=== PATIENT | male | born 1960 | race Caucasian/White ===

== ENCOUNTER 2018-04-22 07:00 | Emergency (ER) | payer OTHER, SELFPAY ==
[2018-04-22 07:01] VITALS: BP 136/68; PULSE 89; RESP 16; TEMP 36.9; O2SAT 98; BMI 42.0
--- NOTE | 2018-04-22 07:09 | CT_ITS ---
STUDY: CT ABDOMEN AND PELVIS WITHOUT CONTRAST REASON FOR EXAM: Male, 57 years old. Lower abdominal pain. History of kidney stones. RADIATION DOSAGE (If Supplied By Facility): CTDIvol = ( 24.18 ) mGy, DLP = ( 2641.30 ) mGycm TECHNIQUE: Transaxial images were obtained from the dome of the diaphragm to the symphysis pubis without oral contrast, and without intravenous contrast. Sagittal and coronal images were reconstructed. Individualized dose optimization techniques were used for this CT. COMPARISON: None. FINDINGS: The visualized lung bases are unremarkable. Coronary artery calcification. Normal liver. There are multiple gallstones. Normal spleen. Normal pancreas. There is a 3.3 cm x 2.8 cm inhomogeneous nodular density containing soft tissue density and fat density. This may represent a hemartoma or myelo lipoma of the left adrenal gland. Normal right kidney. Normal left kidney. Normal visualized stomach. Normal small intestine. There are multiple colonic diverticula consistent with diverticulosis. The appendix is visualized and appears normal. There is scattered atherosclerotic calcification of the abdominal aorta, without a demonstrated aneurysm. Normal inferior vena cava. There is borderline retroperitoneal lymphadenopathy with enlarged nodes no greater than 10mm in the short axis diameter. Normal urinary bladder. There is a small umbilical hernia containing fat. Small right inguinal hernia containing fat. There are mild degenerative changes of the visualized lumbar spine. CT/Abdomen/Pelvis without Cont IMPRESSION: There is a contracted stone filled gallbladder. 3.3 cm x 2.8 cm inhomogeneous nodular density in the left adrenal gland containing soft tissue density and fat density. This may represent either a hemartoma or myolipoma of the adrenal gland. Electronically Signed: Dario Farris MD at 8:24 EST Tel [phone], Service support ,
[2018-04-22] MEDS: 0.9% Normal Saline 1,000 ML 125 ML IV (07:38)
[2018-04-22 07:45] LABS: Bacteria 0 SEEN /hpf (None Seen); Mucous, Urine 0 SEEN /hpf (<or=2+); Red Blood Cells-Urine 0 SEEN /hpf (0-5); White Blood Cells 0 SEEN /hpf (0-5)
[2018-04-22 07:54] LABS: Basophil# 0.04 X10^3/uL; Basophil% 0.3 % (0-1); Eosinophil# 0.35 X10^3/uL; Eosinophils% 2.9 % (0-5); Hematocrit 47.8 % (40-54); Lymphocyte % 16.4 % (19-41); Mean Corp Hgb Conc 33.5 g/gl (32-36); Mean Corpuscular Hgb 30.5 pg (27.0-32.0); Mean Corpuscular Volume 91.2 fL (80-94); Mean Platelet Vol. 10.2 fl (6.2-12.0); Monocyte# 0.79 X10^3/uL; Monocyte% 6.5 % (0-10); Neutrophil # 8.99 X10^3/uL (2.7-7.7); Neutrophil % 73.7 % (47-70); Platelet Count 242 K/mm3 (150-450); RBC Distribution Width CV 13.4 % (11.6-14.6); RBC Distribution Width SD 44.2 fl (35.1-43.9); Red Blood Count 5.24 M/mm3 (4.6-6.2); White Blood Count 12.2 K/mm3 (4.4-11.0)
[2018-04-22 07:56] LABS: POSITIVE COUNT NO; POSITIVE DIFFERENTIAL NO; POSITIVE MORPHOLOGY NO
[2018-04-22 08:02] LABS: Color, Urine Yellow (Yellow); Glucose, Dipstick 1000 mg/dl (Normal); Ketone-Dipstick 5 mg/dl (Negative); Leukocyte Esterase-Dipstick Negative /ul (Negative); Nitrite-Dipstick Negative (Negative); Occult Blood-Urine Negative /ul (Negative); Protein-Dipstick 15 mg/dl (Negative); Specific Gravity, Urine 1.025 (1.002-1.030); Urine Bilirubin Dipstick Negative (Negative); Urine Clarity Clear (Clear); Urine Urobilinogen Normal (Normal)
[2018-04-22 08:04] LABS: ALB/GLOB Ratio 0.9 RATIO (0.9-2.4); AST(SGOT) 14 U/L (15-37); Alanine Aminotransfer ALT/SGPT 35 U/L (16-61); Albumin, Serum 3.6 g/dL (3.2-5.0); Alkaline Phosphatase 119 U/L (45-117); Anion Gap 7 (5-15); BUN 11 mg/dL (7-18); BUN/Creat Ratio 11.9 RATIO (10-20); Calcium,Total 9.3 mg/dL (8.5-10.1); Chloride 102 mmol/L (98-107); Creatinine, Serum 0.92 mg/dL (0.70-1.30); EST Glomerular Filtration Rate 89 mL/min (>60); Est Glom Filt Rate - Afr Amer 108 mL/min (>60); Estimated Creatinine Clearance 96.06 ml/min; Globulin 4.1 g/dL (2.2-4.2); Glucose 232 mg/dL (74-106); Lipase 131 U/L (73-393); Protein, Total 7.7 g/dL (6.4-8.2); Sodium Level 138 mmol/L (136-145)
[2018-04-22 08:08] LABS: Squamous Epithelial Cells - UA 0-5 SEEN /hpf (0-5)
[2018-04-22 08:18] LABS: Lactic Acid 2.3 mmol/L (0.4-2.0)
--- NOTE | 2018-04-22 08:39 | ED.VISSUMM ---
- ER Visit Summary Date of Service: 04/22/18 Chief Complaint: [Abdominal pain] History of Present Illness: The patient is a 57 M [presents the emergency department complaint of abdominal pain that started 2 PM yesterday. Patient states pain came on rather suddenly but it would resolve at times. Patient states that last night patient had a hard time sleeping secondary to pain and had a hard time laying on either side. Patient states the pain would relieve somewhat by laying flat on his back. Patient is never had pain like this before. He denies any injury to his abdomen. Patient denies any fever. He denies vomiting or diarrhea. Patient denies blood in his stool or black tarry stool. At rest he rates his pain a 2 out of 10 and with movement at times can go up to a 7 out of 10. Patient is never had pain like this before. He denies any pain into his testicles or groin. Patient denies urinary symptoms.] Physical Examination: [HEENT-PERRLA, EOMI. Cranial nerves II through XII grossly intact. TMs clear. Mucous membranes moist. No adenopathy. Cardiovascular-regular rate and rhythm without murmur or ectopy Lungs-clear to auscultation, chest wall stable without crepitus or subcu emphysema Abdomen-normoactive bowel sounds, soft. Patient has diffuse tenderness to palpation over the right lower quadrant, suprapubic region, and left lower quadrant. There is no rebound, rigidity, or perineal signs. Patient has a large protuberant abdomen. No hernias palpated. Extremities-intact ?4, normal range of motion, normal pulses, atraumatic] Test Results: [CBC with differential obtained showed a slightly elevated white blood cell count of 12.2. Hemoglobin 16, hematocrit 48, platelets 242. Chemistries unremarkable. LFTs were normal. Urinalysis was normal. Lactate was slightly elevated 2.3. CT scan of the abdomen and pelvis without contrast ordered showed a normal appendix. Patient did have a 3.3 x 2.8 cm inhomogenous nodular density in the left adrenal gland containing soft tissue density and fat density may represent either hemeartoma or myolipoma of the adrenal gland. Patient was noted to have some diverticuli but no evidence of diverticulitis. Patient had small umbilical hernia containing fat as well as a small right inguinal hernia contained fat.] Emergency Department Course and Treatment: [Patient did not want anything for pain. Patient was medicated with Cipro and Flagyl. Patient does have a slightly elevated lactate however my suspicion for ischemic colitis is extremely low. I discussed with patient obtaining a CT scan with IV contrast to evaluate further however patient states that his pain is intermittent and at times completely resolved which would be atypical for ischemic colitis and he would like to hold off on further imaging and IV contrast given his history of diabetes. I feel clinically his exam is not consistent with ischemic colitis. Patient states that he did not drink much fluid yesterday.] Treatment Plan: [At this point etiology of patient's abdominal pain is unclear although I suspect possibility remains for early diverticulitis and will cover with Cipro and Flagyl. Patient is now anything for pain. Patient advised to follow-up with his primary care physician within next 3-5 days. Patient advised to return if worsening pain, fever, vomiting, bloody stools, or condition should worsen anyway.] Disposition: [Discharged home in stable condition] Impression: [Abdominal pain-etiology uncertain] This note was generated with [employer] dictation software. It may contain incorrect words, spelling, and punctuation that were not noted in review of the chart prior to signing ED Disposition - Plan for ED Patient: Chief Complaint: Abd Pain Referrals: Eze Rick DO [Primary Care Provider] -
--- NOTE | 2018-04-22 08:44 | ED.DEP ---
ED Disposition - Plan for ED Patient: Chief Complaint: Abd Pain Instructions: ED Abdominal Pain Unkn Cause Prescriptions: Metronidazole [Flagyl] 500 mg PO Q8H #30 tab Ciprofloxacin [Cipro] 500 mg PO BID #20 tab Referrals: Eze Rick DO [Primary Care Provider] - 3-5 Days
[2018-04-22] MEDS: metroNIDAZOLE 500 MG Tablet PO (08:55)
[2018-04-22 08:58] VITALS: BP 136/65; PULSE 99; RESP 16; O2SAT 99
[2018-04-22] MEDS: Ciprofloxacin 250 MG Tablet 500 MG PO (09:22)
[2018-04-22 11:43] LABS: Reflex Lactate? Y
== END 2018-04-22 09:26 | disposition home or self-care (01) ==
LOC: ED 07:13
PROVIDERS: Emergency Provider Emergency Medicine; Family Provider Student in an Organized Health Care Education/Training Program; PCP Student in an Organized Health Care Education/Training Program
DX: R10.30 Lower abdominal pain, unspecified (principal); K42.9 Umbilical hernia without obstruction or gangrene; K40.90 Unilateral inguinal hernia, without obstruction or gangrene, not specified as recurrent; E11.9 Type 2 diabetes mellitus without complications; R51 Headache; Z79.899 Other long term (current) drug therapy; Z79.84 Long term (current) use of oral hypoglycemic drugs
CPT/HCPCS: 74176; 80053; 81001; 83605; 83690; 85025; 96360; 99284; A4216

== ENCOUNTER 2020-01-18 13:18 | Emergency (ER) | payer OTHER, SELFPAY ==
[2020-01-18 13:20] VITALS: BP 145/74; PULSE 107; RESP 16; TEMP 36.3; O2SAT 97; BMI 41.8
[2020-01-18 14:09] LABS: Absolute Lymphocyte Count 2.16 X10^3/uL (0.83-4.51); Absolute Neutrophil Count 5.9 X10^3/uL (2.0-7.7); Basophil# 0.05 X10^3/uL; Basophil% 0.6 % (0-1); Eosinophil# 0.14 X10^3/uL; Eosinophils% 1.6 % (0-5); Hemoglobin 15.8 g/dL (13.0-16.5); Lymphocyte # 2.16 X10^3/ul (4.0); Lymphocyte % 24.2 % (19-41); Mean Corp Hgb Conc 33.6 g/dL (32-36); Mean Corpuscular Volume 92.3 fL (80-94); Mean Platelet Vol. 9.9 fl (6.2-12.0); Monocyte# 0.62 X10^3/uL; Monocyte% 6.9 % (0-10); NRBC Flagged by Analyzer 0 % (0-5); Neutrophil # 5.88 X10^3/uL (2.7-7.7); Neutrophil % 65.7 % (47-70); Platelet Count 225 K/mm3 (150-450); RBC Distribution Width CV 13.3 % (11.6-14.6); RBC Distribution Width SD 45.1 fl (35.1-43.9); Red Blood Count 5.09 M/mm3 (4.6-6.2); White Blood Count 8.9 K/mm3 (4.4-11.0)
[2020-01-18 14:20] LABS: Anion Gap 4 (5-15); BUN 13 mg/dL (7-18); BUN/Creat Ratio 16.6 RATIO (10-20); Calcium,Total 9.5 mg/dL (8.5-10.1); Chloride 108 mmol/L (98-107); Creatinine, Serum 0.78 mg/dL (0.70-1.30); EST Glomerular Filtration Rate 107 mL/min (>60); Est Glom Filt Rate - Afr Amer 129 mL/min (>60); Estimated Creatinine Clearance 113.82 ml/min; Glucose 144 mg/dL (74-106); Potassium 4.1 mmol/L (3.5-5.1); Sodium Level 137 mmol/L (136-145)
[2020-01-18 14:26] VITALS: RESP 18
--- NOTE | 2020-01-18 14:34 | ED.DCSUM_ITS ---
History of Present Illness Chief Complaint: Lower Extremity Injury Detail of Chief Complaint: Drainage right leg and pain medial mid right foot Informant: Patient, Family Onset: Today - Foot pain started abruptly with no history of trauma. Patient denies history of diabetic neuropathy, Days Context: Gradual Onset - Weeping wound, Sudden Onset - Foot pain Timing: Continuous Quality: Serous drainage right leg and pain right foot Location: Right lower extremity Current Severity: Mild Maximum Severity: Moderate Worsened by: Pain is worse with touch Relieved by: Nothing Associated Symptoms: No constitutional symptoms Narrative: Patient is a 59-year-old male who presents because of drainage from his right leg and atraumatic pain right foot. The drainage has been present for several days. He is on antibiotics to prevent infection. He denies fever, chills night sweats. He denies numbness, tingling or loss of sensation. He denies history of diabetic neuropathy. He states his last A1c was the best it ever was at 7.8. There is no history of DVT or PE. He does have discoloration of the leg secondary to venous stasis dermatitis. Prior similar symptoms: Yes Recent Illness/Hospitalization: Yes - Past Medical History (1) History of diabetes mellitus, type I Status: Acute (2) History of hypertension Status: Acute Past Medical History - Allergies and Home Meds Allergies/Adverse Reactions: Allergies No Known Allergies Allergy (Verified 01/18/20 13:22) Primary Care Physician: Eze Rick DO [Primary Care Provider] - Prior records reviewed: Yes Lives: Alone Smoking Status: Former smoker Alcohol: None Drugs: None Review of Systems General: Denies: Chills, Fever, Malaise Eyes: Denies: Visual changes - bilaterally, Blurred Vision - bilaterally ENT: Denies: Rhinorrhea, Sore throat Cardiovascular: Denies: Chest pain, Palpitations Respiratory: Denies: Dyspnea, Cough, Dyspnea on exertion, Orthopnea, Paroxysmal nocturnal dyspnea Gastrointestinal: Denies: Abdominal pain, Nausea, Vomiting Genitourinary: Denies: Dysuria, Frequency Musculoskeletal: Reports: Swelling, Extremity Pain. Denies: Myalgias, Arthralgias, Neck pain, Back pain, -, - Skin: Reports: Rash, Wounds Neurological: Denies: Headache, Weakness, Parasthesia, Numbness Endocrine: Denies: Polyuria, Polydipsia Hematologic: Denies: Easy bruising, Easy bleeding Physical Exam Vital Signs/Narrative: Vital Signs Temp Pulse Resp BP Pulse Ox 01/18/20 14:26 18 01/18/20 13:20 97.4 F L 107 H 16 145/74 H 97 Inital Vital Signs reviewed: Yes General: Well nourished, Well developed, Obese, - - Patient does not appear well. Eyes: Perrl, EOMI. Negative for: Pale conjunctiva, Scleral icterus ENT: Moist mucous membranes, No rhinorrhea Neck: Supple, Nontender, No lymphadenopathy Cardiovascular: Regular rhythm, No murmurs, Normal S1, Normal S2, Tachycardia Respiratory: No distress, CTA bilaterally, Chest nontender Abdomen: Soft, Nontender, Nondistended, Normal bowel sounds Back: Nontender, Normal Inspection Extremities: Tenderness - Lonnie right medial foot. There is slight discoloration compared to the other side. There is no warmth, induration, fluctuance or lymphangitis. There is no popliteal angle lymphadenopathy. Rudy trivedi does have evidence of venous stasis dermatitis with serous drainage from his right leg.. Negative for: Nontender, No edema Diagnostic/Tx/Re-eval 01/18/20 13:40 Xray Foot [Foot min 3 Views] [RAD] Stat Laboratory Results 01/18/20 01/18/20 14:00 14:00 WBC 8.9 RBC 5.09 Hgb 15.8 Hct 47.0 MCV 92.3 MCH 31.0 MCHC 33.6 RDW Std Deviation 45.1 H RDW Coeff of Richard 13.3 Plt Count 225 MPV 9.9 Immature Gran % (Auto) 1.000 H Neut % (Auto) 65.7 Lymph % (Auto) 24.2 [place] % (Auto) 6.9 Eos % (Auto) 1.6 Baso % (Auto) 0.6 Absolute Neuts (auto) 5.9 Absolute Lymphs (auto) 2.16 Nucleated RBC % 0 Sodium 137 Potassium 4.1 Chloride 108 H Carbon Dioxide 25.0 Anion Gap 4 L BUN 13 Creatinine 0.78 Estim Creat Clear Calc 113.82 Est GFR (MDRD) Af Amer 129 Est GFR (MDRD) Non-Af 107 BUN/Creatinine Ratio 16.6 Glucose 144 H Calcium 9.5 X-ray was read by radiologist prior to my review. Agree there is no acute abnormality. Suspect patient's pain is due to diabetic neuropathy. Will place on gabapentin for neuropathic pain. - Medical Decision Making Patient has pain out of proportion to light tactile stimulus which would suggest this may represent diabetic neuropathy. There is no evidence of acute neurovascular compromise. There is no evidence of infection. Baseline blood work was obtained as well as x-ray. ED Disposition - Plan for ED Patient: Disposition: Home or Assisted Living Diagnosis: Diabetic neuropathy, painful, Venous stasis dermatitis of both lower extremities Instructions: ED Foot Care Diabetic, ED Ulcer Venous Leg Prescriptions: Gabapentin 300 mg PO BID 30 Days #60 cap Prescription Printed Lidocaine [Lidocaine 5%] 35 gm TOPICAL DAILY #14 tube Prescription Printed Referrals: Eze Rick DO [Primary Care Provider] - 1 Week if not improving
[2020-01-18 14:39] VITALS: BP 145/74; PULSE 107; RESP 18; TEMP 36.3; O2SAT 97
--- NOTE | 2020-01-18 14:40 | RAD_ITS ---
STUDY: X-RAY - RIGHT FOOT CLINICAL: Male, 59 years old. WOUND WITH REDNESS AND SWELLING TO FOOT, PUNCTURE WOUNDS TO LOWER LEG TECHNIQUE: 3 view(s) of the foot. COMPARISON: None. FINDINGS: There is an enthesophyte involving the posterior superior calcaneus at the site of insertion of the Achilles tendon. Small plantar spur. Normal visualized subtalar, talonavicular, calcaneocuboid, tarsal and tarsometatarsal articulations. Normal metatarsi. Normal metatarsophalangeal joint of the great toe. Normal tibial and fibular sesamoid bones. Normal interphalangeal joint of the great toe. Normal phalanges of the great toe. Normal second through fifth metatarsophalangeal joints. Normal interphalangeal joints and phalanges of the lesser toes. Soft tissue swelling. RAD/Foot min 3 Views IMPRESSION: Soft tissue swelling. Electronically Signed: Dario Farris, at 15:02 EDT , Service support ,
[2020-01-18 16:21] VITALS: BP 131/58; PULSE 62; RESP 15; O2SAT 98
== END 2020-01-18 16:29 | disposition home or self-care (01) ==
PROVIDERS: Emergency Provider Emergency Medicine; PCP Student in an Organized Health Care Education/Training Program
DX: M79.671 Pain in right foot (principal); E10.40 Type 1 diabetes mellitus with diabetic neuropathy, unspecified; L30.8 Other specified dermatitis; I87.8 Other specified disorders of veins; E66.9 Obesity, unspecified; Z79.4 Long term (current) use of insulin; Z87.891 Personal history of nicotine dependence
CPT/HCPCS: 73630; 80048; 85025; 99283

== ENCOUNTER 2020-05-27 12:38 | Emergency (ER) | payer OTHER, SELFPAY ==
[2020-05-27 12:39] VITALS: BP 166/93; PULSE 103; RESP 19; TEMP 36.4; O2SAT 96; BMI 42.4
--- NOTE | 2020-05-27 12:53 | RAD_ITS ---
STUDY: X-RAY - UNILATERAL RIBS ( RIGHT ) WITH CHEST REASON FOR EXAM: Male, 59 years old. Fell backwards, posterior rib pain TECHNIQUE - RIBS: 4 view(s) of the ribs. TECHNIQUE - CHEST: Single PA view of the chest. COMPARISON: None. FINDINGS - RIBS: Normal visualized ribs without a demonstrated fracture. FINDINGS - CHEST: The lungs are clear and expanded. There is no demonstrated pleural abnormality. Normal size heart. Normal mediastinum and karmen. Normal visualized pulmonary arteries. Normal visualized aortic arch and descending thoracic aorta. There are diffuse degenerative changes of the visualized thoracic spine. Normal visualized ribs, clavicles, and shoulders. 2.6 cm x 2.7 cm rounded calcification in the right upper quadrant most likely representing a gallstone. RAD/Ribs Uni Min 3V w/PA Chest IMPRESSION: RIBS: Normal x-ray examination of the ribs. CHEST: Normal x-ray examination of the chest. Electronically Signed: Dario Farris, at 13:49 EST , Service support ,
--- NOTE | 2020-05-27 12:53 | RAD_ITS ---
STUDY: X-RAY - CERVICAL SPINE REASON FOR EXAM: Male, 59 years old. Fell backwards, neck pain -- unable to raise left or right arm for swimmers view TECHNIQUE: 3 view(s) of the cervical spine were obtained. COMPARISON: None FINDINGS: Normal anterior atlantoaxial articulation. Normal odontoid process. There is straightening of the normal cervical lordosis. Disc space narrowing and spondylosis at the C5-C6 and C6-C7 levels. Normal disc space heights. Normal visualized intervertebral neuroforamina. The soft tissue structures are unremarkable. RAD/Cerv Spine 2 or 3 Views IMPRESSION: Straightening of the normal cervical lordosis. Disc space narrowing and spondylosis at the C5-C6 and C6-C7 levels. Electronically Signed: Dario Farris, at 13:46 EST , Service support ,
--- NOTE | 2020-05-27 12:54 | ED.DCSUM_ITS ---
History of Present Illness Chief Complaint: Fall Informant: Patient Onset: Today Current Severity: Moderate Maximum Severity: Moderate Narrative: Patient presents secondary to pain after a fall. Patient states he leaned down to tie his shoe when he lost his balance and fell backwards down 4 steps. He is complaining of pain to his right lower ribs posteriorly as well as an abrasion on his right forearm. Patient states he is started to get some tightness in his neck. He did not lose consciousness. He is not on anticoagulants. - Past Medical History (1) History of diabetes mellitus, type I Status: Chronic (2) History of hypertension Status: Chronic Past Medical History - Allergies and Home Meds Allergies/Adverse Reactions: Allergies No Known Allergies Allergy (Verified 05/27/20 12:38) Primary Care Physician: Eze Rick DO [Primary Care Provider] - Prior records reviewed: Yes Smoking Status: Former smoker Review of Systems General: Denies: Chills, Fever Eyes: Denies: Visual changes - bilaterally ENT: Denies: Bilateral ear pain Cardiovascular: Denies: Chest pain Respiratory: Reports: Dyspnea Gastrointestinal: Denies: Abdominal pain, Vomiting, Diarrhea Musculoskeletal: Reports: Back pain - Right posterior ribs, Extremity Pain Skin: Reports: Wounds Neurological: Denies: Headache Hematologic: Denies: Easy bruising, Easy bleeding Allergy: Denies: Uticaria Physical Exam Vital Signs/Narrative: Vital Signs Temp Pulse Resp BP Pulse Ox 05/27/20 12:39 97.6 F L 103 H 19 H 166/93 H 96 Inital Vital Signs reviewed: Yes General: Well nourished, Well developed Head: Normocephalic ENT: Moist mucous membranes Neck: Supple, - - No C-spine tenderness. Cardiovascular: Regular rate, Regular rhythm Respiratory: No distress, CTA bilaterally - Bilateral breath sounds are noted. Abdomen: Soft, Nontender Back: - - Tenderness palpation of the right lower posterior ribs. No overlying skin change. Extremities: - - Deep abrasion with small laceration noted to the right forearm. No bony tenderness with full range of motion. Neurological: Alert, Oriented x3, - - No focal neurologic deficits. Psychological: Normal affect Diagnostic/Tx/Re-eval Impressions Cervical Spine X-Ray 05/27/20 12:53 IMPRESSION: Straightening of the normal cervical lordosis. Disc space narrowing and spondylosis at the C5-C6 and C6-C7 levels. Electronically Signed: Dario Farris, at 13:46 EST , Service support , Ribs w/Chest X-Ray 05/27/20 12:53 IMPRESSION: RIBS: Normal x-ray examination of the ribs. CHEST: Normal x-ray examination of the chest. Electronically Signed: Dario Farris, at 13:49 EST , Service support , 05/27/20 12:53 Cerv Spine 2 or 3 Views [RAD] Stat Ribs Uni Min 3V w/PA Chest [RAD] Stat - Medical Decision Making Patient only requested ibuprofen for pain stating that stronger pain medication made him vomit. He was given a had a milligrams of ibuprofen. C-spine x-rays reveal straightening of the normal cervical lordosis. Rib series with chest x- ray reveals no obvious fractures. No pneumothorax. I did explain to the patient that he likely does have nondisplaced rib fractures given his exam and mechanism. Patient does not wish for anything stronger for home and will continue ibuprofen. Right forearm wound was cleansed by nursing staff. Dressing will be applied. Tetanus update was given. ED Disposition - Plan for ED Patient: Disposition: Home or Assisted Living Diagnosis: Fall, Rib contusion, Cervical strain, Forearm laceration Instructions: ED Laceration Small or ..., ED Rib Contusion or Minor Fracture Referrals: Eze Rick DO [Primary Care Provider] - 1-2 Weeks
[2020-05-27] MEDS: Diphth,Pertuss(Acell),Tet Vac 0.5 ML Vial IM (13:29)
[2020-05-27] MEDS: Ibuprofen 400 MG Tablet 800 MG PO (13:30)
== END 2020-05-27 14:05 | disposition home or self-care (01) ==
PROVIDERS: Emergency Provider Emergency Medicine; PCP Student in an Organized Health Care Education/Training Program
DX: S20.219A Contusion of unspecified front wall of thorax, initial encounter (principal); S16.1XXA Strain of muscle, fascia and tendon at neck level, initial encounter; S51.811A Laceration without foreign body of right forearm, initial encounter; I10 Essential (primary) hypertension; W10.9XXA Fall (on) (from) unspecified stairs and steps, initial encounter; Z87.891 Personal history of nicotine dependence
CPT/HCPCS: 90471; 71101; 72040; 90715; 99283; A4216

== ENCOUNTER 2020-08-24 06:14 | Observation (INO) | payer OTHER, SELFPAY ==
[2020-08-24] VITALS (10 sets, daily range): BP systolic 101–148; BP diastolic 41–74; PULSE 76–113; RESP 16–22; TEMP 35.9–36.9; O2SAT 93–99; BMI 39.5; BMI 41.7
--- NOTE | 2020-08-24 | APP_PTH ---
PATIENT: ROBERTO BOATENG LOC: MS3 U#:[id number] AGE/SX: 60/M [place] [facility] [place]: Dr. Delia Dewitt MD : 1960 BED: 1 DIS: 08/24/2020 SPEC #: [id number] RECD: 08/25/20 06:28 STATUS: SUSAN REHeri #: [id number] IVONNE: 08/24/20 00:[address]: Delia Dewitt DEPT: SURGICAL PATHOLOGY RECD BY: Arley Madera ENTERED: 08/25/20 07:40 SP TYPE: APPENDIX OTHR DR: Dr. Eze Rick, DO Tissues: Appendix, NOS Procedures: Surgery Specimen Level III HEADER OPERATION: Laparoscopic appendectomy PRE-OP DIAGNOSIS: Right lower quadrant pain consistent with acute appendicitis TISSUE SUBMITTED: Appendix MICROSCOPIC DIAGNOSIS Appendix, appendectomy: Acute appendicitis and periappendicitis. DORY:amalia 08/26/2020 MICROSCOPIC DESCRIPTION Slides are reviewed. GROSS DESCRIPTION Received in fixative is one container labeled with the patient's name and designated appendix. The specimen consists of an appendix measuring 8 cm in length and up to 1.2 cm in diameter. The attached periappendiceal adipose tissue measures up to 2 cm in width. The serosal surface is covered with griffith, purulent exudate. No obvious perforation is identified. The distal two portion of the appendix is markedly narrow and shows an obliterated lumen. The lumen contains fecal material. No fecalith is identified. Pediatric Rn sections are submitted in one cassette. / SJ:rg 08/25/20 TC:2 CPT: 69142
--- NOTE | 2020-08-24 06:17 | ED.DCSUM_ITS ---
History of Present Illness Chief Complaint: Abd Pain Narrative: This patient is a 60-year-old male who presents with right lower quadrant abdominal pain. He woke up with it roughly at 1 AM, about 5 and half hours ago. This was of sudden onset. It is constant and steady. He describes it as excruciating but is unable to further characterize the pain. It does not radiate to the testicle or back. He reports mild nausea without vomiting. He did have some mild diarrhea last night but attributes this to medications as it is chronic recurrent issue and not unusual for him. He denies dysuria frequency or urgency. No fevers. He denies any abdominal surgeries. He does have a history of prior ureterolithiasis but states this does not feel similar. Past Medical History - Allergies and Home Meds Allergies/Adverse Reactions: Allergies No Known Allergies Allergy (Verified 08/24/20 06:14) Primary Care Physician: Eze Rick DO [Primary Care Provider] - Past Medical History: - - Diabetes, hypertension, hyperlipidemia Smoking Status: Never smoker Review of Systems All systems negative except as indicated General: Denies: Fever Eyes: Denies: Visual changes - bilaterally ENT: Denies: Bilateral ear pain Cardiovascular: Denies: Chest pain Respiratory: Denies: Dyspnea Gastrointestinal: Reports: Abdominal pain, Nausea, Diarrhea. Denies: Vomiting Musculoskeletal: Denies: Myalgias, Arthralgias Skin: Denies: Rash Neurological: Denies: Headache Hematologic: Denies: Easy bruising Allergy: Denies: Uticaria Physical Exam Vital Signs/Narrative: Vital Signs Temp Pulse Resp BP Pulse Ox 08/24/20 06:15 97.8 F 99 22 H 127/68 H 95 Inital Vital Signs reviewed: Yes General: Well nourished, Obese Head: Normocephalic Eyes: EOMI ENT: Moist mucous membranes Neck: Supple Cardiovascular: Regular rate, Regular rhythm Respiratory: No distress, CTA bilaterally Abdomen: Soft, Tender - Right lower quadrant abdominal tenderness without guarding without rebound Skin: Normal color Neurological: Alert Psychological: Normal affect Diagnostic/Tx/Re-eval 08/24/20 06:27 Abdomen/Pelvis W IV Cont ONLY [CT] Stat Laboratory Results 08/24/20 08/24/20 06:30 06:30 WBC 15.8 H RBC 5.37 Hgb 16.0 Hct 49.5 MCV 92.2 MCH 29.8 MCHC 32.3 RDW Std Deviation 47.0 H RDW Coeff of Richard 14.0 Plt Count 231 MPV 10.1 Immature Gran % (Auto) 0.400 Neut % (Auto) 81.4 H Lymph % (Auto) 11.8 L [place] % (Auto) 5.5 Eos % (Auto) 0.5 Baso % (Auto) 0.4 Absolute Neuts (auto) 12.9 H Absolute Lymphs (auto) 1.87 Nucleated RBC % 0 Sodium 136 Potassium 3.9 Chloride 102 Carbon Dioxide 28.0 Anion Gap 6 BUN 16 Creatinine 0.88 Estim Creat Clear Calc 99.62 Est GFR (MDRD) Af Amer 113 Est GFR (MDRD) Non-Af 93 BUN/Creatinine Ratio 18.1 Glucose 195 H Calcium 9.2 Total Bilirubin 0.60 AST 23 ALT 34 Alkaline Phosphatase 118 H Total Protein 8.0 Albumin 3.6 Globulin 4.4 H Albumin/Globulin Ratio 0.8 L - Medical Decision Making Patient was given IV fluids, morphine, Zofran. He has had some relief of symptoms although not resolution. His labs are notable for leukocytosis with a white blood cell count of 15.8. At the time of this dictation a CT of the abdomen pelvis is pending. Patient will be signed out to the oncoming emergency physician to follow-up on this imaging reevaluate make final disposition. ED Disposition - Plan for ED Patient: Diagnosis: Abdominal pain Referrals: Eze Rick DO [Primary Care Provider] -
--- NOTE | 2020-08-24 06:27 | CT_ITS ---
STUDY: CT ABDOMEN AND PELVIS WITH CONTRAST REASON FOR EXAM: Male, 60 years old. Right-sided pain RADIATION DOSAGE (If Supplied By Facility): CTDIvol = ( 15.41 ) mGy, DLP = ( 1395.76 ) mGycm TECHNIQUE: Transaxial images were obtained from the dome of the diaphragm to the symphysis pubis without oral contrast. 100 ml of ISOVUE-300 contrast was administered. Sagittal and coronal images were reconstructed. Individualized dose optimization techniques were used for this CT. COMPARISON: 04/22/18 FINDINGS: There is a moderate right pleural effusion with overlying atelectasis. The visualized portions of the heart and pericardium are within normal limits. There are atherosclerotic calcifications noted in the coronary arteries. Again noted are multiple calcified gallstones present. There is a 2.7 x 2.0 cm hypodensity in the right lobe of the liver. This appears to have a focus of peripheral enhancement (image 32 series 2) and likely represents a hemangioma. However, in the setting of trauma a hepatic laceration cannot be excluded. If indicated, further evaluation with ultrasound or MRI can be performed to confirm a hemangioma. The liver is otherwise unremarkable. The spleen is normal in size. The pancreas is within normal limits. The right adrenal gland is within normal limits. There is a stable left adrenal nodule which contains fat and soft tissue density. This is consistent with a myelolipoma. There are no renal or ureteral stones. There is no hydronephrosis. There are no focal renal lesions. Normal visualized stomach. There is no bowel obstruction or inflammation. The appendix measures 6 mm with mild adjacent stranding. The aorta is normal in caliber. There are atherosclerotic calcifications in the aorta and its branches. There is no abdominal or pelvic free air, free fluid, fluid collection or lymphadenopathy. There are fractures of the right eighth and ninth ribs. The remainder of the visualized abdominal and pelvic osseous structures are intact. CT/Abdomen/Pelvis W IV Cont ONLY IMPRESSION: Fractures of the right eighth and ninth ribs. The remainder of the visualized abdominal and pelvic osseous structures are intact. Moderate right pleural effusion. If indicated, a dedicated chest CT can be performed. 2.7 x 2.0 cm hypodensity in the right lobe of the liver. This appears to have a focus of peripheral enhancement and likely represents a hemangioma. However, in the setting of trauma a hepatic laceration cannot be excluded. If indicated, further evaluation with ultrasound or MRI can be performed to confirm a hemangioma. Appendix at the upper limits of normal in size (6 mm) with mild adjacent stranding. If there is concern for acute appendicitis, a repeat examination with oral contrast can be performed. Additional stable nonacute findings, as above. Electronically Signed: Emmanuel Gusman MD at 7:33 EDT Tel , Service support ,
[2020-08-24 06:35] LABS: Absolute Lymphocyte Count 1.87 X10^3/uL (0.83-4.51); Absolute Neutrophil Count 12.9 X10^3/uL (2.0-7.7); Basophil# 0.07 X10^3/uL; Basophil% 0.4 % (0-1); Eosinophil# 0.08 X10^3/uL; Eosinophils% 0.5 % (0-5); Hematocrit 49.5 % (40-54); Lymphocyte # 1.87 X10^3/ul (4.0); Lymphocyte % 11.8 % (19-41); Mean Corp Hgb Conc 32.3 g/dL (32-36); Mean Corpuscular Hgb 29.8 pg (27.0-32.0); Mean Corpuscular Volume 92.2 fL (80-94); Mean Platelet Vol. 10.1 fl (6.2-12.0); Monocyte# 0.87 X10^3/uL; Monocyte% 5.5 % (0-10); NRBC Flagged by Analyzer 0 % (0-5); Neutrophil # 12.88 X10^3/uL (2.7-7.7); Neutrophil % 81.4 % (47-70); Platelet Count 231 K/mm3 (150-450); Red Blood Count 5.37 M/mm3 (4.6-6.2); White Blood Count 15.8 K/mm3 (4.4-11.0)
[2020-08-24] MEDS: 0.9% Normal Saline 1,000 ML 1000 ML IV (06:36)
[2020-08-24] MEDS: Morphine 4 MG/ML Syringe IV (06:36)
[2020-08-24] MEDS: Ondansetron 4 MG/2 ML Vial IV (06:37)
[2020-08-24 06:51] LABS: ALB/GLOB Ratio 0.8 RATIO (0.9-2.4); AST(SGOT) 23 U/L (15-37); Alanine Aminotransfer ALT/SGPT 34 U/L (16-61); Albumin, Serum 3.6 g/dL (3.2-5.0); Alkaline Phosphatase 118 U/L (45-117); Anion Gap 6 (5-15); BUN 16 mg/dL (7-18); BUN/Creat Ratio 18.1 RATIO (10-20); Calcium,Total 9.2 mg/dL (8.5-10.1); Chloride 102 mmol/L (98-107); Creatinine, Serum 0.88 mg/dL (0.70-1.30); EST Glomerular Filtration Rate 93 mL/min (>60); Est Glom Filt Rate - Afr Amer 113 mL/min (>60); Estimated Creatinine Clearance 99.62 ml/min; Globulin 4.4 g/dL (2.2-4.2); Glucose 195 mg/dL (74-106); Potassium 3.9 mmol/L (3.5-5.1); Sodium Level 136 mmol/L (136-145)
[2020-08-24 07:08] LABS: Bacteria 0 SEEN /hpf (None Seen); Mucous, Urine 0 SEEN /hpf (<or=2+); Red Blood Cells-Urine 0 SEEN /hpf (0-5); White Blood Cells 0 SEEN /hpf (0-5)
[2020-08-24 07:19] LABS: Color, Urine Yellow (Yellow); Glucose, Dipstick 1000 mg/dl (Normal); Ketone-Dipstick 5 mg/dl (Negative); Leukocyte Esterase-Dipstick Negative /ul (Negative); Nitrite-Dipstick Negative (Negative); Occult Blood-Urine Negative /ul (Negative); Protein-Dipstick Negative (Negative); Urine Bilirubin Dipstick Negative (Negative); Urine Clarity Sl. Cloudy (Clear); Urine Urobilinogen Normal (Normal)
[2020-08-24 07:31] LABS: Squamous Epithelial Cells - UA 5-10 SEEN /hpf (0-5)
--- NOTE | 2020-08-24 08:11 | EKG12_ITS ---
Test Reason : PRE-OP Blood Pressure : / mmHG Vent. Rate : 098 BPM Atrial Rate : 098 BPM P-R Int : 182 ms QRS Dur : 102 ms QT Int : 366 ms P-R-T Axes : 036 037 014 degrees QTc Int : 467 ms Normal sinus rhythm Normal ECG Confirmed by SUNIL LAWRENCE, JENN ([id number]), editor & co founder KARLO ZELAYA ([id number]) on 08/26/2020 2:34:23 PM Referred By: VICKI Confirmed By:CHINA BARBER MD
--- NOTE | 2020-08-24 08:17 | NURSING ---
NO OLD EKGS
--- NOTE | 2020-08-24 08:24 | NURSING ---
MED SURG AFTER SURGERY APPENDICITIS ROBOTHAM
--- NOTE | 2020-08-24 08:40 | NURSING ---
ROOM THEN SURGERY
--- NOTE | 2020-08-24 09:02 | PCM.HP.STD ---
Problem List (1) Abdominal pain Status: Acute History of Present Illness Date of Admission: 08/24/20 Chief Complaint: Right lower quadrant pain The patient is a 60 year old M I am seeing for right lower quadrant pain. Patient states he woke at 01:00 AM with right lower quadrant abdominal pain. He denies feeling ill yesterday. He denies nausea, vomiting. He noted the car ride into the ED was miserable especially the bumps. He notes history of constipation which is nothing new for him. He denies cardiac history including previous myocardial infarction, stroke or blood clots. He notes neuropathy bilateral lower extremities and feet. He notes skin discoloration from diabetes. CT scan of the abdomen/pelvis demonstrated the following: FINDINGS: There is a moderate right pleural effusion with overlying atelectasis. The visualized portions of the heart and pericardium are within normal limits. There are atherosclerotic calcifications noted in the coronary arteries. Again noted are multiple calcified gallstones present. There is a 2.7 x 2.0 cm hypodensity in the right lobe of the liver. This appears to have a focus of peripheral enhancement (image 32 series 2) and likely represents a hemangioma. However, in the setting of trauma a hepatic laceration cannot be excluded. If indicated, further evaluation with ultrasound or MRI can be performed to confirm a hemangioma. The liver is otherwise unremarkable. The spleen is normal in size. The pancreas is within normal limits. The right adrenal gland is within normal limits. There is a stable left adrenal nodule which contains fat and soft tissue density. This is consistent with a myelolipoma. There are no renal or ureteral stones. There is no hydronephrosis. There are no focal renal lesions. Normal visualized stomach. There is no bowel obstruction or inflammation. The appendix measures 6 mm with mild adjacent stranding. The aorta is normal in caliber. There are atherosclerotic calcifications in the aorta and its branches. There is no abdominal or pelvic free air, free fluid, fluid collection or lymphadenopathy. There are fractures of the right eighth and ninth ribs. The remainder of the visualized abdominal and pelvic osseous structures are intact. WBC is 15.8. Past Medical History Past Medical History (Chronic Problems): Chronic Problems History of diabetes mellitus, type I (Chronic) History of hypertension (Chronic) Allergies No Known Allergies Allergy (Verified 08/24/20 06:14) Home Medications: Ambulatory Orders Medication Instructions Recorded Atorvastatin Calcium 40 mg PO DAILY 04/22/18 Furosemide [Lasix] 20 mg PO DAILY 04/22/18 Glipizide [Glucotrol Xl] 10 mg PO DAILY 04/22/18 Lisinopril [Zestril] 40 mg PO DAILY 04/22/18 Empagliflozin [Jardiance] 10 mg PO DAILY 01/18/20 Glipizide [Glucotrol Xl] 20 mg PO QHS 01/18/20 Dulaglutide [Trulicity] 1.5 mg SQ QWEEK 08/24/20 Gabapentin [Neurontin] 100 mg PO BID 08/24/20 Multivitamin 1 each PO DAILY 08/24/20 Surgical History: - - teeth extraction otherwise no previous surgeries. Psychiatric History: No pertinent psych hx Lives: Spouse/ Significant Other Smoking Status: Never smoker - *Family History Maternal History Items: No pertinent history Paternal History Items: No pertinent history Review of Systems Constitutional: Denies: Chills, Fever, Weight Change HEENT: Denies: Head Aches, Sinus Congestion, Sinus Drainage Cardiovascular: Denies: Chest Pain, Palpitations Respiratory: Reports: Shortness of Breath Gastrointestinal: Reports: Abdominal Pain, Constipation. Denies: Nausea Genitourinary: Denies: Dysuria Musculoskeletal: Denies: Joint Pain, Joint Tenderness Skin: Reports: Skin Changes - bilateral lower extremities Neurological: Denies: Numbness, Tingling, Focal weakness Psychiatric: Denies: Anxiety, Depression, Homicidal Ideations, Suicidal Ideations Hematologic/ Lymphatic: Denies: Easy Bruising, Easy Bleeding VTE Information - Inpt Only VTE Present on Admission: Yes VTE Mechan Device Prophylaxis: SCD's Patient Problems: Active and Suspected Problems Abdominal pain (Acute) - Physical Exam Vitals/I&O's: Vital Signs Temp Pulse Resp BP Pulse Ox 98.3 F 101 H 16 148/73 H 98 08/24/20 08:44 08/24/20 08:44 08/24/20 08:44 08/24/20 08:44 08/24/20 08:44 Oxygen Delivery Method Room Air Weight: 300 lb Body Mass Index (BMI) 39.5 Intake and Output for Last 24 Hours 08/22/20 08/23/20 08/24/20 23:59 23:59 23:59 Intake Total 1000 / 1000 Balance 1000 / 1000 General: Alert, Oriented x3, Cooperative HEENT: Atraumatic, PERRLA, EOMI, Normocephalic Neck: Supple, No JVD, Negative Carotid Bruits Lungs: Clear to auscultation, Normal air movement Cardiovascular: Regular rate, No murmurs Abdomen: Soft, Obese, Guarding - RLQ, Tender - RLQ Extremities: Edema - bilateral lower extremities, 1+ Skin: - - Skin changes bilateral lower extremities Musculoskeletal: No Tenderness to Palpation of Joints or Extremities Neurological: Neuro grossly intact Psych/Mental Status: Normal Affect, Appropriate Microbiology Past 72 Hours 08/24/20 08:15 Mucosa - Nose SARS-CoV-2 Antigen (Rapid) - Final Laboratory Results 08/24/20 06:30: WBC 15.8 H, RBC 5.37, Hgb 16.0, Hct 49.5, MCV 92.2, MCH 29.8, MCHC 32.3, RDW Std Deviation 47.0 H, RDW Coeff of Richard 14.0, Plt Count 231, MPV 10.1, Immature Gran % (Auto) 0.400, Neut % (Auto) 81.4 H, Lymph % (Auto) 11.8 L, [place] % (Auto) 5.5, Eos % (Auto) 0.5, Baso % (Auto) 0.4, Absolute Neuts (auto) 12.9 H, Absolute Lymphs (auto) 1.87, Nucleated RBC % 0 08/24/20 06:30: Sodium 136, Potassium 3.9, Chloride 102, Carbon Dioxide 28.0, Anion Gap 6, BUN 16, Creatinine 0.88, Estim Creat Clear Calc 99.62, Est GFR (MDRD) Af Amer 113, Est GFR (MDRD) Non-Af 93, BUN/Creatinine Ratio 18.1, Glucose 195 H, Calcium 9.2, Total Bilirubin 0.60, AST 23, ALT 34, Alkaline Phosphatase 118 H, Total Protein 8.0, Albumin 3.6, Globulin 4.4 H, Albumin/Globulin Ratio 0.8 L 08/24/20 06:45: Urine Color Yellow, Urine Clarity Sl. Cloudy, Urine pH 5.0, Ur Specific [place] 1.020, Urine Protein Negative, Urine Glucose (UA) 1000 H, Urine Ketones 5 H, Urine Occult Blood Negative, Urine Nitrite Negative, Urine Bilirubin Negative, Urine Urobilinogen Normal, Ur Leukocyte Esterase Negative, Urine RBC 0 SEEN, Urine WBC 0 SEEN, Ur Squamous Epith Cells 5-10 SEEN, Urine Bacteria 0 SEEN, Urine Mucus 0 SEEN Assessment/Plan All Active Problems Abdominal pain (Acute) I am seeing this patient in conjunction with Dr. Dewitt. She will independently evaluate this patient. Impression: Right lower quadrant pain consistent with acute appendicitis. Plan: Discussed patient with Dr. Dewitt. Dr. Dewitt will plan to perform a laparoscopic appendectomy possible conversion to open, possible bowel resection. Procedure details, risks and benefits have been explained to the patient. Patient and his have had the opportunity to ask and have questions answered. Patient verbally understands and agrees with the plan. Will admit patient to med/surg floor prior to surgery. Surgery tentatively scheduled at 1400. Thank you for allowing us to participate in this patient's care. Office Visits / Consults: [id number] IP Consult L3
[2020-08-24] MEDS: 0.9% Normal Saline 1,000 ML 100 ML IV (09:55)
[2020-08-24] MEDS: Bupiv/Epi 0.25% 30 ML Vial (11:36)
--- NOTE | 2020-08-24 11:42 | PCM.OPRPT ---
Report of Operation Date of Procedure: 08/24/20 Pre-Operative Diagnosis: acute appendicitis Post-Operative Diagnosis: Same Surgery/Procedure Performed:: Laparoscopic appendectomy Type of Anesthesia:: Local MAC Anesthesiologist: Chris Schaffer Special Medications: Zosyn IV in the ER for acute appendicitis Specimen's removed: Appendix Estimated Blood Loss (mL): 10 cc Fluids Replaced: 700 cc Description of Procedure: Indications: 60-year-old male presented to the ER with new right lower quadrant pain this morning. On workup he was found to have acute appendicitis on CT and a leukocytosis of 13. Patient was started on antibiotics in the ER for acute appendicitis-Zosyn IV x1 Description of the procedure: The patient was placed on operating table in supine position. General anesthesia was induced. A timeout was completed verifying correct patient, procedure, position and special equipment prior to beginning procedure. Abdomen was prepped and draped in usual sterile fashion. Incision was made in the natural skin line above the umbilicus with a 15 blade scalpel. The fascia was elevated and incised. Entry into the peritoneum was confirmed visually and no bowel was noted in the vicinity of the incision. The Robles trocar was placed under direct vision. Abdomen insufflated with a pressure of 12-15 mmHg. Patient tolerated insertion well. The scope was inserted and the abdomen inspected. No injuries from initial trocar placement were noted. Minimal amount of fluid was seen in the right lower quadrant. An direct visualization 2 -5 mm trocars were placed one above the symphysis pubis and below the hairline and one in the left lower quadrant. Care is taken to avoid injury to the bladder and inferior epigastric vessels. The table was placed in Trendelenburg position with the right side elevated. The appendix was grasped with atraumatic grasper and elevated. It was noted to be inflamed. A window was developed in the mesoappendix at the point between the base of the appendix and the cecum. An endoscopic 45 mm linear cutting stapler blue load was then used to divide and staple the base of the appendix. Enseal was used to divide the mesoappendix The appendix was withdrawn into the Robles trocar after being placed endoscopically retrieval bag. Appendix was sent to pathology. The appendiceal stump was then irrigated and hemostasis was assured. Fluid was suctioned no other pathology was identified. Secondary trochars were removed under direct visualization. No bleeding was noted trocar sites. The laparoscope withdrawn and the umbilical trocar removed. The abdomen was allowed to collapse. Local anesthesia of 30 mL of 0.25% Marcaine with epi was used at the incision sites. The umbilical trocar site was closed with the [id number] 0 Vicryl suture. The skin was closed up to clear sutures of 4-0 Monocryl and Steri-Strips. The patient was extubated. The patient tolerated the procedure well and was taken to the postanesthesia care unit in satisfactory condition. - Complications none
--- NOTE | 2020-08-24 12:11 | DCINST_ITS ---
Discharge Diet: - - diabetic diet Discharge Activity: May not drive while taking narcotic pain medications. May shower in (days): 1 Lifting Restrictions: no lifting >20lbs x 2 wks, no strenuous exercise for 4 wks Call your doctor if your incision/area has: Continuous Slow Oozing, Sudden Increased Bleeding, Increased Pain/ Swelling, Increased Redness, Foul Smelling Discharge, Swelling at the incision site Call your doctor if you observe: Fever of 101 or Higher Remove Dressing in (days):: 1 - Steri-Strips will stay on if they do not fall off in 10 days okay to remove Additional Instructions: Okay to take ibuprofen 400-600 mg PO q6hr PRN along with the Percocet. Avoid Tylenol since there is already Tylenol in the Percocet. Take all pain meds with food. Percocet can cause constipation recommend taking daily stool softener (i.e. Colace/docusate) while taking the pain meds. Recommend starting some MiraLAX in 1-2 days if no bowel movement. If still no bowel movement following day recommend taking magnesium citrate half the bottle and waiting 4-6 hours if still no results take the other half the bottle. Medications to take at Discharge Atorvastatin Calcium 40 mg PO DAILY 04/22/18 Furosemide [Lasix] 20 mg PO DAILY 04/22/18 Glipizide [Glucotrol Xl] 10 mg PO DAILY 04/22/18 Lisinopril [Zestril] 40 mg PO DAILY 04/22/18 Empagliflozin [Jardiance] 10 mg PO DAILY 01/18/20 Glipizide [Glucotrol Xl] 20 mg PO DINNER 01/18/20 Dulaglutide [Trulicity] 1.5 mg SQ .Saturday08/24/20 Gabapentin [Neurontin] 100 mg PO BID 08/24/20 Multivitamin 1 each PO DAILY 08/24/20 Oxycodone HCl/Acetaminophen [Percocet 5/325] 1 - 2 tablet PO Q6H PRN PRN 3 Days #10 tablet 08/24/20 Allergies/Adverse Reactions: Allergies No Known Allergies Allergy (Verified 08/24/20 06:14) Primary Care Physician: Eze Rick DO [Primary Care Provider] - Test Results: Test results from this visit will be discussed in further detail at your follow- up appointment, if applicable. Please Follow Up With: Delia Dewitt MD - After 5 PM and on the weekends call [phone] with any concerns When: Call the office for follow-up appointment in 2 weeks. Proposed Discharge Date: 08/24/20
[2020-08-24 12:26] LABS: Bedside Glucose 174 mg/dL (70-110)
== END 2020-08-24 18:20 | disposition home or self-care (01) ==
LOC: ED 08:18 → MS3 08:39
PROVIDERS: Admitting Provider Surgery; Emergency Provider Emergency Medicine; PCP Student in an Organized Health Care Education/Training Program; Visit Provider Surgery
PROC: 0DTJ4ZZ Resection of Appendix, Percutaneous Endoscopic Approach (ICD-10-PCS; CPT 44970; principal; 2020-08-24 10:40)
DX: K35.80 Unspecified acute appendicitis (principal); E78.5 Hyperlipidemia, unspecified; I10 Essential (primary) hypertension; E10.9 Type 1 diabetes mellitus without complications; Z79.4 Long term (current) use of insulin; Z79.899 Other long term (current) drug therapy
CPT/HCPCS: 00840; 44970; 74177; 80053; 81001; 82962; 85025; 87426; 88304; 93005; 96365; 96366; 96375; 99251; 99284; J7030; Q9967; A4216; C1760; G0463; J2405

== ENCOUNTER 2023-05-19 20:24 | Emergency (ER) | payer OTHER, SELFPAY ==
[2023-05-19 20:24] VITALS: BP 152/79; PULSE 98; RESP 15; TEMP 36.2; O2SAT 97; BMI 41.9
[2023-05-19 21:08] LABS: Absolute Lymphocyte Count 1.77 X10^3/uL (0.83-4.51); Absolute Neutrophil Count 9.9 X10^3/uL (2.0-7.7); Basophil# 0.07 X10^3/uL; Basophil% 0.5 % (0-1); Eosinophil# 0.03 X10^3/uL; Eosinophils% 0.2 % (0-5); Hematocrit 47.9 % (40-54); Hemoglobin 15.9 g/dL (13.0-16.5); Lymphocyte # 1.77 X10^3/ul (0.83-4.51); Lymphocyte % 13.8 % (19-41); Mean Corp Hgb Conc 33.2 g/dL (32-36); Mean Corpuscular Hgb 31.1 pg (27.0-32.0); Mean Corpuscular Volume 93.7 fL (80-94); Mean Platelet Vol. 9.8 fl (6.2-12.0); Monocyte# 0.92 X10^3/uL; Monocyte% 7.2 % (0-10); NRBC Flagged by Analyzer 0 % (0-5); Neutrophil # 9.89 X10^3/uL (2.7-7.7); Neutrophil % 77.4 % (47-70); Platelet Count 259 K/mm3 (150-450); RBC Distribution Width CV 13.2 % (11.6-14.6); RBC Distribution Width SD 45.1 fl (35.1-43.9); Red Blood Count 5.11 M/mm3 (4.6-6.2); White Blood Count 12.8 K/mm3 (4.4-11.0)
--- OUTSIDE RECORDS SUMMARY | 2023-05-19 21:13 | XMS RPT_ITS | CCD ---
Author Name Unknown Address [address] [facility] [address] [place] [id number] Organization [facility] Care Team Providers Care Transcription Typist Name Role Phone Eze Kuhn DO Primary Care Provider EZE KUHN Attending Unavailable EZE KUHN Primary Care Unavailable KEO CHONG Attending Unavailable EZE KUHN Primary Care Unavailable EZE KUHN Attending Unavailable EZE KUHN Primary Care Unavailable EZE KUHN Attending Unavailable EZE KUHN Primary Care Unavailable EZE KUHN Referring Unavailable EZE KUHN Primary Care Unavailable KEO CHONG Attending Unavailable EZE KUHN Primary Care Unavailable Eze Kuhn DO Primary Care Provider Allergies Allergy Classification Reported Allergen(s) Allergy Type Date of Onset Reaction(s) Facility (20 sources) Sulfamethoxazole / Trimethoprim; Translations: [SULFAMETHOXAZOLE-TRI METHOPRIM] Drug Allergy 2 [facility] Medications Current Medications Medication Drug Class(es) Dates Sig (Normalized) Sig (Original) amoxicillin 875 mg / clavulanate 125 mg oral tablet (1 source) Penicillin-class Antibacterial Start: 03-27-2023 End: 04-06-2023 take 1 tablet by mouth twice daily amoxicillin-clav ulanate potassium (AUGMENTIN) 875-125 mg per tablet Indications: Acute otitis media, left Take 1 tablet by mouth two times a day for 10 days. Left otitis media 20 tablet 1 03/27/2023 04/06/2023 Active Completed/Discontinued Medications Medication Drug Class(es) Dates Sig (Normalized) Sig (Original) atorvastatin 40 mg oral tablet (20 sources) HMG-CoA Reductase Inhibitor Start: 11-02-2022 End: 04-24-2023 take 1 tablet by mouth once daily atorvastatin (LIPITOR) 40 mg tablet take 1 tablet by mouth every day 150 tablet 0 04/24/2023 Active Problems Active Problems Problem Classification Problem Date Documented Da te Episodic/Chronic Diabetes mellitus with complications (20 sources) Type II diabetes mellitus uncontrolled; Translations: [Type 2 diabetes mellitus with hyperglycemia] Onset: 12-22-2014 Chronic Disorders of lipid metabolism (20 sources) Hyperlipidemia; Translations: [Other hyperlipidemia] Onset: 08-10-2014 Chronic Essential hypertension (20 sources) Essential hypertension; Translations: [Essential (primary) hypertension] Onset: 12-22-2014 Chronic Neoplasms of unspecified nature or uncertain behavior (2 sources) Skin lesion; Translations: [Neoplasm of unspecified behavior of bone, soft tissue, and skin] Episodic Other injuries and conditions due to external causes (1 source) Injury of ribs; Translations: [Unspecified injury of thorax, initial encounter] Episodic Other lower respiratory disease (1 source) Rib pain; Translations: [Pleurodynia] Episodic Other nervous system disorders (2 sources) Other chronic pain; Translations: [Neck pain, chronic] Onset: 03-31-2021 Chronic Other nutritional; endocrine; and metabolic disorders (20 sources) Body mass index 40+ - severely obese; Translations: [Morbid (severe) obesity due to excess calories] Onset: 02-13-2017 02-13-2017 Chronic Other nutritional; endocrine; and metabolic disorders (1 source) Morbid (severe) obesity due to excess calories; Translations: [Obesity, Class III, BMI 40-49.9 (morbid obesity) ([facility])] Onset: 02-13-2017 Chronic Other screening for suspected conditions (not mental disorders or infectious disease) (4 sources) Patient encounter status; Translations: [Encounter for screening for malignant neoplasm of prostate] Onset: 03-27-2023 Episodic Other skin disorders (1 source) Epidermoid cyst; Translations: [Epidermal cyst] Episodic Other skin disorders (1 source) Lesion of skin of face; Translations: [Disorder of the skin and subcutaneous tissue, unspecified] Episodic Otitis media and related conditions (2 sources) Acute left otitis media; Translations: [Otitis media, unspecified, left ear] Onset: 03-27-2023 03-27-2023 Episodic Residual codes; unclassified (20 sources) Obstructive sleep apnea syndrome; Translations: [Obstructive sleep apnea (adult) (pediatric)] Onset: 11-07-2014 11-07-2014 Chronic Unclassified (20 sources) Type 2 diabetes mellitus without complication; Translations: [Diabetes mellitus type 2, uncontrolled, without complications] Onset: 08-10-2014 08-10-2014 Past or Other Problems Problem Classification Problem Date Documented Da te Episodic/Chronic Mycoses (20 sources) Onychomycosis; Translations: [Tinea unguium] Onset: 11-01-2017 11-01-2017 Episodic Other connective tissue disease (20 sources) Pain in both feet; Translations: [Pain in right foot] Onset: 09-27-2021 Episodic Other injuries and conditions due to external causes (1 source) Unspecified injury of thorax, initial encounter; Translations: [Rib injury] Onset: 08-22-2022 Episodic Other lower respiratory disease (1 source) Pleurodynia; Translations: [Rib pain on right side] Onset: 08-22-2022 Episodic Other non-traumatic joint disorders (4 sources) Shoulder pain; Translations: [Pain in right shoulder] Onset: 12-02-2019 12-02-2019 Episodic Other non-traumatic joint disorders (20 sources) Chronic pain of left upper limb; Translations: [Pain in left shoulder] Onset: 03-31-2021 03-31-2021 Episodic Other non-traumatic joint disorders (20 sources) Bilateral chronic pain of upper limbs; Translations: [Pain in right shoulder] Onset: 12-02-2019 12-02-2019 Episodic Other non-traumatic joint disorders (1 source) Pain in left shoulder; Translations: [Chronic left shoulder pain] Onset: 03-31-2021 Episodic Other skin disorders (1 source) Disorder of the skin and subcutaneous tissue, unspecified; Translations: [Skin lesion] Onset: 01-04-2023 Episodic Residual codes; unclassified (20 sources) Bilateral lower limb edema; Translations: [Localized edema] Onset: 12-22-2014 12-22-2014 Episodic Residual codes; unclassified (20 sources) Edema of lower extremity; Translations: [Localized edema] Onset: 07-23-2018 07-23-2018 Episodic Residual codes; unclassified (1 source) Localized edema; Translations: [Edema of lower extremity] Onset: 07-23-2018 Episodic Skin and subcutaneous tissue infections (20 sources) Cellulitis of right lower limb; Translations: [Cellulitis of right lower limb] Onset: 03-31-2021 03-31-2021 Episodic Spondylosis; intervertebral disc disorders; other back problems (20 sources) Sciatica; Translations: [Sciatica, right side] Onset: 02-04-2019 02-04-2019 Episodic Results Test Name Value Interpretation Reference Range Facil ity Vital Signs Date Time Vital Sign Value Performing Clinician Faci lity 03-27-2023 18:07-0500 Body temperature 97 [degF] Eze Kuhn DO Work Phone: [facility] 03-27-2023 18:07-0500 Body weight 143.79 kg Eze Kuhn DO Work Phone: [facility] 03-27-2023 18:07-0500 Diastolic blood pressure 60 mm[Hg] Eze Kuhn DO Work Phone: [facility] 03-27-2023 18:07-0500 Heart rate 80 /min Eze Kuhn DO Work Phone: [facility] 03-27-2023 18:07-0500 Respiratory rate 16 /min Eze Kuhn DO Work Phone: [facility] 03-27-2023 18:07-0500 Systolic blood pressure 110 mm[Hg] Eze Kuhn DO Work Phone: [facility] 01-04-2023 10:57-0400 Body weight 146.78 kg Keo Chong CLINICAL SERVICES SPECIALIST.[employer] CONSULTANT Work Phone: [facility] 01-04-2023 10:57-0400 Diastolic blood pressure 62 mm[Hg] Keo Chong CLINICAL SERVICES SPECIALIST.[employer] CONSULTANT Work Phone: [facility] 01-04-2023 10:57-0400 Heart rate 72 /min Keo Chong CLINICAL SERVICES SPECIALIST.[employer] CONSULTANT Work Phone: [facility] 01-04-2023 10:57-0400 Respiratory rate 18 /min Keo Chong CLINICAL SERVICES SPECIALIST.[employer] CONSULTANT Work Phone: [facility] 01-04-2023 10:57-0400 Systolic blood pressure 118 mm[Hg] Keo Chong CLINICAL SERVICES SPECIALIST.[employer] CONSULTANT Work Phone: [facility] 08-22-2022 17:48-0400 Body weight 149.23 kg Keo Chong CLINICAL SERVICES SPECIALIST.[employer] CONSULTANT Work Phone: [facility] 08-22-2022 17:48-0400 Diastolic blood pressure 70 mm[Hg] Keo Chong CLINICAL SERVICES SPECIALIST.[employer] CONSULTANT Work Phone: [facility] 08-22-2022 17:48-0400 Heart rate 60 /min Keo Chong CLINICAL SERVICES SPECIALIST.[employer] CONSULTANT Work Phone: [facility] 08-22-2022 17:48-0400 Respiratory rate 14 /min Keo Chong CLINICAL SERVICES SPECIALIST.[employer] CONSULTANT Work Phone: [facility] 08-22-2022 17:48-0400 Systolic blood pressure 120 mm[Hg] Keo Chong CLINICAL SERVICES SPECIALIST.APP[employer] CONSULTANT Work Phone: [facility] 07-04-2022 15:28-0500 Body temperature 97 [degF] Eze Kuhn DO Work Phone: [facility] 07-04-2022 15:28-0500 Body weight 149.23 kg Eze Kuhn DO Work Phone: [facility] 07-04-2022 15:28-0500 Diastolic blood pressure 76 mm[Hg] Eze Kuhn DO Work Phone: [facility] 07-04-2022 15:28-0500 Heart rate 80 /min Eze Kuhn DO Work Phone: [facility] 07-04-2022 15:28-0500 Respiratory rate 20 /min Eze Kuhn DO Work Phone: [facility] 07-04-2022 15:28-0500 Systolic blood pressure 146 mm[Hg] Eze Kuhn DO Work Phone: [facility] 03-28-2022 18:14-0500 Body temperature 97.11 [degF] Eze Kuhn DO Work Phone: [facility] 03-28-2022 18:14-0500 Body weight 149.23 kg Eze Kuhn DO Work Phone: [facility] 03-28-2022 18:14-0500 Diastolic blood pressure 70 mm[Hg] Eze Kuhn DO Work Phone: [facility] 03-28-2022 18:14-0500 Heart rate 80 /min Eze Kuhn DO Work Phone: [facility] 03-28-2022 18:14-0500 Respiratory rate 20 /min Eze Kuhn DO Work Phone: [facility] 03-28-2022 18:14-0500 Systolic blood pressure 130 mm[Hg] Eze Kuhn DO Work Phone: [facility] 01-31-2022 17:42-0400 Body weight 147.87 kg Keo Zurawick CLINICAL SERVICES SPECIALIST.[employer] CONSULTANT Work Phone: [facility] 01-31-2022 17:42-0400 Diastolic blood pressure 64 mm[Hg] Keo Zurawick CLINICAL SERVICES SPECIALIST.[employer] CONSULTANT Work Phone: [facility] 01-31-2022 17:42-0400 Heart rate 64 /min Keo Zurawick CLINICAL SERVICES SPECIALIST.APP[employer] CONSULTANT Work Phone: [facility] 01-31-2022 17:42-0400 Respiratory rate 16 /min Keo Zurawick CLINICAL SERVICES SPECIALIST.APP[employer] CONSULTANT Work Phone: [facility] 01-31-2022 17:42-0400 Systolic blood pressure 120 mm[Hg] Keo Zurawick CLINICAL SERVICES SPECIALIST.[employer] CONSULTANT Work Phone: [facility] 11-15-2021 15:59-0400 Body temperature 97.81 [degF] Keo Zurawick CLINICAL SERVICES SPECIALIST.APP[employer] CONSULTANT Work Phone: [facility] 11-15-2021 15:59-0400 Body weight 148.96 kg Keo Zurawick CLINICAL SERVICES SPECIALIST.APP[employer] CONSULTANT Work Phone: [facility] 11-15-2021 15:59-0400 Diastolic blood pressure 62 mm[Hg] Keo Zurawick CLINICAL SERVICES SPECIALIST.APP[employer] CONSULTANT Work Phone: [facility] 11-15-2021 15:59-0400 Heart rate 68 /min Keo Zurawick CLINICAL SERVICES SPECIALIST.APP[employer] CONSULTANT Work Phone: [facility] 11-15-2021 15:59-0400 Respiratory rate 16 /min Keo Zurawick CLINICAL SERVICES SPECIALIST.APP[employer] SOLUTIONS CONSULTANT Work Phone: [facility] 11-15-2021 15:59-0400 Systolic blood pressure 124 mm[Hg] Keo Zurawick CLINICAL SERVICES SPECIALIST.APP[employer] CONSULTANT Work Phone: [facility] 09-27-2021 18:03-0400 Body temperature 98.01 [degF] Eze Kuhn DO Work Phone: [facility] 09-27-2021 18:03-0400 Body weight 150.14 kg Eze Kuhn DO Work Phone: [facility] 09-27-2021 18:03-0400 Diastolic blood pressure 60 mm[Hg] Eze Kuhn DO Work Phone: [facility] 09-27-2021 18:03-0400 Heart rate 80 /min Eze Kuhn DO Work Phone: [facility] 09-27-2021 18:03-0400 Respiratory rate 16 /min Eze Kuhn DO Work Phone: [facility] 09-27-2021 18:03-0400 Systolic blood pressure 136 mm[Hg] Eze Kuhn DO Work Phone: [facility] Encounters Encounter Date Encounter Type Care Provider Facility Start: 04-24-2023 Ana giron PA-C Work Phone: [facility] Procedures Date Procedure Procedure Detail Performing Clinician Start: 09-25-2021 Adult depression scr eening assessment Eze Kuhn DO Work Phone: Start: 08-29-2018 Colonoscopy Eze Gar rison DO Work Phone: Plan of Treatment Date Care Activity Detail Author Start: 01-08-2031 Urine microalbumin profile DTa P,Tdap,Td Vaccine (2 - Td or Tdap) [facility] Start: 10-07-2026 PROSTATE CANCER SCRE ENING DISCUSSION PROSTATE CANCER SCREENING DISCUSSION [facility] Start: 09-21-2025 PROSTATE CANCER SCRE ENING DISCUSSION PROSTATE CANCER SCREENING DISCUSSION [facility] Start: 03-27-2024 Annual PCP Team Manager Client Service kaushal Disease Visit Annual PCP Team Chronic Disease Visit [facility] Start: 03-27-2024 BP Controlled (<130/80) BP Controlle d (<130/80) [facility] Start: 03-27-2024 Covid-19 Vaccine () Covid-19 Vaccine () [facility] Immunizations Immunization Date Immunization Notes Care Provider Emerald macario 09-14-2020 COVID-19 vaccine, fu ll dose (MODERNA) Eze Kuhn DO Work Phone: [facility] Work Phone: 08-17-2020 COVID-19 vaccine, fu ll dose (MODERNA) Eze Kuhn DO Work Phone: [facility] Work Phone: 08-08-2016 influenza virus vaccine, unspecified formulation Keo Chong APRN.[employer] CONSULTANT Work Phone: [facility] Payers Date Payer Category Payer Private Health Insurance [employer] A ETNA CHOICE POS II [id number] 2019-Present [phone] [address] [place] [address] POS [id number] 2019 Private Health Insurance [id number] 2019 Private Health Insurance [id number] Social History Date Type Detail Facility Start: 01-26-2014 Tobacco smoking stat us MSIS Never smoked tobacco [facility] Start: 01-26-2014 Tobacco use and exposure Smokeless tobacco non-user [facility] Start: 03-29-2021 End: 03-27-2023 Alcohol intake Not Asked [facility] Start: 09-27-2021 End: 03-25-2022 History SDOH Housing Unable to Pay 2 [facility] Start: 09-27-2021 End: 03-25-2022 History SDOH Housing Places Lived 1 [facility] Start: 1960 Sex Assigned At Not on file C [facility] Start: 09-17-2021 End: 03-28-2022 Exposure to SARS-CoV-2 (event) Not sure [facility] Work Phone: Start: 09-23-2022 End: 01-03-2023 History of Social function [facility] Start: 09-23-2022 End: 01-03-2023 Social connection and isolation panel [facility] In a typical week, h ow many times do you talk on the telephone with family, friends, or neighbors? Patient refused [facility] Are you now , , , , never or living with a partner? [facility] How often to you hav e a drink containing alcohol? Never [facility] (I/We) worried katrina er (my/our) food would run out before (I/we) got money to buy more. Never true [facility] Medical Equipment Procedure Code Equipment Code Equipment Origin al Text Equipment Identifier Dates Start: 11-22-2017 End: 03-12-2023 Clinical Notes 08-10-2014 to 04-24-2023 Telephone Encounter - Miguelito Treviño LPN - 04/24/2023 11:30 AM Eze Cade DO - 03/27/2023 9:50 PM ESTTelephone Encounter - Karie Ladd LPN - 02/14/2023 1:15 PM EDT Note Date & Type Note Facility 04-24-2023 Miscellaneous Notes Last refill 01/22/23 Qty: 150 with 0 refills [facility] 03/27/23 NOV 09/18/23 Miguelito Treviño LPN documented in this encounter [facility] 03-27-2023 Note HNO ID: [id number] Author: Eze Kuhn, DO Service: ? Author Type: Physician Type: Progress Notes Filed: 03/27/2023 10:01 PM Note Text: Patient presents with: 6 Month Exam HPI: Jay Rodriguez is a 62 year old male who presents to the office today for review of health conditions. Concerns today: Overall feels he is concerned about a sinus or ear infection on left side. Just recently got back from flight to [place] and back to [place] 3-4 days ago. Has had severe left ear pain and pressure since getting home. Is working on weight loss. Cutting back on sugars and starches in his diet. Trying to stay physically active B/l leg recurrent statis dermatitis and sores. Overall stable. Needing rx refilled for travel for doxycycline Arthritis, severe cervical and lumbar djd and ddd as well as chronic shoulder pain. He is still using prednisone as needed for severe pain flare up as well as flexeril and meloxicam and gabapentin. No recent falls or injuries. Mr. Rodriguez has past history of diabetes. Since our last visit he denies excessive thirst or increased frequency of urination, chest pain or dyspnea , new or unusual visual symptoms, and low sugar/hypoglycemic reactions. Depression- no. Follows a diabetic diet some of the time. He is compliant with medication(s) and is tolerating med(s) without any side effects. He reports checking his glucose on a once a day schedule with sugars in the <200 range. Patient's last HgA1C was Hemoglobin A1C (%) Date Value 03/02/2023 7.8 03/10/2022 7.4 12/24/2020 7.5 11/28/2019 8.1 ) Last Ophthalmology exam was within the past 12 months Mr. Rodriguez reports history of hyperlipidemia. Current therapy includes atorvastatin (Lipitor) 40 mg. Denies side effects of muscle weakness or achiness. His most recent lipid panels are reviewed. Cholesterol, Total (mg/dL) Date Value 03/02/2023 169 12/24/2020 159 HDL Cholesterol (mg/dL) Date Value 03/02/2023 32 12/24/2020 33 LDL Cholesterol (mg/dL) Date Value 03/02/2023 88 12/24/2020 86 Triglyceride (mg/dL) Date Value 03/02/2023 243 12/24/2020 201 Mr. Rodriguez indicates a history of hypertension and states that he is feeling well and denies any symptoms referable to elevated blood pressure. Specifically denies headache, chest pain, palpitations, and dyspnea. Patient denies any side effects of his medication(s) and is compliant with their regimen. Last 3 Encounter BP Readings: Date: BP: 03/27/2023 110/60 01/04/2023 118/62 09/26/2022 120/60 He watches his diet for sodium, low fat and low cholesterol some of the time. He does not check BP's generally. Jay gets minimal exercise. PAST MEDICAL HISTORY Diagnosis Date Bilateral leg edema Diabetes type 2, controlled (HCC) Hyperlipidemia Hypertension Kidney stones 6-7 different episodes Obstructive sleep apnea Renal cyst benign, no change in size, unsure side PAST SURGICAL HISTORY Procedure Laterality Date APPENDECTOMY 08/24/2020 Laparoscopic-[facility] NONE Social History Tobacco Use Smoking status: Never Smokeless tobacco: Never FAMILY HISTORY Problem Relation Age of Onset Heart Father at 55 Hypertension Mother Lipids Mother Kidney Disease Maternal Grandfather Allergies: ALLERGIES Allergen Reactions Bactrim [Sulfametho* Hives Current Meds: blood sugar diagnostic (ACCU-CHEK UVALDO PLUS TEST STRP) test strip Test blood sugar(s) 2 times daily. Dx: Type 2 DM - Uncontrolled E11.65 Insulin: No glipiZIDE (GLUCOTROL) 10 mg tablet 1 tablet PO in the morning with breakfast, 2 tablet PO in the evening with supper atorvastatin (LIPITOR) 40 mg tablet Take 1 tablet by mouth once daily. meloxicam (MOBIC) 15 mg tablet Take 1 tablet by mouth once daily. As needed for arthritis, With food. empagliflozin (JARDIANCE) 25 mg tablet Take 1 tablet by mouth daily with breakfast. dulaglutide (TRULICITY) 4.5 mg/0.5 mL pen injector Inject 4.5 mg subcutaneously one time a week. cyclobenzaprine (FLEXERIL) 10 mg tablet Take 1 tablet by mouth twice daily as needed for muscle spasm. furosemide (LASIX) 20 mg tablet Take 1-2 tablets by mouth once daily. mupirocin (BACTROBAN) 2 % ointment Apply 1 application to affected area three times daily. Location: leg CPAP Mask (per patient preference) optional chin strap (if indicated) , filters, tubing, humidifier and lifetime supplies. Lancets (ACCU-CHEK MULTICLIX LANCET) lancets Test blood sugar(s) 2 times daily. Dx: Type 2 DM - Uncontrolled E11.65 Insulin: No lancets (ONE TOUCH DELICA) 33 gauge misc Test blood sugar(s) 2 daily. Dx: Type 2 DM - Uncontrolled E11.65 Insulin: No Blood-Glucose Meter monitoring kit 1 Each as needed. Diagnoses: type 2 diabetes, not insulin dependent CPAP Initiate AutoPAP @ 9/20 cm of water with humidification. Mask (per patient preference) optional chin strap (if indicated) , filters, tubing, humidi (more content not included)... [facility] 03-27-2023 History of Present illness Narrative Patient presents with: 6 Month Exam HPI: Jay Rodriguez is a 62 year old male who presents to the office today for review of health conditions. Concerns today: Overall feels he is concerned about a sinus or ear infection on left side. Just recently got back from flight to [place] and back to [place] 3-4 days ago. Has had severe left ear pain and pressure since getting home. Is working on weight loss. Cutting back on sugars and starches in his diet. Trying to stay physically active B/l leg recurrent statis dermatitis and sores. Overall stable. Needing rx refilled for travel for doxycycline Arthritis, severe cervical and lumbar djd and ddd as well as chronic shoulder pain. He is still using prednisone as needed for severe pain flare up as well as flexeril and meloxicam and gabapentin. No recent falls or injuries. Mr. Rodriguez has past history of diabetes. Since our last visit he denies excessive thirst or increased frequency of urination, chest pain or dyspnea , new or unusual visual symptoms, and low sugar/hypoglycemic reactions. Depression- no. Follows a diabetic diet some of the time. He is compliant with medication(s) and is tolerating med(s) without any side effects. He reports checking his glucose on a once a day schedule with sugars in the <200 range. Patient's last HgA1C was Hemoglobin A1C (%) Date Value 03/02/2023 7.8 03/10/2022 7.4 12/24/2020 7.5 11/28/2019 8.1 ) Last Ophthalmology exam was within the past 12 months Mr. Rodriguez reports history of hyperlipidemia. Current therapy includes atorvastatin (Lipitor) 40 mg. Denies side effects of muscle weakness or achiness. His most recent lipid panels are reviewed. Cholesterol, Total (mg/dL) Date Value 03/02/2023 169 12/24/2020 159 HDL Cholesterol (mg/dL) Date Value 03/02/2023 32 12/24/2020 33 LDL Cholesterol (mg/dL) Date Value 03/02/2023 88 12/24/2020 86 Triglyceride (mg/dL) Date Value 03/02/2023 243 12/24/2020 201 Mr. Rodriguez indicates a history of hypertension and states that he is feeling well and denies any symptoms referable to elevated blood pressure. Specifically denies headache, chest pain, palpitations, and dyspnea. Patient denies any side effects of his medication(s) and is compliant with their regimen. Last 3 Encounter BP Readings: Date: BP: 03/27/2023 110/60 01/04/2023 118/62 09/26/2022 120/60 He watches his diet for sodium, low fat and low cholesterol some of the time. He does not check BP's generally. Jay gets minimal exercise. PAST MEDICAL HISTORY Diagnosis Date Bilateral leg edema Diabetes type 2, controlled (HCC) Hyperlipidemia Hypertension Kidney stones 6-7 different episodes Obstructive sleep apnea Renal cyst benign, no change in size, unsure side PAST SURGICAL HISTORY Procedure Laterality Date APPENDECTOMY 08/24/2020 [facility]oscopic[facility] NONE Social History Tobacco Use Smoking status: Never Smokeless tobacco: Never FAMILY HISTORY Problem Relation Age of Onset Heart Father at 55 Hypertension Mother Lipids Mother Kidney Disease Maternal Grandfather Allergies: ALLERGIES Allergen Reactions Bactrim [Sulfametho* Hives Current Meds: blood sugar diagnostic (ACCU-CHEK UVALDO PLUS TEST STRP) test strip Test blood sugar(s) 2 times daily. Dx: Type 2 DM - Uncontrolled E11.65 Insulin: No glipiZIDE (GLUCOTROL) 10 mg tablet 1 tablet PO in the morning with breakfast, 2 tablet PO in the evening with supper atorvastatin (LIPITOR) 40 mg tablet Take 1 tablet by mouth once daily. meloxicam (MOBIC) 15 mg tablet Take 1 tablet by mouth once daily. As needed for arthritis, With food. empagliflozin (JARDIANCE) 25 mg tablet Take 1 tablet by mouth daily with breakfast. dulaglutide (TRULICITY) 4.5 mg/0.5 mL pen injector Inject 4.5 mg subcutaneously one time a week. cyclobenzaprine (FLEXERIL) 10 mg tablet Take 1 tablet by mouth twice daily as needed for muscle spasm. furosemide (LASIX) 20 mg tablet Take 1-2 tablets by mouth once daily. mupirocin (BACTROBAN) 2 % ointment Apply 1 application to affected area three times daily. Location: leg CPAP Mask (per patient preference) optional chin strap (if indicated) , filters, tubing, humidifier and lifetime supplies. Lancets (ACCU-CHEK MULTICLIX LANCET) lancets Test blood sugar(s) 2 times daily. Dx: Type 2 DM - Uncontrolled E11.65 Insulin: No lancets (ONE TOUCH DELICA) 33 gauge misc Test blood sugar(s) 2 daily. Dx: Type 2 DM - Uncontrolled E11.65 Insulin: No Blood-Glucose Meter monitoring kit 1 Each as needed. Diagnoses: type 2 diabetes, not insulin dependent CPAP Initiate AutoPAP @ 9/20 cm of water with humidification. Mask (per patient preference) optional chin strap (if indicated) , filters, tubing, humidifier and lifetime supplies. Dx. GRICEL therapeutic multivitamin (THERA VITAMIN) tablet Take 1 tablet by mouth once daily. lisinopril (ZESTRIL) 40 mg tablet Take 1 tablet by mouth once daily. gabapentin (NEURONTIN) 100 mg capsule Take 4 capsules in AM and 5 capsules in PM at bedtime doxycycline (VIBRA-TABS) 100 mg tablet Take 1 tablet by mouth two times a day for 10 days. predniSONE (DELTASONE) 10 mg tablet Take 4 tabs daily x 3 days, then 3 tabs x 3 days, 2 tabs x 3 days, then 1 tab x3 days with food. amoxicillin-clavulanate potassium (AUGMENTIN) 875-125 mg per tablet Take 1 tablet by mouth two times a day for 10 days. Left otitis media Review of Systems: The remainder of the review of systems is negative. PE: 03/27/23 1807 BP: 110/60 Pulse: 80 Resp: 16 Temp: 36.1 C (97 F) TempSrc: Right Tympanic Weight: (!) 143.8 kg (317 lb) Gen: A&O, NAD, non-toxic appearing, Pleasant, cooperative HEENT: NT/AC, PERRLA, EOMs intact b/l, nares clear and patent b/l, pharynx without erythema, exudate or lesions. Uvula midline. EACs without erythema or debris. TMs pearly gilmore on right, left TM with erythema and bulging Neck: supple, + left anterior and lateral cervical LAD, no thyromegaly, no carotid bruits CV: RRR, normal S1 and S2, no murmurs, no gallops, no rubs, Pulses 2+ and symmetric in UE and LE b/l Lungs: normal respiratory effort, CTA b/l, no wheezing or rhonchi or rales Abd: soft, obese, NT, ND, +BS, no hepatosplenomegaly MS: reduced abduction and extension and flexion ROM b/l shoulders due to pain Neuro: CN II-XII intact b/l, sensation intact. Skin: warm, dry, intact, scattered seborrheic keratoses and angiomas and macules Foot exam: Monofilament wnl on right and left feet. Hemosiderin staining b/l lower legs healing blisters b/l medial foot without signs of infection ASSESSMENT/PLAN: 1. Uncontrolled type 2 diabetes mellitus with hyperglycemia (HCC) - ICD9: 250.02, ICD10: E11.65 (primary diagnosis) - Uncontrolled - Continue current medications - Blood glucose monitoring on a twice daily schedule - Counseled on healthy diet and regular exercise - Discussed need for and benefit of weight loss. BMI 42.99 kg/(m^2) - LISINOPRIL 40 MG TABLET 2. Essential hypertension - ICD9: 401.9, ICD10: I10 - Controlled - Continue current medications - Recommend home blood pressure monitoring, to bring results to next visit - Encouraged sodium restriction, DASH or Mediterranean diet - Recommend regular aerobic exercise - Discussed need for and benefit of weight loss. BMI 42.99 kg/(m^2) - LISINOPRIL 40 MG TABLET 3. Neck pain, chronic - ICD9: 723.1, 338.29, ICD10: M54.2, G89.29 Stable, chronic, has DJD and DDD, he is not interested in procedure/intervention - GABAPENTIN 100 MG CAPSULE 4. Chronic left shoulder pain - ICD9: 719.41, 338.29, ICD10: M25.512, G89.29 rx refilled, chronic, he is not interested in orthopedic intervention at this time. - GABAPENTIN 100 MG CAPSULE 5. Infection of skin - ICD9: 686.9, ICD10: L08.9 - for prn use for hx of recurrent cellulitis with travel. No current symptoms. - DOXYCYCLINE HYCLATE 100 MG TABLET 6. Necrobiosis lipoidica diabeticorum (HCC) - ICD9: 250.80, 709.3, ICD10: E11.620 - Controlled - Continue current medications - Blood glucose monitoring on a once daily schedule - Counseled on healthy diet and regular exercise - discussed skin care of rash - follow up if symptoms persist or worsen. - DOXYCYCLINE HYCLATE 100 MG TABLET 7. Acute otitis media, left - ICD9: 382.9, ICD10: H66.92 - Will begin treatment with as per antibiotic as written, see orders - AMOXICILLIN 875 MG-POTASSIUM CLAVULANATE 125 MG TABLET 8. Other hyperlipidemia - ICD9: 272.4, ICD10: E78.49 Stable, chronic, continue lipitor 9. Edema of lower extremity - ICD9: 782.3, ICD10: R60.0 Stable, continue use of compression socks and rest and elevation as able 10. Obesity, Class III, BMI 40-49.9 (morbid obesity) ([facility]) - ICD9: 278.01, ICD10: E66.01 - Lengthy discussion in office today regarding diet and exercise. Discussed use of small plate to eat meals from, drink 1 glass of water 10-15 minutes prior to eating meal, drink 8 glasses of water daily, eat fresh fruit and vegetable during meal first then lean protein such as grilled/baked chicken breast or fish, limit carbohydrate intake (less pasta, breads, rice and snack foods) as well as limiting sugars (desserts etc). Important to count / track your calories and exercise as well. Eze Kuhn DO To ER if develops chest pain, shortness of breath, or severe worsening of symptoms. Discussed risks, benefits, alternatives, and potential side effects of medications. Patient expressed understanding and agreed with the plan. Eze Kuhn DO [address] [place] [address] documented in this encounter [facility] 02-14-2023 Miscellaneous Notes Patient phones requesting refills as follows: Requested Prescriptions Pending Prescriptions Disp Refills glipiZIDE (GLUCOTROL) 10 mg tablet 270 tablet 3 Si tablet PO in the morning with breakfast, 2 tablet PO in the evening with supper MARIA R-01/04/23 Labs-10/07/21 NOV-03/27/23 Please review and advise. Karie Ladd LPN documented in this encounter [facility] 01-22-2023 Miscellaneous Notes Pt notified of results via [employer]. Maryam Nava Ma Please remind patient that he has fasting labs order to be completed prior to his office visit with Dr. Kuhn in March. The following approved medication requests have been transmitted electronically. Requested Prescriptions Signed Prescriptions Disp Refills atorvastatin (LIPITOR) 40 mg tablet 150 tablet 0 Sig: Take 1 tablet by mouth once daily. Authorizing Provider: RACHELL KIDD PA-C Patient has been identified by name and date of : Yes Requested Prescriptions Pending Prescriptions Disp Refills atorvastatin (LIPITOR) 40 mg tablet 150 tablet 0 Sig: Take 1 tablet by mouth once daily. RX INSTRUCTIONS: Patient aware RX will be sent to pharmacy. No need to notify patient. Patient last office visit: 01/04/23 Patient next office visit: 03/27/23 Essence Holland MA documented in this encounter [facility] 01-19-2023 Miscellaneous Notes Requested Prescriptions Pending Prescriptions Disp Refills meloxicam (MOBIC) 15 mg tablet 90 tablet 2 Sig: Take 1 tablet by mouth once daily. As needed for arthritis, With food. [facility] 01/04/2023 03/27/2023 Nannette Salazar documented in this encounter [facility] 01-07-2023 Miscellaneous Notes Patient has been identified by name and date of : Yes Patient phones for refill(s): Requested Prescriptions Pending Prescriptions Disp Refills empagliflozin (JARDIANCE) 25 mg tablet 90 tablet 1 Sig: Take 1 tablet by mouth daily with breakfast. Date of last office visit in primary care: [facility] 01/04/23 03/27/23 Last 2 Encounter Wt Readings: Date: Wt: 01/04/2023 146.8 kg (323 lb 9.6 oz) 09/26/2022 147.4 kg (325 lb) Please advise. Thank you. LEORA Rodriguez documented in this encounter [facility] 01-04-2023 Note HNO ID: [id number] Author: Donna Beltran APRN.[employer] Service: ? Author Type: Nurse Practitioner Type: Progress Notes Filed: 01/07/2023 1:45 PM Note Text: Chief Complaint Patient presents with: growth on head HPI Jay Rodriguez is a 62 year old male who presents here today for Above Complaints. Jay is an established patient of Dr. Kuhn, and myself. Concerns today... Skin lesion on head --- Hx of numerous lesions previously on head that are easily resolved with cryotherapy. Pt unable to see this area but reports discomfort and raised feeling when he touches it. Feels similar to his priors. Asking if this can be frozen off. Weight management -- Started new diet this week. Decreasing carbs, no more bread, and much smaller portion sizes. Down 2-3 lbs from last visit. Past medical history, appointments, medications, allergies reviewed. Previous Medical History PAST MEDICAL HISTORY Diagnosis Date Bilateral leg edema Diabetes type 2, controlled (HCC) Hyperlipidemia Hypertension Kidney stones 6-7 different episodes Obstructive sleep apnea Renal cyst benign, no change in size, unsure side Previous Surgical History PAST SURGICAL HISTORY Procedure Laterality Date APPENDECTOMY 08/24/2020 [facility]oscopic[facility] NONE Family History FAMILY HISTORY Problem Relation Age of Onset Heart Father at 55 Hypertension Mother Lipids Mother Kidney Disease Maternal Grandfather Patient Allergies ALLERGIES Allergen Reactions Bactrim [Sulfametho* Hives Current Medications Current Outpatient Medications on File Prior to Visit Medication Sig atorvastatin (LIPITOR) 40 mg tablet Take 1 tablet by mouth once daily. lisinopril (ZESTRIL) 40 mg tablet Take 1 tablet by mouth once daily. gabapentin (NEURONTIN) 100 mg capsule Take 4 capsules in AM and 5 capsules in PM at bedtime dulaglutide (TRULICITY) 4.5 mg/0.5 mL pen injector Inject 4.5 mg subcutaneously one time a week. cyclobenzaprine (FLEXERIL) 10 mg tablet Take 1 tablet by mouth twice daily as needed for muscle spasm. meloxicam (MOBIC) 15 mg tablet Take 1 tablet by mouth once daily. As needed for arthritis, With food. empagliflozin (JARDIANCE) 25 mg tablet Take 1 tablet by mouth daily with breakfast. glipiZIDE (GLUCOTROL) 10 mg tablet 1 tablet PO in the morning with breakfast, 2 tablet PO in the evening with supper blood sugar diagnostic (ACCU-CHEK UVALDO PLUS TEST STRP) test strip Test blood sugar(s) 2 times daily. Dx: Type 2 DM - Uncontrolled E11.65 Insulin: No furosemide (LASIX) 20 mg tablet Take 1-2 tablets by mouth once daily. mupirocin (BACTROBAN) 2 % ointment Apply 1 application to affected area three times daily. Location: leg CPAP Mask (per patient preference) optional chin strap (if indicated) , filters, tubing, humidifier and lifetime supplies. Lancets (ACCU-CHEK MULTICLIX LANCET) lancets Test blood sugar(s) 2 times daily. Dx: Type 2 DM - Uncontrolled E11.65 Insulin: No lancets (ONE TOUCH DELICA) 33 gauge misc Test blood sugar(s) 2 daily. Dx: Type 2 DM - Uncontrolled E11.65 Insulin: No Blood-Glucose Meter monitoring kit 1 Each as needed. Diagnoses: type 2 diabetes, not insulin dependent CPAP Initiate AutoPAP @ 9/20 cm of water with humidification. Mask (per patient preference) optional chin strap (if indicated) , filters, tubing, humidifier and lifetime supplies. Dx. GRICEL therapeutic multivitamin (THERA VITAMIN) tablet Take 1 tablet by mouth once daily. No current facility-administered medications on file prior to visit. Social History Social History Tobacco Use Smoking status: Never Smokeless tobacco: Never REVIEW OF SYSTEMS: as above Reviewed relevant PMHx, PSHx, Social Hx, current medications and allergies. Review of Symptoms REVIEW OF SYSTEMS See HPI. EXAM: BP 118/62 (BP Site: Left Arm, BP Position: Sitting, BP Cuff Size: Large Adult) Pulse 72 Resp 18 Wt (!) 146.8 kg (323 lb 9.6 oz) BMI 43.89 kg/m? General Appearance: Well appearing, alert, in no acute distress, well-hydrated, well nourished.. Skin: Skin color, texture, turgor normal, no suspicious rashes or lesions, Positives: skin lesion to top of scalp, irregular shape, white in color, and very raised. Head: Normocephalic, no masses, lesions, tenderness or abnormalities, Positive findings: Male pattern baldness, Erythema and scaling of scalp. Lungs: Lungs clear to auscultation. No wheezing, rhonchi, rales.. Heart: RRR without murmur, gallop, or rubs. No ectopy. Health Maintenance List PNEUMOCOCCAL(1 - PCV) Never done HIV SCREENING Never done SHINGRIX VACCINE(1 of 2) Never done HBA1C due on 09/08/2022 LDL CHOLESTEROL due on 10/07/2022 DTAP,TDAP,TD(1 - Tdap) due on 01/31/2023 COLORECTAL CANCER SCREENING due on 01/31/2023 COVID-19 VACCINE(3 - Moderna series) due on 08/23/2023 INFLUENZA(1) due on 01/18/2023 URINE ALBUMIN:CREATININE RATIO due on (more content not included)... [facility] 01-04-2023 History of Present illness Narrative Chief Complaint Patient presents with: growth on head HPI Jay Rodriguez is a 62 year old male who presents here today for Above Complaints. Jay is an established patient of Dr. Kuhn, and myself. Concerns today... Skin lesion on head --- Hx of numerous lesions previously on head that are easily resolved with cryotherapy. Pt unable to see this area but reports discomfort and raised feeling when he touches it. Feels similar to his priors. Asking if this can be frozen off. Weight management -- Started new diet this week. Decreasing carbs, no more bread, and much smaller portion sizes. Down 2-3 lbs from last visit. Past medical history, appointments, medications, allergies reviewed. Previous Medical History PAST MEDICAL HISTORY Diagnosis Date Bilateral leg edema Diabetes type 2, controlled (HCC) Hyperlipidemia Hypertension Kidney stones 6-7 different episodes Obstructive sleep apnea Renal cyst benign, no change in size, unsure side Previous Surgical History PAST SURGICAL HISTORY Procedure Laterality Date APPENDECTOMY 08/24/2020 [facility]oscopic[facility] NONE Family History FAMILY HISTORY Problem Relation Age of Onset Heart Father at 55 Hypertension Mother Lipids Mother Kidney Disease Maternal Grandfather Patient Allergies ALLERGIES Allergen Reactions Bactrim [Sulfametho* Hives Current Medications Current Outpatient Medications on File Prior to Visit Medication Sig atorvastatin (LIPITOR) 40 mg tablet Take 1 tablet by mouth once daily. lisinopril (ZESTRIL) 40 mg tablet Take 1 tablet by mouth once daily. gabapentin (NEURONTIN) 100 mg capsule Take 4 capsules in AM and 5 capsules in PM at bedtime dulaglutide (TRULICITY) 4.5 mg/0.5 mL pen injector Inject 4.5 mg subcutaneously one time a week. cyclobenzaprine (FLEXERIL) 10 mg tablet Take 1 tablet by mouth twice daily as needed for muscle spasm. meloxicam (MOBIC) 15 mg tablet Take 1 tablet by mouth once daily. As needed for arthritis, With food. empagliflozin (JARDIANCE) 25 mg tablet Take 1 tablet by mouth daily with breakfast. glipiZIDE (GLUCOTROL) 10 mg tablet 1 tablet PO in the morning with breakfast, 2 tablet PO in the evening with supper blood sugar diagnostic (ACCU-CHEK UVALDO PLUS TEST STRP) test strip Test blood sugar(s) 2 times daily. Dx: Type 2 DM - Uncontrolled E11.65 Insulin: No furosemide (LASIX) 20 mg tablet Take 1-2 tablets by mouth once daily. mupirocin (BACTROBAN) 2 % ointment Apply 1 application to affected area three times daily. Location: leg CPAP Mask (per patient preference) optional chin strap (if indicated) , filters, tubing, humidifier and lifetime supplies. Lancets (ACCU-CHEK MULTICLIX LANCET) lancets Test blood sugar(s) 2 times daily. Dx: Type 2 DM - Uncontrolled E11.65 Insulin: No lancets (ONE TOUCH DELICA) 33 gauge misc Test blood sugar(s) 2 daily. Dx: Type 2 DM - Uncontrolled E11.65 Insulin: No Blood-Glucose Meter monitoring kit 1 Each as needed. Diagnoses: type 2 diabetes, not insulin dependent CPAP Initiate AutoPAP @ 9/20 cm of water with humidification. Mask (per patient preference) optional chin strap (if indicated) , filters, tubing, humidifier and lifetime supplies. Dx. GRICEL therapeutic multivitamin (THERA VITAMIN) tablet Take 1 tablet by mouth once daily. No current facility-administered medications on file prior to visit. Social History Social History Tobacco Use Smoking status: Never Smokeless tobacco: Never REVIEW OF SYSTEMS: as above Reviewed relevant PMHx, PSHx, Social Hx, current medications and allergies. Review of Symptoms REVIEW OF SYSTEMS See HPI. EXAM: BP 118/62 (BP Site: Left Arm, BP Position: Sitting, BP Cuff Size: Large Adult) Pulse 72 Resp 18 Wt (!) 146.8 kg (323 lb 9.6 oz) BMI 43.89 kg/m General Appearance: Well appearing, alert, in no acute distress, well-hydrated, well nourished.. Skin: Skin color, texture, turgor normal, no suspicious rashes or lesions, Positives: skin lesion to top of scalp, irregular shape, white in color, and very raised. Head: Normocephalic, no masses, lesions, tenderness or abnormalities, Positive findings: Male pattern baldness, Erythema and scaling of scalp. Lungs: Lungs clear to auscultation. No wheezing, rhonchi, rales.. Heart: RRR without murmur, gallop, or rubs. No ectopy. Health Maintenance List PNEUMOCOCCAL(1 - PCV) Never done HIV SCREENING Never done SHINGRIX VACCINE(1 of 2) Never done HBA1C due on 09/08/2022 LDL CHOLESTEROL due on 10/07/2022 DTAP,TDAP,TD(1 - Tdap) due on 01/31/2023 COLORECTAL CANCER SCREENING due on 01/31/2023 COVID-19 VACCINE(3 - Moderna series) due on 08/23/2023 INFLUENZA(1) due on 01/18/2023 URINE ALBUMIN:CREATININE RATIO due on 03/10/2023 ANNUAL PCP TEAM CHRONIC DISEASE VISIT due on 09/27/2023 BP CONTROLLED (<130/80) due on 09/27/2023 DIABETIC FOOT EXAM due on 09/28/2023 DILATED RETINAL EXAM due on 12/21/2023 PROSTATE CANCER SCREENING DISCUSSION due on 10/07/2026 DEPRESSION ASSESSMENT Completed HEPATITIS C SCREENING Completed ASSESSMENT/PLAN: 1. Skin lesion - ICD9: 709.9, ICD10: L98.9 (primary diagnosis) To top of scalp x3. Cryotherapy perform by Marion Beltran CNP in office. Informed consent: Discussed the risks (permanent scarring, light or dark discoloration, infection, pain, bleeding, bruising, redness, blister formation, and recurrence of the lesion) and the benefits of the procedure, as well as the alternatives. Informed consent was obtained. The lesions x3 wrtr destroyed with liquid nitrogen. It was frozen until the ice ball extended beyond the lesion. 3 freeze/thaw cycles were done. 2. Infection of skin - ICD9: 686.9, ICD10: L08.9 Refilled medication. Stable at this time, rx for prn - DOXYCYCLINE HYCLATE 100 MG TABLET 3. Necrobiosis lipoidica diabeticorum (HCC) - ICD9: 250.80, 709.3, ICD10: E11.620 Refilled. Stable at this time, rx for prn - DOXYCYCLINE HYCLATE 100 MG TABLET RTO as scheduled, sooner if needed if no improvement of lesion. Prescription instructions reviewed with patient as applicable. Potential red flag symptoms discussed with the patient. Reviewed appropriate action plan to take if red flag symptoms occur. Patient agreeable to treatment plan. Keo Newton APRN.[employer] [address] [place] [address] documented in this encounter [facility] 01-01-2023 Miscellaneous Notes Spoke to patient who aware pcp soonest was 6 weeks away. Patient is scheduled with DIRECTOR BUSINESS INTELLIGENCE to see if needing referred to derm/surgery Ester Ventura Ma documented in this encounter [facility] 12-04-2022 Miscellaneous Notes See Telephone note. documented in this encounter [facility] 12-04-2022 Miscellaneous Notes Images from the original note were not included. Jay Rodriguez Wstr [facility]amp My Chart Rx Pool I m using a bottle now, the cat scratched my leg jumping onto the bed. Is it possible to get a replacement bottle to keep on hand please. Thanks documented in this encounter [facility] 09-27-2022 Note HNO ID: [id number] Author: Eze Kuhn, DO Service: ? Author Type: Physician Type: Progress Notes Filed: 09/27/2022 10:34 AM Note Text: Patient presents with: 6 Month Exam HPI: Jay Rodriguez is a 62 year old male who presents to the office today for review of health conditions. Concerns today: Leg edema, increased 3 months ago due to had been sitting a lot with local travel back and forth to work in [place], no leg pain or increased redness. Has been using diuretic as needed and compression socks Skin lesion right side of face. Resolved with 2 treatments of cryotherapy Recurrent erythema and cellulitis of right >left lower leg. Hasn't had recent episode, was treated with doxycycline in the past, did improve with antibiotic bactrim as well in the past as prescribed. 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 Chronic low back pain, chronic neck pain, chronic left>right shoulder pain, taking medications as prescribed, tolerating well. Still struggling with daily and other activities of living due to these symptoms. Taking his diabetes medication as prescribed. Blood glucose readings much better improved in the last 1 year since being on Jardiance medication. Mr. Rodriguez has past history of diabetes. Since our last visit he denies excessive thirst or increased frequency of urination, chest pain or dyspnea , new or unusual visual symptoms, and low sugar/hypoglycemic reactions. Depression- no. Follows a diabetic diet some of the time. He is compliant with medication(s) and is tolerating med(s) without any side effects. He reports checking his glucose on a twice a day schedule with sugars in the <200 range. Patient's last HgA1C was Hemoglobin A1C (%) Date Value 03/10/2022 7.4 10/07/2021 7.6 12/24/2020 7.5 11/28/2019 8.1 ) Last Ophthalmology exam was within the past 12 months Mr. Rodriguez reports history of hyperlipidemia. Current therapy includes atorvastatin (Lipitor) 40 mg. Denies side effects of muscle weakness or achiness. His most recent lipid panels are reviewed. Cholesterol, Total (mg/dL) Date Value 10/07/2021 183 12/24/2020 159 HDL Cholesterol (mg/dL) Date Value 10/07/2021 35 12/24/2020 33 LDL Cholesterol (mg/dL) Date Value 10/07/2021 85 12/24/2020 86 Triglyceride (mg/dL) Date Value 10/07/2021 314 12/24/2020 201 Mr. Rodriguez indicates a history of hypertension and states that he is feeling well and denies any symptoms referable to elevated blood pressure. Specifically denies headache, chest pain, palpitations, dyspnea. Patient denies any side effects of his medication(s) and is compliant with their regimen. Last 3 Encounter BP Readings: Date: BP: 09/26/2022 120/60 08/22/2022 120/70 07/04/2022 146/76 He watches his diet for sodium, low fat and low cholesterol some of the time. He does not check BP's generally. Jay gets minimal exercise. PAST MEDICAL HISTORY Diagnosis Date Bilateral leg edema Diabetes type 2, controlled (HCC) Hyperlipidemia Hypertension Kidney stones 6-7 different episodes Obstructive sleep apnea Renal cyst benign, no change in size, unsure side PAST SURGICAL HISTORY Procedure Laterality Date APPENDECTOMY 08/24/2020 [facility]oscopic[facility] NONE Social History Tobacco Use Smoking status: Never Smokeless tobacco: Never FAMILY HISTORY Problem Relation Age of Onset Heart Father at 55 Hypertension Mother Lipids Mother Kidney Disease Maternal Grandfather Allergies: ALLERGIES Allergen Reactions Bactrim [Sulfametho* Hives Current Meds: cyclobenzaprine (FLEXERIL) 10 mg tablet Take 1 tablet by mouth twice daily as needed for muscle spasm. atorvastatin (LIPITOR) 40 mg tablet Take 1 tablet by mouth once daily. meloxicam (MOBIC) 15 mg tablet Take 1 tablet by mouth once daily. As needed for arthritis, With food. empagliflozin (JARDIANCE) 25 mg tablet Take 1 tablet by mouth daily with breakfast. glipiZIDE (GLUCOTROL) 10 mg tablet 1 tablet PO in the morning with breakfast, 2 tablet PO in the evening with supper blood sugar diagnostic (ACCU-CHEK UVALDO PLUS TEST STRP) test strip Test blood sugar(s) 2 times daily. Dx: Type 2 DM - Uncontrolled E11.65 Insulin: No furosemide (LASIX) 20 mg tablet Take 1-2 tablets by mouth once daily. mupirocin (BACTROBAN) 2 % ointment Apply 1 application to affected area three times daily. Location: leg CPAP Mask (per patient preference) optional chin strap (if indicated) , filters, tubing, humidifier and lifetime supplies. Lancets (ACCU-CHEK MULTICLIX LANCET) lancets Test blood sugar(s) 2 times daily. Dx: Type 2 DM - Uncontrolled E11.65 Insulin: No lancets (ONE TOUCH DELICA) 33 gauge misc Test blood sugar(s) 2 daily. Dx: Type 2 DM - Uncontrolled E11.65 Insulin: No Blood-Glucose Meter monitoring kit 1 Each (more content not included)... [facility] 08-22-2022 Note HNO ID: [id number] Author: Keo Chong APRN.[employer] Service: ? Author Type: Nurse Practitioner Type: Progress Notes Filed: 08/22/2022 6:56 PM Note Text: Chief Complaint Patient presents with: lft sided pain located just below nipple line : Hurts to touch and perry and iot comes and goes , started about three weeks ago . Not getting sob with it or any other symptoms HPI Jya Rodriguez is a 62 year old male who presents here today for Above Complaints.. Jay is an established patient of Dr. Kuhn, and myself. Concerns today.. Rib/chest pain --- I?ve had a pain on my left side under my rib cage. It?s started about two weeks ago. Thought at first it was a pulled muscle but now it comes and goes. Pinpoint mild intermittent pain to L side of chest below nipple line, non-radiating. Pt denies any CP, SOB, changes in discomfort with exertion, dizziness, palpitations, or lightheadedness. Has not tried taking any medication for this discomfort yet. Denies any fall, injury, or lifting heavy recently. Has broken ribs to this same area about 1-2 years ago after fall. Described as burning sensation. No hx of GERD/heartburn symptoms but does admit that son has heartburn. Has not tried PPI or antiacid. Pt does not think it is cardiac or pulmonary related. Does report changes to bowel habits since appendix removed. Less bowel movements per day but denies constipation. Denies any n/v/d/c. No recent URI-like symptoms or COVID. No prior hx of clots. No recent travel. No cough. No signs of any infection, leg ulcers/recurrent cellulitis to legs is much improved an doing well currently. Due to very high insurance deductible, pt very hesitant for much testing. Past medical history, appointments, medications, allergies reviewed. Previous Medical History PAST MEDICAL HISTORY Diagnosis Date Bilateral leg edema Diabetes type 2, controlled (HCC) Hyperlipidemia Hypertension Kidney stones 6-7 different episodes Obstructive sleep apnea Renal cyst benign, no change in size, unsure side Previous Surgical History PAST SURGICAL HISTORY Procedure Laterality Date APPENDECTOMY 08/24/2020 [facility]oscopic[facility] NONE Family History FAMILY HISTORY Problem Relation Age of Onset Heart Father at 55 Hypertension Mother Lipids Mother Kidney Disease Maternal Grandfather Patient Allergies ALLERGIES Allergen Reactions Bactrim [Sulfametho* Hives Current Medications Current Outpatient Medications on File Prior to Visit Medication Sig dulaglutide (TRULICITY) 3 mg/0.5 mL pen injector Inject 3 mg subcutaneously one time a week. atorvastatin (LIPITOR) 40 mg tablet Take 1 tablet by mouth once daily. lisinopril (ZESTRIL, PRINIVIL) 40 mg tablet Take 1 tablet by mouth once daily. gabapentin (NEURONTIN) 100 mg capsule Take 4 capsules in AM and 5 capsules in PM at bedtime meloxicam (MOBIC) 15 mg tablet Take 1 tablet by mouth once daily. As needed for arthritis, With food. empagliflozin (JARDIANCE) 25 mg tablet Take 1 tablet by mouth daily with breakfast. glipiZIDE (GLUCOTROL) 10 mg tablet 1 tablet PO in the morning with breakfast, 2 tablet PO in the evening with supper blood sugar diagnostic (ACCU-CHEK UVALDO PLUS TEST STRP) test strip Test blood sugar(s) 2 times daily. Dx: Type 2 DM - Uncontrolled E11.65 Insulin: No furosemide (LASIX) 20 mg tablet Take 1-2 tablets by mouth once daily. cyclobenzaprine (FLEXERIL) 10 mg tablet Take 1 tablet by mouth twice daily as needed for Muscle Spasm. lidocaine (LIDODERM) 5 % Apply 1 Patch as directed every 24 hours. mupirocin (BACTROBAN) 2 % ointment Apply 1 application to affected area three times daily. Location: leg CPAP Mask (per patient preference) optional chin strap (if indicated) , filters, tubing, humidifier and lifetime supplies. Lancets (ACCU-CHEK MULTICLIX LANCET) lancets Test blood sugar(s) 2 times daily. Dx: Type 2 DM - Uncontrolled E11.65 Insulin: No lancets (ONE TOUCH DELICA) 33 gauge misc Test blood sugar(s) 2 daily. Dx: Type 2 DM - Uncontrolled E11.65 Insulin: No Blood-Glucose Meter monitoring kit 1 Each as needed. Diagnoses: type 2 diabetes, not insulin dependent CPAP Initiate AutoPAP @ 9/20 cm of water with humidification. Mask (per patient preference) optional chin strap (if indicated) , filters, tubing, humidifier and lifetime supplies. Dx. GRICEL ibuprofen (MOTRIN) 800 mg tablet Take 1 tablet by mouth every 8 hours as needed for Pain (with food.). therapeutic multivitamin (THERA VITAMIN) tablet Take 1 tablet by mouth once daily. No current facility-administered medications on file prior to visit. Social History Social History Tobacco Use Smoking status: Never Smokeless tobacco: Never REVIEW OF SYSTEMS: as above Reviewed relevant PMHx, PSHx, Social Hx, current medications and allergies. Review of Symptoms REVIEW OF SYSTEMS See HPI. All other systems are negativ (more content not included)... [facility] 08-22-2022 History of Present illness Narrative Chief Complaint Patient presents with: lft sided pain located just below nipple line : Hurts to touch and perry and iot comes and goes , started about three weeks ago . Not getting sob with it or any other symptoms HPI Jay Rodriguez is a 62 year old male who presents here today for Above Complaints.. Jay is an established patient of Dr. Kuhn, Do and myself. Concerns today.. Rib/chest pain --- I ve had a pain on my left side under my rib cage. It s started about two weeks ago. Thought at first it was a pulled muscle but now it comes and goes. Pinpoint mild intermittent pain to L side of chest below nipple line, non-radiating. Pt denies any CP, SOB, changes in discomfort with exertion, dizziness, palpitations, or lightheadedness. Has not tried taking any medication for this discomfort yet. Denies any fall, injury, or lifting heavy recently. Has broken ribs to this same area about 1-2 years ago after fall. Described as burning sensation. No hx of GERD/heartburn symptoms but does admit that son has heartburn. Has not tried PPI or antiacid. Pt does not think it is cardiac or pulmonary related. Does report changes to bowel habits since appendix removed. Less bowel movements per day but denies constipation. Denies any n/v/d/c. No recent URI-like symptoms or COVID. No prior hx of clots. No recent travel. No cough. No signs of any infection, leg ulcers/recurrent cellulitis to legs is much improved an doing well currently. Due to very high insurance deductible, pt very hesitant for much testing. Past medical history, appointments, medications, allergies reviewed. Previous Medical History PAST MEDICAL HISTORY Diagnosis Date Bilateral leg edema Diabetes type 2, controlled (HCC) Hyperlipidemia Hypertension Kidney stones 6-7 different episodes Obstructive sleep apnea Renal cyst benign, no change in size, unsure side Previous Surgical History PAST SURGICAL HISTORY Procedure Laterality Date APPENDECTOMY 08/24/2020 [facility] N[facility] Family History FAMILY HISTORY Problem Relation Age of Onset Heart Father at 55 Hypertension Mother Lipids Mother Kidney Disease Maternal Grandfather Patient Allergies ALLERGIES Allergen Reactions Bactrim [Sulfametho* Hives Current Medications Current Outpatient Medications on File Prior to Visit Medication Sig dulaglutide (TRULICITY) 3 mg/0.5 mL pen injector Inject 3 mg subcutaneously one time a week. atorvastatin (LIPITOR) 40 mg tablet Take 1 tablet by mouth once daily. lisinopril (ZESTRIL, PRINIVIL) 40 mg tablet Take 1 tablet by mouth once daily. gabapentin (NEURONTIN) 100 mg capsule Take 4 capsules in AM and 5 capsules in PM at bedtime meloxicam (MOBIC) 15 mg tablet Take 1 tablet by mouth once daily. As needed for arthritis, With food. empagliflozin (JARDIANCE) 25 mg tablet Take 1 tablet by mouth daily with breakfast. glipiZIDE (GLUCOTROL) 10 mg tablet 1 tablet PO in the morning with breakfast, 2 tablet PO in the evening with supper blood sugar diagnostic (ACCU-CHEK UVALDO PLUS TEST STRP) test strip Test blood sugar(s) 2 times daily. Dx: Type 2 DM - Uncontrolled E11.65 Insulin: No furosemide (LASIX) 20 mg tablet Take 1-2 tablets by mouth once daily. cyclobenzaprine (FLEXERIL) 10 mg tablet Take 1 tablet by mouth twice daily as needed for Muscle Spasm. lidocaine (LIDODERM) 5 % Apply 1 Patch as directed every 24 hours. mupirocin (BACTROBAN) 2 % ointment Apply 1 application to affected area three times daily. Location: leg CPAP Mask (per patient preference) optional chin strap (if indicated) , filters, tubing, humidifier and lifetime supplies. Lancets (ACCU-CHEK MULTICLIX LANCET) lancets Test blood sugar(s) 2 times daily. Dx: Type 2 DM - Uncontrolled E11.65 Insulin: No lancets (ONE TOUCH DELICA) 33 gauge misc Test blood sugar(s) 2 daily. Dx: Type 2 DM - Uncontrolled E11.65 Insulin: No Blood-Glucose Meter monitoring kit 1 Each as needed. Diagnoses: type 2 diabetes, not insulin dependent CPAP Initiate AutoPAP @ 9/20 cm of water with humidification. Mask (per patient preference) optional chin strap (if indicated) , filters, tubing, humidifier and lifetime supplies. Dx. GRICEL ibuprofen (MOTRIN) 800 mg tablet Take 1 tablet by mouth every 8 hours as needed for Pain (with food.). therapeutic multivitamin (THERA VITAMIN) tablet Take 1 tablet by mouth once daily. No current facility-administered medications on file prior to visit. Social History Social History Tobacco Use Smoking status: Never Smokeless tobacco: Never REVIEW OF SYSTEMS: as above Reviewed relevant PMHx, PSHx, Social Hx, current medications and allergies. Review of Symptoms REVIEW OF SYSTEMS See HPI. All other systems are negative. EXAM: BP 120/70 (BP Site: Left Arm, BP Position: Sitting, BP Cuff Size: Large Adult) Pulse 60 Resp 14 Wt (!) 149.2 kg (329 lb) BMI 44.62 kg/m General Appearance: Well appearing, alert, in no acute distress, well-hydrated, well nourished.. Skin: Skin color, texture, turgor normal, no suspicious rashes or lesions. Head: Normocephalic, no masses, lesions, tenderness or abnormalities. Oropharynx: Lips, mucosa, and tongue normal, teeth and gums normal, oropharynx normal. Neck: Supple, no adenopathy; thyroid symmetric, normal size, no bruits. Back:no pain to palpation of vertebrae, good flexion and extension, good range of motion, no muscle tenderness, reflexes are 2+ and symmetric, motor and sensory appear to be normal, negative SLR test, no evidence of scoliosis Lungs: Lungs clear to auscultation. No wheezing, rhonchi, rales.. Heart: RRR without murmur, gallop, or rubs. No ectopy. Abdomen: Normal abdominal exam, Abdomen soft, non-tender. Bowel sounds normal. No masses, organomegaly. Musculoskeletal: No joint swelling, deformity, or tenderness. Neurologic: Gait normal. Reflexes normal and symmetric. Sensation grossly intact. Health Maintenance List PNEUMOCOCCAL(1 - PCV) Never done HIV SCREENING Never done SHINGRIX VACCINE(1 of 2) Never done COVID-19 VACCINE(3 - Booster for Moderna series) due on 11/09/2020 DIABETIC FOOT EXAM due on 09/21/2021 BP CONTROLLED (<130/80) due on 09/21/2021 DILATED RETINAL EXAM due on 08/01/2022 DTAP,TDAP,TD(1 - Tdap) due on 01/31/2023 COLORECTAL CANCER SCREENING due on 01/31/2023 HBA1C due on 09/08/2022 LDL CHOLESTEROL due on 10/07/2022 INFLUENZA(Season Ended) due on 01/18/2023 URINE ALBUMIN:CREATININE RATIO due on 03/10/2023 ANNUAL PCP TEAM CHRONIC DISEASE VISIT due on 07/04/2023 PROSTATE CANCER SCREENING DISCUSSION due on 10/07/2026 DEPRESSION ASSESSMENT Completed HEPATITIS C SCREENING Completed ASSESSMENT/PLAN: 1. Rib pain on right side - ICD9: 786.50, ICD10: R07.81 (primary diagnosis) Atypical chest pain, symptoms are not consistent with cardiac ischemia due to nonexertional nature of symptom and localization of the pain possible etiology include GERD, Costochondritis/chest wall pain, musculoskeletal, Pneumonia, Pulmonary embolis, Pleurisy, and Bronchitis Pt declined EKG, US of LUQ, chest x-ray, or d-dimer/CT scan of chest d/t high deductible with insurance. Agree that MSK discomfort for GERD/reflux are most likely differentials. Trial flexeril TID as needed first. If no relief, trial OTC omeprazole for possible heartburn or reflux. Pt agreeable to this plan. Pt agrees that if still no improvement after both of these medications -- he is willing to have CXR and EKG. Discussed risks of delay in treatment/intervention -- pt aware. - CYCLOBENZAPRINE 10 MG TABLET 2. Rib injury - ICD9: 959.11, ICD10: S29.9XXA See above. - CYCLOBENZAPRINE 10 MG TABLET 3. Infection of skin - ICD9: 686.9, ICD10: L08.9 RX refilled to have on head when symptoms flare up d/t reoccurrence. - DOXYCYCLINE HYCLATE 100 MG TABLET 4. Necrobiosis lipoidica diabeticorum (HCC) - ICD9: 250.80, 709.3, ICD10: E11.620 RX refilled to have on head when symptoms flare up d/t reoccurrence. - DOXYCYCLINE HYCLATE 100 MG TABLET RTO if symptoms do not improve. Prescription instructions reviewed with patient as applicable. Potential red flag symptoms discussed with the patient. Reviewed appropriate action plan to take if red flag symptoms occur. Patient agreeable to treatment plan. Keo Newton APRN.[employer] [address] [place] [address] documented in this encounter [facility] 08-20-2022 Miscellaneous Notes Pt confirmed appt. Lis Isaac Ma Pt to confirm appt as scheduled on 08/22/22 @ 6:00 pm with [place]. Once confirmed okay to close encounter. Lis Isaac Ma documented in this encounter [facility] 08-16-2022 Miscellaneous Notes Patient phones requesting refills as follows: Requested Prescriptions Pending Prescriptions Disp Refills dulaglutide (TRULICITY) 3 mg/0.5 mL pen injector 12 Each 3 Sig: Inject 3 mg subcutaneously one time a week. MARIA R-07/04/22 Labs-03/10/22 NOV-09/26/22 med filled 09/27/21 Please review and advise. Karie Ladd LPN documented in this encounter [facility] 07-31-2022 Miscellaneous Notes Patient has been identified by name and date of : Yes, Provider Dr. Kuhn Date 07/31/22 Time 4:13 pm Patient phones for refill(s): Requested Prescriptions Pending Prescriptions Disp Refills atorvastatin (LIPITOR) 40 mg tablet 150 tablet 0 Sig: Take 1 tablet by mouth once daily. Date of last office visit in primary care: 07/04/22 next apt 09/26/22 Last 2 Encounter Wt Readings: Date: Wt: 07/04/2022 149.2 kg (329 lb) 03/28/2022 149.2 kg (329 lb) Previous labs/tests for medication: Cholesterol: HDL Cholesterol (mg/dL) Date Value 10/07/2021 35 12/24/2020 33 LDL Cholesterol (mg/dL) Date Value 10/07/2021 85 12/24/2020 86 ALT (U/L) Date Value 10/07/2021 30 12/24/2020 26 Non HDL Cholesterol, Nonfasting (mg/dL) Date Value 11/28/2019 137 Non HDL Cholesterol (mg/dL) Date Value 10/07/2021 148 12/24/2020 126 Thank you. Kathy Wong LPN documented in this encounter [facility] 07-04-2022 Note HNO ID: [id number] Author: Eze Kuhn, DO Service: ? Author Type: Physician Type: Progress Notes Filed: 07/04/2022 9:22 PM Note Text: CC: Jay Rodriguez is a 61 year old male who presents to the office for skin follow up HPI: Skin lesion, right side of face near corley, feels it got smaller with the cryotherapy but not gone. Asking for a treatment again, would rather not have it biopsied yet if able to avoid. Leg edema, increased recently, admits has been sitting a lot with local travel back and forth to work in [place], no leg pain or increased redness PAST MEDICAL HISTORY Diagnosis Date Bilateral leg edema Diabetes type 2, controlled (HCC) Hyperlipidemia Hypertension Kidney stones 6-7 different episodes Obstructive sleep apnea Renal cyst benign, no change in size, unsure side PAST SURGICAL HISTORY Procedure Laterality Date APPENDECTOMY 08/24/2020 [facility] N[facility] Current Outpatient Medications Medication Sig meloxicam (MOBIC) 15 mg tablet Take 1 tablet by mouth once daily. As needed for arthritis, With food. empagliflozin (JARDIANCE) 25 mg tablet Take 1 tablet by mouth daily with breakfast. atorvastatin (LIPITOR) 40 mg tablet Take 1 tablet by mouth once daily. glipiZIDE (GLUCOTROL) 10 mg tablet 1 tablet PO in the morning with breakfast, 2 tablet PO in the evening with supper blood sugar diagnostic (ACCU-CHEK UVALDO PLUS TEST STRP) test strip Test blood sugar(s) 2 times daily. Dx: Type 2 DM - Uncontrolled E11.65 Insulin: No furosemide (LASIX) 20 mg tablet Take 1-2 tablets by mouth once daily. dulaglutide (TRULICITY) 3 mg/0.5 mL pen injector Inject 3 mg subcutaneously one time a week. cyclobenzaprine (FLEXERIL) 10 mg tablet Take 1 tablet by mouth twice daily as needed for Muscle Spasm. lidocaine (LIDODERM) 5 % Apply 1 Patch as directed every 24 hours. mupirocin (BACTROBAN) 2 % ointment Apply 1 application to affected area three times daily. Location: leg CPAP Mask (per patient preference) optional chin strap (if indicated) , filters, tubing, humidifier and lifetime supplies. Lancets (ACCU-CHEK MULTICLIX LANCET) lancets Test blood sugar(s) 2 times daily. Dx: Type 2 DM - Uncontrolled E11.65 Insulin: No lancets (ONE TOUCH DELICA) 33 gauge misc Test blood sugar(s) 2 daily. Dx: Type 2 DM - Uncontrolled E11.65 Insulin: No Blood-Glucose Meter monitoring kit 1 Each as needed. Diagnoses: type 2 diabetes, not insulin dependent CPAP Initiate AutoPAP @ 9/20 cm of water with humidification. Mask (per patient preference) optional chin strap (if indicated) , filters, tubing, humidifier and lifetime supplies. Dx. GRICEL ibuprofen (MOTRIN) 800 mg tablet Take 1 tablet by mouth every 8 hours as needed for Pain (with food.). therapeutic multivitamin (THERA VITAMIN) tablet Take 1 tablet by mouth once daily. lisinopril (ZESTRIL, PRINIVIL) 40 mg tablet Take 1 tablet by mouth once daily. gabapentin (NEURONTIN) 100 mg capsule Take 4 capsules in AM and 5 capsules in PM at bedtime predniSONE (DELTASONE) 10 mg tablet Take 4 tabs daily x 3 days, then 3 tabs x 3 days, 2 tabs x 3 days, then 1 tab x3 days with food. No current facility-administered medications for this visit. ALLERGIES Allergen Reactions Bactrim [Sulfametho* Hives Social History Tobacco Use Smoking status: Never Smokeless tobacco: Never ROS: See HPI PE: BP 146/76 Pulse 80 Temp (Src) 97 (Left Tympanic) Resp 20 Wt 329 lb (149.2kg) Gen: AANDOX3, NAD, non-toxic appearing Skin: exophytic squamoproliferative skin lesion right lower cheek at corley line and <0.5 cm size without bleeding ASSESSMENT/PLAN: 1. Atypical squamoproliferative skin lesion - ICD9: 239.2, ICD10: D49.2 (primary diagnosis) Treated with cryotherapy in the office today, tolerated procedure well, no complications, f/u if not improved and will need excision. 2. Essential hypertension - ICD9: 401.9, ICD10: I10 - good control - Continue current medication(s) - Encouraged dietary sodium restriction/DASH diet - Recommended regular aerobic exercise. - Recommend home blood pressure monitoring, to bring results in on next visit - Goal of BP <130/80 - LISINOPRIL 40 MG TABLET - COMP METABOLIC PANEL - CBC 3. Uncontrolled type 2 diabetes mellitus with hyperglycemia (HCC) - ICD9: 250.02, ICD10: E11.65 uncontrolled - Continue current medications - LISINOPRIL 40 MG TABLET - HGB A1C 4. Neck pain, chronic - ICD9: 723.1, 338.29, ICD10: M54.2, G89.29 - GABAPENTIN 100 MG CAPSULE 5. Chronic left shoulder pain - ICD9: 719.41, 338.29, ICD10: M25.512, G89.29 - GABAPENTIN 100 MG CAPSULE 6. Other hyperlipidemia - ICD9: 272.4, ICD10: E78.49 - LIPID PANEL BASIC 7. Screening for prostate cancer - ICD9: V76.44, ICD10: Z12.5 - PSA/PROSTSPECAG SCRN Eze Kuhn, Return if no improvement. Follow up with Eze Kuhn DO. To ER if develops chest pain, shortness of breath (more content not included)... [facility] 07-04-2022 History of Present illness Narrative CC: Jay Rodriguez is a 61 year old male who presents to the office for skin follow up HPI: Skin lesion, right side of face near corley, feels it got smaller with the cryotherapy but not gone. Asking for a treatment again, would rather not have it biopsied yet if able to avoid. Leg edema, increased recently, admits has been sitting a lot with local travel back and forth to work in [place], no leg pain or increased redness PAST MEDICAL HISTORY Diagnosis Date Bilateral leg edema Diabetes type 2, controlled (HCC) Hyperlipidemia Hypertension Kidney stones 6-7 different episodes Obstructive sleep apnea Renal cyst benign, no change in size, unsure side PAST SURGICAL HISTORY Procedure Laterality Date APPENDECTOMY 08/24/2020 [facility] N[facility] Current Outpatient Medications Medication Sig meloxicam (MOBIC) 15 mg tablet Take 1 tablet by mouth once daily. As needed for arthritis, With food. empagliflozin (JARDIANCE) 25 mg tablet Take 1 tablet by mouth daily with breakfast. atorvastatin (LIPITOR) 40 mg tablet Take 1 tablet by mouth once daily. glipiZIDE (GLUCOTROL) 10 mg tablet 1 tablet PO in the morning with breakfast, 2 tablet PO in the evening with supper blood sugar diagnostic (ACCU-CHEK UVALDO PLUS TEST STRP) test strip Test blood sugar(s) 2 times daily. Dx: Type 2 DM - Uncontrolled E11.65 Insulin: No furosemide (LASIX) 20 mg tablet Take 1-2 tablets by mouth once daily. dulaglutide (TRULICITY) 3 mg/0.5 mL pen injector Inject 3 mg subcutaneously one time a week. cyclobenzaprine (FLEXERIL) 10 mg tablet Take 1 tablet by mouth twice daily as needed for Muscle Spasm. lidocaine (LIDODERM) 5 % Apply 1 Patch as directed every 24 hours. mupirocin (BACTROBAN) 2 % ointment Apply 1 application to affected area three times daily. Location: leg CPAP Mask (per patient preference) optional chin strap (if indicated) , filters, tubing, humidifier and lifetime supplies. Lancets (ACCU-CHEK MULTICLIX LANCET) lancets Test blood sugar(s) 2 times daily. Dx: Type 2 DM - Uncontrolled E11.65 Insulin: No lancets (ONE TOUCH DELICA) 33 gauge misc Test blood sugar(s) 2 daily. Dx: Type 2 DM - Uncontrolled E11.65 Insulin: No Blood-Glucose Meter monitoring kit 1 Each as needed. Diagnoses: type 2 diabetes, not insulin dependent CPAP Initiate AutoPAP @ 9/20 cm of water with humidification. Mask (per patient preference) optional chin strap (if indicated) , filters, tubing, humidifier and lifetime supplies. Dx. GRICEL ibuprofen (MOTRIN) 800 mg tablet Take 1 tablet by mouth every 8 hours as needed for Pain (with food.). therapeutic multivitamin (THERA VITAMIN) tablet Take 1 tablet by mouth once daily. lisinopril (ZESTRIL, PRINIVIL) 40 mg tablet Take 1 tablet by mouth once daily. gabapentin (NEURONTIN) 100 mg capsule Take 4 capsules in AM and 5 capsules in PM at bedtime predniSONE (DELTASONE) 10 mg tablet Take 4 tabs daily x 3 days, then 3 tabs x 3 days, 2 tabs x 3 days, then 1 tab x3 days with food. No current facility-administered medications for this visit. ALLERGIES Allergen Reactions Bactrim [Sulfametho* Hives Social History Tobacco Use Smoking status: Never Smokeless tobacco: Never ROS: See HPI PE: BP 146/76 Pulse 80 Temp (Src) 97 (Left Tympanic) Resp 20 Wt 329 lb (149.2kg) Gen: A&OX3, NAD, non-toxic appearing Skin: exophytic squamoproliferative skin lesion right lower cheek at corley line and <0.5 cm size without bleeding ASSESSMENT/PLAN: 1. Atypical squamoproliferative skin lesion - ICD9: 239.2, ICD10: D49.2 (primary diagnosis) Treated with cryotherapy in the office today, tolerated procedure well, no complications, f/u if not improved and will need excision. 2. Essential hypertension - ICD9: 401.9, ICD10: I10 - good control - Continue current medication(s) - Encouraged dietary sodium restriction/DASH diet - Recommended regular aerobic exercise. - Recommend home blood pressure monitoring, to bring results in on next visit - Goal of BP <130/80 - LISINOPRIL 40 MG TABLET - COMP METABOLIC PANEL - CBC 3. Uncontrolled type 2 diabetes mellitus with hyperglycemia (HCC) - ICD9: 250.02, ICD10: E11.65 uncontrolled - Continue current medications - LISINOPRIL 40 MG TABLET - HGB A1C 4. Neck pain, chronic - ICD9: 723.1, 338.29, ICD10: M54.2, G89.29 - GABAPENTIN 100 MG CAPSULE 5. Chronic left shoulder pain - ICD9: 719.41, 338.29, ICD10: M25.512, G89.29 - GABAPENTIN 100 MG CAPSULE 6. Other hyperlipidemia - ICD9: 272.4, ICD10: E78.49 - LIPID PANEL BASIC 7. Screening for prostate cancer - ICD9: V76.44, ICD10: Z12.5 - PSA/PROSTSPECAG SCRN Eze Kuhn DO Return if no improvement. Follow up with Eze Kuhn DO. To ER if develops chest pain, shortness of breath Discussed risks, benefits, alternatives, and potential side effects of medications. Patient/Guardian expressed understanding and agreed with the plan. See patient instructions. Eze Kuhn DO [address] [place] [address] documented in this encounter [facility] 06-19-2022 Miscellaneous Notes Patient has been identified by name and date of : Yes Patient phones for refill(s): Requested Prescriptions Pending Prescriptions Disp Refills meloxicam (MOBIC) 15 mg tablet 90 tablet 2 Sig: Take 1 tablet by mouth once daily. As needed for arthritis, With food. empagliflozin (JARDIANCE) 25 mg tablet 90 tablet 1 Sig: Take 1 tablet by mouth daily with breakfast. Date of last office visit in primary care: 03/28/22 Next appointment 09/26/2022 Please advise. Thank you. Nuvia Delarosa LPN documented in this encounter [facility] 05-03-2022 Miscellaneous Notes The following approved medication requests have been transmitted electronically. Requested Prescriptions Signed Prescriptions Disp Refills doxycycline (VIBRA-TABS) 100 mg tablet 20 tablet 0 Sig: Take 1 tablet by mouth twice daily for 10 days. Keo Newton APRN.JUAN ANTONIO documented in this encounter [facility] 04-24-2022 Miscellaneous Notes Patient has been identified by name and date of : Yes Patient phones for refill(s): Requested Prescriptions Pending Prescriptions Disp Refills atorvastatin (LIPITOR) 40 mg tablet 150 tablet 0 Sig: Take 1 tablet by mouth once daily. Date of last office visit in primary care: 03/28/22 Last 2 Encounter Wt Readings: Date: Wt: 03/28/2022 149.2 kg (329 lb) 02/19/2022 146.1 kg (322 lb 3.2 oz) Previous labs/tests for medication: Not applicable Please advise. Thank you. Lu Ramirez LPN documented in this encounter [facility] 03-28-2022 History of Present illness Narrative Patient presents with: 6 Month Exam HPI: Jay Rodriguez is a 61 year old male who presents to the office today for review of health conditions. Concerns today: Recurrent erythema and cellulitis of right >left lower leg. Hasn't had recent episode, was treated with doxycycline in the past, did improve with antibiotic bactrim as well in the past as prescribed. 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 Chronic low back pain, chronic neck pain, chronic left>right shoulder pain, taking medications as prescribed, tolerating well. Still struggling with daily and other activities of living due to these symptoms. Taking his diabetes medication as prescribed. Blood glucose readings much better improved in the last 1 year since being on Jardiance medication. Mr. Rodriguez has past history of diabetes. Since our last visit he denies excessive thirst or increased frequency of urination, chest pain or dyspnea , new or unusual visual symptoms, and low sugar/hypoglycemic reactions. Depression- no. Follows a diabetic diet some of the time. He is compliant with medication(s) and is tolerating med(s) without any side effects. He reports checking his glucose on a once a day schedule with sugars in the fasting <120 range. Patient's last HgA1C was Hemoglobin A1C (%) Date Value 03/10/2022 7.4 10/07/2021 7.6 12/24/2020 7.5 11/28/2019 8.1 ) Last Ophthalmology exam was within the past 12 months Mr. Rodriguez reports history of hyperlipidemia. Current therapy includes atorvastatin (Lipitor) 40 mg. Denies side effects of muscle weakness or achiness. His most recent lipid panels are reviewed. Cholesterol, Total (mg/dL) Date Value 10/07/2021 183 12/24/2020 159 HDL Cholesterol (mg/dL) Date Value 10/07/2021 35 12/24/2020 33 LDL Cholesterol (mg/dL) Date Value 10/07/2021 85 12/24/2020 86 Triglyceride (mg/dL) Date Value 10/07/2021 314 12/24/2020 201 Mr. Rodriguez indicates a history of hypertension and states that he is feeling well and denies any symptoms referable to elevated blood pressure. Specifically denies headache, chest pain, palpitations, and dyspnea. Patient denies any side effects of his medication(s) and is compliant with their regimen. Last 3 Encounter BP Readings: Date: BP: 03/28/2022 130/70 02/19/2022 122/78 01/31/2022 120/64 He watches his diet for sodium, low fat and low cholesterol some of the time. He does not check BP's generally. Jay gets minimal exercise. PAST MEDICAL HISTORY Diagnosis Date Bilateral leg edema Diabetes type 2, controlled (HCC) Hyperlipidemia Hypertension Kidney stones 6-7 different episodes Obstructive sleep apnea Renal cyst benign, no change in size, unsure side PAST SURGICAL HISTORY Procedure Laterality Date APPENDECTOMY 08/24/2020 [facility]aroscopic[facility] NONE Social History Tobacco Use Smoking status: Never Smokeless tobacco: Never FAMILY HISTORY Problem Relation Age of Onset Heart Father at 55 Hypertension Mother Lipids Mother Kidney Disease Maternal Grandfather Allergies: ALLERGIES Allergen Reactions Bactrim [Sulfametho* Hives Current Meds: gabapentin (NEURONTIN) 100 mg capsule Take 4 capsules in AM and 4 capsules in PM at bedtime glipiZIDE (GLUCOTROL) 10 mg tablet 1 tablet PO in the morning with breakfast, 2 tablet PO in the evening with supper atorvastatin (LIPITOR) 40 mg tablet Take 1 tablet by mouth once daily. blood sugar diagnostic (ACCU-CHEK UVALDO PLUS TEST STRP) test strip Test blood sugar(s) 2 times daily. Dx: Type 2 DM - Uncontrolled E11.65 Insulin: No furosemide (LASIX) 20 mg tablet Take 1-2 tablets by mouth once daily. meloxicam (MOBIC) 15 mg tablet Take 1 tablet by mouth once daily. As needed for arthritis, With food. empagliflozin (JARDIANCE) 25 mg tablet Take 1 tablet by mouth daily with breakfast. dulaglutide (TRULICITY) 3 mg/0.5 mL pen injector Inject 3 mg subcutaneously one time a week. cyclobenzaprine (FLEXERIL) 10 mg tablet Take 1 tablet by mouth twice daily as needed for Muscle Spasm. lidocaine (LIDODERM) 5 % Apply 1 Patch as directed every 24 hours. mupirocin (BACTROBAN) 2 % ointment Apply 1 application to affected area three times daily. Location: leg CPAP Mask (per patient preference) optional chin strap (if indicated) , filters, tubing, humidifier and lifetime supplies. Lancets (ACCU-CHEK MULTICLIX LANCET) lancets Test blood sugar(s) 2 times daily. Dx: Type 2 DM - Uncontrolled E11.65 Insulin: No lancets (ONE TOUCH DELICA) 33 gauge misc Test blood sugar(s) 2 daily. Dx: Type 2 DM - Uncontrolled E11.65 Insulin: No Blood-Glucose Meter monitoring kit 1 Each as needed. Diagnoses: type 2 diabetes, not insulin dependent CPAP Initiate AutoPAP @ 9/20 cm of water with humidification. Mask (per patient preference) optional chin strap (if indicated) , filters, tubing, humidifier and lifetime supplies. Dx. GRICEL therapeutic multivitamin (THERA VITAMIN) tablet Take 1 tablet by mouth once daily. lisinopril (ZESTRIL, PRINIVIL) 40 mg tablet Take 1 tablet by mouth once daily. doxycycline (VIBRA-TABS) 100 mg tablet Take 1 tablet by mouth twice daily for 10 days. ibuprofen (MOTRIN) 800 mg tablet Take 1 tablet by mouth every 8 hours as needed for Pain (with food.). Review of Systems: The remainder of the review of systems is negative. PE: 03/28/22 1814 BP: 130/70 Pulse: 80 Resp: 20 Temp: 36.2 C (97.1 F) TempSrc: Left Tympanic Weight: (!) 149.2 kg (329 lb) Gen: A&O, NAD, non-toxic appearing, Pleasant, cooperative HEENT: NT/AC, PERRLA, wearing glasses, EOMs intact b/l, nares clear and patent b/l, pharynx without erythema, exudate or lesions. MMM, Uvula midline. EACs without erythema or debris. TMs pearly gilmore with intact landmarks b/l. Neck: supple, No cervical LAD, no thyromegaly, no carotid bruits CV: RRR, normal S1 and S2, no murmurs, no gallops, no rubs, Pulses 2+ and symmetric in UE and LE b/l Lungs: normal respiratory effort, CTA b/l, no wheezing or rhonchi or rales Abd: soft, NT, ND, +BS, no hepatosplenomegaly MS:slowed but stable gait Arthritis changes of knees, hips, spine, neck Neuro: CN II-XII intact b/l Skin: warm, dry, intact, hemosiderin staining of skin b/l lower legs without ulceration or signs of cellulitis. Exophytic ulcerated skin lesion 4-5 mm size on right side of face above lip Foot exam: Monofilament abnormal on right and left feet. ASSESSMENT/PLAN: 1. Uncontrolled type 2 diabetes mellitus with hyperglycemia (HCC) - ICD9: 250.02, ICD10: E11.65 (primary diagnosis) improved control - Continue current medications - Blood glucose monitoring on a twice a day schedule - Encouraged regular aerobic exercise and weight loss - BP goal of <130/80 - LDL goal of <100 - LISINOPRIL 40 MG TABLET 2. Essential hypertension - ICD9: 401.9, ICD10: I10 - good control - Continue current medication(s) - Encouraged dietary sodium restriction/DASH diet - Recommended regular aerobic exercise. - Recommend home blood pressure monitoring, to bring results in on next visit - Discussed need and benefit for weight loss. - Goal of BP <130/80 - LISINOPRIL 40 MG TABLET 3. Infection of skin - ICD9: 686.9, ICD10: L08.9 - overall stable at this time, b/l legs at risk of cellulitis due to dependent edema and diabetes. - DOXYCYCLINE HYCLATE 100 MG TABLET 4. Necrobiosis lipoidica diabeticorum (HCC) - ICD9: 250.80, 709.3, ICD10: E11.620 improved control - Continue current medications - discussed skin care of rash - follow up if symptoms persist or worsen. - DOXYCYCLINE HYCLATE 100 MG TABLET 5. Neck pain, chronic - ICD9: 723.1, 338.29, ICD10: M54.2, G89.29 - overall stable, chronic, use of medications as prescribed. 6. Edema of lower extremity - ICD9: 782.3, ICD10: R60.0 See above, stable 7. GRICEL (obstructive sleep apnea) - ICD9: 327.23, ICD10: G47.33 - continue CPAP use 8. Chronic pain of both shoulders - ICD9: 719.41, 338.29, ICD10: M25.511, G89.29, M25.512 Chronic, Causing impairment in his ADLs and IADLs at this time 9. Chronic midline low back pain without sciatica - ICD9: 724.2, 338.29, ICD10: M54.50, G89.29 Chronic, Causing impairment in his ADLs and IADLs at this time 10. Obesity, Class III, BMI 40-49.9 (morbid obesity) (HCC) - ICD9: 278.01, ICD10: E66.01 Stable - Behavioral intervention and - Pharmacological intervention 11. Skin lesion of face - ICD9: 709.9, ICD10: L98.9 Concerns for SQUAMOUS CELL CARCINOMA vs. BASAL CELL CARCINOMA, he wants to attempt cryotherapy today in office, he tolerated this well. If doesn't resolve, then will likely need biopsy as d/w him today, he is aware of care Eze Kuhn DO To ER if develops chest pain, shortness of breath, or severe worsening of symptoms. Discussed risks, benefits, alternatives, and potential side effects of medications. Patient expressed understanding and agreed with the plan. Eze Kuhn DO [address] [place] [address] documented in this encounter [facility] 03-12-2022 Miscellaneous Notes PDMP website checked and validated. All prescriptions have been APPROPRIATELY filled. No suspicious activity was identified. 03/12/2022 by Keo Newton APRN.CNP The following approved medication requests have been transmitted electronically. Requested Prescriptions Signed Prescriptions Disp Refills gabapentin (NEURONTIN) 100 mg capsule 360 capsule 3 Sig: Take 4 capsules in AM and 4 capsules in PM at bedtime Authorizing Provider: KEO NEWTON APRN.CNP Last office visit: 01/31/22 F/u scheduled: 03/28/22 Maryam Nava Ma documented in this encounter [facility] 03-12-2022 Miscellaneous Notes Maria R--01/31/22 Nov--03/28/22 Last refill--03/03/21 270 with 3 refills Last labs--03/10/22 documented in this encounter [facility] 01-31-2022 History of Present illness Narrative Chief Complaint Patient presents with: Follow Up: Medication f/up also a cyst on pts waist area HPI Jay Rodriguez is a 61 year old male who presents here today for Above Complaints.. Jay is an established patient of Dr. Prabhjot DO. Concerns today.. Cyst -- To pannus area of L lower abd x 2-3 days. Recurrent. Gets these frequently in numerous areas. Sometimes will burst and drain on their own with resolution. Sometimes needs an antibiotic. Has never needed I&D. Full resolution in the past with doxycycline x 10 days per pt. Asking for the same regimen. Denies any fever/chills/night sweats. Denies warmth, redness or irritation surround the cyst/abscess. Asking for short burst prednisone regimen for upcoming trip to [place]. Has chronic L shoulder and lower back pain. Able to manage symptoms day to day but difficulty with lots of walking and activity. Upcoming trip will involve lots of walking so would like steroid burst to have on hand for upcoming trip. Skin infections -- Seen on 11/15 d/t cellulitis of RLE. Symptoms completely resolved with doxycycline regimen x 10 days. Asking to have additional regimen to have on hand when chronic cellulitis and erythema returns. Has not had episode since October. BLE remain slightly erythremic at baseline due to dx of necrobiosis lipoidica diabeticorum. BLE are at baseline. Pt admits to poor elevation in extremities due to sleeping in recliner or chair often d/t shoulder or back discomfort. Declines ortho consult or pain management consult for chronic pain. Pt admits poor use of compression stockings due to discomfort when taking them off. DM -- Declined hgA1c today. Has upcoming appointment in March and will recheck chronic conditions then due to costs per pt. hgA1c --- 7.6 in September, 3 months ago. Past medical history, appointments, medications, allergies reviewed. Previous Medical History PAST MEDICAL HISTORY Diagnosis Date Bilateral leg edema Diabetes type 2, controlled (HCC) Hyperlipidemia Hypertension Kidney stones 6-7 different episodes Obstructive sleep apnea Renal cyst benign, no change in size, unsure side Previous Surgical History PAST SURGICAL HISTORY Procedure Laterality Date APPENDECTOMY 08/24/2020 [facility]oscopic[facility] NONE Family History FAMILY HISTORY Problem Relation Age of Onset Heart Father at 55 Hypertension Mother Lipids Mother Kidney Disease Maternal Grandfather Patient Allergies ALLERGIES Allergen Reactions Bactrim [Sulfametho* Hives Current Medications Current Outpatient Medications on File Prior to Visit Medication Sig atorvastatin (LIPITOR) 40 mg tablet Take 1 tablet by mouth once daily. blood sugar diagnostic (ACCU-CHEK UVALDO PLUS TEST STRP) test strip Test blood sugar(s) 2 times daily. Dx: Type 2 DM - Uncontrolled E11.65 Insulin: No gabapentin (NEURONTIN) 100 mg capsule Take 4 capsules in AM and 4 capsules in PM at bedtime furosemide (LASIX) 20 mg tablet Take 1-2 tablets by mouth once daily. meloxicam (MOBIC) 15 mg tablet Take 1 tablet by mouth once daily. As needed for arthritis, With food. empagliflozin (JARDIANCE) 25 mg tablet Take 1 tablet by mouth daily with breakfast. dulaglutide (TRULICITY) 3 mg/0.5 mL pen injector Inject 3 mg subcutaneously one time a week. glipiZIDE (GLUCOTROL) 10 mg tablet 1 tablet PO in the morning with breakfast, 2 tablet PO in the evening with supper mupirocin (BACTROBAN) 2 % ointment Apply 1 application to affected area three times daily. Location: leg CPAP Mask (per patient preference) optional chin strap (if indicated) , filters, tubing, humidifier and lifetime supplies. Lancets (ACCU-CHEK MULTICLIX LANCET) lancets Test blood sugar(s) 2 times daily. Dx: Type 2 DM - Uncontrolled E11.65 Insulin: No lancets (ONE TOUCH DELICA) 33 gauge misc Test blood sugar(s) 2 daily. Dx: Type 2 DM - Uncontrolled E11.65 Insulin: No Blood-Glucose Meter monitoring kit 1 Each as needed. Diagnoses: type 2 diabetes, not insulin dependent CPAP Initiate AutoPAP @ 9/20 cm of water with humidification. Mask (per patient preference) optional chin strap (if indicated) , filters, tubing, humidifier and lifetime supplies. Dx. GRICEL therapeutic multivitamin (THERA VITAMIN) tablet Take 1 tablet by mouth once daily. lisinopril (ZESTRIL, PRINIVIL) 40 mg tablet Take 1 tablet by mouth once daily. cyclobenzaprine (FLEXERIL) 10 mg tablet Take 1 tablet by mouth twice daily as needed for Muscle Spasm. (Patient not taking: Reported on 01/31/2022) lidocaine (LIDODERM) 5 % Apply 1 Patch as directed every 24 hours. (Patient not taking: Reported on 01/31/2022) ibuprofen (MOTRIN) 800 mg tablet Take 1 tablet by mouth every 8 hours as needed for Pain (with food.). (Patient not taking: Reported on 01/31/2022) No current facility-administered medications on file prior to visit. Social History Social History Tobacco Use Smoking status: Never Smokeless tobacco: Never REVIEW OF SYSTEMS: as above Reviewed relevant PMHx, PSHx, Social Hx, current medications and allergies. Review of Symptoms REVIEW OF SYSTEMS See HPI. EXAM: BP 120/64 (BP Site: Left Arm, BP Position: Sitting, BP Cuff Size: Large Adult) Pulse 64 Resp 16 Wt (!) 147.9 kg (326 lb) BMI 44.21 kg/m General Appearance: Well appearing, alert, in no acute distress, well-hydrated, well nourished.. Skin: Skin color, texture, turgor normal, no suspicious rashes or lesions, Positives: Cyst to L pannus about the size of dennis. No surround erythema, warmth, or irritation. Slightly indurated. Head: Normocephalic, no masses, lesions, tenderness or abnormalities. Lungs: Lungs clear to auscultation. No wheezing, rhonchi, rales.. Heart: RRR without murmur, gallop, or rubs. No ectopy. Abdomen: Normal abdominal exam, Abdomen soft, non-tender. Bowel sounds normal. No masses, organomegaly. Extremities: No deformities, edema, skin discoloration, clubbing or cyanosis. Good capillary refill. , Positive findings: baseline erythema and brown discoloring of bilateral lower shins. Musculoskeletal: No joint swelling, deformity, or tenderness. Peripheral Pulses: Normal. Health Maintenance List PNEUMOCOCCAL(1 - PCV) Never done HIV SCREENING Never done SHINGRIX VACCINE(1 of 2) Never done COVID-19 VACCINE(3 - Booster for Moderna series) due on 02/14/2021 DIABETIC FOOT EXAM due on 09/21/2021 URINE ALBUMIN:CREATININE RATIO due on 12/24/2021 INFLUENZA(1) due on 11/16/2022 DTAP,TDAP,TD(1 - Tdap) due on 01/31/2023 COLORECTAL CANCER SCREENING due on 01/31/2023 HBA1C due on 04/09/2022 DILATED RETINAL EXAM due on 08/01/2022 DEPRESSION SCREENING due on 09/25/2022 LDL CHOLESTEROL due on 10/07/2022 ANNUAL PCP TEAM CHRONIC DISEASE VISIT due on 11/15/2022 BP CONTROLLED (<130/80) due on 11/15/2022 PROSTATE CANCER SCREENING DISCUSSION due on 10/07/2026 HEPATITIS C SCREENING Completed ASSESSMENT/PLAN: 1. Epidermal inclusion cyst - ICD9: 706.2, ICD10: L72.0 (primary diagnosis) Doxycycline BID x 10 days. Use warm washcloth with epsom salts to withdrawal drainage from cyst if able. If no improvement after atb regimen, please RTO. - DOXYCYCLINE HYCLATE 100 MG TABLET 2. Infection of skin - ICD9: 686.9, ICD10: L08.9 See above. - DOXYCYCLINE HYCLATE 100 MG TABLET 3. Neck pain, chronic - ICD9: 723.1, 338.29, ICD10: M54.2, G89.29 Chronic. Prednisone burst x 5 days if needed during upcoming trip that involves a lot of walking. Discussed advantage of pain management for possible steroid injections -- pt declined. Discussed how steroids can increase BG --- pt aware and will continue to check BG daily. - PREDNISONE 20 MG TABLET 4. Chronic left shoulder pain - ICD9: 719.41, 338.29, ICD10: M25.512, G89.29 Chronic. Requesting Prednisone burst x 5 days if needed during upcoming trip that involves a lot of walking and activity. Discussed advantage of pain management consult for possible steroid injections -- pt declined. Discussed how steroids can increase BG --- pt aware and will continue to check BG daily - PREDNISONE 20 MG TABLET 5. Uncontrolled type 2 diabetes mellitus with hyperglycemia (HCC) - ICD9: 250.02, ICD10: E11.65 Declined hgA1c POC testing today d/t costs. Agreeable to order today to have done prior to upcoming appt with Dr. Kuhn for chronic condition review. - HGB A1C - ALBUMIN/CREAT RATIO RND UR 6. Necrobiosis lipoidica diabeticorum (HCC) - ICD9: 250.80, 709.3, ICD10: E11.620 Controlled. Stable. - Continue current medications - Blood glucose monitoring on a once a day schedule - Encouraged regular aerobic exercise and weight loss - discussed skin care of rash - follow up if symptoms return - DOXYCYCLINE HYCLATE 100 MG TABLET to have on hand when needed. RTO as already scheduled -- sooner if needed. Prescription instructions reviewed with patient as applicable. Potential red flag symptoms discussed with the patient. Reviewed appropriate action plan to take if red flag symptoms occur. Patient agreeable to treatment plan. Keo Newton APRN.CNP [address] [place] [address] documented in this encounter [facility] 01-23-2022 Miscellaneous Notes Last office visit: 11/15/21 F/u scheduled: 03/28/22 Maryam Nava Ma documented in this encounter [facility] 12-20-2021 Miscellaneous Notes The following approved medication requests have been transmitted electronically. Signed Prescriptions Disp Refills blood sugar diagnostic (ACCU-CHEK UVALDO PLUS TEST STRP) test strip 200 Strip 3 Sig: Test blood sugar(s) 2 times daily. Dx: Type 2 DM - Uncontrolled E11.65 Insulin: No MARGARITA: No Keo Newton APRN.JUAN ANTONIO documented in this encounter [facility] 12-12-2021 Miscellaneous Notes See mychart message. Maryam Nava Ma documented in this encounter [facility] 11-15-2021 Instructions Keo Newton APRN.CNP - 11/15/2021 4:24 PM EDT Start doxycyline BID x 10 days. Discontinue Bactrim. Let me know in 10 days if improved then we can send an additional doxycycline in to have on hand. Follow-up with me if not improved. Gabapentin and muproion refilled. Keo Newton APRN.JUAN ANTONIO documented in this encounter [facility] 11-15-2021 History of Present illness Narrative Chief Complaint Patient presents with: Wound Check HPI Jay Rodriguez is a 61 year old male who presents here today for Above Complaints.. Jay is an established patient of Dr. Kuhn. Jay is a new patient to me today. Concerns today.. Wound on leg: Per note from last visit on 09/[address] Kuhn: Recurrent erythema and cellulitis of right >left lower leg. Hasn't had recent episode, last was a few months ago, did improve with antibiotic bactrim as prescribed. Asking for rx for this to have for potential upcoming need since leg is starting to get red again. 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 Given Bactrim BID x 14 days to have on hand. Today... Reports hit leg on car door about 5 days ago. Abrasion to R brown that scabbed up over night. Reports clear, thin fluid leaking from area -- has not changed color or consistency. Mild cellulitis and redness to BLE at baseline per pt, has not worsened with this abrasion. Started taking bactrim once he noticed this. Broke out in hives all over back about 2 days ago. Took bactrim in the past with no reaction. Wanting to finish bactrim since he only has a few days left and has seen much improvement in laceration/abrasion. But would like different antibiotic to have on hand. Denies any fever or chills. Denies any worsening edema to BLE. Blood sugar levels have been slightly more elevated the past few weeks. Gabapentin --- was told he can increase to 400 mg BID from the 300 mg BID that is prescribed. Has been doing this regimen for a few months but runs out of medication early d/t script only showing 3 tablets BID. The 400 mg is working well and he is requesting script renewed to reflect this. No other concerns or complaints. Past medical history, appointments, medications, allergies reviewed. Previous Medical History PAST MEDICAL HISTORY Diagnosis Date Bilateral leg edema Diabetes type 2, controlled (HCC) Hyperlipidemia Hypertension Kidney stones 6-7 different episodes Obstructive sleep apnea Renal cyst benign, no change in size, unsure side Previous Surgical History PAST SURGICAL HISTORY Procedure Laterality Date APPENDECTOMY 08/24/2020 [facility] NONE Family History FAMILY HISTORY Problem Relation Age of Onset Heart Father at 55 Hypertension Mother Lipids Mother Kidney Disease Maternal Grandfather Patient Allergies ALLERGIES No Known Allergies Current Medications Current Outpatient Medications on File Prior to Visit Medication Sig furosemide (LASIX) 20 mg tablet Take 1-2 tablets by mouth once daily. blood sugar diagnostic (ACCU-CHEK UVALDO PLUS TEST STRP) test strip Test blood sugar(s) 2 times daily. Dx: Type 2 DM - Uncontrolled E11.65 Insulin: No gabapentin (NEURONTIN) 100 mg capsule Take 3 capsules in AM and 3 capsules in PM at bedtime lisinopril (ZESTRIL, PRINIVIL) 40 mg tablet Take 1 tablet by mouth once daily. meloxicam (MOBIC) 15 mg tablet Take 1 tablet by mouth once daily. As needed for arthritis, With food. empagliflozin (JARDIANCE) 25 mg tablet Take 1 tablet by mouth daily with breakfast. dulaglutide (TRULICITY) 3 mg/0.5 mL pen injector Inject 3 mg subcutaneously one time a week. atorvastatin (LIPITOR) 40 mg tablet Take 1 tablet by mouth once daily. glipiZIDE (GLUCOTROL) 10 mg tablet 1 tablet PO in the morning with breakfast, 2 tablet PO in the evening with supper mupirocin (BACTROBAN) 2 % ointment Apply to affected area twice daily. To skin lesion on right thigh cyclobenzaprine (FLEXERIL) 10 mg tablet Take 1 tablet by mouth twice daily as needed for Muscle Spasm. lidocaine (LIDODERM) 5 % Apply 1 Patch as directed every 24 hours. mupirocin (BACTROBAN) 2 % ointment Apply 1 application to affected area three times daily. Location: leg CPAP Mask (per patient preference) optional chin strap (if indicated) , filters, tubing, humidifier and lifetime supplies. Lancets (ACCU-CHEK MULTICLIX LANCET) lancets Test blood sugar(s) 2 times daily. Dx: Type 2 DM - Uncontrolled E11.65 Insulin: No atorvastatin (LIPITOR) 40 mg tablet TAKE 1 TABLET BY MOUTH EVERY DAY lancets (ONE TOUCH DELICA) 33 gauge misc Test blood sugar(s) 2 daily. Dx: Type 2 DM - Uncontrolled E11.65 Insulin: No Blood-Glucose Meter monitoring kit 1 Each as needed. Diagnoses: type 2 diabetes, not insulin dependent CPAP Initiate AutoPAP @ 9/20 cm of water with humidification. Mask (per patient preference) optional chin strap (if indicated) , filters, tubing, humidifier and lifetime supplies. Dx. GRICEL sildenafil (VIAGRA) 25 mg tablet Take 1 tablet by mouth as needed (for erectile dysfunction). Limit 1 tablet per 24 hour time period ibuprofen (MOTRIN) 800 mg tablet Take 1 tablet by mouth every 8 hours as needed for Pain (with food.). therapeutic multivitamin (THERA VITAMIN) tablet Take 1 tablet by mouth once daily. No current facility-administered medications on file prior to visit. Social History Social History Tobacco Use Smoking status: Never Smoker Smokeless tobacco: Never Used Substance Use Topics Alcohol use: Not on file Drug use: Not on file REVIEW OF SYSTEMS: as above Reviewed relevant PMHx, PSHx, Social Hx, current medications and allergies. Review of Symptoms See HPI. All other systems are negative. EXAM: BP 124/62 (BP Site: Left Arm, BP Position: Sitting, BP Cuff Size: Large Adult) Pulse 68 Temp 36.6 C (97.8 F) Resp 16 Wt (!) 149 kg (328 lb 6.4 oz) BMI 44.54 kg/m General Appearance: Well appearing, alert, in no acute distress, well-hydrated, well nourished.. Skin: Skin color, texture, turgor normal, no suspicious rashes or lesions. Head: Normocephalic, no masses, lesions, tenderness or abnormalities. Lungs: Lungs clear to auscultation. No wheezing, rhonchi, rales.. Heart: RRR without murmur, gallop, or rubs. No ectopy. Extremities: No deformities, edema, skin discoloration, clubbing or cyanosis. Good capillary refill. , Positive findings: R brown with small dime size abrasion/ulcer that is scabbed over. No warmth to are. Serous drainage note from site. Discoloration to BLE from brown to feet -- at baseline per pt and prior notes. Musculoskeletal: No joint swelling, deformity, or tenderness. Peripheral Pulses: Normal. Health Maintenance List PNEUMOCOCCAL(1 - PCV) Never done HIV SCREENING Never done DTAP,TDAP,TD(1 - Tdap) Never done SHINGRIX VACCINE(1 of 2) Never done COLORECTAL CANCER SCREENING due on 08/30/2019 COVID-19 VACCINE(3 - Booster for Moderna series) due on 02/14/2021 DIABETIC FOOT EXAM due on 09/21/2021 BP CONTROLLED (<130/80) due on 09/21/2021 URINE ALBUMIN:CREATININE RATIO due on 12/24/2021 INFLUENZA(Season Ended) due on 01/18/2022 HBA1C due on 04/09/2022 DILATED RETINAL EXAM due on 08/01/2022 DEPRESSION SCREENING due on 09/25/2022 ANNUAL PCP TEAM CHRONIC DISEASE VISIT due on 09/27/2022 LDL CHOLESTEROL due on 10/07/2022 PROSTATE CANCER SCREENING DISCUSSION due on 10/07/2026 HEPATITIS C SCREENING Completed ASSESSMENT/PLAN: 1. Infection of skin - ICD9: 686.9, ICD10: L08.9 (primary diagnosis) Start doxycyline BID x 10 days. Discontinue Bactrim now. Let me know in 10 days if improved then we can send an additional doxycycline in to have on hand. Follow-up with me (specifically d/t me being the one who assessed it this time) if no improved x 1 week or redness worsens. - Begin treatment with doxycycline BID x 10 days. - No lymphangetic streaking, this was defined for patient to watch for and to seek medical care immediately if appears - Area of cellulitis defined with pen, seek further attention if this area continues to enlarge - Continue to put antibiotic ointment on area and covering with bandage or wrap. - Discussed importance of checking blood glucose levels d/t infection and how this might elevate. - Follow up for recheck if not improvement in 1 week. - DOXYCYCLINE HYCLATE 100 MG TABLET - MUPIROCIN 2 % TOPICAL OINTMENT 2. Neck pain, chronic - ICD9: 723.1, 338.29, ICD10: M54.2, G89.29 Stable. Well controlled. Increased to gabapentin 400 mg BID which he has been taking for the past few months. - GABAPENTIN 100 MG CAPSULE 3. Chronic left shoulder pain - ICD9: 719.41, 338.29, ICD10: M25.512, G89.29 See above. Refilled. - GABAPENTIN 100 MG CAPSULE PDMP website checked and validated. All prescriptions have been APPROPRIATELY filled. No suspicious activity was identified. 11/15/2021 by Keo Newton APRN.[employer] RTO if symptoms worsen or do not improve within 7-10 days. Prescription instructions reviewed with patient as applicable. Potential red flag symptoms discussed with the patient. Reviewed appropriate action plan to take if red flag symptoms occur. Patient agreeable to treatment plan. Keo Newton APRN.JUAN ANTONIO [address] [place] [address] documented in this encounter [facility] 11-14-2021 Miscellaneous Notes See phone encounter. Kathy Wong LPN Pt notified that he needs seen as we've not seen him for this issue. Advised to see Provider or go into UC to be evaluated. Lis Isaac Ma documented in this encounter [facility] 11-10-2021 Miscellaneous Notes maria r-- 09/27/21 Next-- 03/28/22 Last refill-- 11/09/20 180 with 3 refills Last labs--10/07/21 documented in this encounter [facility] 10-26-2021 Miscellaneous Notes Contacted patient to verify that he needed the One touch or the Accu chek. We received notification from the pharmacy that he needed one touch which has not been prescribed since 2018. Patient has been identified by name and date of : Yes Pending Prescriptions Disp Refills ONETOUCH VERIO TEST STRIPS 180 Strip 3 Sig: Test blood sugar(s) 2 times daily. Dx: Type 2 DM - Uncontrolled E11.65 Insulin: No MARGARITA: No RX INSTRUCTIONS: Patient aware RX will be sent to pharmacy. No need to notify patient. Chelita Bradford MA Maria R: 09/2021 Nov: 03/2022 Patient has been identified by name and date of : Yes Pending Prescriptions Disp Refills ONETOUCH VERIO TEST STRIPS 180 Strip 3 Sig: Test blood sugar(s) 2 times daily. Dx: Type 2 DM - Uncontrolled E11.65 Insulin: No MARGARITA: No RX INSTRUCTIONS: Patient aware RX will be sent to pharmacy. No need to notify patient. Rachel Singh documented in this encounter [facility] 10-09-2021 Miscellaneous Notes Spoke with pt gave information provided. Pt voices understanding. He states eats mostly chicken because he likes it better than beef but eats a hamberger every once in a while . Is taking his lipitor as prescribed. Please inform patient that his a1c is up at 7.6%. We just recenlty increased his trulicity dose from 1.5 to 3 mg once a week. Would like to continue him on this dose. May need to increase trulicity again to 4.5 mg once a week if a1c stays >7% at next lab draw in 3-6 months His cholesterol is also elevated. Is he taking his Lipitor? Please make sure he is adhering to a low cholesterol diet and decreased fat and red meat intake. Eze Kuhn DO documented in this encounter [facility] 09-27-2021 History of Present illness Narrative Patient presents with: 6 Month Exam HPI: Jay Rodriguez is a 61 year old male who presents to the office today for review of health conditions. Concerns today: Recurrent erythema and cellulitis of right >left lower leg. Hasn't had recent episode, last was a few months ago, did improve with antibiotic bactrim as prescribed. Asking for rx for this to have for potential upcoming need since leg is starting to get red again. 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 B/l shoulder pain, use of gabapentin as prescribed and sometimes motrin as well as aleve intermittently, no improvement with tylenol, xrays of the shoulder joints were normal. Told likely is rotator cuff disorder and/or labral tear due to his jobs in the past and injuries. He is without great coverage regarding his insurance and doesn't feel he is able to be off work to consider surgery at this time. Now is affecting everything he does- not able to lay down in bed, has to sleep upright in chair with arm/shoulder supported more. Not able to use his shoulders well with activity, limiting his ability to clean or cook at home etc. Doesn't tolerate narcotics due to side effects. Never improved with exercises and PHYSICAL THERAPY in the past, hasn't seen orthopedics recently. Chronic low back pain, limited mobility, worse with his job and with recurrent attempts at bending and lifting. Has been taking the NSAID daily and gabapentin, not able to take higher doses of gabapentin during the day due to his fatigue symptoms. B/l foot pain, aching, worse when trying to wear tennis shoes. Feel a little better when wearing his red wing shoes with inserts. Mr. Rodriguez has past history of diabetes. Since our last visit he denies excessive thirst or increased frequency of urination, chest pain or dyspnea , new or unusual visual symptoms and low sugar/hypoglycemic reactions. Follows a diabetic diet some of the time. He is compliant with medication(s) and is tolerating med(s) without any side effects. He reports checking his glucose on a twice a day schedule with sugars in the <200 range. Patient's last HgA1C was Hemoglobin A1C (%) Date Value 12/24/2020 7.5 11/28/2019 8.1 ) Last Ophthalmology exam was within the past 12 months Mr. Rodriguez reports history of hyperlipidemia. Current therapy includes atorvastatin (Lipitor) 40 mg. Denies side effects of muscle weakness or achiness. His most recent lipid panels are reviewed. Cholesterol, Total (mg/dL) Date Value 12/24/2020 159 HDL Cholesterol (mg/dL) Date Value 12/24/2020 33 LDL Cholesterol (mg/dL) Date Value 12/24/2020 86 Triglyceride (mg/dL) Date Value 12/24/2020 201 Mr. Rodriguez indicates a history of hypertension and states that he is feeling well and denies any symptoms referable to elevated blood pressure. Specifically denies headache, chest pain, palpitations, dyspnea and peripheral edema. Patient denies any side effects of his medication(s) and is compliant with their regimen. Last 3 Encounter BP Readings: Date: BP: 09/27/2021 136/60 03/29/2021 120/80 11/07/2020 116/70 He watches his diet for sodium, low fat and low cholesterol some of the time. He does not check BP's generally. Jay gets minimal exercise. PAST MEDICAL HISTORY Diagnosis Date Bilateral leg edema Diabetes type 2, controlled (HCC) Hyperlipidemia Hypertension Kidney stones 6-7 different episodes Obstructive sleep apnea Renal cyst benign, no change in size, unsure side PAST SURGICAL HISTORY Procedure Laterality Date APPENDECTOMY 08/24/2020 [facility] NONE Social History Tobacco Use Smoking status: Never Smoker Smokeless tobacco: Never Used Substance Use Topics Alcohol use: Not on file Drug use: Not on file FAMILY HISTORY Problem Relation Age of Onset Heart Father at 55 Hypertension Mother Lipids Mother Kidney Disease Maternal Grandfather Allergies: ALLERGIES No Known Allergies Current Meds: gabapentin (NEURONTIN) 100 mg capsule Take 3 capsules in AM and 3 capsules in PM at bedtime lisinopril (ZESTRIL, PRINIVIL) 40 mg tablet Take 1 tablet by mouth once daily. meloxicam (MOBIC) 15 mg tablet Take 1 tablet by mouth once daily. As needed for arthritis, With food. empagliflozin (JARDIANCE) 25 mg tablet Take 1 tablet by mouth daily with breakfast. atorvastatin (LIPITOR) 40 mg tablet Take 1 tablet by mouth once daily. glipiZIDE (GLUCOTROL) 10 mg tablet 1 tablet PO in the morning with breakfast, 2 tablet PO in the evening with supper furosemide (LASIX) 20 mg tablet TAKE 1-2 TABLETS BY MOUTH ONCE DAILY. blood sugar diagnostic (ACCU-CHEK UVALDO PLUS TEST STRP) test strip Test blood sugar(s) 2 times daily. Dx: Type 2 DM - Uncontrolled E11.65 Insulin: No mupirocin (BACTROBAN) 2 % ointment Apply to affected area twice daily. To skin lesion on right thigh cyclobenzaprine (FLEXERIL) 10 mg tablet Take 1 tablet by mouth twice daily as needed for Muscle Spasm. lidocaine (LIDODERM) 5 % Apply 1 Patch as directed every 24 hours. mupirocin (BACTROBAN) 2 % ointment Apply 1 application to affected area three times daily. Location: leg CPAP Mask (per patient preference) optional chin strap (if indicated) , filters, tubing, humidifier and lifetime supplies. Lancets (ACCU-CHEK MULTICLIX LANCET) lancets Test blood sugar(s) 2 times daily. Dx: Type 2 DM - Uncontrolled E11.65 Insulin: No atorvastatin (LIPITOR) 40 mg tablet TAKE 1 TABLET BY MOUTH EVERY DAY blood sugar diagnostic (ONETOUCH VERIO) test strip Test blood sugar(s) 2 times daily. Dx: Type 2 DM - Uncontrolled E11.65 Insulin: No lancets (ONE TOUCH DELICA) 33 gauge misc Test blood sugar(s) 2 daily. Dx: Type 2 DM - Uncontrolled E11.65 Insulin: No Blood-Glucose Meter monitoring kit 1 Each as needed. Diagnoses: type 2 diabetes, not insulin dependent CPAP Initiate AutoPAP @ 9/20 cm of water with humidification. Mask (per patient preference) optional chin strap (if indicated) , filters, tubing, humidifier and lifetime supplies. Dx. GRICEL sildenafil (VIAGRA) 25 mg tablet Take 1 tablet by mouth as needed (for erectile dysfunction). Limit 1 tablet per 24 hour time period ibuprofen (MOTRIN) 800 mg tablet Take 1 tablet by mouth every 8 hours as needed for Pain (with food.). therapeutic multivitamin (THERA VITAMIN) tablet Take 1 tablet by mouth once daily. dulaglutide (TRULICITY) 3 mg/0.5 mL pen injector Inject 3 mg subcutaneously one time a week. sulfamethoxazole-trimethoprim (BACTRIM DS) 800-160 mg per tablet Take 1 tablet by mouth twice daily for 14 days. Review of Systems: The remainder of the review of systems is negative. PE: 09/27/21 1803 BP: 136/60 Pulse: 80 Resp: 16 Temp: 36.7 C (98 F) TempSrc: Left Tympanic Weight: (!) 150.1 kg (331 lb) Gen: A&O, NAD, non-toxic appearing, Pleasant, cooperative HEENT: NT/AC, PERRLA, wearing glasses, EOMs intact b/l, nares clear and patent b/l, pharynx without erythema, exudate or lesions. Uvula midline. MMM Neck: supple, No cervical LAD, no thyromegaly, no carotid bruits CV: RRR, normal S1 and S2, no murmurs, no gallops, no rubs, Pulses 2+ and symmetric in UE and LE b/l Lungs: normal respiratory effort, CTA b/l, no wheezing or rhonchi or rales Abd: soft, obese, NT, ND, +BS, no hepatosplenomegaly MS: see below Neuro: CN II-XII intact b/l, Reduced ROM lumbar spine due to pain Right >left shoulder with reduced/limited active ROM due to pain, holding right shoulder against chest wall in abducted elbow flexed position for comfort, no swelling of joint or instability , pain with ROM Skin: warm, dry, intact, +significant skin changes lower legs with chronic erythema and discoloration hemosiderin staining of skin without current signs of cellulitis or warmth Foot exam: Monofilament abnormal on right and left feet. Bunion right great toe with hammer changes to 2nd toe with reduced ROM of toes due to pain, normal DP and posterior tibial pulses ASSESSMENT/PLAN: 1. Uncontrolled type 2 diabetes mellitus with hyperglycemia (HCC) - ICD9: 250.02, ICD10: E11.65 (primary diagnosis) uncontrolled poorly controlled - Increase Trulicity - Blood glucose monitoring on a three times a day schedule - Encouraged regular aerobic exercise and weight loss - Discussed diabetic education issues of nursing home diabetic complications, hyperglycemic symptoms, diet, medications- side effects and need for compliance and importance of exercise with patient. - BP goal of <130/80 - LDL goal of <100 - LISINOPRIL 40 MG TABLET - EMPAGLIFLOZIN 25 MG TABLET - TRULICITY 3 MG/0.5 ML SUBCUTANEOUS PEN INJECTOR - HGB A1C - COMP METABOLIC PANEL - CBC + DIFF 2. Neck pain, chronic - ICD9: 723.1, 338.29, ICD10: M54.2, G89.29 - rx refilled, he isn't able to tolerate higher dose of gabapentin due to fatigue SE, would likely benefit from cervical spine injections with pain mgmt when willing, is affecting his ADLs and IADLs and chronic pain - GABAPENTIN 100 MG CAPSULE - MELOXICAM 15 MG TABLET 3. Chronic left shoulder pain - ICD9: 719.41, 338.29, ICD10: M25.512, G89.29 - likely symptoms are secondary to severe rotator cuff disorder/degenerative tears as well as potential labral tear. Need for follow up with orthopedics and MRI shoulders when willing, he isn't willing to pursue this at this time yet. - GABAPENTIN 100 MG CAPSULE - MELOXICAM 15 MG TABLET 4. Essential hypertension - ICD9: 401.9, ICD10: I10 - good control - Continue current medication(s) - Encouraged dietary sodium restriction/DASH diet - Recommended regular aerobic exercise. - Recommend home blood pressure monitoring, to bring results in on next visit - Discussed need and benefit for weight loss. - Goal of BP <130/80 - LISINOPRIL 40 MG TABLET 5. Infection of skin - ICD9: 686.9, ICD10: L08.9 No current infection, rx refilled for use in case with travel - SULFAMETHOXAZOLE 800 MG-TRIMETHOPRIM 160 MG TABLET 6. Screening for prostate cancer - ICD9: V76.44, ICD10: Z12.5 - PSA/PROSTSPECAG SCRN 7. Other hyperlipidemia - ICD9: 272.4, ICD10: E78.49 - recheck labs - LIPID PANEL BASIC 8. GRICEL (obstructive sleep apnea) - ICD9: 327.23, ICD10: G47.33 Continue CPAP 9. Chronic pain of both shoulders - ICD9: 719.41, 338.29, ICD10: M25.511, G89.29, M25.512 - likely symptoms are secondary to severe rotator cuff disorder/degenerative tears as well as potential labral tear. Need for follow up with orthopedics and MRI shoulders when willing, he isn't willing to pursue this at this time yet. 10. Necrobiosis lipoidica diabeticorum (HCC) - ICD9: 250.80, 709.3, ICD10: E11.620 See above, this is part of the reason for his recurrent leg cellulitis, no current infection 11. Chronic midline low back pain without sciatica - ICD9: 724.2, 338.29, ICD10: M54.50, G89.29 - rx refilled, he isn't able to tolerate higher dose of gabapentin due to fatigue SE, would likely benefit from lumbar spine injections with pain mgmt when willing, is affecting his ADLs and IADLs and chronic pain 12. Foot pain, bilateral - ICD9: 729.5, ICD10: M79.671, M79.672 - rx refilled, he isn't able to tolerate higher dose of gabapentin due to fatigue SE, would likely benefit from cervical spine injections with pain mgmt when willing, is affecting his ADLs and IADLs and chronic pain - needs follow up with [employer] as well- likely bunion affecting his other toes etc. 13. Obesity, Class III, BMI 40-49.9 (morbid obesity) (HCC) - ICD9: 278.01, ICD10: E66.01 Weight increasing - Behavioral intervention and - Pharmacological intervention Eze Kuhn, DO To ER if develops chest pain, shortness of breath, or severe worsening of symptoms. Discussed risks, benefits, alternatives, and potential side effects of medications. Patient expressed understanding and agreed with the plan. Eze Kuhn DO [address] [place] [address] documented in this encounter [facility] 09-27-2021 Instructions Eze Kuhn DO - 09/27/2021 6:38 PM EDT Florajen or Florastor probiotic at bedtime, refrigerated. documented in this encounter [facility] 09-27-2021 Miscellaneous Notes Spoke with the patient and he states he will get these labs completed in the next week or so ummary: Lab work 1st Attempt: Called PT to schedule labs, LVM Please assist with scheduling lab appt Nannette Holly Ma Overdue for lab work; no additional refills. The following approved medication requests have been transmitted electronically. Signed Prescriptions Disp Refills empagliflozin (JARDIANCE) 25 mg tablet 90 tablet 0 Sig: Take 1 tablet by mouth daily with breakfast. MARGARITA: No Authorizing Provider: EZE KUHN Ordering User: DONNA BELTRAN APRN.CNP Patient phones requesting refills as follows: Pending Prescriptions Disp Refills EMPAGLIFLOZIN 25 MG TABLET 90 tablet 1 Sig: Take 1 tablet by mouth daily with breakfast. MARGARITA: No MARIA R-03/29/21 Labs-12/24/20 NOV-09/27/21 med filled Please review and advise. Karie Ladd LPN documented in this encounter [facility] documented as of this encounter (statuses as of 09/27/2021) [facility] History of Past illness Narrative* Problem Noted Date Resolved Date Hypertension 08/10/2014 12/22/2014 Leg edema 08/10/2014 12/22/2014 documented as of this encounter (statuses as of 09/28/2021) [address] History of Past illness Narrative* Problem Noted Date Resolved Date Hypertension 08/10/2014 12/22/2014 Leg edema 08/10/2014 12/22/2014 documented as of this encounter (statuses as of 10/26/2021) [address] History of Past illness Narrative* Problem Noted Date Resolved Date Hypertension 08/10/2014 12/22/2014 Leg edema 08/10/2014 12/22/2014 documented as of this encounter (statuses as of 11/10/2021) [address] History of Past illness Narrative* Problem Noted Date Resolved Date Hypertension 08/10/2014 12/22/2014 Leg edema 08/10/2014 12/22/2014 documented as of this encounter (statuses as of 11/14/2021) [facility] History of Past illness Narrative* Problem Noted Date Resolved Date Hypertension 08/10/2014 12/22/2014 Leg edema 08/10/2014 12/22/2014 documented as of this encounter (statuses as of 11/14/2021) [address] History of Past illness Narrative* Problem Noted Date Resolved Date Hypertension 08/10/2014 12/22/2014 Leg edema 08/10/2014 12/22/2014 documented as of this encounter (statuses as of 11/15/2021) [address] History of Past illness Narrative* Problem Noted Date Resolved Date Hypertension 08/10/2014 12/22/2014 Leg edema 08/10/2014 12/22/2014 documented as of this encounter (statuses as of 12/12/2021) [address] History of Past illness Narrative* Problem Noted Date Resolved Date Hypertension 08/10/2014 12/22/2014 Leg edema 08/10/2014 12/22/2014 documented as of this encounter (statuses as of 12/20/2021) [address] History of Past illness Narrative* Problem Noted Date Resolved Date Hypertension 08/10/2014 12/22/2014 Leg edema 08/10/2014 12/22/2014 documented as of this encounter (statuses as of 01/24/2022) [address] History of Past illness Narrative* Problem Noted Date Resolved Date Hypertension 08/10/2014 12/22/2014 Leg edema 08/10/2014 12/22/2014 documented as of this encounter (statuses as of 01/31/2022) [address] History of Past illness Narrative* Problem Noted Date Resolved Date Hypertension 08/10/2014 12/22/2014 Leg edema 08/10/2014 12/22/2014 documented as of this encounter (statuses as of 03/12/2022) [address]24-2015 History of Past illness Narrative* Problem Noted Date Resolved Date Hypertension 08/10/2014 12/22/2014 Leg edema 08/10/2014 12/22/2014 documented as of this encounter (statuses as of 03/12/2022) [address]24[address]2015 History of Past illness Narrative* Problem Noted Date Resolved Date Hypertension 08/10/2014 12/22/2014 Leg edema 08/10/2014 12/22/2014 documented as of this encounter (statuses as of 03/29/2022) [address]2015 History of Past illness Narrative* Problem Noted Date Resolved Date Hypertension 08/10/2014 12/22/2014 Leg edema 08/10/2014 12/22/2014 documented as of this encounter (statuses as of 04/25/2022) [address]-2015 History of Past illness Narrative* Problem Noted Date Resolved Date Hypertension 08/10/2014 12/22/2014 Leg edema 08/10/2014 12/22/2014 documented as of this encounter (statuses as of 05/03/2022) [address]24-2015 History of Past illness Narrative* Problem Noted Date Resolved Date Hypertension 08/10/2014 12/22/2014 Leg edema 08/10/2014 12/22/2014 documented as of this encounter (statuses as of 06/20/2022) [address]2015 History of Past illness Narrative* Problem Noted Date Resolved Date Hypertension 08/10/2014 12/22/2014 Leg edema 08/10/2014 12/22/2014 documented as of this encounter (statuses as of 07/05/2022) [address]2015 History of Past illness Narrative* Problem Noted Date Resolved Date Hypertension 08/10/2014 12/22/2014 Leg edema 08/10/2014 12/22/2014 documented as of this encounter (statuses as of 08/01/2022) [address]2015 History of Past illness Narrative* Problem Noted Date Resolved Date Hypertension 08/10/2014 12/22/2014 Leg edema 08/10/2014 12/22/2014 documented as of this encounter (statuses as of 08/16/2022) [address]2015 History of Past illness Narrative* Problem Noted Date Resolved Date Hypertension 08/10/2014 12/22/2014 Leg edema 08/10/2014 12/22/2014 documented as of this encounter (statuses as of 08/21/2022) [address]24[address]2015 History of Past illness Narrative* Problem Noted Date Resolved Date Hypertension 08/10/2014 12/22/2014 Leg edema 08/10/2014 12/22/2014 documented as of this encounter (statuses as of 08/23/2022) [address]2015 History of Past illness Narrative* Problem Noted Date Diagnosed Date Resolved Date Hypertension 08/10/2014 12/22/2014 Leg edema 08/10/2014 12/22/2014 documented as of this encounter (statuses as of 12/05/2022) [address]2015 History of Past illness Narrative* Problem Noted Date Diagnosed Date Resolved Date Hypertension 08/10/2014 12/22/2014 Leg edema 08/10/2014 12/22/2014 documented as of this encounter (statuses as of 12/05/2022) [address]2015 History of Past illness Narrative* Problem Noted Date Diagnosed Date Resolved Date Hypertension 08/10/2014 12/22/2014 Leg edema 08/10/2014 12/22/2014 documented as of this encounter (statuses as of 01/02/2023) [address]2015 History of Past illness Narrative* Problem Noted Date Diagnosed Date Resolved Date Hypertension 08/10/2014 12/22/2014 Leg edema 08/10/2014 12/22/2014 documented as of this encounter (statuses as of 01/07/2023) [address]2015 History of Past illness Narrative* Problem Noted Date Diagnosed Date Resolved Date Hypertension 08/10/2014 12/22/2014 Leg edema 08/10/2014 12/22/2014 documented as of this encounter (statuses as of 01/08/2023) [address]2015 History of Past illness Narrative* Problem Noted Date Diagnosed Date Resolved Date Hypertension 08/10/2014 12/22/2014 Leg edema 08/10/2014 12/22/2014 documented as of this encounter (statuses as of 01/19/2023) [address]2015 History of Past illness Narrative* Problem Noted Date Diagnosed Date Resolved Date Hypertension 08/10/2014 12/22/2014 Leg edema 08/10/2014 12/22/2014 documented as of this encounter (statuses as of 01/22/2023) [address]2015 History of Past illness Narrative* Problem Noted Date Diagnosed Date Resolved Date Hypertension 08/10/2014 12/22/2014 Leg edema 08/10/2014 12/22/2014 documented as of this encounter (statuses as of 02/15/2023) [address]2015 History of Past illness Narrative* Problem Noted Date Diagnosed Date Resolved Date Hypertension 08/10/2014 12/22/2014 Leg edema 08/10/2014 12/22/2014 documented as of this encounter (statuses as of 03/12/2023) [address]2015 History of Past illness Narrative* Problem Noted Date Diagnosed Date Resolved Date Hypertension 08/10/2014 12/22/2014 Leg edema 08/10/2014 12/22/2014 documented as of this encounter (statuses as of 03/28/2023) [address]2015 History of Past illness Narrative* Problem Noted Date Diagnosed Date Resolved Date Hypertension 08/10/2014 12/22/2014 Leg edema 08/10/2014 12/22/2014 documented as of this encounter (statuses as of 04/24/2023) [facility] note* Diagnosis Essential hypertension- Primary Unspecified essential hypertension Uncontrolled type 2 diabetes mellitus with hyperglycemia (HCC) Other hyperlipidemia documented in this encounter [facility] note* Diagnosis Uncontrolled type 2 diabetes mellitus with hyperglycemia (HCC)- Primary Neck pain, chronic Cervicalgia Chronic left shoulder pain Pain in joint, shoulder region Essential hypertension Unspecified essential hypertension Infection of skin Unspecified local infection of skin and subcutaneous tissue Screening for prostate cancer Special screening for malignant neoplasm of prostate Other hyperlipidemia GRICEL (obstructive sleep apnea) Obstructive sleep apnea (adult) (pediatric) Chronic pain of both shoulders Pain in joint, shoulder region Necrobiosis lipoidica diabeticorum (HCC) Type II or unspecified type diabetes mellitus with other specified manifestations, not stated as uncontrolled Chronic midline low back pain without sciatica Foot pain, bilateral Pain in limb Obesity, Class III, BMI 40-49.9 (morbid obesity) (HCC) Morbid obesity [facility] Diagnosis Uncontrolled type 2 diabetes mellitus with hyperglycemia (HCC) [facility] Diagnosis Edema of lower extremity Edema documented in this encounter [facility] note* Diagnosis Infection of skin- Primary Unspecified local infection of skin and subcutaneous tissue Neck pain, chronic Cervicalgia Chronic left shoulder pain Pain in joint, shoulder region [facility] Diagnosis Infection of skin Unspecified local infection of skin and subcutaneous tissue [facility]* Diagnosis Uncontrolled type 2 diabetes mellitus with hyperglycemia (HCC) [facility] Diagnosis Epidermal inclusion cyst- Primary Sebaceous cyst Infection of skin Unspecified local infection of skin and subcutaneous tissue Neck pain, chronic Cervicalgia Chronic left shoulder pain Pain in joint, shoulder region Uncontrolled type 2 diabetes mellitus with hyperglycemia (HCC) Necrobiosis lipoidica diabeticorum (HCC) Type II or unspecified type diabetes mellitus with other specified manifestations, not stated as uncontrolled [facility]* Diagnosis Neck pain, chronic Cervicalgia Chronic left shoulder pain Pain in joint, shoulder region documented in this encounter [facility] note* Diagnosis Uncontrolled type 2 diabetes mellitus with hyperglycemia (HCC)- Primary Essential hypertension Unspecified essential hypertension Infection of skin Unspecified local infection of skin and subcutaneous tissue Necrobiosis lipoidica diabeticorum (HCC) Type II or unspecified type diabetes mellitus with other specified manifestations, not stated as uncontrolled Neck pain, chronic Cervicalgia Edema of lower extremity Edema GRICEL (obstructive sleep apnea) Obstructive sleep apnea (adult) (pediatric) Chronic pain of both shoulders Pain in joint, shoulder region Chronic midline low back pain without sciatica Obesity, Class III, BMI 40-49.9 (morbid obesity) (HCC) Morbid obesity Skin lesion of face Unspecified disorder of skin and subcutaneous tissue [facility] Diagnosis Infection of skin Unspecified local infection of skin and subcutaneous tissue Necrobiosis lipoidica diabeticorum (HCC) Type II or unspecified type diabetes mellitus with other specified manifestations, not stated as uncontrolled [facility] Diagnosis Neck pain, chronic Cervicalgia Chronic left shoulder pain Pain in joint, shoulder region Uncontrolled type 2 diabetes mellitus with hyperglycemia (HCC) [facility] Diagnosis Atypical squamoproliferative skin lesion- Primary Essential hypertension Unspecified essential hypertension Uncontrolled type 2 diabetes mellitus with hyperglycemia (HCC) Neck pain, chronic Cervicalgia Chronic left shoulder pain Pain in joint, shoulder region Other hyperlipidemia Screening for prostate cancer Special screening for malignant neoplasm of prostate [facility] Diagnosis Uncontrolled type 2 diabetes mellitus with hyperglycemia (HCC) [facility]* Diagnosis Rib pain on right side- Primary Chest pain, unspecified Rib injury Sprain of ribs Infection of skin Unspecified local infection of skin and subcutaneous tissue Necrobiosis lipoidica diabeticorum (HCC) Type II or unspecified type diabetes mellitus with other specified manifestations, not stated as uncontrolled [facility] Diagnosis Skin lesion- Primary Unspecified disorder of skin and subcutaneous tissue Infection of skin Unspecified local infection of skin and subcutaneous tissue Necrobiosis lipoidica diabeticorum (HCC) Type II or unspecified type diabetes mellitus with other specified manifestations, not stated as uncontrolled [facility] Diagnosis Uncontrolled type 2 diabetes mellitus with hyperglycemia (HCC) [facility] Diagnosis Neck pain, chronic Cervicalgia Chronic left shoulder pain Pain in joint, shoulder region [facility] Diagnosis Uncontrolled type 2 diabetes mellitus with hyperglycemia (HCC)- Primary Essential hypertension Unspecified essential hypertension Neck pain, chronic Cervicalgia Chronic left shoulder pain Pain in joint, shoulder region Infection of skin Unspecified local infection of skin and subcutaneous tissue Necrobiosis lipoidica diabeticorum (HCC) Type II or unspecified type diabetes mellitus with other specified manifestations, not stated as uncontrolled Acute otitis media, left Unspecified otitis media Other hyperlipidemia Edema of lower extremity Edema Obesity, Class III, BMI 40-49.9 (morbid obesity) (HCC) Morbid obesity Screening for prostate cancer Special screening for malignant neoplasm of prostate documented in this encounter [facility] Summary Purpose Family History No Family History Records Found Advance Directives No Advanced Directives Records Found Additional Source Comments Source Comments (unrecognize d section and content) In the event this informatio n is protected by the Federal Confidentiality of Alcohol and Drug Abuse Patient Records regulations: The Federal rules restrict any use of the information to criminally investigate or prosecute any alcohol or drug abuse patient.[facility] the event this information is protected by the Federal Confidentiality of Alcohol and Drug Abuse Patient Records regulations: The Federal rules restrict any use of the information to criminally investigate or prosecute any alcohol or drug abuse patient.[facility] the event this information is protected by the Federal Confidentiality of Alcohol and Drug Abuse Patient Records regulations: The Federal rules restrict any use of the information to criminally investigate or prosecute any alcohol or drug abuse patient.[facility] the event this information is protected by the Federal Confidentiality of Alcohol and Drug Abuse Patient Records regulations: The Federal rules restrict any use of the information to criminally investigate or prosecute any alcohol or drug abuse patient.[facility] the event this information is protected by the Federal Confidentiality of Alcohol and Drug Abuse Patient Records regulations: The Federal rules restrict any use of the information to criminally investigate or prosecute any alcohol or drug abuse patient.[facility] the event this information is protected by the Federal Confidentiality of Alcohol and Drug Abuse Patient Records regulations: The Federal rules restrict any use of the information to criminally investigate or prosecute any alcohol or drug abuse patient.[facility] the event this information is protected by the Federal Confidentiality of Alcohol and Drug Abuse Patient Records regulations: The Federal rules restrict any use of the information to criminally investigate or prosecute any alcohol or drug abuse patient.[facility] the event this information is protected by the Federal Confidentiality of Alcohol and Drug Abuse Patient Records regulations: The Federal rules restrict any use of the information to criminally investigate or prosecute any alcohol or drug abuse patient.[facility] the event this information is protected by the Federal Confidentiality of Alcohol and Drug Abuse Patient Records regulations: The Federal rules restrict any use of the information to criminally investigate or prosecute any alcohol or drug abuse patient.[facility] the event this information is protected by the Federal Confidentiality of Alcohol and Drug Abuse Patient Records regulations: The Federal rules restrict any use of the information to criminally investigate or prosecute any alcohol or drug abuse patient.[facility] the event this information is protected by the Federal Confidentiality of Alcohol and Drug Abuse Patient Records regulations: The Federal rules restrict any use of the information to criminally investigate or prosecute any alcohol or drug abuse patient.[facility] the event this information is protected by the Federal Confidentiality of Alcohol and Drug Abuse Patient Records regulations: The Federal rules restrict any use of the information to criminally investigate or prosecute any alcohol or drug abuse patient.[facility] the event this information is protected by the Federal Confidentiality of Alcohol and Drug Abuse Patient Records regulations: The Federal rules restrict any use of the information to criminally investigate or prosecute any alcohol or drug abuse patient.[facility] the event this information is protected by the Federal Confidentiality of Alcohol and Drug Abuse Patient Records regulations: The Federal rules restrict any use of the information to criminally investigate or prosecute any alcohol or drug abuse patient.[facility] the event this information is protected by the Federal Confidentiality of Alcohol and Drug Abuse Patient Records regulations: The Federal rules restrict any use of the information to criminally investigate or prosecute any alcohol or drug abuse patient.[facility] the event this information is protected by the Federal Confidentiality of Alcohol and Drug Abuse Patient Records regulations: The Federal rules restrict any use of the information to criminally investigate or prosecute any alcohol or drug abuse patient.[facility] the event this information is protected by the Federal Confidentiality of Alcohol and Drug Abuse Patient Records regulations: The Federal rules restrict any use of the information to criminally investigate or prosecute any alcohol or drug abuse patient.[facility] the event this information is protected by the Federal Confidentiality of Alcohol and Drug Abuse Patient Records regulations: The Federal rules restrict any use of the information to criminally investigate or prosecute any alcohol or drug abuse patient.[facility] the event this information is protected by the Federal Confidentiality of Alcohol and Drug Abuse Patient Records regulations: The Federal rules restrict any use of the information to criminally investigate or prosecute any alcohol or drug abuse patient.[facility] the event this information is protected by the Federal Confidentiality of Alcohol and Drug Abuse Patient Records regulations: The Federal rules restrict any use of the information to criminally investigate or prosecute any alcohol or drug abuse patient.[facility] the event this information is protected by the Federal Confidentiality of Alcohol and Drug Abuse Patient Records regulations: The Federal rules restrict any use of the information to criminally investigate or prosecute any alcohol or drug abuse patient.[facility] the event this information is protected by the Federal Confidentiality of Alcohol and Drug Abuse Patient Records regulations: The Federal rules restrict any use of the information to criminally investigate or prosecute any alcohol or drug abuse patient.[facility] the event this information is protected by the Federal Confidentiality of Alcohol and Drug Abuse Patient Records regulations: The Federal rules restrict any use of the information to criminally investigate or prosecute any alcohol or drug abuse patient.[facility] the event this information is protected by the Federal Confidentiality of Alcohol and Drug Abuse Patient Records regulations: The Federal rules restrict any use of the information to criminally investigate or prosecute any alcohol or drug abuse patient.[facility] the event this information is protected by the Federal Confidentiality of Alcohol and Drug Abuse Patient Records regulations: The Federal rules restrict any use of the information to criminally investigate or prosecute any alcohol or drug abuse patient.[facility]In the event this information is protected by the Federal Confidentiality of Alcohol and Drug Abuse Patient Records regulations: The Federal rules restrict any use of the information to criminally investigate or prosecute any alcohol or drug abuse patient.[facility]In the event this information is protected by the Federal Confidentiality of Alcohol and Drug Abuse Patient Records regulations: The Federal rules restrict any use of the information to criminally investigate or prosecute any alcohol or drug abuse patient.[facility]In the event this information is protected by the Federal Confidentiality of Alcohol and Drug Abuse Patient Records regulations: The Federal rules restrict any use of the information to criminally investigate or prosecute any alcohol or drug abuse patient.[facility]In the event this information is protected by the Federal Confidentiality of Alcohol and Drug Abuse Patient Records regulations: The Federal rules restrict any use of the information to criminally investigate or prosecute any alcohol or drug abuse patient.[facility]In the event this information is protected by the Federal Confidentiality of Alcohol and Drug Abuse Patient Records regulations: The Federal rules restrict any use of the information to criminally investigate or prosecute any alcohol or drug abuse patient.[facility]In the event this information is protected by the Federal Confidentiality of Alcohol and Drug Abuse Patient Records regulations: The Federal rules restrict any use of the information to criminally investigate or prosecute any alcohol or drug abuse patient.[facility]In the event this information is protected by the Federal Confidentiality of Alcohol and Drug Abuse Patient Records regulations: The Federal rules restrict any use of the information to criminally investigate or prosecute any alcohol or drug abuse patient.[facility]In the event this information is protected by the Federal Confidentiality of Alcohol and Drug Abuse Patient Records regulations: The Federal rules restrict any use of the information to criminally investigate or prosecute any alcohol or drug abuse patient.[facility] Reason for Visit (unrecogniz ed section and content) Reason Comments 6 Month Exam Reason Onset Date Comments Refill Request 10/26/2021 Reason Onset Date Comments Refill Request 11/10/2021 Reason Comments Results Reason Comments Wound Check Reason Onset Date Comments Refill Request 01/22/2022 Reason Comments Follow Up Medication f/up also a cyst on pts waist area Reason Onset Date Comments Refill Request 03/11/2022 Reason Onset Date Comments Refill Request 03/09/2022 Reason Onset Date Comments Refill Request 04/23/2022 Reason Onset Date Comments Refill Request 06/19/2022 Reason Comments Derm Problem mole removal Reason Onset Date Comments Refill Request 07/31/2022 Reason Onset Date Comments Refill Request 08/15/2022 Reason Comments lft sided pain located just below nipple line Hurts to touch and perry and iot comes a nd goes , started about three weeks ago . Not getting sob with it or any other symptoms Reason Comments growth on head Reason Onset Date Comments Refill Request 01/05/2023 Reason Onset Date Comments Refill Request 01/19/2023 Reason Onset Date Comments Refill Request 01/22/2023 Reason Onset Date Comments Refill Request 02/14/2023 Reason Comments Refill Request Care Teams (unrecognized sec tion and content) Transcription Typist Relationship Specialty Start Date End Date Eze Kuhn, DO [address] [facility] [place] [address] PCP - General Family Practice 04/20/14 Transcription Typist Relationship Specialty Start Date End Date Eze Kuhn, DO [address] [facility] [place] [address] PCP - General Family Practice 04/20/14 Transcription Typist Relationship Specialty Start Date End Date Eze Kuhn DO [address] [facility] [place] [address] PCP - General Family Practice 04/20/14 Transcription Typist Relationship Specialty Start Date End Date Eze Kuhn, DO [address] [facility] [place] [address] PCP - General Family Practice 04/20/14 Transcription Typist Relationship Specialty Start Date End Date Eze Kuhn, DO [address] [facility] [place] [address] PCP - General Family Practice 04/20/14 Transcription Typist Relationship Specialty Start Date End Date Eze Kuhn, DO [address] [place] [address] PCP - General Family Practice 04/20/14 Transcription Typist Relationship Specialty Start Date End Date Eze Kuhn, DO [address] [facility] [address] PCP - General Family Practice 04/20/14 Transcription Typist Relationship Specialty Start Date End Date Eze Kuhn, DO [address] [facility] [address] PCP - General Family Practice 04/20/14 Transcription Typist Relationship Specialty Start Date End Date Eze Kuhn, DO [address] [facility] [address] PCP - General Family Medicine 04/20/14 Transcription Typist Relationship Specialty Start Date End Date Eze Kuhn, DO [address] [facility] [address] PCP - General Family Medicine 04/20/14 Transcription Typist Relationship Specialty Start Date End Date Eze Khun, DO [address] [facility] [address] PCP - General Family Medicine 04/20/14 Transcription Typist Relationship Specialty Start Date End Date Eze Kuhn, DO [address] [place] [address] PCP - General Family Medicine 04/20/14 Transcription Typist Relationship Specialty Start Date End Date Eze Kuhn, DO [address] [address] [place] [address] PCP - General Family Medicine 04/20/14 Transcription Typist Relationship Specialty Start Date End Date zEe Kuhn, DO [address] [place] [address] PCP - General Family Medicine 04/20/14 Transcription Typist Relationship Specialty Start Date End Date Eez Kuhn, DO [address] [place] [address] PCP - General Family Medicine 04/20/14 Transcription Typist Relationship Specialty Start Date End Date Eze Kuhn DO [address] [place] [address] PCP - General Family Medicine 04/20/14 Transcription Typist Relationship Specialty Start Date End Date Eze Kuhn DO [address] [place] [address] PCP - General Family Medicine 04/20/14 Transcription Typist Relationship Specialty Start Date End Date Eze Kuhn DO [address] [place] [address] PCP - General Family Medicine 04/20/14 Transcription Typist Relationship Specialty Start Date End Date Eze Kuhn DO [address] [place] [address] PCP - General Family Medicine 04/20/14 Transcription Typist Relationship Specialty Start Date End Date Eze Kuhn DO [address] [place] [address] PCP - General Family Medicine 04/20/14 Transcription Typist Relationship Specialty Start Date End Date Eze Kuhn DO [address] [place] [address] PCP - General Family Medicine 04/20/14 Transcription Typist Relationship Specialty Start Date End Date Eze Kuhn DO [address] [facility] [address] PCP - General Family Medicine 04/20/14 Transcription Typist Relationship Specialty Start Date End Date Eze Kuhn DO [address] [facility] [place] [address] PCP - General Family Medicine 04/20/14 Transcription Typist Relationship Specialty Start Date End Date Eze Kuhn, [address] [facility] [address] PCP - General Family Medicine 04/20/14 Transcription Typist Relationship Specialty Start Date End Date Eze Kuhn, [address] [facility] [place] [address] [address] - General Family [facility] 04/20/14 Transcription Typist Relationship Specialty Start Date End Date Eze Kuhn, [address] [facility] [place], [place] [id number] PCP - General [facility] 04/20/14 Transcription Typist Relationship Specialty Start Date End Date Eze Kuhn, [address] [facility] [place], [place] [address] PCP - General Family Medicine 04/20/14 (unrecognized sect ion and content) No Status Records Found INFORMATION SOURCE (unrecogn ized section and content) FOR RECORDS PERTAINING TO PATIENTS WHO ARE OR HAVE BEEN ENROLLED IN A CHEMICAL DEPENDENCY/SUBSTANCEABUSE PROGRAM, SOME INFORMATION MAY BE OMITTED. This clinical summary was aggregated from multiple sources. Caution should be exercised in using it in the provision of clinical care. This summary normalizes information from multiple sources, and as a consequence, information in this document may materially change the coding, format and clinical context of patient data. In addition, data may be omitted in some cases. CLINICAL DECISIONS SHOULD BE BASED ON THE PRIMARY CLINICAL RECORDS. [employer] provides no warranty or guarantee of the accuracy or completeness of information in this document.
[2023-05-19 21:25] LABS: ALB/GLOB Ratio 0.9 RATIO (0.9-2.4); AST(SGOT) 11 U/L (15-37); Alanine Aminotransfer ALT/SGPT 32 U/L (16-61); Albumin, Serum 3.6 g/dL (3.2-5.0); Alkaline Phosphatase 99 U/L (45-117); Anion Gap 6 (5-15); BUN 23 mg/dL (7-18); BUN/Creat Ratio 21.3 RATIO (10-20); Calcium,Total 9.5 mg/dL (8.5-10.1); Chloride 101 mmol/L (98-107); Creatinine, Serum 1.08 mg/dL (0.70-1.30); EST Glomerular Filtration Rate 73 mL/min (>60); Est Glom Filt Rate - Afr Amer 89 mL/min (>60); Estimated Creatinine Clearance 79.12 ml/min; Globulin 4.1 g/dL (2.2-4.2); Glucose 310 mg/dL (74-106); Potassium 4.2 mmol/L (3.5-5.1); Protein, Total 7.7 g/dL (6.4-8.2); Sodium Level 135 mmol/L (136-145)
--- NOTE | 2023-05-19 21:27 | CT_ITS ---
STUDY: CT ABDOMEN AND PELVIS WITHOUT CONTRAST REASON FOR EXAM: Male, 62 years old. Kidney Stone RADIATION DOSAGE (If Supplied By Facility): CTDIvol = ( 33.14 ) mGy, DLP = ( 1946.07 ) mGycm TECHNIQUE: Transaxial images were obtained from the dome of the diaphragm to the symphysis pubis without oral contrast, and without intravenous contrast. Sagittal and coronal images were reconstructed. Individualized dose optimization techniques were used for this CT. COMPARISON: 08/24/2020 FINDINGS: The visualized lung bases are unremarkable. The visualized portions of the heart are within normal limits. Normal liver. There are multiple gallstones. Normal spleen. Normal pancreas. Normal right adrenal gland. 3 cm fat-containing mass of the body of the left adrenal gland consistent with a myelolipoma. Normal right kidney. Normal left kidney. Normal visualized stomach. Normal small intestine. Normal colon. There are surgical clips in the region of the appendix consistent with a prior appendectomy. Normal abdominal aorta. Normal inferior vena cava. Normal retroperitoneum. Normal urinary bladder. There is a right-sided inguinal hernia containing adipose tissue. Multiple healed right rib fractures. CT/Abdomen/Pelvis without Cont IMPRESSION: 1. No renal or ureteral stone. 2. Cholelithiasis Electronically Signed: Randall Hernandez MD at 22:51 EST ,
[2023-05-19] MEDS: Morphine 4 MG/ML Syringe IV (21:42)
[2023-05-19] MEDS: 0.9% Normal Saline (1000mL) 1,000 ML 250 ML IV (21:42)
[2023-05-19] MEDS: Ketorolac 30 MG/ML Syringe IV (21:42)
[2023-05-19] MEDS: Ondansetron 4 MG/2 ML Vial IV (21:42)
[2023-05-19 23:00] VITALS: BP 142/78; PULSE 89; RESP 20; O2SAT 94
[2023-05-19 23:04] LABS: Bacteria 0 SEEN /hpf (None Seen); Mucous, Urine 0 SEEN /hpf (<or=2+); Red Blood Cells-Urine 0 SEEN /hpf (0-5); Squamous Epithelial Cells - UA 0 SEEN /hpf (0-5); White Blood Cells 0 SEEN /hpf (0-5)
[2023-05-19 23:08] LABS: Color, Urine Yellow (Yellow); Glucose, Dipstick 1000 mg/dl (Normal); Ketone-Dipstick Negative (Negative); Leukocyte Esterase-Dipstick Negative /ul (Negative); Nitrite-Dipstick Negative (Negative); Occult Blood-Urine Negative /ul (Negative); Protein-Dipstick Negative (Negative); Specific Gravity, Urine 1.015 (1.002-1.030); Urine Bilirubin Dipstick Negative (Negative); Urine Clarity Clear (Clear); Urine Urobilinogen Normal (Normal)
--- NOTE | 2023-05-20 00:09 | EX.ED.DYSGE1 ---
HPI History of Present Illness Chief Complaint: Abd Pain Informant: patient and spouse/S.O. Narrative Narrative: Patient is a 62-year-old male with past medical history of hypertension and diabetes. Patient states that around 3 or 4:00 today he developed some right-sided flank/abdominal pain. States there was no trauma or excessive activity. He states that the pain did not improve or worsen with any type of motion. He states that he has a history of a bad back but this pain was not rating down his leg as he typically gets with back pain. He also states he had kidney stones in the past but he was not having blood in his urine nor this feels similar to his previous kidney stones. As the pain was not improving with time and [id number] medication he presents for evaluation [facility] Medical History (Updated 05/20/23 @ 01:[address] Marck Pacheco, ) Abdominal pain Appendicitis Diabetes History of diabetes mellitus, type I History of hypertension Home Medications atorvastatin 40 mg tablet 40 mg PO DAILY 04/22/18 [History Last Taken 08/24/20 05:15] furosemide 20 mg tablet 20 mg PO DAILY 04/22/18 [History Last Taken 08/24/20 05:15] glipizide 10 mg tablet, extended release 24 hr (Glucotrol XL) 10 mg PO DAILY 04/22/18 [History Last Taken 08/24/20 05:15] lisinopril 40 mg tablet (Zestril) 40 mg PO DAILY 04/22/18 [History Last Taken 08/24/20 05:15] empagliflozin 10 mg tablet 25 mg PO QHS 01/18/20 [History Last Taken 08/24/20 05:15] glipizide 10 mg tablet, extended release 24 hr 20 mg PO DINNER 01/18/20 [History Last Taken 08/24/20 05:15] dulaglutide 1.5 mg/0.5 mL subcutaneous pen injector 4.5 mg SQ .Saturday08/24/20 [History Last Taken 08/21/20] gabapentin 100 mg capsule 400 mg PO DAILY 08/24/20 [History Last Taken 08/24/20 05:15] multivitamin 1 each PO DAILY 08/24/20 [History Last Taken 08/24/20 05:15] gabapentin 100 mg capsule 500 mg PO QHS 05/19/23 [History Last Taken Unknown] meloxicam 15 mg tablet 15 mg PO DAILY 05/19/23 [History Last Taken Unknown] ondansetron 4 mg disintegrating tablet 4 mg PO TID PRN nausea and vomiting #21 tabs 05/20/23 [Rx Last Taken Unknown] oxycodone-acetaminophen 5 mg-325 mg tablet (Endocet) 1 tab PO Q6H PRN pain 3 days #12 tabs 05/20/23 [Rx Last Taken Unknown] Allergy/AdvReac Type Severity Reaction Status Date / Time No Known Allergies Allergy Verified 05/19/23 20:29 Surgical History S/P appendectomy Social History Smoking Status: Never smoker ROS ROS ED Constitutional Constitutional ED: Denies chills or fever(s) ENT ENT ED: Denies sore throat Cardiovascular Cardiovascular: Denies chest pain Respiratory/Chest Respiratory/Chest: Denies cough or dyspnea Gastrointestinal Gastrointestinal: Reports abdominal pain and nausea; Denies diarrhea or vomiting Genitourinary Genitourinary ED: Denies dysuria or hematuria Musculoskeletal Musculoskeletal: Reports back pain; Denies myalgias Integumentary Denies rash Neurologic Neurologic: Denies headache(s) Hematologic/Lymphatic Hematologic/Lymphatic: Denies easy bleeding or easy bruising EXAM Physical Exam Const Vital Signs: 05/19/23 20:24 05/19/23 23:00 Temperature 97.1 F L Temperature Source Temporal Pulse Rate 98 89 Respiratory Rate 15 20 H Blood Pressure 152/79 H 142/78 H Blood Pressure Mean 103 99 Pulse Ox 97 94 Oxygen Delivery Method Room Air Room Air Positive well nourished, well developed and obese General Appearance ED: well developed Nutritional Appearance: obese HEENT Reports moist mucous membranes Eyes PERRL and EOMs intact bilaterally General Eye ED: Negative for scleral icterus Neck supple Resp normal respiratory effort and clear to auscultation bilaterally Cardio regular rate and regular rhythm Rate: other Other Details: Heart is regular rate and rhythm without murmurs rubs or gallop Radial and carotid pulses are equal and symmetric GI non-distended GI Narrative: Abdomen is obese soft and nondistended with normal active bowel sounds. Patient has pain on palpation in the right upper quadrant but no voluntary guarding or rigidity. Negative Belle sign. No pulsatile mass or fluid wave Auscultation: normoactive bowel sounds Palpation: soft Back/Spine Back/Spine Narrative: Mild right CVA pain noted Extremity normal to inspection Neuro oriented x3, CN's II-XII intact bilaterally and no sensory deficits noted Sensorium / Orientation: alert Motor Exam: strength 5/5 throughout Psych mental status grossly normal Skin no rashes or lesions noted Skin Narrative: No jaundice noted MDM MDM MDM Narrative Medical decision making narrative: Patient presented to the ER slightly hypertensive but has a history of this and otherwise with stable vitals. Reported sudden onset of pain along the right flank/abdomen did not improve or worsen with any type of motion and he denies any recent trauma. The diagnosis is for kidney stone versus UTI/pyelonephritis versus biliary colic versus pancreatitis. Labs are obtained which show slight elevation to the white count which is nonspecific as well as elevation to his glucose consistent with diabetes but no signs of DKA. Urine showed no signs of infection or blood and CT scan showed gallstones but no signs of acute cholecystitis pancreatitis or ureterolithiasis. The patient was dosed with morphine and had resolution of his pain and his vitals remained stable. This time his history and exam is most consistent with biliary colic but as he does not have elevation to his liver enzymes signs of sepsis or persistent pain nor is or any notion of acute cholecystitis on the CT scan he is otherwise safe for discharge and can follow-up on an outpatient basis. History & Record Review Discussion w/independent historian: Patient and Significant other Lab Data Attestation: I reviewed the patient's lab results. Labs: Laboratory Results - last 24 hr 05/19/23 05/19/23 20:56 22:55 WBC 12.8 H RBC 5.11 Hgb 15.9 Hct 47.9 MCV 93.7 MCH 31.1 MCHC 33.2 RDW Std Deviation 45.1 H RDW Coeff of [place] 13.2 Plt Count 259 MPV 9.8 Immature Gran % (Auto) 0.900 Neut % (Auto) 77.4 H Lymph % (Auto) 13.8 L [place] % (Auto) 7.2 Eos % (Auto) 0.2 Baso % (Auto) 0.5 Absolute Neuts (auto) 9.9 H Absolute Lymphs (auto) 1.77 Nucleated RBC % 0 Sodium 135 L Potassium 4.2 Chloride 101 Carbon Dioxide 28.0 Anion Gap 6 BUN 23 H Creatinine 1.08 Estim Creat Clear Calc 79.12 Est GFR (MDRD) Af Amer 89 Est GFR (MDRD) Non-Af 73 BUN/Creatinine Ratio 21.3 H Glucose 310 H Calcium 9.5 Total Bilirubin 0.70 AST 11 L ALT 32 Alkaline Phosphatase 99 Total Protein 7.7 Albumin 3.6 Globulin 4.1 Albumin/Globulin Ratio 0.9 Urine Color Yellow Urine Clarity Clear Urine pH 6.0 Ur Specific [place] 1.015 Urine Protein Negative Urine Glucose (UA) 1000 H Urine Ketones Negative Urine Occult Blood Negative Urine Nitrite Negative Urine Bilirubin Negative Urine Urobilinogen Normal Ur Leukocyte Esterase Negative Urine RBC 0 SEEN Urine WBC 0 SEEN Ur Squamous Epith Cells 0 SEEN Urine Bacteria 0 SEEN Urine Mucus 0 SEEN Radiography Diagnostic Testing: Clinical Impression(s) from Imaging Studies Abdomen/Pelvis CT 05/19/23 21:27 IMPRESSION: 1. No renal or ureteral stone. 2. Cholelithiasis Electronically Signed: Randall Hernandez MD at 22:51 EST , Discharge Plan Triage Chief Complaint: Abd Pain ED Provider: Marck Pacheco Dx/Rx/DC Orders Clinical Impression: Gallstones, Biliary colic, Diabetes, Hypertension Instructions: ED Gallstones with Biliary Colic Prescriptions: New oxycodone-acetaminophen [Endocet] 5-325 mg tablet 1 tab PO Q6H PRN (Reason: pain) 3 Days Qty: 12 0RF ondansetron 4 mg tablet,disintegrating 4 mg PO TID PRN (Reason: nausea and vomiting) Qty: 21 0RF No Action atorvastatin 40 MG tablet 40 mg PO DAILY glipizide [Glucotrol XL] 10 MG tablet extended release 24hr 10 mg PO DAILY furosemide 20 MG tablet 20 mg PO DAILY lisinopril [Zestril] 40 MG tablet 40 mg PO DAILY empagliflozin 10 MG tablet 25 mg PO QHS glipizide 10 MG tablet extended release 24hr 20 mg PO DINNER multivitamin 1 EACH tablet 1 each PO DAILY gabapentin 100 MG capsule 400 mg PO DAILY dulaglutide 1.5 MG/0.5 ML pen injector 4.5 mg SQ .SATURDAY gabapentin 100 mg capsule 500 mg PO QHS meloxicam 15 mg tablet 15 mg PO DAILY Primary Care Provider: Eze Rick Referrals: Bony Kim MD [Med Staff - Active Staff] - Eze Rick DO [Primary Care Provider] - Activity Restrictions/Additional Instructions: Please follow-up with general surgery for further evaluation of your gallstones as you may need an ultrasound and/or HIDA scan. Eat smaller more so in meals that are bland in nature and avoid fatty substances as this could trigger gallbladder flares. If your pain is not controlled with the prescribed medication or he develop a fever or you have any further concerns please return for repeat evaluation Disposition Disposition: Home, Self Care Discharge Date/Time: 05/20/23 00:27
[2023-05-20] MEDS: Oxycodone/Apap 5/325 Tablet PO (00:23)
== END 2023-05-20 00:27 | disposition home or self-care (01) ==
PROVIDERS: Emergency Provider Emergency Medicine; PCP Student in an Organized Health Care Education/Training Program; Visit Provider Emergency Medicine
DX: K80.70 Calculus of gallbladder and bile duct without cholecystitis without obstruction (principal); E10.9 Type 1 diabetes mellitus without complications; I10 Essential (primary) hypertension; E66.9 Obesity, unspecified; Z79.899 Other long term (current) drug therapy; Z79.84 Long term (current) use of oral hypoglycemic drugs
CPT/HCPCS: 74176; 80053; 81001; 85025; 96374; 96375; 99283; J7030; A4216; J2405

== ENCOUNTER 2023-07-07 01:03 | Emergency (ER) | payer OTHER, SELFPAY ==
[2023-07-07 01:04] VITALS: BP 167/74; PULSE 89; RESP 16; TEMP 36.6; O2SAT 96; BMI 42.6
--- OUTSIDE RECORDS SUMMARY | 2023-07-07 01:24 | XMS RPT_ITS | CCD ---
Author Name Unknown Address [address] [place] [address] Organization [facility] Care Team Providers Care Audit Mgr Name Role Phone Eze Kuhn DO Primary Care Provider [phone] EZE KUHN Primary Care Unavailable KEO CHONG Attending Unavailable EZE KUHN Attending Unavailable EZE KUHN Primary Care Unavailable KEO CHONG Attending Unavailable EZE KUHN Primary Care Unavailable EZE KUHN Referring Unavailable EZE KUHN Primary Care Unavailable EZE KUHN Primary Care Unavailable EZE KUHN Attending Unavailable EZE KUHN Primary Care Unavailable KEO CHONG Attending Unavailable EZE KUHN Attending Unavailable EZE KUHN Primary Care Unavailable Allergies Allergy Classification Reported Allergen(s) Allergy Type Date of Onset Reaction(s) Facility (20 sources) Sulfamethoxazole / Trimethoprim; Translations: [SULFAMETHOXAZOLE-TRI METHOPRIM] Drug Allergy 2 [facility] Medications Current Medications Medication Drug Class(es) [...] Active Problems Problem Classification Problem Date Documented Date Episodic/Chronic Biliary tract disease (1 source) Biliary colic; Translations: [Calculus of bile duct without cholangitis or cholecystitis without obstruction] 06-28-2023 Episodic Diabetes mellitus with complications (20 sources) Type [...] [Obesity, Class III, BMI 40-49.9 (morbid obesity) (HCC)] Onset: 02-13-2017 Chronic Other skin disorders (1 source) Epidermoid cyst; Translations: [Epidermal cyst] Episodic Other skin disorders (1 source) Lesion of skin of face; Translations: [Disorder of the skin and subcutaneous tissue, unspecified] Episodic Residual codes; unclassified (20 sources) Obstructive [...] left shoulder pain] Onset: 03-31-2021 Episodic Other screening for suspected conditions (not mental disorders or infectious disease) (4 sources) Patient encounter status; Translations: [Encounter for screening for malignant neoplasm of prostate] Onset: 03-27-2023 Episodic Other skin disorders (1 source) Disorder of the skin and subcutaneous tissue, unspecified; Translations: [Skin lesion] Onset: 01-04-2023 Episodic Otitis media and related conditions (2 sources) Acute left otitis media; Translations: [Otitis media, unspecified, left ear] Onset: 03-27-2023 03-27-2023 Episodic Residual codes; unclassified (20 sources) Bilateral [...] Date Time Vital Sign Value Performing Clinician Raeann talbot 06-28-2023 07:23-0500 Body weight 145.69 kg Keo Chong MANDREL PULLER.[employer] CARRIER Work Phone: [facility] 06-28-2023 07:23-0500 Diastolic blood pressure 78 mm[Hg] Keo Chong MANDREL P[employer]ER.[employer] M[employer] CARRIER Work Phone: [facility] 06-28-2023 07:23-0500 Heart rate 68 /min Keo Chong MANDREL PULLER.[employer]ING M[employer] CARRIER Work Phone: [facility] 06-28-2023 07:23-0500 Respiratory rate 16 /min Keo Chong MANDREL PULLER.[employer]IMING M[employer] CARRIER Work Phone: [facility] 06-28-2023 07:23-0500 Systolic blood pressure 138 mm[Hg] Keo Chong MANDREL PULLER.[employer]IMING M[employer] CARRIER Work Phone: [facility] 03-27-2023 18:07-0500 Body temperature 97 [degF] Eze Kuhn DO Work Phone: [facility] 03-27-2023 18:07-0500 Body weight 143.79 kg Eze Kuhn DO Work Phone: [facility] 03-27-2023 18:07-0500 Diastolic blood pressure 60 mm[Hg] Eze Kuhn DO Work Phone: [facility] 03-27-2023 18:07-0500 Heart rate 80 /min Eze Kuhn DO Work Phone: [facility] 03-27-2023 18:07-0500 Respiratory rate 16 /min Eze Kuhn DO Work Phone: [facility] 03-27-2023 18:07-0500 Systolic blood pressure 110 mm[Hg] Eze Kuhn DO Work Phone: [facility] 01-04-2023 10:57-0400 Body weight 146.78 kg Keo Chong MANDREL P[employer]ER.[employer] M[employer] CARRIER Work Phone: [facility] 01-04-2023 10:57-0400 Diastolic blood pressure 62 mm[Hg] Keo Chong MANDREL PULLER.PRIMING M[employer]TURE CARRIER Work Phone: [facility] 01-04-2023 10:57-0400 Heart rate 72 /min Keo Chong MANDREL PULLER.[employer]IMING MIXTURE CARRIER Work Phone: [facility] 01-04-2023 10:57-0400 Respiratory rate 18 /min Keo Chong MANDREL PULLER.PRIMING MIXTURE CARRIER Work Phone: [facility] 01-04-2023 10:57-0400 Systolic blood pressure 118 mm[Hg] Keo Chong MANDREL PULLER.PRIMING MIXTURE CARRIER Work Phone: [facility] 08-22-2022 17:48-0400 Body weight 149.23 kg Keo Chong MANDREL PULLER.[employer]IMING M[employer]TURE CARRIER Work Phone: [facility] 08-22-2022 17:48-0400 Diastolic blood pressure 70 mm[Hg] Keo Chong MANDREL PULLER.PRIMING MIXTURE CARRIER Work Phone: [facility] 08-22-2022 17:48-0400 Heart rate 60 /min Keo Chong MANDREL PULLER.PRIMING MIXTURE CARRIER Work Phone: [facility] 08-22-2022 17:48-0400 Respiratory rate 14 /min Keo Chong MANDREL PULLER.PRIMING MIXTURE CARRIER Work Phone: [facility] 08-22-2022 17:48-0400 Systolic blood pressure 120 mm[Hg] Keo Chong MANDREL PULLER.[employer]IMING MIXTURE CARRIER Work Phone: [facility] 07-04-2022 15:28-0500 Body temperature 97 [degF] Eze Kuhn DO Work Phone: [facility] 07-04-2022 15:28-0500 Body weight 149.23 kg Eze Kuhn DO Work Phone: [facility] 07-04-2022 15:28-0500 Diastolic blood pressure 76 mm[Hg] Eze Kuhn DO Work Phone: [facility] 07-04-2022 15:28-0500 Heart rate 80 /min Eze Kuhn DO Work Phone: [facility] 07-04-2022 15:28-0500 Respiratory rate 20 /min Eze Kuhn DO Work Phone: [facility] 07-04-2022 15:28-0500 Systolic blood pressure 146 mm[Hg] Eze Kuhn DO Work Phone: [facility] 03-28-2022 18:14-0500 Body temperature 97.11 [degF] Eze Kuhn DO Work Phone: [facility] 03-28-2022 18:14-0500 Body weight 149.23 kg Eze Kuhn DO Work Phone: [facility] 03-28-2022 18:14-0500 Diastolic blood pressure 70 mm[Hg] Eze Kuhn DO Work Phone: [facility] 03-28-2022 18:14-0500 Heart rate 80 /min Eze Kuhn DO Work Phone: [facility] 03-28-2022 18:14-0500 Respiratory rate 20 /min Eze Kuhn DO Work Phone: [facility] 03-28-2022 18:14-0500 Systolic blood pressure 130 mm[Hg] Eze Kuhn DO Work Phone: [facility] 01-31-2022 17:42-0400 Body weight 147.87 kg Keo Newton MANDREL PULLER.[employer]IMING MIXTURE CARRIER Work Phone: [facility] 01-31-2022 17:42-0400 Diastolic blood pressure 64 mm[Hg] Keo Newton APRN.PRIMING MIXTURE CARRIER Work Phone: [facility] 01-31-2022 17:42-0400 Heart rate 64 /min Keo Zurawick MANDREL PULLER.PRIMING MIXTURE CARRIER Work Phone: [facility] 01-31-2022 17:42-0400 Respiratory rate 16 /min Keo Zurawick MANDREL PULLER.PRIMING MIXTURE CARRIER Work Phone: [facility] 01-31-2022 17:42-0400 Systolic blood pressure 120 mm[Hg] Keo Zurawick MANDREL PULLER.PRIMING MIXTURE CARRIER Work Phone: [facility] 11-15-2021 15:59-0400 Body temperature 97.81 [degF] Keo Zurawick MANDREL PULLER.PRIMING MIXTURE CARRIER Work Phone: [facility] 11-15-2021 15:59-0400 Body weight 148.96 kg Keo Zurawick MANDREL PULLER.PRIMING MIXTURE CARRIER Work Phone: [facility] 11-15-2021 15:59-0400 Diastolic blood pressure 62 mm[Hg] Keo Zurawick MANDREL PULLER.PRIMING MIXTURE CARRIER Work Phone: [facility] 11-15-2021 15:59-0400 Heart rate 68 /min Keo Zurawick MANDREL PULLER.PRIMING MIXTURE CARRIER Work Phone: [facility] 11-15-2021 15:59-0400 Respiratory rate 16 /min Keo Zurawick MANDREL PULLER.PRIMING MIXTURE CARRIER Work Phone: [facility] 11-15-2021 15:59-0400 Systolic blood pressure 124 mm[Hg] Keo Zurawick MANDREL PULLER.PRIMING MIXTURE CARRIER Work Phone: [facility] 09-27-2021 18:03-0400 Body temperature 98.01 [degF] Eze Kuhn DO Work Phone: [facility] 09-27-2021 18:03-0400 Body weight 150.14 kg Eze Kuhn DO Work Phone: [facility] 09-27-2021 18:03-0400 Diastolic blood pressure 60 mm[Hg] Eze Kuhn DO Work Phone: [facility] 09-27-2021 18:03-0400 Heart rate 80 /min Eze Kuhn DO Work Phone: [facility] 09-27-2021 18:03-0400 Respiratory rate 16 /min Eze Kuhn DO Work Phone: [facility] 09-27-2021 18:03-0400 Systolic blood pressure 136 mm[Hg] Eze Kuhn DO Work Phone: [facility] Encounters Encounter Date Encounter Type Care Provider Facility Start: 06-28-2023 End: 06-28-2023 ambulatory EZE KUHN Facility:[facility] Start: 06-28-2023 End: 06-28-2023 Patient encounter procedure Keo Chong MANDREL P[employer]ER.[employer] M[employer] CARRIER Work Phone: [facility] Procedures Date Procedure Procedure Detail Performing Clinician Start: 09-25-2021 Adult depression scr eening assessment Eze Kuhn DO Work Phone: Start: 08-29-2018 Colonoscopy Eze larson DO Work Phone: Plan of Treatment Date Care Activity Detail Author Start: 05-27-2030 Urine microalbumin profile DTa P,Tdap,Td Vaccine (2 - Td or Tdap) [facility] Start: 10-07-2026 PROSTATE CANCER SCRE ENING DISCUSSION PROSTATE CANCER SCREENING DISCUSSION [facility] Start: 10-07-2026 Prostate specific an tigen measurement Prostate Cancer Screening Discussion [facility] Start: 09-21-2025 PROSTATE CANCER SCRE ENING DISCUSSION PROSTATE CANCER SCREENING DISCUSSION [facility] Start: 06-28-2024 Annual PCP Team Director Of Online [employer] kaus[place] Disease Visit Annual PCP Team Chronic Disease Visit [facility] Start: 03-27-2024 Annual PCP Team Director Of Online Merchandising kaushal Disease Visit Annual PCP Team Chronic Disease Visit [facility] Start: 03-27-2024 BP Controlled (<130/80) BP Controlle d (<130/80) [facility] Start: 03-27-2024 Covid-19 Vaccine () Covid-19 Vaccine () [facility] Immunizations Immunization Date Immunization Notes Care Provider Emerald macario 09-14-2020 COVID-19 vaccine, fu ll dose (MODERNA) Eze Kuhn DO Work Phone: [facility] Work Phone: 08-17-2020 COVID-19 vaccine, fu ll dose (MODERNA) Eze Kuhn DO Work Phone: [facility] Work Phone: 08-08-2016 influenza virus vaccine, unspecified formulation Keo Chong APRN.PRIMING MIXTURE CARRIER Work Phone: [facility] Payers Date Payer Category Payer Private Health Insurance [employer] A ETNA CHOICE POS II [id number] 2019-Present [phone] [address] [place] [address] POS [id number] 2019 Private Health Insurance [id number] 2019 Private Health Insurance [id number] Social History Date Type Detail Facility Start: 01-26-2014 [facility] Start: 01-26-2014 Tobacco use and exposure Smokeless tobacco non-user [facility] Start: 03-29-2021 End: 06-28-2023 Alcohol intake Not Asked [facility] Start: 09-27-2021 End: 03-25-2022 History SDOH Housing Unable to Pay 2 [facility] Start: 09-27-2021 End: 03-25-2022 History SDOH Housing Places Lived 1 [facility] Start: 1960 Sex Assigned At Not on file [facility] Start: 09-17-2021 End: 03-28-2022 Exposure to SARS-CoV-2 (event) Not sure [facility] Work Phone: Start: 09-23-2022 End: 06-28-2023 History of Social function [facility] Start: 09-23-2022 End: 06-28-2023 Social connection and isolation panel [facility] In a typical week, h ow many times do you talk on the telephone with family, friends, or neighbors? Patient refused [facility] Are you now , , , , never or living with a partner? [facility] How often to you hav e a drink containing alcohol? Never [facility] (I/We) worried wheth er (my/our) food would run out before (I/we) got money to buy more. Never true [facility] Medical Equipment Procedure Code Equipment Code Equipment Origin al Text Equipment Identifier Dates Start: 11-22-2017 End: 03-12-2023 Clinical Notes 08-10-2014 to 06-28-2023 Keo Chong APRN.PRIMING MIXTURE CARRIER - 06/28/2023 7:00 AM ESTTelephone Encounter - Miguelito Treviño LPN - 04/24/2023 11:30 AM Eze Cade DO - 03/27/2023 9:50 PM ESTPatient Instructions Note Date & Type Note Facility 06-28-2023 Note HNO ID: [id number] Author: KEO CHONG APRN.PRIMING MIXTURE CARRIER Service: ? Author Type: Nurse Practitioner Type: Progress Notes Filed: 06/28/2023 08:21 Note Text: Chief Complaint Patient presents with: hospital f/up: States has a gash in leg would like you to look at is diabetic. HPI Roberto Rodriguez is a 62 year old male who presents here today for Above Complaints. Roberto is an established patient of Dr. Prabhjot DO and myself. Concerns.. ER follow-up --- [facility] ER visit on 05/19/23 d/t R flank/abd pain. Slightly elevated WBC, UA normal, CT scan showed gallstones without acute cholecystitis. Dx with biliary colic. Pt given morphine with relief and discharged home. In office today.... 1.5 months later since ER visit now. Pt reports 1 gallbladder flare up/attack since ER visit but about half as bad. This flare up occurred after a meal with country fried steak. Pt has changed diet drastically to avoid fried or fatty foods. Pt feels pain is stable with this approach. abrasion on L leg -- LLE abrasion x 2 weeks. Pt not sure how he got this. Pt reports redness and tightness around site starting a few days ago. Some mild clear drainage from open wound part. Keep area open to air. Parts of abrasion are starting to scape over but then will reopen again. Pt is diabetic. Pt does report slightly elevated blood sugars the past few weeks. Normally fasting blood glucose around 150, the past 2 weeks it has been around 200. Pt not sure if related to abrasion/infection or change in diet. GRICEL -- Having difficulties getting new CPAP machine with [facility]. Needs new rx printed. No other concerns or complaints. Past medical history, appointments, medications, allergies reviewed. Previous Medical History PAST MEDICAL HISTORY Diagnosis Date Bilateral leg edema Diabetes type 2, controlled (HCC) Hyperlipidemia Hypertension Kidney stones 6-7 different episodes Obstructive sleep apnea Renal cyst benign, no change in size, unsure side Previous Surgical History PAST SURGICAL HISTORY Procedure Laterality Date APPENDECTOMY 08/24/2020 Laparoscopic-[facility] NONE Family History FAMILY HISTORY Problem Relation Age of Onset Heart Father at 55 Hypertension Mother Lipids Mother Kidney Disease Maternal Grandfather Patient Allergies ALLERGIES Allergen Reactions Bactrim [Sulfametho* Hives Current Medications Current Outpatient Medications on File Prior to Visit Medication Sig atorvastatin (LIPITOR) 40 mg tablet take 1 tablet by mouth every day lisinopril (ZESTRIL) 40 mg tablet Take 1 tablet by mouth once daily. gabapentin (NEURONTIN) 100 mg capsule Take 4 capsules in AM and 5 capsules in PM at bedtime blood sugar diagnostic (ACCU-CHEK UVALDO PLUS TEST STRP) test strip Test blood sugar(s) 2 times daily. Dx: Type 2 DM - Uncontrolled E11.65 Insulin: No glipiZIDE (GLUCOTROL) 10 mg tablet 1 tablet PO in the morning with breakfast, 2 tablet PO in the evening with supper meloxicam (MOBIC) 15 mg tablet Take 1 [...] REVIEW OF SYSTEMS See HPI. EXAM: BP 138/78 (BP Site: Left Arm, BP Position: Sitting, BP Cuff Size: Large Adult) Pulse 68 Resp 16 Wt (!) 145.7 kg (321 lb 3.2 oz) BMI 43.56 kg/m? General Appearance: Well appearing, alert, in no acute distress, well-hydrated, well nourished.. Skin: Skin color, texture, tu (more content not included)... [facility] 06-28-2023 History of Present illness Narrative Chief Complaint Patient presents with: hospital f/up: States has a gash in leg would like you to look at is diabetic. HPI Roberto Rodriguez is a 62 year old male who presents here today for Above Complaints. Roberto is an established patient of Dr. Kuhn, and myself. Concerns.. ER follow-up --- [facility] ER visit on 05/19/23 d/t R flank/abd pain. Slightly elevated WBC, UA normal, CT scan showed gallstones without acute cholecystitis. Dx with biliary colic. Pt given morphine with relief and discharged home. In office today.... 1.5 months later since ER visit now. Pt reports 1 gallbladder flare up/attack since ER visit but about half as bad. This flare up occurred after a meal with country fried steak. Pt has changed diet drastically to avoid fried or fatty foods. Pt feels pain is stable with this approach. abrasion on L leg -- LLE abrasion x 2 weeks. Pt not sure how he got this. Pt reports redness and tightness around site starting a few days ago. Some mild clear drainage from open wound part. Keep area open to air. Parts of abrasion are starting to scape over but then will reopen again. Pt is diabetic. Pt does report slightly elevated blood sugars the past few weeks. Normally fasting blood glucose around 150, the past 2 weeks it has been around 200. Pt not sure if related to abrasion/infection or change in diet. GRICEL -- Having difficulties getting new CPAP machine with [facility]. Needs new rx printed. No other concerns or complaints. Past medical history, appointments, medications, allergies reviewed. Previous Medical History PAST MEDICAL HISTORY Diagnosis Date Bilateral leg edema Diabetes type 2, controlled (HCC) Hyperlipidemia Hypertension Kidney stones 6-7 different episodes Obstructive sleep apnea Renal cyst benign, no change in size, unsure side Previous Surgical History PAST SURGICAL HISTORY Procedure Laterality Date APPENDECTOMY 08/24/2020 Laparoscopic-[facility] NONE Family History FAMILY HISTORY Problem Relation Age of Onset Heart Father at 55 Hypertension Mother Lipids Mother Kidney Disease Maternal Grandfather Patient Allergies ALLERGIES Allergen Reactions Bactrim [Sulfametho* Hives Current Medications Current Outpatient Medications on File Prior to Visit Medication Sig atorvastatin (LIPITOR) 40 mg tablet take 1 tablet by mouth every day lisinopril (ZESTRIL) 40 mg tablet Take 1 tablet by mouth once daily. gabapentin (NEURONTIN) 100 mg capsule Take 4 capsules in AM and 5 capsules in PM at bedtime blood sugar diagnostic (ACCU-CHEK UVALDO PLUS TEST STRP) test strip Test blood sugar(s) 2 times daily. Dx: Type 2 DM - Uncontrolled E11.65 Insulin: No glipiZIDE (GLUCOTROL) 10 mg tablet 1 tablet PO in the morning with breakfast, 2 tablet PO in the evening with supper meloxicam (MOBIC) 15 mg tablet Take 1 [...] REVIEW OF SYSTEMS See HPI. EXAM: BP 138/78 (BP Site: Left Arm, BP Position: Sitting, BP Cuff Size: Large Adult) Pulse 68 Resp 16 Wt (!) 145.7 kg (321 lb 3.2 oz) BMI 43.56 kg/m General Appearance: Well appearing, alert, in no acute distress, well-hydrated, well nourished.. Skin: Skin color, texture, turgor normal, no suspicious rashes or lesions, Positives: abrasion to anterior LLE with surround redness, warmth, and pain with mild purulent drainage. Head: Normocephalic, no masses, lesions, tenderness or abnormalities. Lungs: Lungs clear to auscultation. No wheezing, rhonchi, rales.. Heart: RRR without murmur, gallop, or rubs. No ectopy. Abdomen: Normal abdominal exam, Abdomen soft, non-tender. Bowel sounds normal. No masses, organomegaly. Extremities: Positive findings: cellulitis as described above. Musculoskeletal: No joint swelling, deformity, or tenderness. Peripheral Pulses: Normal. Health Maintenance List HIV Screening Never done RSV Vaccine(1 - 1-dose 60+ series) Never done Colorectal Cancer Screening due on 08/30/2019 Depression Assessment due on 05/20/2023 Influenza Vaccine(1) due on 11/17/2023 Shingrix Vaccine(1 of 2) due on 01/05/2024 Pneumococcal Vaccine(1 of 2 - PCV) due on 01/05/2024 Covid-19 Vaccine(3 - season) due on 03/27/2024 HbA1C due on 09/01/2023 Diabetic Foot Exam due on 09/28/2023 Dilated Retinal Exam due on 12/21/2023 Urine Albumin:Creatinine Ratio due on 03/02/2024 LDL Cholesterol due on 03/02/2024 Annual PCP Team Chronic Disease Visit due on 03/27/2024 BP Controlled (<130/80) due on 03/27/2024 Prostate Cancer Screening Discussion due on 10/07/2026 DTaP,Tdap,Td Vaccine(2 - Td or Tdap) due on 05/27/2030 Hepatitis C Screening Completed ASSESSMENT/PLAN: 1. Cellulitis of skin - ICD9: 682.9, ICD10: L03.90 (primary diagnosis) - Begin treatment with doxycycline BID x 10 days. - No lymphangetic streaking, this was defined for patient to watch for and to seek medical care immediately if appears - Area of cellulitis defined with pen, seek further attention if this area continues to enlarge - Follow up for recheck in three days - MUPIROCIN 2 % TOPICAL OINTMENT - DOXYCYCLINE HYCLATE 100 MG TABLET 2. Infection of skin - ICD9: 686.9, ICD10: L08.9 See above. Refilled mupirocin ointment. - MUPIROCIN 2 % TOPICAL OINTMENT - DOXYCYCLINE HYCLATE 100 MG TABLET 3. Necrobiosis lipoidica diabeticorum (HCC) - ICD9: 250.80, 709.3, ICD10: E11.620 See above. - DOXYCYCLINE HYCLATE 100 MG TABLET 4. GRICEL (obstructive sleep apnea) - ICD9: 327.23, ICD10: G47.33 New rx printed to bring to supplier - CPAP 5. Uncontrolled type 2 diabetes mellitus with hyperglycemia (HCC) - ICD9: 250.02, ICD10: E11.65 Pt declined HgA1c today. Likely elevated BG due to current skin infection. Pt will continue to monitor fasting blood sugars and hoping improvement with oral antibiotic given. RTO in 3 days to reassess -- if no improvement in blood sugars, pt agreement to further lab work. 6. Essential hypertension - ICD9: 401.9, ICD10: I10 - Controlled - Continue current medications - Recommend home blood pressure monitoring, to bring results to next visit - Encouraged sodium restriction, DASH or Mediterranean diet - Recommend regular aerobic exercise - Discussed need for and benefit of weight loss. BMI 43.56 kg/(m^2) 7. Biliary colic - ICD9: 574.20, ICD10: K80.50 Improved from ER visit. 1 mild flare up since. Continue current diet regimen, discussed foods to avoid. Encouraged HIDA scan, pt declined today but reports if he has another 1-2 attacks, he will let us know and re-consider HIDA & gen surg consult at that point. RTO in 3 days for cellulitis check and recheck of BG. Prescription instructions reviewed with patient as applicable. Potential red flag symptoms discussed with the patient. Reviewed appropriate action plan to take if red flag symptoms occur. Patient agreeable to treatment plan. Keo Newton APRN.PRIMING MIXTURE CARRIER [address] [place] [address] documented in this encounter [facility] 04-24-2023 Miscellaneous Notes Last refill 01/22/23 Qty: 150 with 0 refills MARIA R 03/27/23 NOV 09/18/23 Miguelito Treviño LPN documented in this encounter [facility] 03-27-2023 Note HNO ID: [id number] Author: Eze Kuhn, DO Service: ? Author Type: Physician Type: Progress Notes Filed: 03/27/2023 10:01 PM Note Text: Patient presents with: 6 Month Exam HPI: Roberto Rodriguez is a 62 year old male who presents to the office today for review of health conditions. Concerns today: Overall feels he is concerned about a sinus or ear infection on left side. Just recently got back from flight to [place] and back to [place] 3-4 days ago. Has had severe left [...] time. He does not check BP's generally. Roberto gets minimal exercise. PAST MEDICAL HISTORY Diagnosis Date Bilateral leg edema Diabetes type 2, controlled (HCC) Hyperlipidemia Hypertension Kidney stones 6-7 different episodes Obstructive sleep apnea Renal cyst benign, no change in size, unsure side PAST SURGICAL HISTORY Procedure Laterality Date APPENDECTOMY 08/24/2020 [facility] Social History Tobacco Use Smoking status: [...] filters, tubing, humidi (more content not included)... [facility] 03-27-2023 History of Present illness Narrative Patient presents with: 6 Month Exam HPI: Roberto Rodriguez is a 62 year old male who presents to the office today for review of health conditions. Concerns today: Overall feels he is concerned about a sinus or ear infection on left side. Just recently got back from flight to [place] and back to [place] 3-4 days ago. Has had severe left [...] time. He does not check BP's generally. Roberto gets minimal exercise. PAST MEDICAL HISTORY Diagnosis Date Bilateral leg edema Diabetes type 2, controlled (HCC) Hyperlipidemia Hypertension Kidney stones 6-7 different episodes Obstructive sleep apnea Renal cyst benign, no change in size, unsure side PAST SURGICAL HISTORY Procedure Laterality Date APPENDECTOMY 08/24/2020 [facility] Social History Tobacco Use Smoking status: [...] obesity) (HCC) - ICD9: 278.01, ICD10: E66.01 - Lengthy [...] agreed with the plan. Eze Kuhn DO [address] [place] [address] documented in this encounter [facility] 02-14-2023 Miscellaneous Notes Patient phones requesting refills as follows: Requested Prescriptions Pending Prescriptions Disp Refills glipiZIDE (GLUCOTROL) 10 mg tablet 270 tablet 3 Si tablet PO in the morning with breakfast, 2 tablet PO in the evening with supper MARIA R-01/04/23 Labs-10/07/21 NOV-03/27/23 Please review and advise. Karie Ladd LPN documented in this encounter [facility] 01-22-2023 Miscellaneous Notes Pt notified of results via [employer]. Maryam Nava Ma Please remind patient that [...] Essence Holland MA documented in this encounter [facility] 01-19-2023 Miscellaneous Notes Requested Prescriptions Pending Prescriptions Disp Refills meloxicam (MOBIC) 15 mg tablet 90 tablet 2 Sig: Take 1 tablet by mouth once daily. As needed for arthritis, With food. [facility] 01/04/2023 03/27/2023 Nannette Salazar documented in this encounter [facility] 01-07-2023 Miscellaneous Notes Patient has been identified by name and date of : Yes Patient phones for refill(s): Requested Prescriptions Pending Prescriptions Disp Refills empagliflozin (JARDIANCE) 25 mg tablet 90 tablet 1 Sig: Take 1 tablet by mouth daily with breakfast. Date of last office visit in primary care: [facility] 01/04/23 03/27/23 Last 2 Encounter Wt Readings: Date: Wt: 01/04/2023 146.8 kg (323 lb 9.6 oz) 09/26/2022 147.4 kg (325 lb) Please advise. Thank you. LEORA Rodriguez documented in this encounter [facility] 01-04-2023 Note HNO ID: [id number] Author: Donna Beltran APRN.PRIMING MIXTURE CARRIER Service: ? Author Type: Nurse Practitioner Type: Progress Notes Filed: 01/07/2023 1:45 PM Note Text: Chief Complaint Patient presents with: growth on head HPI Roberto Rodriguez is a 62 year old male who presents here today for Above Complaints. Roberto is an established patient of Dr. Kuhn, [...] SURGICAL HISTORY Procedure Laterality Date APPENDECTOMY 08/24/2020 [facility] Family History FAMILY HISTORY Problem Relation [...] RATIO due on (more content not included)... [facility] 01-04-2023 History of Present illness Narrative Chief Complaint Patient presents with: growth on head HPI Roberto Rodriguez is a 62 year old male who presents here today for Above Complaints. Roberto is an established patient of Dr. Kuhn, [...] SURGICAL HISTORY Procedure Laterality Date APPENDECTOMY 08/24/2020 [facility] Family History FAMILY HISTORY Problem Relation [...] to treatment plan. Keo Newton APRN.JUAN ANTONIO [address] [place] [address] documented in this encounter [facility] 01-01-2023 Miscellaneous Notes Spoke to patient who aware pcp soonest was 6 weeks away. Patient is scheduled with [facility] to see if needing referred to derm/surgery Ester Ventura Ma documented in this encounter [facility] 12-04-2022 Miscellaneous Notes See Telephone note. documented in this encounter [facility] 12-04-2022 Miscellaneous Notes Images from the original note were not included. Roberto Rodriguez Wstr Famp My Chart Rx Pool I m using a bottle now, the cat scratched my leg jumping onto the bed. Is it possible to get a replacement bottle to keep on hand please. Thanks documented in this encounter [facility] 09-27-2022 Note HNO ID: [id number] Author: Eze Kuhn, DO Service: ? Author Type: Physician Type: Progress Notes Filed: 09/27/2022 10:34 AM Note Text: Patient presents with: 6 Month Exam HPI: Roberto Rodriguez is a 62 year old male who presents to the office today for review of health conditions. Concerns today: Leg edema, increased 3 months ago due to had been sitting a lot with local travel back and forth to work in [place], no leg pain or increased redness. Has [...] time. He does not check BP's generally. Roberto gets minimal exercise. PAST MEDICAL HISTORY Diagnosis Date Bilateral leg edema Diabetes type 2, controlled (HCC) Hyperlipidemia Hypertension Kidney stones 6-7 different episodes Obstructive sleep apnea Renal cyst benign, no change in size, unsure side PAST SURGICAL HISTORY Procedure Laterality Date APPENDECTOMY 08/24/2020 [facility] Social History Tobacco Use Smoking status: [...] kit 1 Each (more content not included)... [facility] 08-22-2022 Note HNO ID: [id number] Author: Keo Chong APRN.JUAN ANTONIO Service: ? Author Type: Nurse Practitioner Type: Progress Notes Filed: 08/22/2022 6:56 PM Note Text: Chief Complaint Patient presents with: lft sided pain located just below nipple line : Hurts to touch and perry and iot comes and goes , started about three weeks ago . Not getting sob with it or any other symptoms HPI Roberto Rodriguez is a 62 year old male who presents here today for Above Complaints.. Roberto is an established patient of Dr. Kuhn, [...] SURGICAL HISTORY Procedure Laterality Date APPENDECTOMY 08/24/2020 [facility] Family History FAMILY HISTORY Problem Relation [...] systems are negativ (more content not included)... [facility] 08-22-2022 History of Present illness Narrative Chief Complaint Patient presents with: lft sided pain located just below nipple line : Hurts to touch and perry and iot comes and goes , started about three weeks ago . Not getting sob with it or any other symptoms HPI Roberto Rodriguez is a 62 year old male who presents here today for Above Complaints.. Roberto is an established patient of Dr. Kuhn, [...] SURGICAL HISTORY Procedure Laterality Date APPENDECTOMY 08/24/2020 [facility] Family History FAMILY HISTORY Problem Relation [...] daily. Dx: Type 2 DM - Uncontrolled . Insulin: No furosemide (LASIX) 20 mg tablet [...] daily. Dx: Type 2 DM - Uncontrolled E11. Insulin: No lancets (ONE TOUCH DELICA) 33 [...] Patient agreeable to treatment plan. Keo Newton APRN.PRIMING MIXTURE CARRIER [address] [place] [address] documented in this encounter [facility] 08-20-2022 Miscellaneous Notes Pt confirmed appt. Lis Isaac Ma Pt to confirm appt as scheduled on 08/22/22 @ 6:00 pm with [place]. Once confirmed okay to close encounter. Lis Isaac Ma documented in this encounter [facility] 08-16-2022 Miscellaneous Notes Patient phones requesting refills as follows: Requested Prescriptions Pending Prescriptions Disp Refills dulaglutide (TRULICITY) 3 mg/0.5 mL pen injector 12 Each 3 Sig: Inject 3 mg subcutaneously one time a week. MARIA R-07/04/22 Labs-03/10/22 NOV-09/26/22 med filled 09/27/21 Please review and advise. Karie Ladd LPN documented in this encounter [facility] 07-31-2022 Miscellaneous Notes Patient has been [...] Kathy Wong LPN documented in this encounter [facility] 07-04-2022 Note HNO ID: [id number] Author: Eze Kuhn, DO Service: ? Author Type: Physician Type: Progress Notes Filed: 07/04/2022 9:22 PM Note Text: CC: Roberto Rodriguez is a 61 year old male [...] travel back and forth to work in [place], no leg pain or increased redness PAST MEDICAL HISTORY Diagnosis Date Bilateral leg edema Diabetes type 2, controlled (HCC) Hyperlipidemia Hypertension Kidney stones 6-7 different episodes Obstructive sleep apnea Renal cyst benign, no change in size, unsure side PAST SURGICAL HISTORY Procedure Laterality Date APPENDECTOMY 08/24/2020 [facility] Current Outpatient Medications Medication Sig meloxicam [...] shortness of breath (more content not included)... [facility] 07-04-2022 History of Present illness Narrative CC: Roberto Rodriguez is a 61 year old male [...] travel back and forth to work in [place], no leg pain or increased redness PAST MEDICAL HISTORY Diagnosis Date Bilateral leg edema Diabetes type 2, controlled (HCC) Hyperlipidemia Hypertension Kidney stones 6-7 different episodes Obstructive sleep apnea Renal cyst benign, no change in size, unsure side PAST SURGICAL HISTORY Procedure Laterality Date APPENDECTOMY 08/24/2020 [facility] Current Outpatient Medications Medication Sig meloxicam [...] - ICD9: V76.44, ICD10: Z12.5 - PSA/PROSTSPECAG WILLIANN Eze Kuhn, DO Return if no improvement. Follow up with Eze Kuhn DO. To ER if develops chest pain, shortness of breath Discussed risks, benefits, alternatives, and potential side effects of medications. Patient/Guardian expressed understanding and agreed with the plan. See patient instructions. Eze Kuhn DO [address] [place] [address] documented in this encounter [facility] 06-19-2022 Miscellaneous Notes Patient has been [...] Nuvia Delarosa LPN documented in this encounter [facility] 05-03-2022 Miscellaneous Notes The following approved medication requests have been transmitted electronically. Requested Prescriptions Signed Prescriptions Disp Refills doxycycline (VIBRA-TABS) 100 mg tablet 20 tablet 0 Sig: Take 1 tablet by mouth twice daily for 10 days. Keo Newton APRN.JUAN ANTONIO documented in this encounter [facility] 04-24-2022 Miscellaneous Notes Patient has been [...] Lu Ramirez LPN documented in this encounter [facility] 03-28-2022 History of Present illness Narrative Patient presents with: 6 Month Exam HPI: Roberto Rodriguez is a 61 year old male [...] time. He does not check BP's generally. Roberto gets minimal exercise. PAST MEDICAL HISTORY Diagnosis Date Bilateral leg edema Diabetes type 2, controlled (HCC) Hyperlipidemia Hypertension Kidney stones 6-7 different episodes Obstructive sleep apnea Renal cyst benign, no change in size, unsure side PAST SURGICAL HISTORY Procedure Laterality Date APPENDECTOMY 08/24/2020 [facility] Social History Tobacco Use Smoking status: [...] with the plan. Eze Kuhn DO [address] [place] [address] documented in this encounter [facility] 03-12-2022 Miscellaneous Notes PDMP website checked [...] Maryam Nava Ma documented in this encounter [facility] 03-12-2022 Miscellaneous Notes Maria R--01/31/22 Nov--03/28/22 Last refill--03/03/21 270 with 3 refills Last labs--03/10/22 documented in this encounter [facility] 01-31-2022 History of Present illness Narrative Chief Complaint Patient presents with: Follow Up: Medication f/up also a cyst on pts waist area HPI Roberto Rodriguez is a 61 year old male who presents here today for Above Complaints.. Roberto is an established patient of Dr. Prabhjot [...] burst prednisone regimen for upcoming trip to [place]. Has chronic L shoulder and lower back [...] SURGICAL HISTORY Procedure Laterality Date APPENDECTOMY 08/24/2020 [facility] Family History FAMILY HISTORY Problem Relation [...] to treatment plan. Keo Newton APRN.JUAN ANTONIO [address] [place] [address] documented in this encounter [facility] 01-23-2022 Miscellaneous Notes Last office visit: 11/15/21 F/u scheduled: 03/28/22 Maryam Nava Ma documented in this encounter [facility] 12-20-2021 Miscellaneous Notes The following approved medication requests have been transmitted electronically. Signed Prescriptions Disp Refills blood sugar diagnostic (ACCU-CHEK UVALDO PLUS TEST STRP) test strip 200 Strip 3 Sig: Test blood sugar(s) 2 times daily. Dx: Type 2 DM - Uncontrolled E11.65 Insulin: No MARGARITA: No Keo Newton APRN.JUAN ANTONIO documented in this encounter [facility] 12-12-2021 Miscellaneous Notes See mychart message. Maryam Nava Ma documented in this encounter [facility] 11-15-2021 Instructions Keo Newton APRN.JUAN ANTONIO - 11/15/2021 4:24 PM EDT Start doxycyline BID x 10 days. Discontinue Bactrim. Let me know in 10 days if improved then we can send an additional doxycycline in to have on hand. Follow-up with me if not improved. Gabapentin and muproion refilled. Keo Newton APRN.JUAN ANTONIO documented in this encounter [facility] 11-15-2021 History of Present illness Narrative Chief Complaint Patient presents with: Wound Check HPI Roberto Rodriguez is a 61 year old male who presents here today for Above Complaints.. Roberto is an established patient of Dr. Kuhn. Roberto is a new patient to me today. [...] SURGICAL HISTORY Procedure Laterality Date APPENDECTOMY 08/24/2020 [facility] Family History FAMILY HISTORY Problem Relation [...] activity was identified. 11/15/2021 by Keo Newton APRN.PRIMING MIXTURE CARRIER RTO if symptoms worsen or do not improve within 7-10 days. Prescription instructions reviewed with patient as applicable. Potential red flag symptoms discussed with the patient. Reviewed appropriate action plan to take if red flag symptoms occur. Patient agreeable to treatment plan. Keo Newton APRN.PRIMING MIXTURE CARRIER [address] [place] [address] documented in this encounter [facility] 11-14-2021 Miscellaneous Notes See phone encounter. Kathy Wong LPN Pt notified that he needs seen as we've not seen him for this issue. Advised to see Provider or go into UC to be evaluated. Lis Isaac Ma documented in this encounter [facility] 11-10-2021 Miscellaneous Notes maria r-- 09/27/21 Next-- 03/28/22 Last refill-- 11/09/20 180 with 3 refills Last labs--10/07/21 documented in this encounter [facility] 10-26-2021 Miscellaneous Notes Contacted patient to [...] patient. Rachel Singh documented in this encounter [facility] 10-09-2021 Miscellaneous Notes Spoke with pt [...] Eze Kuhn DO documented in this encounter [facility] 09-27-2021 History of Present illness Narrative Patient presents with: 6 Month Exam HPI: Roberto Rodriguez is a 61 year old male [...] time. He does not check BP's generally. Roberto gets minimal exercise. PAST MEDICAL HISTORY Diagnosis Date Bilateral leg edema Diabetes type 2, controlled (HCC) Hyperlipidemia Hypertension Kidney stones 6-7 different episodes Obstructive sleep apnea Renal cyst benign, no change in size, unsure side PAST SURGICAL HISTORY Procedure Laterality Date APPENDECTOMY 08/24/2020 [facility] Social History Tobacco Use Smoking status: [...] loss - Discussed diabetic education issues of system software programmer diabetic complications, hyperglycemic symptoms, diet, medications- side [...] chronic pain - needs follow up with Sewing Machine Operator Zipper as well- likely bunion affecting his other [...] with the plan. Eze Kuhn DO [address] [place] [address] documented in this encounter [facility] 09-27-2021 Instructions Eze Kuhn DO - 09/27/2021 6:38 PM EDT Florajen or Florastor probiotic at bedtime, refrigerated. documented in this encounter [facility] 09-27-2021 Miscellaneous Notes Spoke with the [...] Karie Ladd LPN documented in this encounter [facility] documented as of this encounter (statuses as of 09/27/2021) [facility] History of Past illness Narrative* Problem Noted Date Resolved Date Hypertension 08/10/2014 12/22/2014 Leg edema 08/10/2014 12/22/2014 documented as of this encounter (statuses as of 09/28/2021) [facility] History of Past illness Narrative* Problem Noted Date Resolved Date Hypertension 08/10/2014 12/22/2014 Leg edema 08/10/2014 12/22/2014 documented as of this encounter (statuses as of 10/26/2021) [facility] History of Past illness Narrative* Problem Noted Date Resolved Date Hypertension 08/10/2014 12/22/2014 Leg edema 08/10/2014 12/22/2014 documented as of this encounter (statuses as of 11/10/2021) [facility] History of Past illness Narrative* Problem Noted Date Resolved Date Hypertension 08/10/2014 12/22/2014 Leg edema 08/10/2014 12/22/2014 documented as of this encounter (statuses as of 11/14/2021) [facility] History of Past illness Narrative* Problem Noted Date Resolved Date Hypertension 08/10/2014 12/22/2014 Leg edema 08/10/2014 12/22/2014 documented as of this encounter (statuses as of 11/14/2021) [facility] History of Past illness Narrative* Problem Noted Date Resolved Date Hypertension 08/10/2014 12/22/2014 Leg edema 08/10/2014 12/22/2014 documented as of this encounter (statuses as of 11/15/2021) [facility] History of Past illness Narrative* Problem Noted Date Resolved Date Hypertension 08/10/2014 12/22/2014 Leg edema 08/10/2014 12/22/2014 documented as of this encounter (statuses as of 12/12/2021) [address] History of Past illness Narrative* Problem Noted Date Resolved Date Hypertension 08/10/2014 12/22/2014 Leg edema 08/10/2014 12/22/2014 documented as of this encounter (statuses as of 12/20/2021) [address]2015 History of Past illness Narrative* Problem Noted Date Resolved Date Hypertension 08/10/2014 12/22/2014 Leg edema 08/10/2014 12/22/2014 documented as of this encounter (statuses as of 01/24/2022) [address]2015 History of Past illness Narrative* Problem Noted Date Resolved Date Hypertension 08/10/2014 12/22/2014 Leg edema 08/10/2014 12/22/2014 documented as of this encounter (statuses as of 01/31/2022) [address]2015 History of Past illness Narrative* Problem Noted Date Resolved Date Hypertension 08/10/2014 12/22/2014 Leg edema 08/10/2014 12/22/2014 documented as of this encounter (statuses as of 03/12/2022) [address]2015 History of Past illness Narrative* Problem Noted Date Resolved Date Hypertension 08/10/2014 12/22/2014 Leg edema 08/10/2014 12/22/2014 documented as of this encounter (statuses as of 03/12/2022) [address]2015 History of Past illness Narrative* Problem Noted Date Resolved Date Hypertension 08/10/2014 12/22/2014 Leg edema 08/10/2014 12/22/2014 documented as of this encounter (statuses as of 03/29/2022) [address]2015 History of Past illness Narrative* Problem Noted Date Resolved Date Hypertension 08/10/2014 12/22/2014 Leg edema 08/10/2014 12/22/2014 documented as of this encounter (statuses as of 04/25/2022) [address]2015 History of Past illness Narrative* Problem Noted Date Resolved Date Hypertension 08/10/2014 12/22/2014 Leg edema 08/10/2014 12/22/2014 documented as of this encounter (statuses as of 05/03/2022) [address] History of Past illness Narrative* Problem Noted Date Resolved Date Hypertension 08/10/2014 12/22/2014 Leg edema 08/10/2014 12/22/2014 documented as of this encounter (statuses as of 06/20/2022) [facility] History of Past illness Narrative* Problem Noted Date Resolved Date Hypertension 08/10/2014 12/22/2014 Leg edema 08/10/2014 12/22/2014 documented as of this encounter (statuses as of 07/05/2022) [address]2015 History of Past illness Narrative* Problem Noted Date Resolved Date Hypertension 08/10/2014 12/22/2014 Leg edema 08/10/2014 12/22/2014 documented as of this encounter (statuses as of 08/01/2022) [facility] History of Past illness Narrative* Problem Noted Date Resolved Date Hypertension 08/10/2014 12/22/2014 Leg edema 08/10/2014 12/22/2014 documented as of this encounter (statuses as of 08/16/2022) [place] [id number] History of Past illness Narrative* Problem Noted Date Resolved Date Hypertension 08/10/2014 12/22/2014 Leg edema 08/10/2014 12/22/2014 documented as of this encounter (statuses as of 08/21/2022) [facility] History of Past illness Narrative* Problem Noted Date Resolved Date Hypertension 08/10/2014 12/22/2014 Leg edema 08/10/2014 12/22/2014 documented as of this encounter (statuses as of 08/23/2022) [facility] History of Past illness Narrative* Problem Noted Date Diagnosed Date Resolved Date Hypertension 08/10/2014 12/22/2014 Leg edema 08/10/2014 12/22/2014 documented as of this encounter (statuses as of 12/05/2022) [address]2015 History of Past illness Narrative* Problem Noted Date Diagnosed Date Resolved Date Hypertension 08/10/2014 12/22/2014 Leg edema 08/10/2014 12/22/2014 documented as of this encounter (statuses as of 12/05/2022) [address]2015 History of Past illness Narrative* Problem Noted Date Diagnosed Date Resolved Date Hypertension 08/10/2014 12/22/2014 Leg edema 08/10/2014 12/22/2014 documented as of this encounter (statuses as of 01/02/2023) [address]2015 History of Past illness Narrative* Problem Noted Date Diagnosed Date Resolved Date Hypertension 08/10/2014 12/22/2014 Leg edema 08/10/2014 12/22/2014 documented as of this encounter (statuses as of 01/07/2023) [address]2015 History of Past illness Narrative* Problem Noted Date Diagnosed Date Resolved Date Hypertension 08/10/2014 12/22/2014 Leg edema 08/10/2014 12/22/2014 documented as of this encounter (statuses as of 01/08/2023) [address]24[address]2015 History of Past illness Narrative* Problem Noted Date Diagnosed Date Resolved Date Hypertension 08/10/2014 12/22/2014 Leg edema 08/10/2014 12/22/2014 documented as of this encounter (statuses as of 01/19/2023) [address]2015 History of Past illness Narrative* Problem Noted Date Diagnosed Date Resolved Date Hypertension 08/10/2014 12/22/2014 Leg edema 08/10/2014 12/22/2014 documented as of this encounter (statuses as of 01/22/2023) [address]2015 History of Past illness Narrative* Problem Noted Date Diagnosed Date Resolved Date Hypertension 08/10/2014 12/22/2014 Leg edema 08/10/2014 12/22/2014 documented as of this encounter (statuses as of 02/15/2023) [address]2015 History of Past illness Narrative* Problem Noted Date Diagnosed Date Resolved Date Hypertension 08/10/2014 12/22/2014 Leg edema 08/10/2014 12/22/2014 documented as of this encounter (statuses as of 03/12/2023) [address]2015 History of Past illness Narrative* Problem Noted Date Diagnosed Date Resolved Date Hypertension 08/10/2014 12/22/2014 Leg edema 08/10/2014 12/22/2014 documented as of this encounter (statuses as of 03/28/2023) [address]2015 History of Past illness Narrative* Problem Noted Date Diagnosed Date Resolved Date Hypertension 08/10/2014 12/22/2014 Leg edema 08/10/2014 12/22/2014 documented as of this encounter (statuses as of 04/24/2023) [facility] History of Past illness Narrative* Problem Noted Date Diagnosed Date Resolved Date Hypertension 08/10/2014 12/22/2014 Leg edema 08/10/2014 12/22/2014 documented as of this encounter (statuses as of 06/28/2023) [facility] note* Diagnosis [facility] hypertension- Primary Unspecified essential hypertension Uncontrolled type 2 diabetes mellitus with hyperglycemia (HCC) Other hyper[facility] Diagnosis Uncontrolled type 2 diabetes mellitus [...] (HCC) Morbid obesity [facility] Diagnosis Uncontrolled type 2 diabetes mellitus with hyperglycemia (HCC) [facility] Diagnosis Edema of lower extremity Edema [facility] Diagnosis Infection of skin- Primary Unspecified local infection of skin and subcutaneous tissue Neck pain, chronic Cervicalgia Chronic left shoulder pain Pain in joint, shoulder region [facility] Diagnosis Infection of skin Unspecified local infection of skin and subcutaneous tissue [facility] Diagnosis Uncontrolled type 2 diabetes mellitus with hyperglycemia (HCC) [facility] Diagnosis Epidermal inclusion cyst- Primary Sebaceous cyst Infection of skin Unspecified local infection of skin and subcutaneous tissue Neck pain, chronic Cervicalgia Chronic left shoulder pain Pain in joint, shoulder region Uncontrolled type 2 diabetes mellitus with hyperglycemia (HCC) Necrobiosis lipoidica diabeticorum (HCC) Type II or unspecified type diabetes mellitus with other specified manifestations, not stated as uncontrolled [facility] Diagnosis Neck pain, chronic Cervicalgia Chronic left shoulder pain Pain in joint, shoulder region [facility] Diagnosis Uncontrolled type 2 diabetes mellitus [...] and subcutaneous tissue [facility] Diagnosis Infection of skin Unspecified local infection of skin and subcutaneous tissue Necrobiosis lipoidica diabeticorum (HCC) Type II or unspecified type diabetes mellitus with other specified manifestations, not stated as uncontrolled [facility]* Diagnosis Neck pain, chronic Cervicalgia Chronic left shoulder pain Pain in joint, shoulder region Uncontrolled type 2 diabetes mellitus with hyperglycemia (HCC) [facility] Diagnosis Atypical squamoproliferative skin lesion- Primary Essential hypertension Unspecified essential hypertension Uncontrolled type 2 diabetes mellitus with hyperglycemia (HCC) Neck pain, chronic Cervicalgia Chronic left shoulder pain Pain in joint, shoulder region Other hyperlipidemia Screening for prostate cancer Special screening for malignant neoplasm of prostate [facility] Diagnosis Uncontrolled type 2 diabetes mellitus with hyperglycemia (HCC) documented [facility]* Diagnosis Rib pain on right side- Primary Chest pain, unspecified Rib injury Sprain of ribs Infection of skin Unspecified local infection of skin and subcutaneous tissue Necrobiosis lipoidica diabeticorum (HCC) Type II or unspecified type diabetes mellitus with other specified manifestations, not stated as uncontrolled documented in this encounter [facility] note* Diagnosis Skin lesion- Primary Unspecified disorder of skin and subcutaneous tissue Infection of skin Unspecified local infection of skin and subcutaneous tissue Necrobiosis lipoidica diabeticorum (HCC) Type II or unspecified type diabetes mellitus with other specified manifestations, not stated as uncontrolled documented in this encounter [facility] note* Diagnosis Uncontrolled type 2 diabetes mellitus with hyperglycemia (HCC) [facility] Diagnosis Neck pain, chronic Cervicalgia Chronic left shoulder pain Pain in joint, shoulder region documented in this encounter [facility] note* Diagnosis Uncontrolled type 2 diabetes mellitus [...] neoplasm of prostate documented in this encounter [facility] note* Diagnosis Cellulitis of skin- Primary Cellulitis and abscess of unspecified site Infection of skin Unspecified local infection of skin and subcutaneous tissue Necrobiosis lipoidica diabeticorum (HCC) Type II or unspecified type diabetes mellitus with other specified manifestations, not stated as uncontrolled GRICEL (obstructive sleep apnea) Obstructive sleep apnea (adult) (pediatric) Uncontrolled type 2 diabetes mellitus with hyperglycemia (HCC) Essential hypertension Unspecified essential hypertension Biliary colic Calculus of gallbladder without mention of cholecystitis or obstruction documented in this encounter [facility] Summary Purpose Family History No Family [...] or prosecute any alcohol or drug abuse patient.[facility] the event this information is protected by the Federal Confidentiality of Alcohol and Drug Abuse Patient Records regulations: The Federal rules restrict any use of the information to criminally investigate or prosecute any alcohol or drug abuse patient.[facility] the event this information is protected by the Federal Confidentiality of Alcohol and Drug Abuse Patient Records regulations: The Federal rules restrict any use of the information to criminally investigate or prosecute any alcohol or drug abuse patient.[facility] the event this information is protected by the Federal Confidentiality of Alcohol and Drug Abuse Patient Records regulations: The Federal rules restrict any use of the information to criminally investigate or prosecute any alcohol or drug abuse patient.[facility] the event this information is protected by the Federal Confidentiality of Alcohol and Drug Abuse Patient Records regulations: The Federal rules restrict any use of the information to criminally investigate or prosecute any alcohol or drug abuse patient.[facility] the event this information is protected by the Federal Confidentiality of Alcohol and Drug Abuse Patient Records regulations: The Federal rules restrict any use of the information to criminally investigate or prosecute any alcohol or drug abuse patient.[facility] the event this information is protected by the Federal Confidentiality of Alcohol and Drug Abuse Patient Records regulations: The Federal rules restrict any use of the information to criminally investigate or prosecute any alcohol or drug abuse patient.[facility] the event this information is protected by the Federal Confidentiality of Alcohol and Drug Abuse Patient Records regulations: The Federal rules restrict any use of the information to criminally investigate or prosecute any alcohol or drug abuse patient.[facility] the event this information is protected by the Federal Confidentiality of Alcohol and Drug Abuse Patient Records regulations: The Federal rules restrict any use of the information to criminally investigate or prosecute any alcohol or drug abuse patient.[facility] the event this information is protected by the Federal Confidentiality of Alcohol and Drug Abuse Patient Records regulations: The Federal rules restrict any use of the information to criminally investigate or prosecute any alcohol or drug abuse patient.[facility] the event this information is protected by the Federal Confidentiality of Alcohol and Drug Abuse Patient Records regulations: The Federal rules restrict any use of the information to criminally investigate or prosecute any alcohol or drug abuse patient.[facility] the event this information is protected by the Federal Confidentiality of Alcohol and Drug Abuse Patient Records regulations: The Federal rules restrict any use of the information to criminally investigate or prosecute any alcohol or drug abuse patient.[facility] HospitalIn the event this information is protected by the Federal Confidentiality of Alcohol and Drug Abuse Patient Records regulations: The Federal rules restrict any use of the information to criminally investigate or prosecute any alcohol or drug abuse patient.[facility] the event this information is protected by the Federal Confidentiality of Alcohol and Drug Abuse Patient Records regulations: The Federal rules restrict any use of the information to criminally investigate or prosecute any alcohol or drug abuse patient.[facility] the event this information is protected by the Federal Confidentiality of Alcohol and Drug Abuse Patient Records regulations: The Federal rules restrict any use of the information to criminally investigate or prosecute any alcohol or drug abuse patient.[facility] the event this information is protected by the Federal Confidentiality of Alcohol and Drug Abuse Patient Records regulations: The Federal rules restrict any use of the information to criminally investigate or prosecute any alcohol or drug abuse patient.[facility] the event this information is protected by the Federal Confidentiality of Alcohol and Drug Abuse Patient Records regulations: The Federal rules restrict any use of the information to criminally investigate or prosecute any alcohol or drug abuse patient.[facility] the event this information is protected by the Federal Confidentiality of Alcohol and Drug Abuse Patient Records regulations: The Federal rules restrict any use of the information to criminally investigate or prosecute any alcohol or drug abuse patient.[facility] the event this information is protected by the Federal Confidentiality of Alcohol and Drug Abuse Patient Records regulations: The Federal rules restrict any use of the information to criminally investigate or prosecute any alcohol or drug abuse patient.[facility] the event this information is protected by the Federal Confidentiality of Alcohol and Drug Abuse Patient Records regulations: The Federal rules restrict any use of the information to criminally investigate or prosecute any alcohol or drug abuse patient.[facility] the event this information is protected by the Federal Confidentiality of Alcohol and Drug Abuse Patient Records regulations: The Federal rules restrict any use of the information to criminally investigate or prosecute any alcohol or drug abuse patient.[facility] the event this information is protected by the Federal Confidentiality of Alcohol and Drug Abuse Patient Records regulations: The Federal rules restrict any use of the information to criminally investigate or prosecute any alcohol or drug abuse patient.[facility] the event this information is protected by the Federal Confidentiality of Alcohol and Drug Abuse Patient Records regulations: The Federal rules restrict any use of the information to criminally investigate or prosecute any alcohol or drug abuse patient.[facility]In the event this information is protected by the Federal Confidentiality of Alcohol and Drug Abuse Patient Records regulations: The Federal rules restrict any use of the information to criminally investigate or prosecute any alcohol or drug abuse patient.[facility] the event this information is protected by the Federal Confidentiality of Alcohol and Drug Abuse Patient Records regulations: The Federal rules restrict any use of the information to criminally investigate or prosecute any alcohol or drug abuse patient.[facility]In the event this information is protected by the Federal Confidentiality of Alcohol and Drug Abuse Patient Records regulations: The Federal rules restrict any use of the information to criminally investigate or prosecute any alcohol or drug abuse patient.[facility]In the event this information is protected by the Federal Confidentiality of Alcohol and Drug Abuse Patient Records regulations: The Federal rules restrict any use of the information to criminally investigate or prosecute any alcohol or drug abuse patient.[facility]In the event this information is protected by the Federal Confidentiality of Alcohol and Drug Abuse Patient Records regulations: The Federal rules restrict any use of the information to criminally investigate or prosecute any alcohol or drug abuse patient.[facility]In the event this information is protected by the Federal Confidentiality of Alcohol and Drug Abuse Patient Records regulations: The Federal rules restrict any use of the information to criminally investigate or prosecute any alcohol or drug abuse patient.[facility]In the event this information is protected by the Federal Confidentiality of Alcohol and Drug Abuse Patient Records regulations: The Federal rules restrict any use of the information to criminally investigate or prosecute any alcohol or drug abuse patient.[facility]In the event this information is protected by the Federal Confidentiality of Alcohol and Drug Abuse Patient Records regulations: The Federal rules restrict any use of the information to criminally investigate or prosecute any alcohol or drug abuse patient.[facility]In the event this information is protected by the Federal Confidentiality of Alcohol and Drug Abuse Patient Records regulations: The Federal rules restrict any use of the information to criminally investigate or prosecute any alcohol or drug abuse patient.[facility]In the event this information is protected by the Federal Confidentiality of Alcohol and Drug Abuse Patient Records regulations: The Federal rules restrict any use of the information to criminally investigate or prosecute any alcohol or drug abuse patient.[facility]In the event this information is protected by the Federal Confidentiality of Alcohol and Drug Abuse Patient Records regulations: The Federal rules restrict any use of the information to criminally investigate or prosecute any alcohol or drug abuse patient.[facility] Reason for Visit (unrecogniz ed section [...] Refill Request 02/14/2023 Reason Comments Refill Request Reason Comments hospital f/up States has a gash in leg would like you to look at is diabetic. Care Teams (unrecognized sec tion and content) Audit Mgr Relationship Specialty Start Date End Date Eze Kuhn, DO [address] [place] [address] PCP - General Family Practice 04/20/14 Audit Mgr Relationship Specialty Start Date End Date Eze Kuhn, DO [address] [place] [address] PCP - General Family Practice 04/20/14 Audit Mgr Relationship Specialty Start Date End Date Eze Kuhn, DO [address] [place] [address] PCP - General Family Practice 04/20/14 Audit Mgr Relationship Specialty Start Date End Date Eze Kuhn, DO [address] [place] [address] PCP - General Family Practice 04/20/14 Audit Mgr Relationship Specialty Start Date End Date Eze Kuhn, DO [address] [place] [address] PCP - General Family Practice 04/20/14 Audit Mgr Relationship Specialty Start Date End Date Eze Kuhn, DO [address] [place] [address] PCP - General Family Practice 04/20/14 Audit Mgr Relationship Specialty Start Date End Date Eze Kuhn, DO [address] [place] [address] PCP - General Family Practice 04/20/14 Audit Mgr Relationship Specialty Start Date End Date Eze Kuhn, DO [address] [place] [address] PCP - General Family Practice 04/20/14 Audit Mgr Relationship Specialty Start Date End Date Eze Kuhn, DO [address] [place] [address] PCP - General Family Medicine 04/20/14 Audit Mgr Relationship Specialty Start Date End Date Eze Kuhn, DO [address] [place] [address] PCP - General Family Medicine 04/20/14 Audit Mgr Relationship Specialty Start Date End Date Eze Kuhn, DO [address] [place] [address] PCP - General Family Medicine 04/20/14 Audit Mgr Relationship Specialty Start Date End Date Eze Kuhn, DO [address] [place] [address] PCP - General Family Medicine 04/20/14 Audit Mgr Relationship Specialty Start Date End Date Eze Kuhn, DO [address] [place] [address] PCP - General Family Medicine 04/20/14 Audit Mgr Relationship Specialty Start Date End Date Eze Kuhn, DO [address] [place] [address] PCP - General Family Medicine 04/20/14 Audit Mgr Relationship Specialty Start Date End Date Eze Kuhn, DO [address] [place] [address] PCP - General Family Medicine 04/20/14 Audit Mgr Relationship Specialty Start Date End Date Eze Kuhn, DO [address] [place] [address] PCP - General Family Medicine 04/20/14 Audit Mgr Relationship Specialty Start Date End Date Eze Kuhn, DO [address] [place] [address] PCP - General Family Medicine 04/20/14 Audit Mgr Relationship Specialty Start Date End Date Eze Kuhn, DO [address] [place] [address] PCP - General Family Medicine 04/20/14 Audit Mgr Relationship Specialty Start Date End Date Eze Kuhn DO [address] [place] [address] PCP - General Family Medicine 04/20/14 Audit Mgr Relationship Specialty Start Date End Date Eze Kuhn DO [address] [place] [address] PCP - General Family Medicine 04/20/14 Audit Mgr Relationship Specialty Start Date End Date Eze Kuhn DO [address] [place] [address] PCP - General Family Medicine 04/20/14 Audit Mgr Relationship Specialty Start Date End Date Eze Kuhn DO [address] [place] [address] PCP - General Family Medicine 04/20/14 Audit Mgr Relationship Specialty Start Date End Date Eze Kuhn DO [address] [place] [address] PCP - General Family Medicine 04/20/14 Audit Mgr Relationship Specialty Start Date End Date Eze Kuhn DO [address] [place] [address] PCP - General Family Medicine 04/20/14 Audit Mgr Relationship Specialty Start Date End Date Eze Kuhn DO [address] [place] [address] PCP - General Family Medicine 12/2/14 Audit Mgr Relationship Specialty Start Date End Date Eze Kuhn, DO [address] [place] [address] PCP - [facility] 04/20/14 Audit Mgr Relationship Specialty Start Date End Date Eze Kuhn DO [address] [place] [address] PCP - [facility] 04/20/14 Audit Mgr Relationship Specialty Start Date End Date Eze Kuhn, DO [address] [place] [address] PCP - [facility] 04/20/14 (unrecognized sect ion and content) No [...] BE BASED ON THE PRIMARY CLINICAL RECORDS. [facility] [employer] [facility]. provides no warranty or guarantee of the accuracy or completeness of information in this document.
--- NOTE | 2023-07-07 01:27 | EDS_ITS ---
HPI HPI - GI History of Present Illness Chief Complaint: Abd Pain Informant: patient Abdominal Pain/Flank Pain Onset: Today Context: Gradual Onset Timing: Continuous Quality: Aching Location: RUQ, RLQ and Right Flank Worsened by: Movement Relieved by: Nothing Nausea/Vomiting/Emesis GI Symptom: Positive for Nausea; Negative for Vomiting Diarrhea/Melena/Hematochezia GI Symptom: Negative for Diarrhea, Melena or Hematochezia Associated Symptoms Associated Symptoms: Negative for Dysuria, Frequency or Hematuria Narrative Narrative: Patient presents with right-sided abdominal and back pain that began today. Patient states the pain is similar to the pain he had a month and a half ago when he was diagnosed with cholelithiasis. Patient states he was given pain medication and has been adjusting his diet. Patient states that his pain had improved until today. Patient describes the pain as aching. Patient states pain is over the right side of the abdomen and right flank area. Patient states it is worse with movement. Patient admits to some nausea but denies any vomiting. Patient denies any diarrhea, melena, or hematochezia. Patient denies any dysuria, frequency, or hematuria. [facility] Medical History Abdominal pain Appendicitis Diabetes History of diabetes mellitus, type I History of hypertension Home Medications atorvastatin 40 mg tablet 40 mg PO DAILY 04/22/18 [History Last Taken 08/24/20 05:15] furosemide 20 mg tablet 20 mg PO DAILY 04/22/18 [History Last Taken 08/24/20 05:15] glipizide 10 mg tablet, extended release 24 hr (Glucotrol XL) 10 mg PO DAILY 04/22/18 [History Last Taken 08/24/20 05:15] lisinopril 40 mg tablet (Zestril) 40 mg PO DAILY 04/22/18 [History Last Taken 08/24/20 05:15] glipizide 10 mg tablet, extended release 24 hr 20 mg PO DINNER 01/18/20 [History Last Taken 08/24/20 05:15] dulaglutide 1.5 mg/0.5 mL subcutaneous pen injector 4.5 mg SQ .Saturday08/24/20 [History Last Taken 08/21/20] gabapentin 100 mg capsule 400 mg PO DAILY 08/24/20 [History Last Taken 08/24/20 05:15] multivitamin 1 each PO DAILY 08/24/20 [History Last Taken 08/24/20 05:15] gabapentin 100 mg capsule 500 mg PO QHS 05/19/23 [History Last Taken Unknown] meloxicam 15 mg tablet 15 mg PO DAILY 05/19/23 [History Last Taken Unknown] ondansetron 4 mg disintegrating tablet 4 mg PO TID PRN nausea and vomiting #21 tabs 05/20/23 [Rx Last Taken Unknown] doxycycline hyclate 100 mg tablet 100 mg PO Q12H 07/07/23 [History Last Taken Unknown] empagliflozin 25 mg tablet (Jardiance) 25 mg PO DAILY 07/07/23 [History Last Taken Unknown] mupirocin 2 % topical ointment 1 applic topical TID 07/07/23 [History Last Taken Unknown] oxycodone-acetaminophen 5 mg-325 mg tablet (Endocet) 1 tab PO Q6H PRN pain 3 da ys #12 tabs 07/07/23 [Rx Last Taken Unknown] Allergy/AdvReac Type Severity Reaction Status Date / Time sulfamethoxazole Allergy Hives Verified 07/07/23 01:08 [From Bactrim] trimethoprim [From Bactrim] Allergy Hives Verified 07/07/23 01:08 Surgical History S/P appendectomy Social History Smoking Status: Never smoker ROS ROS ED Constitutional Constitutional ED: Denies chills or fever(s) Eyes Eyes: Denies blurry vision or change in vision ENT ENT ED: Denies rhinorrhea or sore throat Cardiovascular Cardiovascular: Denies chest pain or palpitations Respiratory/Chest Respiratory/Chest: Denies cough or dyspnea Gastrointestinal Gastrointestinal: Reports abdominal pain and nausea; Denies vomiting Genitourinary Genitourinary ED: Denies dysuria or hematuria Musculoskeletal Musculoskeletal: Reports back pain; Denies neck pain Integumentary Denies abscess or rash Neurologic Neurologic: Denies headache(s) or weakness Allergic/Immunologic Allergic/Immunologic ED: Denies mouth swelling or urticaria EXAM Physical Exam Const Vital Signs: 07/07/23 01:04 Temperature 98 F Temperature Source Oral Pulse Rate 89 Respiratory Rate 16 Blood Pressure 167/74 H Blood Pressure Mean 105 Pulse Ox 96 Positive well nourished, well developed and obese General Appearance ED: well developed and NAD Nutritional Appearance: obese HEENT Reports moist mucous membranes and dry mucous membranes Mouth ED: Yes dry mucous membranes Mouth: dry mucous membranes Neck supple and no JVD Resp normal respiratory effort and clear to auscultation bilaterally Cardio regular rate and regular rhythm GI non-distended Palpation: soft and tender RLQ and RUQ; Negative for guarding or rebound tenderness present Back/Spine General Back: CVA tenderness right Neuro CN's II-XII intact bilaterally, moves all extremities and no sensory deficits noted Sensorium / Orientation: alert Motor Exam: strength 5/5 throughout Psych mental status grossly normal MDM MDM MDM Narrative Medical decision making narrative: Differential diagnosis includes cholecystitis, cholelithiasis, duodenal ulcer, peptic ulcer disease, pancreatitis, pyelonephritis, ureteral calculus, bowel obstruction, and perforation. CBC will be obtained to assess for leukocytosis and anemia. Comprehensive metabolic profile will be obtained to assess for Paddock function, renal function, and electrolyte abnormality. Lipase will be obtained to assess for pancreatitis. Urinalysis will be obtained to assess for urinary tract infection and hematuria. CT scan of the abdomen pelvis will be obtained to assess for cholecystitis, bowel obstruction, perforation, and ureteral calculus. Lab Data Attestation: I reviewed the patient's lab results. Lab results narrative: CBC was reviewed and was within normal limits. Comprehensive metabolic profile was reviewed and was essentially within normal limits. Lipase was reviewed and was slightly elevated at 130. Urinalysis was reviewed. There are 5-10 squamous epithelial cells. There is no evidence of urinary tract infection or hematuria. Labs: Laboratory Results - last 24 hr 07/07/23 07/07/23 02:12 02:58 WBC 9.1 RBC 4.76 Hgb 14.8 Hct 45.3 MCV 95.2 H MCH 31.1 MCHC 32.7 RDW Std Deviation 47.6 H RDW Coeff of Richard 13.6 Plt Count 216 MPV 10.2 Immature Gran % (Auto) 0.800 Neut % (Auto) 70.2 H Lymph % (Auto) 19.0 Gray % (Auto) 7.9 Eos % (Auto) 1.4 Baso % (Auto) 0.7 Absolute Neuts (auto) 6.4 Absolute Lymphs (auto) 1.73 Nucleated RBC % 0 Sodium 138 Potassium 4.1 Chloride 107 Carbon Dioxide 26.0 Anion Gap 5 BUN 15 Creatinine 1.07 Estim Creat Clear Calc 106.52 Est GFR (MDRD) Af Amer 90 Est GFR (MDRD) Non-Af 74 BUN/Creatinine Ratio 14.0 Glucose 275 H Calcium 9.2 Total Bilirubin 0.50 AST 16 ALT 30 Alkaline Phosphatase 98 Total Protein 7.2 Albumin 3.4 Globulin 3.8 Albumin/Globulin Ratio 0.9 Lipase 130 H Urine Color Yellow Urine Clarity Clear Urine pH 5.0 Ur Specific [place] 1.015 Urine Protein Negative Urine Glucose (UA) 1000 H Urine Ketones Negative Urine Occult Blood Negative Urine Nitrite Negative Urine Bilirubin Negative Urine Urobilinogen Normal Ur Leukocyte Esterase Negative Urine RBC 0 SEEN Urine WBC 0 SEEN Ur Squamous Epith Cells 5-10 SEEN Urine Bacteria 0 SEEN Urine Mucus 0 SEEN Radiography Diagnostic Testing: Clinical Impression(s) from Imaging Studies Abdomen/Pelvis CT 07/07/23 01:57 IMPRESSION: 1. Gallstones, similar to previous exam. 2. Redemonstration of an hemangioma in the right lobe of liver. No further evaluation is necessary. Fatty liver. 3. Left adrenal myolipoma or lipoma. No further evaluation is necessary. 4. Atherosclerosis. 5. Right inguinal hernia contains fat, but no bowel. 6. Previous appendectomy. 7. No evidence for acute pathology. No new abnormalities are demonstrated. Electronically Signed: Clayton Pierre MD at 4:34 EST Reading Location ID and State: [facility] / [place] , Service support , CT scan of the abdomen and pelvis was obtained. There are gallstones but there is no evidence of cholecystitis. There is no wall thickening. There is a right inguinal hernia that contains fat but no bowel. There is no acute abnormality noted. This was interpreted by the radiologist was also independently reviewed by myself. Treatment and Re-Evaluation :: Patient was given IV fluids, morphine, and Zofran. Patient was advised of his findings. Patient is feeling better on reevaluation. Patient was given a pr escription for Percocet. Patient was instructed to start with a bland diet. Patient was instructed to avoid fried foods, fatty foods, greasy foods. Patient was given a referral for Dr. Dewitt for follow-up in 5 to 7 days. Patient understood and was agreeable with the plan. All questions were answered. Discharge Plan Triage Chief Complaint: Abd Pain ED Provider: Chris Dent Dx/Rx/DC Orders Clinical Impression: Cholelithiasis, History of diabetes mellitus, type I, History of hypertension, Morbid obesity with BMI of 40.0-44.9, adult Instructions: ED Abdominal Pain Gallstone Poss Prescriptions: Continued oxycodone-acetaminophen [Endocet] 5-325 mg tablet 1 tab PO Q6H PRN (Reason: pain) 3 Days Qty: 12 0RF No Action atorvastatin 40 MG tablet 40 mg PO DAILY glipizide [Glucotrol XL] 10 MG tablet extended release 24hr 10 mg PO DAILY furosemide 20 MG tablet 20 mg PO DAILY lisinopril [Zestril] 40 MG tablet 40 mg PO DAILY glipizide 10 MG tablet extended release 24hr 20 mg PO DINNER multivitamin 1 EACH tablet 1 each PO DAILY gabapentin 100 MG capsule 400 mg PO DAILY dulaglutide 1.5 MG/0.5 ML pen injector 4.5 mg SQ .SATURDAY gabapentin 100 mg capsule 500 mg PO QHS meloxicam 15 mg tablet 15 mg PO DAILY ondansetron 4 mg tablet,disintegrating 4 mg PO TID PRN (Reason: nausea and vomiting) Qty: 21 0RF doxycycline hyclate 100 mg tablet 100 mg PO Q12H Patient Comments: TAKE 1 TABLET BY MOUTH TWICE A DAY started 06/29/2023 Jardiance 25 mg tablet 25 mg PO DAILY Patient Comments: TAKE 1 TABLET BY MOUTH EVERY DAY WITH BREAKFAST mupirocin 2 % ointment 1 applic TOPICAL TID Patient Comments: APPLY 1 APPLICATION TO AFFECTED AREA THREE TIMES A DAY FOR 10 DAYS. LOCATION: [facility] started 06/29/2023 Primary Care Provider: Eze Rick Referrals: Eez Rick DO [Primary Care Provider] - 3-5 Days Delia Dewitt MD [Med Staff - Active Staff] - 5-7 Days Disposition Disposition: Home, Self Care
--- NOTE | 2023-07-07 01:57 | CT_ITS ---
EXAM: CT ABDOMEN AND PELVIS WITH INTRAVENOUS CONTRAST CLINICAL INDICATION: abdominal pain -- IV PO Contrast abdominal pain -- IV PO Contrast TECHNIQUE: Helically acquired images were obtained of the abdomen and pelvis with intravenous contrast. This CT exam was performed using one or more of the following dose reduction techniques: automated exposure control, adjustment of the mA and/or kV according to patient size, and/or use of iterative reconstruction technique. CONTRAST: IV 100mL Isovue-370 RADIATION DOSE: CTDIvol = 31.44 mGy, DLP = 2088.83 mGy-cm COMPARISON: CT scan abdomen and pelvis 05/19/2023 and 08/24/2020 FINDINGS: LOWER THORAX: There are coronary artery calcifications. There is mild atelectasis the visualized lung bases. No cardiomegaly. No significant pericardial effusion. ABDOMEN: LIVER: There is mild heterogeneously decreased attenuation of the liver consistent with fatty infiltration. There is a 2.6 cm low-attenuation space-occupying lesion in the right lobe of the liver with peripheral puddling contrast enhancement consistent with hemangioma. No further evaluation is necessary. GALLBLADDER AND BILE DUCTS: There are multiple gallstones, some of which are in the neck of the gallbladder. Similar finding is also present on previous study. No gallbladder distention or wall edema. No intra- or extrahepatic biliary ductal dilation. PANCREAS: Unremarkable. No focal cystic or solid mass. SPLEEN: Unremarkable. Normal size without focal cystic or solid mass. ADRENALS: There is a 2.5 cm fat attenuation lesion in the left adrenal gland consistent with a myelolipoma or lipoma. No follow-up evaluation is necessary. KIDNEYS AND URETERS: Unremarkable. Normal renal size and position. No hydronephrosis. STOMACH AND BOWEL: Unremarkable. No stomach or bowel distention. No focal inflammatory change. PELVIS: APPENDIX: The appendix is surgically absent. BLADDER: Unremarkable. REPRODUCTIVE: Unremarkable as visualized. No mass. ABDOMEN and PELVIS: INTRAPERITONEAL SPACE: Unremarkable. No ascites or other fluid collection. No free air. BONES/JOINTS: There are old healed right rib fractures. No suspicious lytic or blastic abnormality. SOFT TISSUES: There is a right inguinal hernia which contains fat. VASCULATURE: There is atherosclerotic calcification of the abdominal aorta. LYMPH NODES: Unremarkable. No enlarged lymph nodes. CT/Abdomen/Pelvis WITH Contrast IMPRESSION: 1. Gallstones, similar to previous exam. 2. Redemonstration of an hemangioma in the right lobe of liver. No further evaluation is necessary. Fatty liver. 3. Left adrenal myolipoma or lipoma. No further evaluation is necessary. 4. Atherosclerosis. 5. Right inguinal hernia contains fat, but no bowel. 6. Previous appendectomy. 7. No evidence for acute pathology. No new abnormalities are demonstrated. Electronically Signed: Clayton Pierre MD at 4:34 EST ,
[2023-07-07] MEDS: Ondansetron 4 MG/2 ML Vial IV (02:11)
[2023-07-07] MEDS: Morphine 4 MG/ML Syringe IV (02:11)
[2023-07-07] MEDS: 0.9% Normal Saline (1000mL) 1,000 ML 1000 ML IV (02:12)
[2023-07-07 02:22] LABS: Absolute Lymphocyte Count 1.73 X10^3/uL (0.83-4.51); Absolute Neutrophil Count 6.4 X10^3/uL (2.0-7.7); Basophil# 0.06 X10^3/uL; Basophil% 0.7 % (0-1); Eosinophil# 0.13 X10^3/uL; Eosinophils% 1.4 % (0-5); Hematocrit 45.3 % (40-54); Hemoglobin 14.8 g/dL (13.0-16.5); Lymphocyte # 1.73 X10^3/ul (0.83-4.51); Mean Corp Hgb Conc 32.7 g/dL (32-36); Mean Corpuscular Hgb 31.1 pg (27.0-32.0); Mean Corpuscular Volume 95.2 fL (80-94); Mean Platelet Vol. 10.2 fl (6.2-12.0); Monocyte# 0.72 X10^3/uL; Monocyte% 7.9 % (0-10); NRBC Flagged by Analyzer 0 % (0-5); Neutrophil % 70.2 % (47-70); Platelet Count 216 K/mm3 (150-450); RBC Distribution Width CV 13.6 % (11.6-14.6); RBC Distribution Width SD 47.6 fl (35.1-43.9); Red Blood Count 4.76 M/mm3 (4.6-6.2); White Blood Count 9.1 K/mm3 (4.4-11.0)
[2023-07-07 02:41] LABS: ALB/GLOB Ratio 0.9 RATIO (0.9-2.4); AST(SGOT) 16 U/L (15-37); Alanine Aminotransfer ALT/SGPT 30 U/L (16-61); Albumin, Serum 3.4 g/dL (3.2-5.0); Alkaline Phosphatase 98 U/L (45-117); Anion Gap 5 (5-15); BUN 15 mg/dL (7-18); Calcium,Total 9.2 mg/dL (8.5-10.1); Chloride 107 mmol/L (98-107); Creatinine, Serum 1.07 mg/dL (0.70-1.30); EST Glomerular Filtration Rate 74 mL/min (>60); Est Glom Filt Rate - Afr Amer 90 mL/min (>60); Estimated Creatinine Clearance 106.52 ml/min; Globulin 3.8 g/dL (2.2-4.2); Glucose 275 mg/dL (74-106); Lipase 130 U/L (13-75); Potassium 4.1 mmol/L (3.5-5.1); Protein, Total 7.2 g/dL (6.4-8.2); Sodium Level 138 mmol/L (136-145)
[2023-07-07 03:04] LABS: Bacteria 0 SEEN /hpf (None Seen); Color, Urine Yellow (Yellow); Glucose, Dipstick 1000 mg/dl (Normal); Ketone-Dipstick Negative (Negative); Leukocyte Esterase-Dipstick Negative /ul (Negative); Mucous, Urine 0 SEEN /hpf (<or=2+); Nitrite-Dipstick Negative (Negative); Occult Blood-Urine Negative /ul (Negative); Protein-Dipstick Negative (Negative); Red Blood Cells-Urine 0 SEEN /hpf (0-5); Specific Gravity, Urine 1.015 (1.002-1.030); Urine Bilirubin Dipstick Negative (Negative); Urine Clarity Clear (Clear); Urine Urobilinogen Normal (Normal); White Blood Cells 0 SEEN /hpf (0-5)
[2023-07-07 03:12] LABS: Squamous Epithelial Cells - UA 5-10 SEEN /hpf (0-5)
[2023-07-07 05:04] VITALS: BP 159/79; PULSE 89; RESP 17; TEMP 36.1; O2SAT 99
== END 2023-07-07 05:06 | disposition home or self-care (01) ==
PROVIDERS: Emergency Provider Emergency Medicine; PCP Student in an Organized Health Care Education/Training Program; Visit Provider Emergency Medicine
DX: K80.20 Calculus of gallbladder without cholecystitis without obstruction (principal); J44.9 Chronic obstructive pulmonary disease, unspecified; E66.01 Morbid (severe) obesity due to excess calories; Z68.41 Body mass index [BMI] 40.0-44.9, adult; E10.9 Type 1 diabetes mellitus without complications; G47.30 Sleep apnea, unspecified; I25.2 Old myocardial infarction; Z95.5 Presence of coronary angioplasty implant and graft; W18.2XXA Fall in (into) shower or empty bathtub, initial encounter
CPT/HCPCS: 74177; 80053; 81001; 83690; 85025; 96361; 96374; 96375; 99283; J7030; Q9967; A4216; J2405

== ENCOUNTER 2023-07-17 19:37 | Inpatient (IN) | payer OTHER, SELFPAY ==
[2023-07-17 19:38] VITALS: BP 154/70; PULSE 95; RESP 16; TEMP 36.4; O2SAT 94; BMI 40.8
--- NOTE | 2023-07-17 19:53 | EDS_ITS ---
HPI History of Present Illness Chief Complaint: Abn Labs Informant: patient Narrative Narrative: Patient presents for evaluation after seen Dr. Dewitt this afternoon in the office. Patient has been having waxing and waning right upper quadrant/right flank pain for the past couple of months. He has been in the emergency room twice where his LFTs were unremarkable. CT scans showed gallstones. Patient was seen in the office again today and LFTs were ordered. Dr. Dewitt called advising she was sending the patient in as his LFTs are now significantly elevated. Patient will require admission with evaluation by GI as well as surgery. At this time patient reports only mild pain. He last ate 2 hours ago. He does report some vomiting in the mornings the last several days. He has not noted a fever. He does report recent development of a rash and feels like his skin is pruritic. [facility] Medical History (Updated 07/17/23 @ 21:[address] Erna Elkins MD) Abdominal pain Appendicitis Cholelithiasis Diabetes History of diabetes mellitus, type I History of hypertension Home Medications atorvastatin 40 mg tablet 40 mg PO DAILY 04/22/18 [History Last Taken 08/24/20 05:15] furosemide 20 mg tablet 20 mg PO DAILY 04/22/18 [History Last Taken 08/24/20 05:15] glipizide 10 mg tablet, extended release 24 hr (Glucotrol XL) 10 mg PO DAILY 04/22/18 [History Last Taken 08/24/20 05:15] lisinopril 40 mg tablet (Zestril) 40 mg PO DAILY 04/22/18 [History Last Taken 08/24/20 05:15] glipizide 10 mg tablet, extended release 24 hr 20 mg PO DINNER 01/18/20 [History Last Taken 08/24/20 05:15] dulaglutide 1.5 mg/0.5 mL subcutaneous pen injector 4.5 mg SQ .Saturday08/24/20 [History Last Taken 08/21/20] gabapentin 100 mg capsule 400 mg PO DAILY 08/24/20 [History Last Taken 08/24/20 05:15] multivitamin 1 each PO DAILY 08/24/20 [History Last Taken 08/24/20 05:15] gabapentin 100 mg capsule 500 mg PO QHS 05/19/23 [History Last Taken Unknown] meloxicam 15 mg tablet 15 mg PO DAILY 05/19/23 [History Last Taken Unknown] doxycycline hyclate 100 mg tablet 100 mg PO Q12H 07/07/23 [History Last Taken Unknown] empagliflozin 25 mg tablet (Jardiance) 25 mg PO DAILY 07/07/23 [History Last Taken Unknown] mupirocin 2 % topical ointment 1 applic topical TID 07/07/23 [History Last Taken Unknown] omeprazole 40 mg capsule,delayed release 40 mg PO QDAY #30 caps 07/17/23 [Rx Last Taken Unknown] Allergy/AdvReac Type Severity Reaction Status Date / Time sulfamethoxazole Allergy Hives Verified 07/17/23 19:44 [From Bactrim] trimethoprim [From Bactrim] Allergy Hives Verified 07/17/23 19:44 Family History Grandfather Kidney disease Diabetes Father Heart disease Mother Ulcer Surgical History S/P appendectomy Social History Smoking Status: Never smoker alcohol intake: never substance use type: does not use ROS ROS ED Constitutional Constitutional ED: Denies chills or fever(s) Eyes Eyes: Denies discharge from eye(s) ENT ENT ED: Denies discharge from eye(s), rhinorrhea or sore throat Cardiovascular Cardiovascular: Denies chest pain or palpitations Respiratory/Chest Respiratory/Chest: Denies cough or dyspnea Gastrointestinal Gastrointestinal: Reports abdominal pain, nausea and vomiting; Denies diarrhea Genitourinary Genitourinary ED: Denies dysuria Musculoskeletal Musculoskeletal: Denies back pain or extremity pain Integumentary Denies Abrasions or rash Neurologic Neurologic: Denies headache(s) or weakness Allergic/Immunologic Allergic/Immunologic ED: Denies lip swelling or urticaria EXAM Physical Exam Const Vital Signs: 07/17/23 19:38 07/17/23 19:43 Temperature 97.6 F L Temperature Source Temporal Pulse Rate 95 Respiratory Rate 16 Respiratory Effort Normal Respiratory Pattern Normal Blood Pressure 154/70 H Blood Pressure Mean 98 Pulse Ox 94 Oxygen Delivery Method Room Air Positive well nourished and well developed General Appearance ED: well developed HEENT Reports moist mucous membranes Eyes EOMs intact bilaterally Chest Wall inspection of chest normal and palpation of chest normal Resp normal respiratory effort and clear to auscultation bilaterally Cardio regular rate and regular rhythm GI non-tender Palpation: soft Extremity normal to inspection Neuro oriented x3 and no sensory deficits noted Motor Exam: strength 5/5 throughout Psych mental status grossly normal Skin no rashes or lesions noted MDM MDM MDM Narrative Medical decision making narrative: LFTs from earlier today are reviewed. Patient's AST is 423, ALT is 944, alk phos is 510, total bili is 5.10, direct bili is 3.96. IV line is established. CBC and chemistry studies will be obtained. I will obtain a right upper quadrant ultrasound to see if there is currently a stone stuck in the duct. History & Record Review Discussion w/independent historian: Patient Additional record(s) reviewed:: Prior outpatient record, Prior ED visit and Prior labs Lab Data Attestation: I reviewed the patient's lab results. Labs: Laboratory Results - last 24 hr 07/17/23 20:00 WBC 7.8 RBC 5.07 Hgb 15.8 Hct 48.2 MCV 95.1 H MCH 31.2 MCHC 32.8 RDW Std Deviation 48.2 H RDW Coeff of Richard 14.0 Plt Count 219 MPV 10.6 Immature Gran % (Auto) 0.800 Neut % (Auto) 71.6 H Lymph % (Auto) 17.4 L [place] % (Auto) 7.4 Eos % (Auto) 1.8 Baso % (Auto) 1.0 Absolute Neuts (auto) 5.6 Absolute Lymphs (auto) 1.36 Nucleated RBC % 0 Sodium 137 Potassium 3.9 Chloride 103 Carbon Dioxide 26.0 Anion Gap 8 BUN 14 Creatinine 1.14 Estim Creat Clear Calc 97.74 Est GFR (MDRD) Af Amer 83 Est GFR (MDRD) Non-Af 69 BUN/Creatinine Ratio 12.3 Glucose 287 H Calcium 9.6 Radiography Diagnostic Testing: Clinical Impression(s) from Imaging Studies Gallbladder Ultrasound 07/17/23 19:53 IMPRESSION: Limited as above. Fatty liver with hepatomegaly. Abnormal gallbladder consistent with acute cholecystitis. Electronically Signed: Lonnie Mcarthur MD at 20:53 EST , Abdomen/Pelvis CT 07/17/23 20:44 IMPRESSION: 1. Since prior study, patient has developed several distal common bile stones with dilated common bile duct. Again seen is cholelithiasis. 2. No other definite changes or additional findings since previous exam. Electronically Signed: Lonnie Mcarthur MD at 21:30 EST , Treatment and Re-Evaluation :: CBC was normal white count 7.8 with 71% neutrophils. Hemoglobin is 15.8. Chemistry studies unremarkable other than a glucose of 287. LFTs from earlier today were reviewed and abnormal. Gallbladder ultrasound is limited but does reveal abnormal gallbladder worrisome for acute cholecystitis. CT scan of the abdomen pelvis was obtained. Since the prior study he has now developed several distal common bile duct stones. Cholelithiasis is noted. No pericholecystic fluid. Patient was seen by Dr. Dewitt. I have spoken with Dr. Uribe. Patient will be given a dose of Zosyn. They asked that I speak with medicine regarding admission and plan will be ERCP with Dr. Uribe followed by cholecystectomy with Dr. Dewitt. Patient was advised he will be n.p.o. after midnight tonight. Discharge Plan Triage Chief Complaint: Abn Labs ED Provider: Erna Elkins Dx/Rx/DC Orders Clinical Impression: Choledocholithiasis Prescriptions: No Action omeprazole 40 mg capsule,delayed release(DR/EC) 40 mg PO QDAY Qty: 30 3RF Rx Instructions: swallow whole; do not crush, chew, dissolve, cut, break atorvastatin 40 MG tablet 40 mg PO DAILY glipizide [Glucotrol XL] 10 MG tablet extended release 24hr 10 mg PO DAILY furosemide 20 MG tablet 20 mg PO DAILY lisinopril [Zestril] 40 MG tablet 40 mg PO DAILY glipizide 10 MG tablet extended release 24hr 20 mg PO DINNER multivitamin 1 EACH tablet 1 each PO DAILY gabapentin 100 MG capsule 400 mg PO DAILY dulaglutide 1.5 MG/0.5 ML pen injector 4.5 mg SQ .SATURDAY gabapentin 100 mg capsule 500 mg PO QHS meloxicam 15 mg tablet 15 mg PO DAILY doxycycline hyclate 100 mg tablet 100 mg PO Q12H Patient Comments: TAKE 1 TABLET BY MOUTH TWICE A DAY started 06/29/2023 Jardiance 25 mg tablet 25 mg PO DAILY Patient Comments: TAKE 1 TABLET BY MOUTH EVERY DAY WITH BREAKFAST mupirocin 2 % ointment 1 applic TOPICAL TID Patient Comments: APPLY 1 APPLICATION TO AFFECTED AREA THREE TIMES A DAY FOR 10 DAYS. LOCATION: [facility] started 06/29/2023 Primary Care Provider: Eze Rick Referrals: Eze Rick DO [Primary Care Provider] - Disposition Disposition: Acute Care Hospital [facility]
--- NOTE | 2023-07-17 19:53 | US_ITS ---
STUDY: ABDOMINAL ULTRASOUND - RIGHT UPPER QUADRANT REASON FOR VISIT: Male, 62 years old RUQ pain, abnormal labs TECHNIQUE: Ultrasound evaluation of the right upper quadrant was performed with real-time and static griffith-scale imaging. TECHNICAL QUALITY: Limited. Examination limited due to a combination of factors including obesity and bowel gas. COMPARISON: CT scan 07/07/2023. FINDINGS: Liver: The liver measures 22.3 cm. There is increased echogenicity consistent with fatty infiltration. The bile ducts are within normal limits. There is hepatic color flow. The direction of portal flow is hepatopetal. Stable 2.6 cm probable right lobe hemangioma. Gallbladder: There is a markedly distended gallbladder. The gallbladder wall measures 3 mm. There is a positive sonographic Belle''s sign. There is no pericholecystic fluid. There are multiple echogenic structures within the gallbladder, consistent with multiple gallstones. There is sludge. Common Bile Duct (C.B.D.): The common bile duct measures 13 mm. Pancreas: There is nonvisualization of the pancreas. Right Kidney: Normal size of the right kidney. The right kidney measures 13.3 cm. Normal renal cortex. The right cortex measures 2.2 cm. There is no demonstrated renal mass or cyst. There is no right hydronephrosis. US/Gallbladder IMPRESSION: Limited as above. Fatty liver with hepatomegaly. Abnormal gallbladder consistent with acute cholecystitis. Electronically Signed: Lonnie Mcarthur MD at 20:53 EST ,
[2023-07-17 20:10] LABS: Absolute Lymphocyte Count 1.36 X10^3/uL (0.83-4.51); Absolute Neutrophil Count 5.6 X10^3/uL (2.0-7.7); Basophil# 0.08 X10^3/uL; Eosinophil# 0.14 X10^3/uL; Eosinophils% 1.8 % (0-5); Hematocrit 48.2 % (40-54); Hemoglobin 15.8 g/dL (13.0-16.5); Lymphocyte # 1.36 X10^3/ul (0.83-4.51); Lymphocyte % 17.4 % (19-41); Mean Corp Hgb Conc 32.8 g/dL (32-36); Mean Corpuscular Hgb 31.2 pg (27.0-32.0); Mean Corpuscular Volume 95.1 fL (80-94); Mean Platelet Vol. 10.6 fl (6.2-12.0); Monocyte# 0.58 X10^3/uL; Monocyte% 7.4 % (0-10); NRBC Flagged by Analyzer 0 % (0-5); Neutrophil # 5.58 X10^3/uL (2.7-7.7); Neutrophil % 71.6 % (47-70); Platelet Count 219 K/mm3 (150-450); RBC Distribution Width SD 48.2 fl (35.1-43.9); Red Blood Count 5.07 M/mm3 (4.6-6.2); White Blood Count 7.8 K/mm3 (4.4-11.0)
[2023-07-17 20:22] LABS: Anion Gap 8 (5-15); BUN 14 mg/dL (7-18); BUN/Creat Ratio 12.3 RATIO (10-20); Calcium,Total 9.6 mg/dL (8.5-10.1); Chloride 103 mmol/L (98-107); Creatinine, Serum 1.14 mg/dL (0.70-1.30); EST Glomerular Filtration Rate 69 mL/min (>60); Est Glom Filt Rate - Afr Amer 83 mL/min (>60); Estimated Creatinine Clearance 97.74 ml/min; Glucose 287 mg/dL (74-106); Potassium 3.9 mmol/L (3.5-5.1); Sodium Level 137 mmol/L (136-145)
--- NOTE | 2023-07-17 20:44 | CT_ITS ---
EXAM: CT ABDOMEN AND PELVIS WITH INTRAVENOUS CONTRAST CLINICAL INDICATION: gallstones TECHNIQUE: Helically acquired images were obtained of the abdomen and pelvis with intravenous contrast. This CT exam was performed using one or more of the following dose reduction techniques: automated exposure control, adjustment of the mA and/or kV according to patient size, and/or use of iterative reconstruction technique. CONTRAST: IV 100mL Isovue-370 RADIATION DOSE: CTDIvol = 22.07 mGy, DLP = 1329.87 mGy-cm COMPARISON: Ultrasound of earlier today, and CT scan 07/07/2023 FINDINGS: LOWER THORAX: Unremarkable. Lung bases are clear. No cardiomegaly. No significant pericardial effusion. ABDOMEN: LIVER: Stable 2.8 cm liver hemangioma of the anterior dome of the liver. Otherwise negative liver. GALLBLADDER AND BILE DUCTS: Stable cholelithiasis. At least 2 high density structures seen distal common bile duct consistent with choledocholithiasis, not present previously. Common bile duct distended to approximately 1.3 cm diameter. PANCREAS: Unremarkable. No focal cystic or solid mass. SPLEEN: Unremarkable. Normal size without focal cystic or solid mass. 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 KIDNEYS AND URETERS: No acute abnormalities or changes . Normal renal size and position. No hydronephrosis. STOMACH AND BOWEL: Evaluation of the GI tract is limited by absence of oral contrast. Cannot exclude stomach wall thickening. No dilated loops of bowel or evidence for obstruction. Cannot exclude segmental thickening of the palacios of the small or large bowel. Cannot exclude enteritis or colitis. Moderate diffuse fecal retention. Previous appendectomy. PELVIS: APPENDIX: Appendectomy. BLADDER: Unremarkable. REPRODUCTIVE: Unremarkable as visualized. No mass. ABDOMEN and PELVIS: INTRAPERITONEAL SPACE: Unremarkable. No ascites or other fluid collection. No free air. BONES/JOINTS: Degenerative changes throughout the bones. No suspicious lytic or blastic abnormality. SOFT TISSUES: Unremarkable. No discrete abdominal or pelvic wall hernia. VASCULATURE: Prominent aortic calcifications. No aneurysm. LYMPH NODES: Unremarkable. No enlarged lymph nodes. CT/Abdomen/Pelvis W IV Cont ONLY IMPRESSION: 1. Since prior study, patient has developed several distal common bile stones with dilated common bile duct. Again seen is cholelithiasis. 2. No other definite changes or additional findings since previous exam. Electronically Signed: Lonnie Mcarthur MD at 21:30 EST ,
--- NOTE | 2023-07-17 21:50 | HP.PCM.HOS_ITS ---
[facility] - General General Date of Admission: 07/17/23 Date of Service: 07/17/23 Chief Complaint: Elevated LFT's and Jaundice. HPI Narrative ROBERTO BOATENG, is a 62 M with a past medical history of essential hypertension, hyperlipidemia, morbid obesity; with BMI of 40.9 this admission, DM-1; with a recent HgbA1c of 7.8% (02/2023), GERD, OA and history of appendectomy done by Dr. Dewitt (2020) with patient noted to have cholelithiasis at that time who presents to [facility] ER complaining of abnormal LFT's and jaundice. Mr. Willard reports his symptoms began a couple of months prior to admission with [id number] RUQ/upper abdominal pain accompanied by intermittent nausea and bilious emesis with a previous visit to the ER twice in that timeframe that showed gallstones - but with normal LFT's- until now. He was seen in the office by Dr. Dewitt of general surgery earlier today and was noted to be jaundiced and now his LFT's are markedly elevated with a total bilirubin of 5.1 mg/dL (direct bilirubin 3.96 mg/dL) with AST 423, ALT 944 and alkaline phosphatase 510 with imaging positive for choledocholithiasis and CBD dilatation also worrisome for cholecystitis. The ER physician then spoke with Dr. Uribe of gastroenterology with plan for ERCP in the AM followed by a cholecystectomy to be done by Dr. Dewitt with recommendation made to admit patient to the hospitalist service which was done. He was then admitted to the general medical floor for ongoing care for a stay that is expected to be greater than 48 hours. [facility] Medical History Abdominal pain Appendicitis Cholelithiasis Diabetes History of diabetes mellitus, type I History of hypertension Home Medications atorvastatin 40 mg tablet 40 mg PO DAILY 04/22/18 [History Last Taken 08/24/20 05:15] furosemide 20 mg tablet 20 mg PO DAILY 04/22/18 [History Last Taken 08/24/20 05:15] glipizide 10 mg tablet, extended release 24 hr (Glucotrol XL) 10 mg PO DAILY 04/22/18 [History Last Taken 08/24/20 05:15] lisinopril 40 mg tablet (Zestril) 40 mg PO DAILY 04/22/18 [History Last Taken 08/24/20 05:15] glipizide 10 mg tablet, extended release 24 hr 20 mg PO DINNER 01/18/20 [History Last Taken 08/24/20 05:15] dulaglutide 1.5 mg/0.5 mL subcutaneous pen injector 4.5 mg SQ .Saturday08/24/20 [History Last Taken 08/21/20] gabapentin 100 mg capsule 400 mg PO DAILY 08/24/20 [History Last Taken 08/24/20 05:15] multivitamin 1 each PO DAILY 08/24/20 [History Last Taken 08/24/20 05:15] gabapentin 100 mg capsule 500 mg PO QHS 05/19/23 [History Last Taken Unknown] meloxicam 15 mg tablet 15 mg PO DAILY 05/19/23 [History Last Taken Unknown] empagliflozin 25 mg tablet (Jardiance) 25 mg PO DAILY 07/07/23 [History Last Taken Unknown] mupirocin 2 % topical ointment 1 applic topical TID 07/07/23 [History Last Taken Unknown] omeprazole 40 mg capsule,delayed release 40 mg PO QDAY #30 caps 07/17/23 [Rx Last Taken Unknown] Allergy/AdvReac Type Severity Reaction Status Date / Time sulfamethoxazole Allergy Hives Verified 07/17/23 19:44 [From Bactrim] trimethoprim [From Bactrim] Allergy Hives Verified 07/17/23 19:44 Family History Grandfather Kidney disease Diabetes Father Heart disease Mother Ulcer Surgical History S/P appendectomy Social History Smoking Status: Never smoker alcohol intake: never substance use type: does not use ROS ROS Narrative Review of systems: General: Patient denies fever or chills. HENT: Denies headache, denies stuffy nose, denies sore throat EYES: Denies changes in vision or discharge from eyes Resp: Denies cough, denies shortness of breath Cardiac: Denies chest pain or palpitation GI: Patient admits to intermittent right upper quadrant abdominal pain with nausea and bilious emesis as per HPI : Denies changes in urination Extremity: Denies swelling Musculoskeletal: Feels somewhat generally weak and unwell Neuro: Denies any numbness/tingling Heme: Denies any bleeding or bruising Skin: Patient is obviously jaundiced but denies rashes Psychiatric: No complaints voiced related to uncontrolled depression or anxiety Endocrine: No polyuria, polydipsia or polyphagia. The rest of the 14 point ROS was negative except for positives in HPI. Vital Signs Vital Signs Vital Signs: 07/17/23 19:38 07/17/23 19:43 Temperature 97.6 F L Temperature Source Temporal Pulse Rate 95 Respiratory Rate 16 Respiratory Effort Normal Respiratory Pattern Normal Blood Pressure 154/70 H Blood Pressure Mean 98 Pulse Ox 94 Oxygen Delivery Method Room Air Weight Weight: 310 lb Body Mass Index (BMI) 40.8 Physical Exam Const alert, oriented x3 and no apparent distress Constitutional Narrative: Patient is jaundiced and morbidly obese. General Appearance: cooperative HEENT normocephalic, head/scalp atraumatic, hearing grossly normal bilaterally and moist oral mucous membranes Eyes PERRL and EOMs intact bilaterally Eyes Narrative: Icteric sclera noted. Neck no lymphadenopathy and supple Resp normal respiratory effort, no retractions, no use of accessory muscles and clear to auscultation bilaterally Cardio regular rate and regular rhythm GI normal to inspection, nondistended, normoactive bowel sounds, non-tender and non-distended GI Narrative: RUQ TTP. Extremity normal to inspection, full ROM and no clubbing, cyanosis or edema Skin Skin Narrative: Patient has obvious jaundice but no evidence of rash. Neuro oriented x3, CN's II-XII intact bilaterally, moves all extremities and no focal motor deficits Sensorium / Orientation: awake, alert, oriented to person, oriented to place and oriented to time Speech: speech normal Motor Exam: strength 5/5 throughout Psych affect normal Results Medical Records Data Attestation: I reviewed the patient's medical records Lab / Micro Data Attestation: I reviewed the patient's lab results. 07/17/23 20:00 07/17/23 20:00 Labs: Laboratory Results - last 24 hr 07/17/23 20:00: WBC 7.8, RBC 5.07, Hgb 15.8, Hct 48.2, MCV 95.1 H, MCH 31.2, MCHC 32.8, RDW Std Deviation 48.2 H, RDW Coeff of Richard 14.0, Plt Count 219, MPV 10.6, Immature Gran % (Auto) 0.800, Neut % (Auto) 71.6 H, Lymph % (Auto) 17.4 L, Dunn % (Auto) 7.4, Eos % (Auto) 1.8, Baso % (Auto) 1.0, Absolute Neuts (auto) 5.6, Absolute Lymphs (auto) 1.36, Nucleated RBC % 0, Sodium 137, Potassium 3.9, Chloride 103, Carbon Dioxide 26.0, Anion Gap 8, BUN 14, Creatinine 1.14, Estim Creat Clear Calc 97.74, Est GFR (MDRD) Af Amer 83, Est GFR (MDRD) Non-Af 69, BUN/Creatinine Ratio 12.3, Glucose 287 H, Calcium 9.6 Imaging Radiology Impression Gallbladder Ultrasound 07/17/23 19:53 IMPRESSION: Limited as above. Fatty liver with hepatomegaly. Abnormal gallbladder consistent with acute cholecystitis. Electronically Signed: Lonnie Mcarthur MD at 20:53 EST , Abdomen/Pelvis CT 07/17/23 20:44 IMPRESSION: 1. Since prior study, patient has developed several distal common bile stones with dilated common bile duct. Again seen is cholelithiasis. 2. No other definite changes or additional findings since previous exam. Electronically Signed: Lonnie Mcarthur MD at 21:30 EST , Assessment & Plan Assessment/Plan (1) Choledocholithiasis: (2) Hyperbilirubinemia: (3) RUQ abdominal pain: (4) Cholecystitis: PLAN: Plan 1. Choledocholithiasis with Hyperbilirubinemia of 5.1 mg/dL and Hypertransaminasemia present on admission - Admit to general medical floor. Keep strict NPO. Avoid potentially hepatotoxic agents. Give volume resuscit ation and give IV Zofran prn nausea and IV morphine prn pain. Finally, we will consult Dr. Uribe of the gastroenterology service to see this patient on-rounds in the AM for further recommendations regarding ERCP with help appreciated in advance. 2. Acute Cholecystitis complicating #1 - Dr. Dewitt to perform laparoscopic cholecystectomy after stone is removed from CBD at ERCP with help greatly appreciated. 3. Months prior to admission with [id number] RUQ/upper abdominal pain accompanied by intermittent nausea and bilious emesis attributable to #1 & #2 - Noted. 4. History of appendectomy done by Dr. Dewitt (2020) - Noted. 5. Essential hypertension - Hold scheduled antihypertensives with patient NPO for ERCP and give IV Hydralazine prn for systolic blood pressure > 160 mm Hg. 6. Hyperlipidemia - Hold statin with significantly elevated LFT's. Check Lipid Profile. 7. Morbid obesity; with BMI of 40.9 this admission - Weight loss will be recommended. Check TSH. 8. DM-1; with a recent HgbA1c of 7.8% (02/2023) - Stable and reasonably well- controlled. Keep NPO for now. FSBS q. 6 hours prn. 9. GERD - Continue PPI IV. 10. OA - Stable. 11. DVT prophylaxis - SCD's only with impending ERCP and cholecystectomy. Total time: Approximately 55 minutes. Charges/Coding Visit Charges Inpatient E&M: 82280 Init Hosp L2
[2023-07-17 21:55] VITALS: BP 133/63; PULSE 96; RESP 20; TEMP 36.9; O2SAT 93
[2023-07-17] MEDS: Piperacil/Tazobactam 3.375 GM in 0.9% Normal Saline (50mL MB+) 50 ML IV (22:07)
--- NOTE | 2023-07-17 23:00 | CON.PCM.GI_ITS ---
HPI Consult Data Date of Consult: 07/17/23 HPI Narrative Reason for Consultation: Choledocholithiasis HPI Narrative: ROBERTO BOATENG, is a 62 M with a past medical history of essential hypertension, hyperlipidemia, morbid obesity; with BMI of 40.9 this admission, DM-1; with a recent HgbA1c of 7.8% (02/2023), GERD, OA and history of renzo endectomy done by Dr. Dewitt (2020) with patient noted to have cholelithiasis at that time who presents to [facility] ER complaining of abnormal LFT's and jaundice. Mr. Willard reports his symptoms began a couple of months prior to admission with [id number] RUQ/upper abdominal pain accompanied by intermittent nausea and bilious emesis with a previous visit to the ER twice in that timeframe that showed gallstones - but with normal LFT's- until now. He was seen in the office by Dr. Dewitt of general surgery earlier today and was noted to be jaundiced and now his LFT's are markedly elevated with a total bilirubin of 5.1 mg/dL (direct bilirubin 3.96 mg/dL) with AST 423, ALT 944 and alkaline phosphatase 510 with imaging positive for choledocholithiasis and CBD dilatation also worrisome for cholecystitis. I was consulted for therapeutic ERCP. [facility] Medical History (Updated 07/18/23 @ 08:[address] Delia Dewitt MD) Abdominal pain Appendicitis Cholelithiasis Diabetes History of diabetes mellitus, type I History of hypertension Home Medications atorvastatin 40 mg tablet 40 mg PO DAILY 04/22/18 [History Last Taken 08/24/20 05:15] furosemide 20 mg tablet 20 mg PO DAILY 04/22/18 [History Last Taken 08/24/20 05:15] glipizide 10 mg tablet, extended release 24 hr (Glucotrol XL) 10 mg PO DAILY 04/22/18 [History Last Taken 08/24/20 05:15] lisinopril 40 mg tablet (Zestril) 40 mg PO DAILY 04/22/18 [History Last Taken 08/24/20 05:15] glipizide 10 mg tablet, extended release 24 hr 20 mg PO DINNER 01/18/20 [History Last Taken 08/24/20 05:15] dulaglutide 1.5 mg/0.5 mL subcutaneous pen injector 4.5 mg SQ .Saturday08/24/20 [History Last Taken 08/21/20] gabapentin 100 mg capsule 400 mg PO DAILY 08/24/20 [History Last Taken 08/24/20 05:15] multivitamin 1 each PO DAILY 08/24/20 [History Last Taken 08/24/20 05:15] gabapentin 100 mg capsule 500 mg PO QHS 05/19/23 [History Last Taken Unknown] meloxicam 15 mg tablet 15 mg PO DAILY 05/19/23 [History Last Taken Unknown] empagliflozin 25 mg tablet (Jardiance) 25 mg PO DAILY 07/07/23 [History Last Taken Unknown] mupirocin 2 % topical ointment 1 applic topical TID 07/07/23 [History Last Taken Unknown] omeprazole 40 mg capsule,delayed release 40 mg PO QDAY #30 caps 07/17/23 [Rx Last Taken Unknown] Allergy/AdvReac Type Severity Reaction Status Date / Time sulfamethoxazole Allergy Hives Verified 07/17/23 19:44 [From Bactrim] trimethoprim [From Bactrim] Allergy Hives Verified 07/17/23 19:44 Family History Grandfather Kidney disease Diabetes Father Heart disease Mother Ulcer Surgical History S/P appendectomy Social History Smoking Status: Never smoker alcohol intake: never substance use type: does not use ROS ROS Narrative Review of systems: General: Patient denies fever or chills. HENT: Denies headache, denies stuffy nose, denies sore throat EYES: Denies changes in vision or discharge from eyes Resp: Denies cough, denies shortness of breath Cardiac: Denies chest pain or palpitation GI: Patient admits to intermittent right upper quadrant abdominal pain with nausea and bilious emesis as per HPI : Denies changes in urination Extremity: Denies swelling Musculoskeletal: Feels somewhat generally weak and unwell Neuro: Denies any numbness/tingling Heme: Denies any bleeding or bruising Skin: Patient is obviously jaundiced but denies rashes Psychiatric: No complaints voiced related to uncontrolled depression or anxiety Endocrine: No polyuria, polydipsia or polyphagia. The rest of the 14 point ROS was negative except for positives in HPI. Physical Exam Const alert, oriented x3, no apparent distress and well nourished; Negative for a verage body habitus or healthy appearing Constitutional Narrative: Morbidly obese, upper middle-aged, white male, sitting up on the edge of the bed, at bedside, patient appears comfortable and nontoxic HEENT head/scalp atraumatic HEENT Narrative: Mallampati 3-4, no thrush Head and Scalp: normocephalic Resp normal respiratory effort, no retractions, no use of accessory muscles and clear to auscultation bilaterally Auscultation: Negative for rales, rhonchi or wheezes Cardio regular rate, regular rhythm, S1 normal heart sound, S2 normal heart sound, no murmurs, no rub, no gallops and no clicks GI normal to inspection, nondistended, normoactive bowel sounds, soft to palpation and non-tender Extremity Extremity Narrative: Chronic trace to 1+ lower extremity edema, no cyanosis or clubbing Neuro oriented x3, moves all extremities and no focal motor deficits Speech: speech normal Psych affect normal Psych Narrative: Very pleasant, interacts appropriately Lab / Micro Data 07/18/23 06:15 07/18/23 06:15 Labs: Laboratory Results - last 24 hr 07/17/23 20:00: WBC 7.8, RBC 5.07, Hgb 15.8, Hct 48.2, MCV 95.1 H, MCH 31.2, MCHC 32.8, RDW Std Deviation 48.2 H, RDW Coeff of Richard 14.0, Plt Count 219, MPV 10.6, Immature Gran % (Auto) 0.800, Neut % (Auto) 71.6 H, Lymph % (Auto) 17.4 L, Rock % (Auto) 7.4, Eos % (Auto) 1.8, Baso % (Auto) 1.0, Absolute Neuts (auto) 5.6, Absolute Lymphs (auto) 1.36, Nucleated RBC % 0, Sodium 137, Potassium 3.9, Chloride 103, Carbon Dioxide 26.0, Anion Gap 8, BUN 14, Creatinine 1.14, Estim Creat Clear Calc 97.74, Est GFR (MDRD) Af Amer 83, Est GFR (MDRD) Non-Af 69, BUN/Creatinine Ratio 12.3, Glucose 287 H, Calcium 9.6 07/17/23 23:57: PT 13.1, INR 1.0 07/18/23 06:15: WBC 6.8, RBC 4.64, Hgb 14.6, Hct 44.7, MCV 96.3 H, MCH 31.5, MCHC 32.7, RDW Std Deviation 49.8 H, RDW Coeff of Richard 14.0, Plt Count 198, MPV 10.7, Immature Gran % (Auto) 0.400, Neut % (Auto) 68.5, Lymph % (Auto) 19.2, Rock % (Auto) 8.3, Eos % (Auto) 2.7, Baso % (Auto) 0.9, Absolute Neuts (auto) 4.7, Absolute Lymphs (auto) 1.30, Nucleated RBC % 0, Sodium 138, Potassium 3.7, Chloride 109 H, Carbon Dioxide 23.0, Anion Gap 6, BUN 13, Creatinine 0.91, Estim Creat Clear Calc 122.15, Est GFR (MDRD) Af Amer 108, Est GFR (MDRD) Non-Af 89, BUN/Creatinine Ratio 14.2, Glucose 165 H, Hemoglobin A1c 9.0 H, Calcium 9.1, Phosphorus 4.1, Magnesium 2.4, Total Bilirubin 2.00 H, AST 248 H, ALT 704 H, Alkaline Phosphatase 431 H, Total Protein 7.0, Albumin 3.1 L, Globulin 3.9, Albumin/Globulin Ratio 0.8 L, TSH 0.95 07/18/23 06:37: POC Glucose 180 H 07/18/23 11:48: POC Glucose 135 H Imaging Radiology Impression Gallbladder Ultrasound 07/17/23 19:53 IMPRESSION: Limited as above. Fatty liver with hepatomegaly. Abnormal gallbladder consistent with acute cholecystitis. Electronically Signed: Lonnie Mcatrhur MD at 20:53 EST , Abdomen/Pelvis CT 07/17/23 20:44 IMPRESSION: 1. Since prior study, patient has developed several distal common bile stones with dilated common bile duct. Again seen is cholelithiasis. 2. No other definite changes or additional findings since previous exam. Electronically Signed: Lonnie Mcarthur MD at 21:30 EST , Assessment & Plan Assessment/Plan (1) Hyperbilirubinemia: (2) Cholecystitis: (3) Choledocholithiasis: PLAN: Plan Choledocholithiasis/acute cholecystitis -Patient with markedly abnormal transaminases/elevated alk p hos/hyperbilirubinemia -ERCP later today He was explained alternatives, risk, benefits including not withstanding bleeding, infection, sepsis, perforation, need for emergent surgery and . He will have an ASA of 3. He was also explained the risk of post ERCP pancreatitis and agreed to symptoms risk. Charges/Coding Visit Charges Inpatient E&M: 30471 Init Hosp L3
[2023-07-17 23:10] VITALS: BP 168/85; PULSE 83; RESP 16; TEMP 36.5; O2SAT 98
[2023-07-17 23:11] VITALS: BMI 41.3
[2023-07-17] MEDS: 0.9% Normal Saline (1000mL) 1,000 ML 100 ML IV (23:35)
[2023-07-17] MEDS: 0.9% Saline Lock 10 ML Syringe IV (23:52)
[2023-07-18] VITALS (12 sets, daily range): BP systolic 95–140; BP diastolic 39–70; PULSE 77–106; RESP 16; TEMP 35.8–36.6; O2SAT 92–100; BMI 40.7
[2023-07-18 00:32] LABS: Prothrombin Time (Protime)PT. 13.1 SECONDS (11.7-14.9)
[2023-07-18] MEDS: Piperacil/Tazobactam 3.375 GM in 0.9% Normal Saline (50mL MB+) 50 ML IV ×3 (05:38→20:30)
--- NOTE | 2023-07-18 05:55 | EKG12_ITS ---
Test Reason : PRE-OP Blood Pressure : / mmHG Vent. Rate : 087 BPM Atrial Rate : 087 BPM P-R Int : 182 ms QRS Dur : 116 ms QT Int : 390 ms P-R-T Axes : 035 018 006 degrees QTc Int : 469 ms Normal sinus rhythm Normal ECG When compared with ECG of 24-AUG-2020 08:22, No significant change was found Confirmed by SUNIL LAWRENCE, JENN ([id number]), editor in chief newspaper OSMAN MARTINEZ ([id number]) on 07/22/2023 6:50:01 AM Referred By: Confirmed By:CHINA BARBER MD
[2023-07-18] MEDS: Insulin Lispro 100 UNIT/ML INSULN.PEN SC (06:43)
[2023-07-18 07:07] LABS: Absolute Neutrophil Count 4.7 X10^3/uL (2.0-7.7); Basophil# 0.06 X10^3/uL; Basophil% 0.9 % (0-1); Eosinophil# 0.18 X10^3/uL; Eosinophils% 2.7 % (0-5); Hematocrit 44.7 % (40-54); Hemoglobin 14.6 g/dL (13.0-16.5); Lymphocyte % 19.2 % (19-41); Mean Corp Hgb Conc 32.7 g/dL (32-36); Mean Corpuscular Hgb 31.5 pg (27.0-32.0); Mean Corpuscular Volume 96.3 fL (80-94); Mean Platelet Vol. 10.7 fl (6.2-12.0); Monocyte# 0.56 X10^3/uL; Monocyte% 8.3 % (0-10); NRBC Flagged by Analyzer 0 % (0-5); Neutrophil # 4.65 X10^3/uL (2.7-7.7); Neutrophil % 68.5 % (47-70); Platelet Count 198 K/mm3 (150-450); RBC Distribution Width SD 49.8 fl (35.1-43.9); Red Blood Count 4.64 M/mm3 (4.6-6.2); White Blood Count 6.8 K/mm3 (4.4-11.0)
[2023-07-18 07:20] LABS: Bedside Glucose 180 mg/dL (74-106)
[2023-07-18 07:46] LABS: ALB/GLOB Ratio 0.8 RATIO (0.9-2.4); AST(SGOT) 248 U/L (15-37); Alanine Aminotransfer ALT/SGPT 704 U/L (16-61); Albumin, Serum 3.1 g/dL (3.2-5.0); Alkaline Phosphatase 431 U/L (45-117); Anion Gap 6 (5-15); BUN 13 mg/dL (7-18); BUN/Creat Ratio 14.2 RATIO (10-20); Calcium,Total 9.1 mg/dL (8.5-10.1); Chloride 109 mmol/L (98-107); Creatinine, Serum 0.91 mg/dL (0.70-1.30); EST Glomerular Filtration Rate 89 mL/min (>60); Est Glom Filt Rate - Afr Amer 108 mL/min (>60); Estimated Creatinine Clearance 122.15 ml/min; Globulin 3.9 g/dL (2.2-4.2); Glucose 165 mg/dL (74-106); Magnesium 2.4 mg/dL (1.6-2.6); Phosphorus 4.1 mg/dL (2.5-4.9); Potassium 3.7 mmol/L (3.5-5.1); Sodium Level 138 mmol/L (136-145); Thyroid Stim Hormone (TSH) 0.95 uIU/mL (0.358-3.74)
--- NOTE | 2023-07-18 08:04 | PN.SURG_ITS ---
Subjective Subjective Patient denies much current abdominal pain?mild Objective Data Objective Data Vital Signs: Vital Signs Temp Pulse Resp BP Pulse Ox O2 Del Method O2 Flow Rate 97.2 F L 77 16 120/68 98 Room Air 2 07/18/23 05:15 07/18/23 05:15 07/18/23 05:15 07/18/23 05:15 07/18/23 05:15 07/18/23 05:15 07/18/23 01:32 Oxygen Flow Rate (L/min) 2 Oxygen Delivery Method Room Air Weight: 308 lb 10.354 oz Body Mass Index (BMI) 40.7 Intake & Output: Intake and Output for Last 24 Hours 07/16/23 07/17/23 07/18/23 23:59 23:59 23:59 Intake Total 270 / 270 0 / 0 Balance 270 / 270 0 / 0 Lab / Micro Data 07/18/23 06:15 07/18/23 06:15 Labs: Laboratory Results - last 24 hr 07/17/23 20:00: WBC 7.8, RBC 5.07, Hgb 15.8, Hct 48.2, MCV 95.1 H, MCH 31.2, MCHC 32.8, RDW Std Deviation 48.2 H, RDW Coeff of Richard 14.0, Plt Count 219, MPV 10.6, Immature Gran % (Auto) 0.800, Neut % (Auto) 71.6 H, Lymph % (Auto) 17.4 L, Loving % (Auto) 7.4, Eos % (Auto) 1.8, Baso % (Auto) 1.0, Absolute Neuts (auto) 5.6, Absolute Lymphs (auto) 1.36, Nucleated RBC % 0, Sodium 137, Potassium 3.9, Chloride 103, Carbon Dioxide 26.0, Anion Gap 8, BUN 14, Creatinine 1.14, Estim Creat Clear Calc 97.74, Est GFR (MDRD) Af Amer 83, Est GFR (MDRD) Non-Af 69, BUN/Creatinine Ratio 12.3, Glucose 287 H, Calcium 9.6 07/17/23 23:57: PT 13.1, INR 1.0 07/18/23 06:15: WBC 6.8, RBC 4.64, Hgb 14.6, Hct 44.7, MCV 96.3 H, MCH 31.5, MCHC 32.7, RDW Std Deviation 49.8 H, RDW Coeff of Richard 14.0, Plt Count 198, MPV 10.7, Immature Gran % (Auto) 0.400, Neut % (Auto) 68.5, Lymph % (Auto) 19.2, Loving % (Auto) 8.3, Eos % (Auto) 2.7, Baso % (Auto) 0.9, Absolute Neuts (auto) 4.7, Absolute Lymphs (auto) 1.30, Nucleated RBC % 0, Sodium 138, Potassium 3.7, Chloride 109 H, Carbon Dioxide 23.0, Anion Gap 6, BUN 13, Creatinine 0.91, Estim Creat Clear Calc 122.15, Est GFR (MDRD) Af Amer 108, Est GFR (MDRD) Non-Af 89, BUN/Creatinine Ratio 14.2, Glucose 165 H, Calcium 9.1, Phosphorus 4.1, Magnesium 2.4, Total Bilirubin 2.00 H, AST 248 H, ALT 704 H, Alkaline Phosphatase 431 H, Total Protein 7.0, Albumin 3.1 L, Globulin 3.9, Albumin/Globulin Ratio 0.8 L, TSH 0.95 07/18/23 06:37: POC Glucose 180 H Radiography Diagnostic Testing: Radiology Impression Gallbladder Ultrasound 07/17/23 19:53 IMPRESSION: Limited as above. Fatty liver with hepatomegaly. Abnormal gallbladder consistent with acute cholecystitis. Electronically Signed: Lonnie Mcarthur MD at 20:53 EST Reading Location ID and State: [employer] / [place] , Service support , Abdomen/Pelvis CT 07/17/23 20:44 IMPRESSION: 1. Since prior study, patient has developed several distal common bile stones with dilated common bile duct. Again seen is cholelithiasis. 2. No other definite changes or additional findings since previous exam. Electronically Signed: Lonnie Mcarthur MD at 21:30 EST Reading Location ID and State: [email or web address] / [place] , Service support , Physical Exam Const oriented x3 and no apparent distress Resp normal respiratory effort Cardio regular rate GI soft to palpation Inspection: Negative for abdominal distention Palpation: tender epigastric (Mild no peritoneal signs) and RUQ (Mild) Assessment & Plan Assessment/Plan (1) Cholelithiasis: (2) Choledocholithiasis: (3) Epigastric abdominal pain: (4) RUQ abdominal pain: (5) Hyperbilirubinemia: PLAN: Plan If patient is able to have stones removed with ERCP today will plan for laparoscopic cholecystectomy tomorrow. Discussed with patient no further question this time. Continue IV Debra Reviewed the anatomy with the patient and discussed the procedure: laparoscopic cholecystectomy with possible cholangiograms, possible open. Review risks including but not limited to bleeding, infection, hernia, bile leak, retained gallstones requiring another procedure ERCP- Endoscopic Retrograde Cholangiopancreatography, injury to another organ (bile ducts, common bile duct, small bowel, etc.) and conversion to an open procedure. All questions were answered. Delia Dewitt M.D. Pager: [phone] [facility] [address] [place] [address], [address] [place] [address] Office: [phone] Charges/Coding Visit Charges Inpatient E&M: 21586 Init Hosp L2
--- NOTE | 2023-07-18 08:23 | PCM.PN.HOSP ---
Reason for Visit Reason for Visit: Abnormal lab Subjective Subjective Mr. Rodriguez is a 62-year-old white male who presented to the emergency department at [facility] on 07/17/2023 at the direction of Dr. Dewitt from general surgery after outpatient follow-up. The patient has had intermittent symptoms of right upper quadrant pain accompanied by intermittent nausea with bilious emesis and previous [place] has been to the ER twice in the last calendar year. Previously he had an ultrasound that showed gallstones but normal LFTs. He was seen in follow-up by general surgery on 07/17/2023 and he was noted to be jaundiced with ongoing right upper quadrant pain and intermittent nausea vomiting. Lab was obtained and he was found to have markedly elevated LFTs with a total bilirubin of 5.1, direct bilirubin of 3.96, AST of 423, ALT of 944 and an alkaline phosphatase of 510. He had imaging that was consistent with choledocholithiasis and common bile duct dilation and imaging was also concerning for cholecystitis. Per discussion with general surgery the plan is for admission with IV fluids and pain management and consultation to GI for ERCP to be done on 07/18/2023 followed by a cholecystectomy to be done by Dr. Dewitt. He was admitted to the medical floor and placed on IV fluids, antiemetics, and as needed pain medication with consultations to general surgery and gastroenterology. He was made n.p.o. after midnight for procedures. Patient is not having any pain. He would really like something to drink however he is planned for ERCP later today however time is unclear. He has spoken to general surgery and is aware of the plan for ERCP with follow-up cholecystectomy. No acute complaints at this time other than being thirsty. Objective Data Objective Data Vital Signs: Vital Signs Temp Pulse Resp BP Pulse Ox O2 Del Method O2 Flow Rate 97.8 F 88 16 114/57 L 96 Room Air 2 07/18/23 08:07 07/18/23 08:07 07/18/23 08:07 07/18/23 08:07 07/18/23 08:07 07/18/23 08:07 07/18/23 01:32 Oxygen Flow Rate (L/min) 2 Oxygen Delivery Method Room Air Weight: 140 kg Body Mass Index (BMI) 40.7 Intake & Output: Intake and Output for Last 24 Hours 02/07/17/23 07/18/23 23:59 23:59 23:59 Intake Total 270 / 270 0 / 0 Balance 270 / 270 0 / 0 Lab / Micro Data 07/18/23 06:15 07/18/23 06:15 Labs: Laboratory Results - last 24 hr 07/17/23 20:00: WBC 7.8, RBC 5.07, Hgb 15.8, Hct 48.2, MCV 95.1 H, MCH 31.2, MCHC 32.8, RDW Std Deviation 48.2 H, RDW Coeff of Richard 14.0, Plt Count 219, MPV 10.6, Immature Gran % (Auto) 0.800, Neut % (Auto) 71.6 H, Lymph % (Auto) 17.4 L, [place] % (Auto) 7.4, Eos % (Auto) 1.8, Baso % (Auto) 1.0, Absolute Neuts (auto) 5.6, Absolute Lymphs (auto) 1.36, Nucleated RBC % 0, Sodium 137, Potassium 3.9, Chloride 103, Carbon Dioxide 26.0, Anion Gap 8, BUN 14, Creatinine 1.14, Estim Creat Clear Calc 97.74, Est GFR (MDRD) Af Amer 83, Est GFR (MDRD) Non-Af 69, BUN/Creatinine Ratio 12.3, Glucose 287 H, Calcium 9.6 07/17/23 23:57: PT 13.1, INR 1.0 07/18/23 06:15: WBC 6.8, RBC 4.64, Hgb 14.6, Hct 44.7, MCV 96.3 H, MCH 31.5, MCHC 32.7, RDW Std Deviation 49.8 H, RDW Coeff of Richard 14.0, Plt Count 198, MPV 10.7, Immature Gran % (Auto) 0.400, Neut % (Auto) 68.5, Lymph % (Auto) 19.2, [place] % (Auto) 8.3, Eos % (Auto) 2.7, Baso % (Auto) 0.9, Absolute Neuts (auto) 4.7, Absolute Lymphs (auto) 1.30, Nucleated RBC % 0, Sodium 138, Potassium 3.7, Chloride 109 H, Carbon Dioxide 23.0, Anion Gap 6, BUN 13, Creatinine 0.91, Estim Creat Clear Calc 122.15, Est GFR (MDRD) Af Amer 108, Est GFR (MDRD) Non-Af 89, BUN/Creatinine Ratio 14.2, Glucose 165 H, Calcium 9.1, Phosphorus 4.1, Magnesium 2.4, Total Bilirubin 2.00 H, AST 248 H, ALT 704 H, Alkaline Phosphatase 431 H, Total Protein 7.0, Albumin 3.1 L, Globulin 3.9, Albumin/Globulin Ratio 0.8 L, TSH 0.95 07/18/23 06:37: POC Glucose 180 H Radiography Diagnostic Testing: Radiology Impression Gallbladder Ultrasound 07/17/23 19:53 IMPRESSION: Limited as above. Fatty liver with hepatomegaly. Abnormal gallbladder consistent with acute cholecystitis. Electronically Signed: Lonnie Mcarthur MD at 20:53 EST , Abdomen/Pelvis CT 07/17/23 20:44 IMPRESSION: 1. Since prior study, patient has developed several distal common bile stones with dilated common bile duct. Again seen is cholelithiasis. 2. No other definite changes or additional findings since previous exam. Electronically Signed: Lonnie Mcarthur MD at 21:30 EST , Physical Exam Const alert, oriented x3, no apparent distress and well nourished; Negative for average body habitus or healthy appearing Constitutional Narrative: Morbidly obese, upper middle-aged, white male, sitting up on the edge of the bed, at bedside, patient appears comfortable and nontoxic HEENT head/scalp atraumatic HEENT Narrative: Mallampati 3-4, no thrush Head and Scalp: normocephalic Resp normal respiratory effort, no retractions, no use of accessory muscles and clear to auscultation bilaterally Auscultation: Negative for rales, rhonchi or wheezes Cardio regular rate, regular rhythm, S1 normal heart sound, S2 normal heart sound, no murmurs, no rub, no gallops and no clicks GI normal to inspection, nondistended, normoactive bowel sounds, soft to palpation and non-tender Extremity Extremity Narrative: Chronic trace to 1+ lower extremity edema, no cyanosis or clubbing Neuro oriented x3, moves all extremities and no focal motor deficits Speech: speech normal Psych affect normal Psych Narrative: Very pleasant, interacts appropriately Assessment & Plan Assessment/Plan (1) Hyperbilirubinemia: (2) Cholecystitis: (3) Choledocholithiasis: PLAN: Plan Choledocholithiasis/acute cholecystitis -Patient with markedly abnormal transaminases/elevated alk phos/hyperbilirubinemia -N.p.o. -Continue IV fluids with normal saline at 100 cc/h -Continue IV pain medication -Continue IV antiemetics -ERCP later today -Continue Zosyn -GI consultation -General surgery consultation for planning of cholecystectomy after stone removal -If GI is not able to remove the stone per discussion with general surgery patient will need to be transferred to tertiary center -Repeat CMP in a.m. DM-2 -Hold home agents -Patient is n.p.o. -Utilize sliding scale every 6 hours for now -May need additional coverage once p.o. diet is able to be reinitiated -Accu-Cheks as ordered Hypertension -Patient takes lisinopril at baseline as well as for 20 mg of Lasix daily -Blood pressures are not markedly elevated this time so we will hold -As needed hydralazine for systolic pressure greater than 160 -Monitor trends and restart home medications as needed Diabetic neuropathy -Okay to restart home gabapentin Hyperlipidemia -Hold statin while liver enzymes are elevated restart when appropriate GERD -Continue IV PPI and transition to oral once able to start oral diet History of appendicitis -Status post appendectomy DVT prophylaxis -SCDs for now with pending procedure -Will transition to subcu heparin when okay with general surgery postoperatively CODE STATUS Full code Charges/Coding Visit Charges Inpatient E&M: 18299 Subs Hosp L2
[2023-07-18] MEDS: Pantoprazole Sodium 40 MG in 0.9% Normal Saline (100mL MB+) 100 ML 330 MG IV (10:31)
--- NOTE | 2023-07-18 10:50 | CASEMGMT ---
RN CHAPO Face to Face with patient for initial transition planning/care coordination assessment. RN CM introduced self and role at [facility]. Patient sitting on edge of bed, alert and oriented, at bedside. Patient willing to participate in assessment and is able to answer all questions appropriately. Care providers, pharmacy, and demographics verified. Patient wishes to discharge home, denies need for home health at this time. Patient states he has no further needs or concerns at this time. CM to follow for discharge planning needs that may arise. PCP: Prabhjot Specialists: none [facility]acy: [facility] Insurance: [employer] Prescription Benefit: yes Living Will/HPOA: yes, Cheli Rodriguez LNOK: Living Arrangements: Patient lives with in a single story home with 5 steps and railing to enter the home. Transportation: self, DME/HHC: Patient has cpap at home. No previous HHC or SNF. Disposition Plan: Patient to discharge home with family support and follow-up plans in place. Janie UA, RN, CM
[2023-07-18 12:06] LABS: Bedside Glucose 135 mg/dL (74-106)
[2023-07-18] MEDS: 0.9% Normal Saline (1000mL) 1,000 ML 100 ML IV (14:04)
--- NOTE | 2023-07-18 17:22 | RAD_ITS ---
INDICATION: PAIN EXAMINATION/TECHNIQUE: X-RAY - FL ERCP Biliary and Pancreatic Ductal Systems 10 images COMPARISON: Prior study dated: CT 07/17/2023 FINDINGS: Endoscope noted. There is cannulation of the common bile duct with injection of contrast. Dilated appearance of the duct with filling defect noted. On the final images there is no filling defects seen. A stent appears to be placed. RAD/ERCP Biliary/Pancreas IMPRESSION: Fluoroscopic guidance for ERCP. Please refer to procedural report for further information. Electronically Signed: Dagoberto Lobato MD at 0:40 EST ,
--- NOTE | 2023-07-18 17:59 | OP.CCLET_ITS ---
07/18/2023 Eze Rick [address] [place] [address] Re : ERCP procedure for Jay Rodriguez Dear Dr. Rick This procedure was performed on July 18, 2023. My impressions and recommendations are as follows: Impressions : - The entire main bile duct was dilated, with a stone causing an obstruction. - Choledocholithiasis was found. Removal was not accomplished; a stent was inserted. - A biliary sphincterotomy was performed. - The biliary tree was swept. - Common bile duct was successfully dilated. - One temporary stent was placed into the common bile duct. Recommendations : My findings are described in the full procedure note, which is enclosed. If I can be of further assistance, please feel free to contact me at . Sincerely, Oz Uribe, 07/18/2023 5:59:22 PM This report has been signed electronically.
--- NOTE | 2023-07-18 17:59 | OP.ERCP_ITS ---
Patient Name: Jay Rodriguez Procedure Date: 07/18/2023 5:15 PM Date of : 1960 Age: 62 Procedure: ERCP Indications: Bile duct stone(s), Jaundice, Elevated liver enzymes Providers: Oz Uribe DO Medicines: Monitored Anesthesia Care Patient Profile: This is a 62 year old male. Refer to note in patient chart for documentation of history and physical. Patient has symptoms of acute right upper quadrant abdominal pain and acute jaundice. This patient has no history of previous ERCP. This patient has no history of surgical alteration of the upper digestive tract anatomy. Complications: No immediate complications. Procedure: Pre-Anesthesia Assessment: - Prior to the procedure, a History and Physical was performed, and patient medications and allergies were reviewed. The patient is competent. The risks and benefits of the procedure and the sedation options and risks were discussed with the patient. All questions were answered and informed consent was obtained. Patient identification and proposed procedure were verified. Mental Status Examination: normal. Prophylactic Antibiotics: The patient does not require prophylactic antibiotics. Prior Anticoagulants: The patient has taken no anticoagulant or antiplatelet agents. After reviewing the risks and benefits, the patient was deemed in satisfactory condition to undergo the procedure. The anesthesia plan was to use monitored anesthesia care (MAC). Immediately prior to administration of medications, the patient was re-assessed for adequacy to receive sedatives. The heart rate, respiratory rate, oxygen saturations, blood pressure, adequacy of pulmonary ventilation, and response to care were monitored throughout the procedure. The physical status of the patient was re-assessed after the procedure. After obtaining informed consent, the scope was passed under direct vision. Throughout the procedure, the patient's blood pressure, pulse, and oxygen saturations were monitored continuously. The Duodenoscope was introduced through the mouth, and advanced to the duodenum and used to inject contrast into the bile duct and ventral pancreatic duct. The ERCP was accomplished with ease. The patient tolerated the procedure well. Scope In: 5:22:47 PM Scope Out: 5:47:28 PM Total Procedure Duration Time 0 hours 24 minutes 41 seconds Findings: The regulation supervisor film was normal. The esophagus was successfully intubated under direct vision. The scope was advanced to a normal major papilla in the descending duodenum without detailed examination of the pharynx, larynx and associated structures, and upper GI tract. The upper GI tract was grossly normal. The bile duct was deeply cannulated with the short-nosed traction sphincterotome. Contrast was injected. I personally interpreted the bile duct images. There was brisk flow of contrast through the ducts. Image quality was excellent. Contrast extended to the entire biliary tree. Opacification of the entire opacified area was successful. The maximum diameter of the ducts was 10 mm. The lower third of the main bile duct and middle third of the main bile duct contained three stones, the largest of which was 6 mm in diameter. The main bile duct was diffusely dilated, with a stone causing an obstruction. The largest diameter was 12 mm. A straight Roadrunner wire was passed into the biliary tree. A 5 mm biliary sphincterotomy was made with a monofilament traction (standard) sphincterotome using ERBE electrocautery. There was no post-sphincterotomy bleeding. The biliary tree was swept with a 15 mm balloon starting at the bifurcation. Sludge was swept from the duct. Three stones were removed. All stones remained. The ventral pancreatic duct was deeply cannulated. Contrast was injected. Opacification of the entire pancreatic ductal system was successful. The maximum diameter of the ducts was 2 mm. The entire opacified area was normal. A 0.035 inch x 260 cm angled Hydra Jagwire was passed into the ventral pancreatic duct. Dilation of the common bile duct with a 6-7-8 mm balloon (to a maximum balloon size of 8 mm) dilator was successful. One 10 Fr by 9 cm temporary stent was placed 5 cm into the common bile duct. Bile flowed through the stent. The stent was in good position. Dilation of the left main hepatic duct with 5-7-8.5 Fr catheter dilator was successful. Impression: - The entire main bile duct was dilated, with a stone causing an obstruction. - Choledocholithiasis was found. Removal was not accomplished; a stent was inserted. - A biliary sphincterotomy was performed. - The biliary tree was swept. - Common bile duct was successfully dilated. - One temporary stent was placed into the common bile duct. Procedure Code(s): --- Professional --- 56283, Endoscopic retrograde cholangiopancreatography (ERCP); with placement of endoscopic stent into biliary or pancreatic duct, including pre- and post-dilation and guide wire passage, when performed, including sphincterotomy, when performed, each stent 82416, Endoscopic retrograde cholangiopancreatography (ERCP); with removal of calculi/debris from biliary/pancreatic duct(s) 24857, 26, Endoscopic catheterization of the biliary ductal system, radiological supervision and interpretation 15093, Unlisted procedure, biliary tract CPT copyright 2021 [employer]. All rights reserved. The codes documented in this report are preliminary and upon engineering surveyor review may be revised to meet current compliance requirements. Oz Uribe DO 07/18/2023 5:59:22 PM This report has been signed electronically. Number of Addenda: 0 Note Initiated On: 07/18/2023 5:15 PM
[2023-07-18] MEDS: Gabapentin 400 MG Capsule PO (20:40)
[2023-07-18] MEDS: Gabapentin 100 MG Capsule PO (20:40)
[2023-07-18 21:29] LABS: Bedside Glucose 187 mg/dL (74-106)
[2023-07-19] VITALS (11 sets, daily range): BP systolic 109–140; BP diastolic 55–77; PULSE 96–108; RESP 16–18; TEMP 36.4–37.4; O2SAT 92–100; BMI 41.3
--- NOTE | 2023-07-19 | GALL_PTH ---
PATHOLOGY RESULTS PATIENT: ROBERTO BOATENG LOC: [facility] U#:[id number] AGE/SX: 62/M ROOM: [facility] RE07/17/[address]: Dr. Maryam Wood DO : 1960 BED: 1 DIS: 07/19/2023 SPEC #: [id number] RECD: 07/22/23 08:15 STATUS: SUSAN ILLY #: [id number] IVONNE: 07/19/23 00:[address]: Delia Dewitt DEPT: SURGICAL PATHOLOGY RECD BY: Isabelle Narvaez ENTERED: 07/22/23 08:15 SP TYPE: GALLBLADDE OTHR DR: Dr. Armin Benjamin, DO Dr. Maryam Castanon Dr., DO Dr. Delia Dewitt MD Tissues: Gallbladder, NOS Procedures: Surgery Specimen Level III Comments: @ Ordering doctor for SUIII edited from to @ by CORRINE at 07/22/23 1440 @ Submitting doctor edited from to @ by RGOOD at 07/22/23 1440 HEADER OPERATION: Laparoscopic cholecystectomy with IOC PRE-OP DIAGNOSIS: Choledocholithiasis, hyperbilirubinemia, RUQ abdominal pain, cholecystitis TISSUE SUBMITTED: Gallbladder MICROSCOPIC DIAGNOSIS Gallbladder, cholecystectomy: Chronic cholecystitis and cholelithiasis. DORY:amalia 07/23/2023 MICROSCOPIC DESCRIPTION Slides are reviewed. GROSS DESCRIPTION Received is one container labeled with the patient's name and designated gallbladder. The specimen consists of a gallbladder measuring 8.5 x 3.5 x 2.0 cm. The external surface is smooth and glistening. Focally, it is granular, hemorrhagic and contains cautery artifact. The lumen of the gallbladder contains greenish mucoid bile and multiple calculi and fragments of calculi that are light maher to dark maher in color ranging in size from <0.1 to 1.8 cm in greatest dimension. The mucosa is bile-stained and without any mass lesions. The gallbladder wall averages 0.4 cm in thickness and is free of mass lesions. Stockroom Keeper sections of the gallbladder and the cystic duct at margin of resection are submitted in one cassette. / AM:amalia 07/22/2023 TC:3 CPT: 16113
[2023-07-19] MEDS: 0.9% Normal Saline (1000mL) 1,000 ML 100 ML IV (03:13)
[2023-07-19] MEDS: Piperacil/Tazobactam 3.375 GM in 0.9% Normal Saline (50mL MB+) 50 ML IV (05:57)
[2023-07-19 07:02] LABS: Absolute Lymphocyte Count 1.08 X10^3/uL (0.83-4.51); Absolute Neutrophil Count 9.8 X10^3/uL (2.0-7.7); Basophil# 0.04 X10^3/uL; Basophil% 0.4 % (0-1); Eosinophil# 0.01 X10^3/uL; Eosinophils% 0.1 % (0-5); Hematocrit 47.5 % (40-54); Hemoglobin 15.2 g/dL (13.0-16.5); Lymphocyte # 1.08 X10^3/ul (0.83-4.51); Lymphocyte % 9.6 % (19-41); Mean Corpuscular Hgb 31.2 pg (27.0-32.0); Mean Corpuscular Volume 97.5 fL (80-94); Mean Platelet Vol. 10.7 fl (6.2-12.0); Monocyte# 0.24 X10^3/uL; Monocyte% 2.1 % (0-10); NRBC Flagged by Analyzer 0 % (0-5); Neutrophil # 9.82 X10^3/uL (2.7-7.7); Neutrophil % 87.2 % (47-70); Platelet Count 249 K/mm3 (150-450); RBC Distribution Width CV 13.7 % (11.6-14.6); RBC Distribution Width SD 49.6 fl (35.1-43.9); Red Blood Count 4.87 M/mm3 (4.6-6.2); White Blood Count 11.3 K/mm3 (4.4-11.0)
[2023-07-19 07:36] LABS: ALB/GLOB Ratio 0.7 RATIO (0.9-2.4); AST(SGOT) 139 U/L (15-37); Alanine Aminotransfer ALT/SGPT 539 U/L (16-61); Albumin, Serum 3.2 g/dL (3.2-5.0); Alkaline Phosphatase 410 U/L (45-117); Anion Gap 14 (5-15); BUN 18 mg/dL (7-18); Calcium,Total 9.1 mg/dL (8.5-10.1); Chloride 108 mmol/L (98-107); EST Glomerular Filtration Rate 80 mL/min (>60); Est Glom Filt Rate - Afr Amer 97 mL/min (>60); Globulin 4.4 g/dL (2.2-4.2); Glucose 167 mg/dL (74-106); Magnesium 2.3 mg/dL (1.6-2.6); Phosphorus 4.9 mg/dL (2.5-4.9); Potassium 4.6 mmol/L (3.5-5.1); Protein, Total 7.6 g/dL (6.4-8.2); Sodium Level 136 mmol/L (136-145)
[2023-07-19 07:43] LABS: Bedside Glucose 149 mg/dL (74-106)
--- NOTE | 2023-07-19 08:11 | PCM.PN.SRG ---
Subjective Subjective Status post ERCP stones were removed. Patient denies abdominal pain. 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 in color Objective Data Objective Data Vital Signs: Vital Signs Temp Pulse Resp BP Pulse Ox O2 Del Method O2 Flow Rate 97.8 F 100 16 126/65 H 94 Room Air 2 07/19/23 02:30 07/19/23 02:30 07/19/23 02:30 07/19/23 02:30 07/19/23 02:30 07/19/23 03:00 07/18/23 01:32 Oxygen Flow Rate (L/min) 2 Oxygen Delivery Method Room Air Weight: 313 lb 7.957 oz Body Mass Index (BMI) 41.3 Intake & Output: Intake and Output for Last 24 Hours 07/17/23 07/18/23 07/19/23 23:59 23:59 23:59 Intake Total 270 / 270 1210 / 1210 1050 / 1050 Balance 270 / 270 1210 / 1210 1050 / 1050 Lab / Micro Data 07/19/23 06:25 07/19/23 06:25 Labs: Laboratory Results - last 24 hr 07/18/23 06:15: Hemoglobin A1c 9.0 H 07/18/23 11:48: POC Glucose 135 H 07/18/23 20:32: POC Glucose 187 H 07/19/23 06:25: WBC 11.3 H, RBC 4.87, Hgb 15.2, Hct 47.5, MCV 97.5 H, MCH 31.2, MCHC 32.0, RDW Std Deviation 49.6 H, RDW Coeff of Richard 13.7, Plt Count 249, MPV 10.7, Immature Gran % (Auto) 0.600, Neut % (Auto) 87.2 H, Lymph % (Auto) 9.6 L, [place] % (Auto) 2.1, Eos % (Auto) 0.1, Baso % (Auto) 0.4, Absolute Neuts (auto) 9.8 H, Absolute Lymphs (auto) 1.08, Nucleated RBC % 0, Sodium 136, Potassium 4.6, Chloride 108 H, Carbon Dioxide 14.0 L, Anion Gap 14, BUN 18, Creatinine 1.00, Estim Creat Clear Calc 112.10, Est GFR (MDRD) Af Amer 97, Est GFR (MDRD) Non-Af 80, BUN/Creatinine Ratio 18.0, Glucose 167 H, Calcium 9.1, Phosphorus 4.9, Magnesium 2.3, Total Bilirubin 1.40 H, AST 139 H, ALT 539 H, Alkaline Phosphatase 410 H, Total Protein 7.6, Albumin 3.2, Globulin 4.4 H, Albumin/Globulin Ratio 0.7 L 07/19/23 07:24: POC Glucose 149 H Radiography Diagnostic Testing: Radiology Impression Endo Retro Cholangiopancreatogram 07/18/23 17:22 IMPRESSION: Fluoroscopic guidance for ERCP. Please refer to procedural report for further information. Electronically Signed: Dagoberto Lobato MD at 0:40 EST Reading Location ID and State: [facility] / [place] Tel , Service support , Physical Exam Const oriented x3 and no apparent distress Resp normal respiratory effort Cardio regular rate GI soft to palpation and non-tender Inspection: Negative for abdominal distention Assessment & Plan Assessment/Plan (1) Cholelithiasis: (2) Choledocholithiasis: (3) S/P ERCP: (4) Hyperbilirubinemia: PLAN: Plan Patient denies abdominal pain. No pain on exam. Will plan for laparoscopic cholecystectomy today. Continue IV Zosyn. Reviewed the anatomy with the patient and discussed the procedure: laparoscopic cholecystectomy with possible cholangiograms, possible open. Review risks including but not limited to bleeding, infection, hernia, bile leak, retained gallstones requiring another procedure ERCP- Endoscopic Retrograde Cholangiopancreatography, injury to another organ (bile ducts, common bile duct, small bowel, etc.) and conversion to an open procedure. All questions were answered. Delia Dewitt M.D. Pager: [phone] [facility] [address] [place] [address], [address] [place] [address] Office: [phone]
[2023-07-19] MEDS: Ketorolac 15 MG/ML Vial IV (08:57)
[2023-07-19] MEDS: 0.9% Saline Lock 10 ML Syringe IV (08:58)
[2023-07-19] MEDS: Pantoprazole Sodium 40 MG in 0.9% Normal Saline (100mL MB+) 100 ML 330 MG IV (11:04)
[2023-07-19 12:12] LABS: Bedside Glucose 133 mg/dL (74-106)
[2023-07-19] MEDS: 0.9% Normal Saline (1000mL) 1,000 ML 15 ML IV (13:18)
--- NOTE | 2023-07-19 15:55 | RAD_ITS ---
CLINICAL HISTORY: Male, 62 years old. Pain PROCEDURE: CHOLANGIOGRAM - intraoperative FLUOROSCOPY TIME (if supplied): 5.9 seconds Placement of the catheter and the procedure were performed by: Operating surgeon Fluoroscopy was provided by resident physician in radiology, who was present in the room time of the procedure. Technique: Intraoperative cholangiogram was performed in usual fashion. 29 fluoroscopic guided images were obtained during the study to document observations during the exam.. For more complete information recommend correlation with surgical notes RAD/Cholangiogram/ O R,Initial IMPRESSION: Fluoroscopic guided intraoperative cholangiogram Electronically Signed: Abilio Ambriz MD at 21:47 EST ,
--- NOTE | 2023-07-19 16:42 | PCM.OPRPT ---
Report of Operation Date of Procedure: 07/19/23 Pre-Operative Diagnosis: Cholecystitis, cholelithiasis, choledocholithiasis status post ERCP Post-Operative Diagnosis: Same Surgery/Procedure Performed:: Laparoscopic cholecystectomy with cholangiograms Surgeon: Delia Dewitt yardmaster: Connor Rg Type of Anesthesia: General/Supplemental Anesthesiologist: Chris Schaffer Estimated Blood Loss (mL): 60 cc Description of Procedure: Indications: this is a 62 year-old male who developed abdominal pain/nausea/vomiting and on workup was found to have elevated LFTs/choledocholithiasis-status post ERCP, cholecystitis, cholelithiasis. Laparoscopic cholecystectomy was elected. Description procedure: The patient was placed on operating table in supine position. A timeout was completed verifying correct patient, procedure, site, position and special equipment prior to beginning procedure. General Anesthesia was induced. The abdomen was prepped and draped in usual sterile fashion. An incision was made in the natural skin line above the umbilicus. The fascia was elevated and incised. The peritoneum was elevated and incised. Entry into the peritoneum was confirmed visually and no bowel was noted in the vicinity of the incision. Robles trocar was placed. The abdomen was insufflated with carbon dioxide to a pressure of 12-15 mmHg. Patient tolerated insufflation well. The laparoscope was then inserted and abdomen inspected. No injuries from initial trocar placement were noted. Additional trochars were then inserted in the following locations 5 mm trocar in the epigastrium and 2 more 5 mm trochars along the right costal margin. The abdomen was inspected no abnormalities were found. The table is placed in reverse Trendelenburg position with the right side up. The dome of the gallbladder was grasped with atraumatic grasper passed through the lateral port and retracted over the dome of the liver. Infundibulum was then grasped with atraumatic grasper through the midclavicular port and retracted to the right lower quadrant. This maneuver exposed Calot's triangle. The peritoneum overlying the gallbladder infundibulum was then incised and cystic duct and artery identified and circumferentially dissected. Due to the size of the cystic duct the epigastric port was enlarged to a 12 mm trocar. There is some bleeding from a posterior cystic artery behind the cystic duct that was controlled with Hem-o-adrian/5 mm clip specialty food products supervisor. Fofana catheter was used for cholangiograms. The cholangiogram showed good filling of the common bile duct into the duodenum with no filling defects, good filling of the right and left bile ducts as well. The cystic duct and artery were then doubly clipped and divided close to the gallbladder. The gallbladder then dissected from its peritoneal attachments by electrocautery. Hemostasis was checked and the gallbladder and contained stones were removed using the endoscopic retrieval bag through the umbilical port. The gallbladder is passed off table as specimen. The gallbladder fossa was irrigated with saline and hemostasis obtained-all bile was suctioned and the fossa was copiously irrigated- as there is some leakage during retraction of the dome of the gallbladder. There is no evidence of bleeding from the gallbladder fossa or cystic artery leakage of bile from the cystic duct stump. Secondary trochars removed under direct vision. No bleeding was noted the trocar sites. The laparoscope was withdrawn and umbilical trocar removed. The abdomen was allowed to collapse. The fascia of the 12 mm trocar was closed with a [id number] 0 PDS suture and the epigastric 12 mm trocar was closed with [id number] 0 Vicryl suture.. The skin was closed with sutures of 4-0 Monocryl and Steri-Strips. The patient was extubated. The patient tolerated procedure well and was taken to the postanesthesia care unit in stable condition. Complications none
--- NOTE | 2023-07-19 16:49 | DCINST_ITS ---
Discharge Instructions Diet Discharge Diet: Light diet - advance as tolerated Activity Discharge Activity: May Not Drive (while taking narcotic pain medications.) May shower in (days): 1 Lifting Restrictions: no lifting >20 lbs x 2 wks, no strenuous exercise for 4 wks Dressing / Incision Call your doctor if your incision/area has: Continuous Slow Oozing, Sudden Increased Bleeding, Increased Pain/ Swelling, Increased Redness, Foul Smelling Discharge and Swelling at the incision site Call your doctor if you observe: Fever of 101 or Higher Remove Dressing in: 2 days Cleanse incision/area with: Soap & Water Additional Dressing/Incision Instructions:: Steri-Strips will fall off in 7 to 10 days, if they do not fall off okay to remove after 10 days. Follow Up Care Please Follow Up With: Delia Dewitt MD When: Call the office for a follow-up appointment 2 weeks; after 5 PM and on the weekends call [phone] with any concerns. Test Results: Test results from this visit will be discussed in further detail at your follow- up appointment, if applicable. Discharge Plan Admission Admit Date/Time: 07/17/23 22:21 Attending Provider: Maryam Wood Primary Care Provider: Eze Rick Consulting Providers: Armin Benjamin; Delia Dewitt Discharge Orders/Prescriptions Prescriptions: No Action omeprazole 40 mg capsule,delayed release(DR/EC) 40 mg PO QDAY Qty: 30 3RF Rx Instructions: swallow whole; do not crush, chew, dissolve, cut, break atorvastatin 40 MG tablet 40 mg PO DAILY glipizide [Glucotrol XL] 10 MG tablet extended release 24hr 10 mg PO DAILY furosemide 20 MG tablet 20 mg PO DAILY lisinopril [Zestril] 40 MG tablet 40 mg PO DAILY glipizide 10 MG tablet extended release 24hr 20 mg PO DINNER multivitamin 1 EACH tablet 1 each PO DAILY gabapentin 100 MG capsule 400 mg PO DAILY dulaglutide 1.5 MG/0.5 ML pen injector 4.5 mg SQ .SATURDAY gabapentin 100 mg capsule 500 mg PO QHS meloxicam 15 mg tablet 15 mg PO DAILY Jardiance 25 mg tablet 25 mg PO DAILY Patient Comments: TAKE 1 TABLET BY MOUTH EVERY DAY WITH BREAKFAST mupirocin 2 % ointment 1 applic TOPICAL TID Patient Comments: APPLY 1 APPLICATION TO AFFECTED AREA THREE TIMES A DAY FOR 10 DAYS. LOCATION: [facility] started 06/29/2023 Referrals / Follow Up: Eze Rick DO [Primary Care Provider] - Disposition Disposition (needs filled in before D/C Order can be placed): Home, Self Care
[2023-07-19 17:49] LABS: Bedside Glucose 195 mg/dL (74-106)
--- NOTE | 2023-07-19 18:15 | PN.GI_ITS ---
Subjective Subjective Patient underwent ERCP yesterday with stone removal. He is not having any abdominal pain. He is scheduled for cholecystectomy today. Objective Data Objective Data Vital Signs: Vital Signs Temp Pulse Resp BP Pulse Ox O2 Del Method O2 Flow Rate 99.3 F H 101 H 18 140/60 H 95 Nasal Cannula 2 07/19/23 17:07 07/19/23 17:30 07/19/23 17:30 07/19/23 17:30 07/19/23 17:30 07/19/23 17:30 07/19/23 17:30 Oxygen Flow Rate (L/min) 2 Oxygen Delivery Method Nasal Cannula Weight: 313 lb 7.957 oz Body Mass Index (BMI) 41.3 Intake & Output: Intake and Output for Last 24 Hours 07/17/23 07/18/23 07/19/23 23:59 23:59 23:59 Intake Total 270 / 270 1210 / 1210 1210 / 1210 Balance 270 / 270 1210 / 1210 1210 / 1210 Lab / Micro Data 07/19/23 06:25 07/19/23 06:25 Labs: Laboratory Results - last 24 hr 07/18/23 20:32: POC Glucose 187 H 07/19/23 06:25: WBC 11.3 H, RBC 4.87, Hgb 15.2, Hct 47.5, MCV 97.5 H, MCH 31.2, MCHC 32.0, RDW Std Deviation 49.6 H, RDW Coeff of Richard 13.7, Plt Count 249, MPV 10.7, Immature Gran % (Auto) 0.600, Neut % (Auto) 87.2 H, Lymph % (Auto) 9.6 L, [place] % (Auto) 2.1, Eos % (Auto) 0.1, Baso % (Auto) 0.4, Absolute Neuts (auto) 9.8 H, Absolute Lymphs (auto) 1.08, Nucleated RBC % 0, Sodium 136, Potassium 4.6, Chloride 108 H, Carbon Dioxide 14.0 L, Anion Gap 14, BUN 18, Creatinine 1 .00, Estim Creat Clear Calc 112.10, Est GFR (MDRD) Af Amer 97, Est GFR (MDRD) Non-Af 80, BUN/Creatinine Ratio 18.0, Glucose 167 H, Calcium 9.1, Phosphorus 4.9, Magnesium 2.3, Total Bilirubin 1.40 H, AST 139 H, ALT 539 H, Alkaline Phosphatase 410 H, Total Protein 7.6, Albumin 3.2, Globulin 4.4 H, Albumin/Globulin Ratio 0.7 L 07/19/23 07:24: POC Glucose 149 H 07/19/23 11:13: POC Glucose 133 H 07/19/23 17:26: POC Glucose 195 H Radiography Diagnostic Testing: Radiology Impression Endo Retro Cholangiopancreatogram 07/18/23 17:22 IMPRESSION: Fluoroscopic guidance for ERCP. Please refer to procedural report for further information. Electronically Signed: Dagoberto Lobato MD at 0:40 EST Reading Location ID and State: [facility] / [place] Tel , Service support , Physical Exam Const oriented x3 and no apparent distress Resp normal respiratory effort Cardio regular rate GI soft to palpation and non-tender Inspection: Negative for abdominal distention Assessment & Plan Assessment/Plan (1) Hyperbilirubinemia: (2) Cholecystitis: (3) Choledocholithiasis: PLAN: Plan Choledocholithiasis/acute cholecystitis -Patient with markedly abnormal transaminases/elevated alk phos/hyperbilirubinemia -Status post ERCP and remaining on IV antibiotics. I talk with him and his today and explained everything that transpired and the natural history of choledocholithiasis. He will need to come back for stent removal in 2 months. Charges/Coding Visit Charges Inpatient E&M: 72617 Subs Hosp L3
--- NOTE | 2023-07-19 18:41 | DS.PCM_ITS ---
Providers Date of Admission: 07/17/23 Date of Discharge: 07/19/23 Primary Care Physician: Dr. Eze Rick, Consultations 07/18/23 07:27 Consult: Gastroenterology Routine Consulting Provider: [facility] Reason for Consult: Choledocholithiasis EMERGENT Consult: No Notified: Yes Date Notified: 07/18/23 Time Notified: 07:28 Method of Notification: Verbal Consult: General Surgery Routine Consulting Provider: Delia Dewitt Reason for Consult: choledocholitiasis EMERGENT Consult: No Notified: Yes Date Notified: 07/18/23 Time Notified: 07:28 Method of Notification: Verbal Reason For Visit: CHOLEDOCHOLITHIASIS, CHOLECYTITIS AND JAUNDICE Diagnosis Discharge Diagnosis (1) Hyperbilirubinemia: Status: Acute Code(s): E80.6 - Other disorders of bilirubin metabolism (2) Cholecystitis: Status: Acute Code(s): K81.9 - Cholecystitis, unspecified (3) Choledocholithiasis: Status: Acute Code(s): K80.50 - Calculus of bile duct without cholangitis or cholecystitis without obstruction Medications at Discharge Home Medications atorvastatin 40 mg tablet 40 mg PO DAILY 04/22/18 furosemide 20 mg tablet 20 mg PO DAILY 04/22/18 glipizide 10 mg tablet, extended release 24 hr (Glucotrol XL) 10 mg PO DAILY 04/22/18 lisinopril 40 mg tablet (Zestril) 40 mg PO DAILY 04/22/18 glipizide 10 mg tablet, extended release 24 hr 20 mg PO DINNER 01/18/20 dulaglutide 1.5 mg/0.5 mL subcutaneous pen injector 4.5 mg SQ .Saturday08/24/20 gabapentin 100 mg capsule 400 mg PO DAILY 08/24/20 multivitamin 1 each PO DAILY 08/24/20 gabapentin 100 mg capsule 500 mg PO QHS 05/19/23 meloxicam 15 mg tablet 15 mg PO DAILY 05/19/23 empagliflozin 25 mg tablet (Jardiance) 25 mg PO DAILY 07/07/23 mupirocin 2 % topical ointment 1 applic topical TID 07/07/23 omeprazole 40 mg capsule,delayed release 40 mg PO QDAY #30 caps 07/17/23 Hospital Course Operations cholecystecomy Procedures - (ERCP/gallbladder ultrasound/CT abdomen and pelvis) Summary of Care Provided Minutes Spent on Discharge: 37 Hospital Course: Mr. Rodriguez is a 62-year-old white male who presented to the emergency department at [facility] on 07/17/2023 at the direction of Dr. Dewitt from general surgery after outpatient follow-up. The patient has had intermittent symptoms of right upper quadrant pain accompanied by intermittent nausea with bilious emesis and previous [place] has been to the ER twice in the last calendar year. Previously he had an ultrasound that showed gallstones but normal LFTs. He was seen in follow-up by general surgery on 07/17/2023 and he was noted to be jaundiced with ongoing right upper quadrant pain and intermittent nausea vomiting. Lab was obtained and he was found to have markedly elevated LFTs with a total bilirubin of 5.1, direct bilirubin of 3.96, AST of 423, ALT of 944 and an alkaline phosphatase of 510. He had imaging that was consistent with choledocholithiasis and common bile duct dilation and imaging was also concerning for cholecystitis. Per discussion with general surgery the plan is for admission with IV fluids and pain management and consultation to GI for ERCP to be done on 07/18/2023 followed by a cholecystectomy to be done by Dr. Dewitt. He was admitted to the medical floor and placed on IV fluids, antiemetics, and as needed pain medication with consultations to general surgery and gastroenterology. He was made n.p.o. after midnight for procedures. He was taken for ERCP on 07/18/2023 where his entire main bile duct was found to be dilated with a stone causing obstruction. Removal was accomplished and a stent was inserted. The biliary tree was swept and the common bile duct was successfully dilated. His LFTs improved and his bilirubin had almost normalized and was down to 1.4. On 07/19/2023 he was taken for cholecystectomy done by Dr. Dewitt. He did well postoperatively and was able to be discharged home in stable condition. The patient did not require any pain medication at discharge. He is to follow-up with his primary care physician in 2 weeks, Dr. Dewitt in [address] Uribe in 2 to 4 weeks. Discharge diagnoses: Acute cholecystitis Cholelithiasis Choledocholithiasis Jaundice with obstructive pattern due to the above DM-2 Hypertension Diabetic neuropathy Hyperlipidemia GERD History of appendicitis Morbid obesity Physical Exam Const alert, oriented x3, no apparent distress and well nourished; Negative for ave rage body habitus or healthy appearing Constitutional Narrative: Morbidly obese, upper middle-aged, white male, sitting up lying in bed, at bedside, patient appears comfortable and nontoxic General Appearance: cooperative, comfortable, well kempt and well developed HEENT normocephalic, head/scalp atraumatic, hearing grossly normal bilaterally and moist oral mucous membranes Eyes PERRL, EOMs intact bilaterally and conjunctivae normal Eyes Narrative: Icterus is resolved Neck no lymphadenopathy and supple Resp normal respiratory effort, no retractions, no use of accessory muscles and clear to auscultation bilaterally Auscultation: Negative for rales, rhonchi or wheezes Cardio regular rate, regular rhythm, S1 normal heart sound, S2 normal heart sound, no murmurs, no rub, no gallops and no clicks GI normal to inspection, nondistended, normoactive bowel sounds, soft to palpation and non-tender Extremity no clubbing, cyanosis or edema Extremity Narrative: Chronic trace to 1+ lower extremity edema, no cyanosis or clubbing Skin No no rashes or lesions noted, no wounds, skin turgor normal and no jaundice Skin Narrative: rash on bilateral lower extremities that extends up to just below the knee that is itchy in nature Neuro oriented x3, moves all extremities and no focal motor deficits Speech: speech normal Psych affect normal Psych Narrative: Very pleasant, interacts appropriately Weight / BMI Weight Weight: 142.2 kg Body Mass Index (BMI) 41.3 ABG / Lab / Microbiology Data 07/19/23 06:25 07/19/23 06:25 Laboratory: Laboratory Results - last 24 hr 07/18/23 20:32: POC Glucose 187 H 07/19/23 06:25: WBC 11.3 H, RBC 4.87, Hgb 15.2, Hct 47.5, MCV 97.5 H, MCH 31.2, MCHC 32.0, RDW Std Deviation 49.6 H, RDW Coeff of Richard 13.7, Plt Count 249, MPV 10.7, Immature Gran % (Auto) 0.600, Neut % (Auto) 87.2 H, Lymph % (Auto) 9.6 L, [place] % (Auto) 2.1, Eos % (Auto) 0.1, Baso % (Auto) 0.4, Absolute Neuts (auto) 9.8 H, Absolute Lymphs (auto) 1.08, Nucleated RBC % 0, Sodium 136, Potassium 4.6, Chloride 108 H, Carbon Dioxide 14.0 L, Anion Gap 14, BUN 18, Creatinine 1.00, Estim Creat Clear Calc 112.10, Est GFR (MDRD) Af Amer 97, Est GFR (MDRD) Non-Af 80, BUN/Creatinine Ratio 18.0, Glucose 167 H, Calcium 9.1, Phosphorus 4.9, Magnesium 2.3, Total Bilirubin 1.40 H, AST 139 H, ALT 539 H, Alkaline Phosphatase 410 H, Total Protein 7.6, Albumin 3.2, Globulin 4.4 H, Albumin/Globulin Ratio 0.7 L 07/19/23 07:24: POC Glucose 149 H 07/19/23 11:13: POC Glucose 133 H 07/19/23 17:26: POC Glucose 195 H Radiography Diagnostic Testing: Radiology Impression Endo Retro Cholangiopancreatogram 07/18/23 17:22 IMPRESSION: Fluoroscopic guidance for ERCP. Please refer to procedural report for further information. Electronically Signed: Dagoberto Lobato MD at 0:40 EST Reading Location ID and State: [facility] / [place] Tel , Service support , D/C Instructions Discharge Diet: Light diet - advance as tolerated May shower in (days): 1 Call your doctor if your incision/area has: Continuous Slow Oozing, Sudden Increased Bleeding, Increased Pain/ Swelling, Increased Redness, Foul Smelling Discharge and Swelling at the incision site Call your doctor if you observe: Fever of 101 or Higher Cleanse incision/area with: Soap & Water Additional Dressing/Incision Instructions: Steri-Strips will fall off in 7 to 10 days, if they do not fall off okay to remove after 10 days. Please Follow Up With: Delia Dewitt MD When: Call the office for a follow-up appointment 2 weeks; after 5 PM and on the weekends call [phone] with any concerns. Meaningful Use Info Meaningful Use Diagnoses (Choose all that apply): None applicable Discharge Plan Admission Admit Date/Time: 07/17/23 22:21 Primary Reason for Your Visit: Abnormal liver functions Attending Provider: Maryam Wood Primary Care Provider: Eze Rick Consulting Providers: Armin Benjamin; Delia Dewitt Discharge Orders/Prescriptions Prescriptions: Continued omeprazole 40 mg capsule,delayed release(DR/EC) 40 mg PO QDAY Qty: 30 3RF Rx Instructions: swallow whole; do not crush, chew, dissolve, cut, break glipizide [Glucotrol XL] 10 MG tablet extended release 24hr 10 mg PO DAILY furosemide 20 MG tablet 20 mg PO DAILY lisinopril [Zestril] 40 MG tablet 40 mg PO DAILY glipizide 10 MG tablet extended release 24hr 20 mg PO DINNER multivitamin 1 EACH tablet 1 each PO DAILY gabapentin 100 MG capsule 400 mg PO DAILY dulaglutide 1.5 MG/0.5 ML pen injector 4.5 mg SQ .SATURDAY gabapentin 100 mg capsule 500 mg PO QHS meloxicam 15 mg tablet 15 mg PO DAILY Jardiance 25 mg tablet 25 mg PO DAILY Patient Comments: TAKE 1 TABLET BY MOUTH EVERY DAY WITH BREAKFAST mupirocin 2 % ointment 1 applic TOPICAL TID Patient Comments: APPLY 1 APPLICATION TO AFFECTED AREA THREE TIMES A DAY FOR 10 DAYS. LOCATION: [facility] started 06/29/2023 Held atorvastatin 40 MG tablet 40 mg PO DAILY Hold Instructions: Hold for 2 weeks then restart Referrals / Follow Up: Eze Rick DO [Primary Care Provider] - Within 2 Weeks Delia Dewitt MD [Med Staff - Active Staff] - Within 2 Weeks Disposition Disposition (needs filled in before D/C Order can be placed): Home, Self Care Charges/Coding Visit Charges Inpatient E&M: 05565 Disch Hosp >30min
[2023-07-19] MEDS: oxyCODONE 5 MG Tablet PO (19:39)
--- NOTE | 2023-07-19 21:22 | NURSING ---
Discharge paperwork reviewed with patient and , both verbalized understanding. Removed PIV, paperwork given to patient. Patient cleared all discharge parameters -Tolerating PO, ambulates, voided, and pain is controlled with oral medications to patient satisfaction.
== END 2023-07-19 20:25 | disposition home or self-care (01) | DRG 418 ==
LOC: ED 21:49 → PCU 22:48
PROVIDERS: Internal Medicine Gastroenterology; Surgery; Admitting Provider Internal Medicine; Emergency Provider Emergency Medicine; PCP Student in an Organized Health Care Education/Training Program; Visit Provider Internal Medicine
PROC: 0FC98ZZ Extirpation of Matter from Common Bile Duct, Via Natural or Artificial Opening Endoscopic (ICD-10-PCS; CPT 43260; principal; 2023-07-18 17:00)
PROC: 0FT44ZZ Resection of Gallbladder, Percutaneous Endoscopic Approach (ICD-10-PCS; CPT 47610; principal; 2023-07-19 13:20)
DX: K80.63 Calculus of gallbladder and bile duct with acute cholecystitis with obstruction (principal); Z68.41 Body mass index [BMI] 40.0-44.9, adult; E10.40 Type 1 diabetes mellitus with diabetic neuropathy, unspecified; E66.01 Morbid (severe) obesity due to excess calories; I10 Essential (primary) hypertension; K21.9 Gastro-esophageal reflux disease without esophagitis; E78.5 Hyperlipidemia, unspecified; Z90.49 Acquired absence of other specified parts of digestive tract; Z79.84 Long term (current) use of oral hypoglycemic drugs; Z79.85 Long-term (current) use of injectable non-insulin antidiabetic drugs; Z79.899 Other long term (current) drug therapy
CPT/HCPCS: 36415; 74177; 74300; 74330; 76000; 76705; 80048; 80053; 82962; 83036; 83735; 84100; 84443; 85025; 85610; 88304; 93005; 94668; 99284; J7030; J7040; J7120; Q9967; A4216; C1726; J2405

== ENCOUNTER → 2023-07-17 | Outpatient (CLI) | payer OTHER, SELFPAY ==
[2023-07-17 16:46] LABS: AST(SGOT) 423 U/L (15-37); Alanine Aminotransfer ALT/SGPT 944 U/L (16-61); Albumin, Serum 3.5 g/dL (3.2-5.0); Alkaline Phosphatase 510 U/L (45-117); Bilirubin, Direct 3.96 mg/dL (0.00-0.30); Globulin 4.3 g/dL (2.2-4.2); Protein, Total 7.8 g/dL (6.4-8.2)
== END | disposition home or self-care (01) ==
LOC: PAVLAB 15:20
PROVIDERS: PCP Student in an Organized Health Care Education/Training Program; Referring Provider Surgery; Visit Provider Surgery
DX: K80.20 Calculus of gallbladder without cholecystitis without obstruction (principal)
CPT/HCPCS: 36415; 80076

== ENCOUNTER 2023-10-03 08:38 | Day surgery (SDC) | payer OTHER, SELFPAY ==
[2023-10-03] VITALS (8 sets, daily range): BP systolic 93–126; BP diastolic 56–72; PULSE 82–93; RESP 16–18; TEMP 36.2–36.3; O2SAT 91–99; BMI 41.8
--- NOTE | 2023-10-03 08:30 | RAD_ITS ---
STUDY: ERCP. REASON FOR EXAM: Male, 63 years old. PAIN FLUOROSCOPY TIME (if supplied): ( 1 minute and 33 seconds. ) minutes/seconds. 92.18 mGy. 18 images were submitted. TECHNIQUE: An ERCP was performed by the crane oiler. Imaging was provided. COMPARISON: None. FINDINGS: Contrast was injected. There is dilatation of the common bile duct. Filling defects are seen in the common bile duct. RAD/ERCP Biliary/Pancreas IMPRESSION: Filling defects are seen in the dilated common bile duct. Electronically Signed: Dario Farris MD at 14:05 EDT ,
[2023-10-03] MEDS: Lactated Ringers 1,000 ML 15 ML IV (09:10)
--- NOTE | 2023-10-03 09:21 | EKG12_ITS ---
Test Reason : PRE-OP Blood Pressure : / mmHG Vent. Rate : 094 BPM Atrial Rate : 094 BPM P-R Int : 174 ms QRS Dur : 104 ms QT Int : 362 ms P-R-T Axes : 049 043 014 degrees QTc Int : 452 ms Normal sinus rhythm Low voltage QRS Borderline ECG When compared with ECG of 18-JUL-2023 05:45, No significant change was found Confirmed by Ever Sykes ([id number]), news video editor TALITA ROOT ([id number]) on 10/09/2023 9:01:03 AM Referred By: Eze Rick Confirmed By:Ever Sykes
[2023-10-03 09:30] LABS: Bedside Glucose 230 mg/dL (74-106)
--- NOTE | 2023-10-03 09:30 | FLU_PTH ---
PATIENT: ROBERTO BOATENG LOC: EN U#:[id number] AGE/SX: 63/M ROOM: RE10/03/[address]: Dr. Oz Uribe DO : 1960 BED: DIS: 10/03/2023 SPEC #: [id number] RECD: 10/03/23 11:18 STATUS: SUSAN LILY #: [id number] IVONNE: 10/03/23 09:[address]: Oz Uribe DEPT: CYTOLOGY RECD BY: Rick Cox ENTERED: 10/03/23 12:20 SP TYPE: Fluid OTHR DR: Dr. Eze Rick DO Tissues: A - Bile duct, NOS B - Bile duct, NOS C - Bile duct, NOS Procedures: Special Stain Group II Surgery Specimen Level III Surgery Specimen Level IV Cytospin Fluid HEADER OPERATION: ERCP, stent removal, balloon cholangiogram, brushings PRE-OP DIAGNOSIS: Hyperbilinemia, cholecystitis, choledocholithiasis TISSUE SUBMITTED: A- Biliary stent for cytology, B- [place] tip, C- Brushings (slides) DIAGNOSIS CYTOLOGY A. Biliary stent fluid for cytology (cytospin and cellblock): Negative for malignant cells. B. [place] tip for cytology (cytospin and cellblock): Negative for malignant cells. C. Left hepatic duct fluid (smears): Negative for malignant cells. /mr 10/04/2023 CYTOLOGY STUDY Slides are reviewed. CYTOLOGY GROSS A. Received is 1 black stent with0.2 ml of yellow thick material fluid labeled with the patient's name and and designated per the requisition as Biliary stent for cytology. Submitted for cytology preparation including cell block. B. Received is 1 brush tip with 0.5 ml of light-yellow fluid labeled with the patient's name and and designated per the requisition as [place] tip. Submitted for cytology preparation including cell block. C. Received are 3 smears labeled with the patient's name and designated per the requisition as Left hepatic duct. Submitted for staining. Mr 10/03/23 TC:5 CPT:[id number]
--- NOTE | 2023-10-03 10:04 | HP.PCM_ITS ---
[facility] - General General Date of Admission: 10/03/23 Date of Service: 10/03/23 Chief Complaint: Status post ERCP with stent removal [facility] Narrative ROBERTO BOATENG, is a 63 M who presents today for stent removal. Initially he presented to the emergency department at [facility] on 07/17/2023 at the direction of Dr. Dewitt from general surgery after outpatient follow-up. The patient has had intermittent symptoms of right upper quadrant pain accompanied by intermittent nausea with bilious emesis and previous [place] has been to the ER twice in the last calendar year. Previously he had an ultrasound that showed gallstones but normal LFTs. He was seen in follow-up by general surgery on 07/17/2023 and he was noted to be jaundiced with ongoing right upper quadrant pain and intermittent nausea vomiting. Lab was obtained and he was found to have markedly elevated LFTs with a total bilirubin of 5.1, direct bilirubin of 3.96, AST of 423, ALT of 944 and an alkaline phosphatase of 510. He had imaging that was consistent with choledocholithiasis and common bile duct dilation and imaging was also concerning for cholecystitis. Per discussion with general surgery the plan is for admission with IV fluids and pain management and consultation to myself for ERCP to be done on 07/18/2023 followed by a cholecystectomy to be done by Dr. Dewitt. He was admitted to the medical floor and placed on IV fluids, antiemetics, and as needed pain medication with consultations to general surgery and gastroenterology. He was made n.p.o. after midnight for procedures. He was taken for ERCP on 07/18/2023 where his entire main bile duct was found to be dilated with a stone causing obstruction. Removal was accomplished and a stent was inserted. The biliary tree was swept and the common bile duct was successfully dilated. His LFTs improved and his bilirubin had almost normalized and was down to 1.4. On 07/19/2023 he was taken for cholecystectomy done by Dr. Dewitt. He did well postoperatively and was able to be discharged home in stable condition. The patient did not require any pain medication at discharge. He comes back in today for stent removal. [facility] Medical History (Updated 09/30/23 @ 11:17 by Sarah Dai) Wears glasses Arthritis High cholesterol Dietary restriction Non-smoker Cholelithiasis Diabetes Appendicitis Abdominal pain History of hypertension History of diabetes mellitus, type I Home Medications ?Medication ?Instructions ?Recorded ?Last Taken ?Type atorvastatin 40 mg tablet 40 mg PO DAILY 04/22/18 08/24/20 05:15 History furosemide 20 mg tablet 20 mg PO DAILY 04/22/18 08/24/20 05:15 History glipizide 10 mg tablet, extended 10 mg PO DAILY 04/22/18 08/24/20 05:15 History release 24 hr (Glucotrol XL) lisinopril 40 mg tablet (Zestril) 40 mg PO DAILY 04/22/18 10/03/23 History glipizide 10 mg tablet, extended 20 mg PO DINNER 01/18/20 08/24/20 05:15 History release 24 hr dulaglutide 1.5 mg/0.5 mL 4.5 mg SQ .Saturday08/24/20 08/21/20 History subcutaneous pen injector gabapentin 100 mg capsule 400 mg PO DAILY 08/24/20 10/03/23 History multivitamin 1 each PO DAILY 08/24/20 08/24/20 05:15 History gabapentin 100 mg capsule 500 mg PO QHS 05/19/23 Unknown History meloxicam 15 mg tablet 15 mg PO DAILY 05/19/23 Unknown History empagliflozin 25 mg tablet 25 mg PO DAILY 07/07/23 Unknown History (Jardiance) mupirocin 2 % topical ointment 1 applic topical TID 07/07/23 Unknown History Allergy/AdvReac Type Severity Reaction Status Date / Time sulfamethoxazole (From Allergy Hives Verified 10/03/23 08:54 Bactrim) trimethoprim (From Bactrim) Allergy Hives Verified 10/03/23 08:54 Family History Grandfather Kidney disease Diabetes Father Heart disease Mother Ulcer Surgical History S/P cholecystectomy S/P ERCP S/P appendectomy Social History Smoking Status: Never smoker alcohol intake: never substance use type: does not use Vital Signs Vital Signs Vital Signs: 10/03/23 08:54 10/03/23 08:54 Temperature 97.2 F L Temperature Source Temporal Pulse Rate 82 Respiratory Rate 16 Respiratory Pattern Normal Blood Pressure 126/72 H Blood Pressure Mean 90 Blood Pressure Source Monitor Blood Pressure Position Semi-Fowlers Blood Pressure Location Left Arm Pulse Ox 99 Oxygen Delivery Method Room Air Weight Weight: 317 lb Body Mass Index (BMI) 41.8 Physical Exam Const alert, oriented x3, no apparent distress and well nourished; Negative for average body habitus or healthy appearing Constitutional Narrative: Morbidly obese, upper middle-aged, white male, sitting up lying in bed, at bedside, patient appears comfortable and nontoxic General Appearance: cooperative, comfortable, well kempt and well developed HEENT normocephalic, head/scalp atraumatic, hearing grossly normal bilaterally and moist oral mucous membranes Eyes PERRL, EOMs intact bilaterally and conjunctivae normal Eyes Narrative: Icterus is resolved Neck no lymphadenopathy and supple Resp normal respiratory effort, no retractions, no use of accessory muscles and clear to auscultation bilaterally Auscultation: Negative for rales, rhonchi or wheezes Cardio regular rate, regular rhythm, S1 normal heart sound, S2 normal heart sound, no murmurs, no rub, no gallops and no clicks GI normal to inspection, nondistended, normoactive bowel sounds, soft to palpation and non-tender Extremity no clubbing, cyanosis or edema Extremity Narrative: Chronic trace to 1+ lower extremity edema, no cyanosis or clubbing Skin No no rashes or lesions noted, no wounds, skin turgor normal and no jaundice Skin Narrative: rash on bilateral lower extremities that extends up to just below the knee that is itchy in nature Neuro oriented x3, moves all extremities and no focal motor deficits Speech: speech normal Psych affect normal Psych Narrative: Very pleasant, interacts appropriately Results Lab / Micro Data Labs: Laboratory Results - last 24 hr 10/03/23 09:05: POC Glucose 230 H Assessment & Plan Assessment/Plan (1) Hyperbilirubinemia: (2) Cholecystitis: (3) Choledocholithiasis: PLAN: Plan Choledocholithiasis/acute cholecystitis -Patient with markedly abnormal transaminases/elevated alk phos/hyperbilirubinemia -Status post ERCP and remaining on he was explained alternatives, risk, benefits including not withstanding bleeding, infection, sepsis, perforation, need for emergent surgery and . He was also explained the risk of post ERCP pancreatitis.
--- NOTE | 2023-10-03 11:04 | OP.ERCP_ITS ---
Patient Name: Jay Rodriguez Procedure Date: 10/03/2023 10:06 AM Date of : 1960 Age: 63 Procedure: ERCP Indications: Bile duct stone(s), Biliary stent removal Providers: Oz Uribe DO Referring MD: Eze Rick Medicines: General Anesthesia Patient Profile: This is a 63 year old male. Refer to note in patient chart for documentation of history and physical. Patient has symptoms. He is status post laparoscopic cholecystectomy. Complications: No immediate complications. Procedure: Pre-Anesthesia Assessment: - Prior to the procedure, a History and Physical was performed, and patient medications and allergies were reviewed. The patient is competent. The risks and benefits of the procedure and the sedation options and risks were discussed with the patient. All questions were answered and informed consent was obtained. Patient identification and proposed procedure were verified by the physician in the pre-procedure area. Mental Status Examination: alert and oriented. Respiratory Examination: clear to auscultation. CV Examination: normal. Prophylactic Antibiotics: The patient does not require prophylactic antibiotics. Prior Anticoagulants: The patient has taken no anticoagulant or antiplatelet agents. ASA Grade Assessment: II - A patient with mild systemic disease. After reviewing the risks and benefits, the patient was deemed in satisfactory condition to undergo the procedure. The anesthesia plan was to use monitored anesthesia care (MAC). Immediately prior to administration of medications, the patient was re-assessed for adequacy to receive sedatives. The heart rate, respiratory rate, oxygen saturations, blood pressure, adequacy of pulmonary ventilation, and response to care were monitored throughout the procedure. The physical status of the patient was re-assessed after the procedure. After obtaining informed consent, the scope was passed under direct vision. Throughout the procedure, the patient's blood pressure, pulse, and oxygen saturations were monitored continuously. The Duodenoscope was introduced through the mouth, and advanced to the duodenum and used to inject contrast into the bile duct and ventral pancreatic duct. The ERCP was accomplished without difficulty. The patient tolerated the procedure well. 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 The esophagus was successfully intubated under direct vision. The scope was advanced to a normal major papilla in the descending duodenum without detailed examination of the pharynx, larynx and associated structures, and upper GI tract. The upper GI tract was grossly normal. The bile duct was deeply cannulated with the short-nosed traction sphincterotome. Contrast was injected. I personally interpreted the bile duct and pancreatic duct images. There was brisk flow of contrast through the ducts. Image quality was excellent. Contrast extended to the entire biliary tree. The lower third of the main bile duct contained one stone, which was 6 mm in diameter. The lower third of the main bile duct was diffusely dilated, acquired. The largest diameter was 5 mm. A cholecystectomy had been performed. A straight Roadrunner wire was passed into the biliary tree. A 5 mm biliary sphincterotomy was made with a traction (standard) sphincterotome using ERBE electrocautery. There was no post-sphincterotomy bleeding. The biliary tree was swept with a 12 mm balloon starting at the bifurcation and right intrahepatic duct(s). All stones were removed. One stent was removed from the biliary tree using a snare and sent for cytology. Cells for cytology were obtained by brushing in the right intrahepatic branches. The ventral pancreatic duct was deeply cannulated with the short-nosed traction sphincterotome. Contrast was injected. Opacification of the entire pancreatic ductal system was successful. The maximum diameter of the ducts was 3 mm. The entire opacified area was normal. A long 0.025 inch Jagwire was passed into the ventral pancreatic duct. A 5 mm ventral pancreatic sphincterotomy was made with a traction (standard) sphincterotome using ERBE electrocautery. There was no post-sphincterotomy bleeding. To find object(s) the ventral pancreatic duct was swept with a 6 mm balloon starting at the pancreatic duct in the body of the pancreas. Nothing was found. Impression: - The lower third of the main bile duct was dilated, acquired. - The patient has had a cholecystectomy. - Choledocholithiasis was found. Complete removal was accomplished by biliary sphincterotomy and balloon extraction. - A biliary sphincterotomy was performed. - The biliary tree was swept. - One stent was removed from the biliary tree. - Cells for cytology obtained in the right intrahepatic branches. - A pancreatic sphincterotomy was performed. - The ventral pancreatic duct was swept and nothing was found. Procedure Code(s): --- Professional --- 04729, Endoscopic retrograde cholangiopancreatography (ERCP); with removal of foreign body(s) or stent(s) from biliary/pancreatic duct(s) 27114, Endoscopic retrograde cholangiopancreatography (ERCP); with removal of calculi/debris from biliary/pancreatic duct(s) 60181, Endoscopic retrograde cholangiopancreatography (ERCP); with sphincterotomy/papillotomy 63914, Endoscopic retrograde cholangiopancreatography (ERCP); with sphincterotomy/papillotomy 75948, 26, Combined endoscopic catheterization of the biliary and pancreatic ductal systems, radiological supervision and interpretation CPT copyright 2021 [employer]. All rights reserved. The codes documented in this report are preliminary and upon agricultural lender review may be revised to meet current compliance requirements. Oz Uribe DO 10/03/2023 11:04:28 AM This report has been signed electronically. Number of Addenda: 0 Note Initiated On: 10/03/2023 10:06 AM
--- NOTE | 2023-10-03 11:05 | OP.CCLET_ITS ---
10/03/2023 Eze Rick [address] [place] [address] Re : ERCP procedure for Jay Rodriguez Dear Dr. Rick This procedure was performed on September. My impressions and recommendations are as follows: Impressions : - The lower third of the main bile duct was dilated, acquired. - The patient has had a cholecystectomy. - Choledocholithiasis was found. Complete removal was accomplished by biliary sphincterotomy and balloon extraction. - A biliary sphincterotomy was performed. - The biliary tree was swept. - One stent was removed from the biliary tree. - Cells for cytology obtained in the right intrahepatic branches. - A pancreatic sphincterotomy was performed. - The ventral pancreatic duct was swept and nothing was found. Recommendations : My findings are described in the full procedure note, which is enclosed. If I can be of further assistance, please feel free to contact me at . Sincerely, Oz Uribe DO 10/03/2023 11:04:28 AM This report has been signed electronically.
[2023-10-03 11:31] LABS: Bedside Glucose 239 mg/dL (74-106)
[2023-10-05 04:07] LABS: Carbohydrate AG 19-9 70 U/mL (0-35)
[2023-10-07 06:54] LABS: Cytology, Body Fluid / CSF SEE PATHOLOGY REPORT
== END 2023-10-03 12:47 | disposition home or self-care (01) ==
LOC: EN 08:43 → AC 08:48
PROVIDERS: PCP Student in an Organized Health Care Education/Training Program; Referring Provider Student in an Organized Health Care Education/Training Program; Visit Provider Internal Medicine Gastroenterology
PROC: (CPT 43260; principal; 2023-10-03 09:10)
DX: Z46.59 Encounter for fitting and adjustment of other gastrointestinal appliance and device (principal); E10.9 Type 1 diabetes mellitus without complications; K80.50 Calculus of bile duct without cholangitis or cholecystitis without obstruction; I10 Essential (primary) hypertension; E78.00 Pure hypercholesterolemia, unspecified; Z79.84 Long term (current) use of oral hypoglycemic drugs; Z79.899 Other long term (current) drug therapy; Z90.49 Acquired absence of other specified parts of digestive tract; Z79.85 Long-term (current) use of injectable non-insulin antidiabetic drugs
CPT/HCPCS: 43262 ×2; 43264; 43275; 36415; 74330; 76000; 82962; 86301; 88108; 88304; 88305; 88313; 93005; J7120; J2405

== ENCOUNTER 2023-10-04 21:00 | Inpatient (IN) | payer OTHER, SELFPAY ==
[2023-10-04 21:01] VITALS: BP 107/53; PULSE 127; RESP 16; TEMP 36.4; O2SAT 93
[2023-10-04 21:31] VITALS: TEMP 37.1
--- NOTE | 2023-10-04 21:32 | CT_ITS ---
STUDY: CT ABDOMEN AND PELVIS WITH CONTRAST REASON FOR EXAM: Male, 63 years old. RUQ pain, recent biliary stent removal, fever RADIATION DOSAGE (If Supplied By Facility): CTDIvol = ( 17.07 ) mGy, DLP = ( 1352.08 ) mGycm TECHNIQUE: Transaxial images were obtained from the dome of the diaphragm to the symphysis pubis without oral contrast. IV 100mL Isovue-[id number] was administered. Sagittal and coronal images were reconstructed. Individualized dose optimization techniques were used for this CT. COMPARISON: 07/17/2023 FINDINGS: The visualized lung bases are unremarkable. The visualized portions of the heart are within normal limits. 3 cm lesion of decreased attenuation with peripheral globular enhancement in the anterior segment of the right lobe the liver consistent with a hemangioma. There is another 2.5 cm rounded lesion of decreased attenuation within the periphery of the lateral aspect of the anterior segment of the right lobe of the liver on image 22 and correlation with liver mass protocol CT or MRI is recommended. There are surgical clips in the gallbladder fossa consistent with a prior cholecystectomy. Pneumobilia likely related to prior sphincterotomy. Normal spleen. Normal pancreas. Normal right adrenal gland. No change in 3 cm fat-containing mass in the left adrenal gland consistent with a myelolipoma. Normal right kidney. Normal left kidney. Normal visualized stomach. Normal small intestine. Normal colon. There is non-visualization of the appendix. Normal abdominal aorta. Normal inferior vena cava. Normal retroperitoneum. Normal urinary bladder. There is a right-sided inguinal hernia containing adipose tissue. Multiple healed right rib fractures. CT/Abdomen/Pelvis W IV Cont ONLY IMPRESSION: New subtle hepatic mass and follow-up liver mass protocol CT or MRI is recommended. Electronically Signed: Randall Hernandez MD at 22:46 EDT ,
[2023-10-04 21:33] VITALS: BMI 42.4
--- NOTE | 2023-10-04 21:34 | EDS_ITS ---
HPI HPI - GI History of Present Illness Chief Complaint: Abd Pain Informant: patient and family (x3) Abdominal Pain/Flank Pain Onset: Today Context: Gradual Onset Timing: Continuous Quality: Aching Location: Epigastric and RUQ Current Severity: Severe Maximum Severity: Severe Worsened by: Nothing Relieved by: Nothing Nausea/Vomiting/Emesis GI Symptom: Positive for Nausea and Vomiting Onset: Today Quality: Positive for Nonbilious; Negative for Blood streaks, Coffee ground or Hematemesis Severity: Moderate Diarrhea/Melena/Hematochezia GI Symptom: Negative for Diarrhea, Melena or Hematochezia Narrative Narrative: 63-year-old male recently had cholecystectomy and a biliary stent for choledocholithiasis, yesterday he had the stent removed here by Dr. Uribe. Today started having right upper quadrant and epigastric pain along with vomiting, and fever up to 102, his blood sugar in the 300s. He is a diabetic. [facility] Medical History Wears glasses Arthritis High cholesterol Dietary restriction Non-smoker Cholelithiasis Diabetes Appendicitis Abdominal pain History of hypertension History of diabetes mellitus, type I Home Medications ?Medication ?Instructions ?Recorded ?Last Taken ?Type atorvastatin 40 mg tablet 40 mg PO DAILY 04/22/18 08/24/20 05:15 History furosemide 20 mg tablet 20 mg PO DAILY 04/22/18 08/24/20 05:15 History glipizide 10 mg tablet, extended 10 mg PO DAILY 04/22/18 08/24/20 05:15 History release 24 hr (Glucotrol XL) lisinopril 40 mg tablet (Zestril) 40 mg PO DAILY 04/22/18 10/03/23 History glipizide 10 mg tablet, extended 20 mg PO DINNER 01/18/20 08/24/20 05:15 History release 24 hr dulaglutide 1.5 mg/0.5 mL 4.5 mg SQ .Saturday08/24/20 08/21/20 History subcutaneous pen injector gabapentin 100 mg capsule 400 mg PO DAILY 08/24/20 10/03/23 History multivitamin 1 each PO DAILY 08/24/20 08/24/20 05:15 History gabapentin 100 mg capsule 500 mg PO QHS 05/19/23 Unknown History meloxicam 15 mg tablet 15 mg PO DAILY 05/19/23 Unknown History empagliflozin 25 mg tablet 25 mg PO DAILY 07/07/23 Unknown History (Jardiance) mupirocin 2 % topical ointment 1 applic topical TID 07/07/23 Unknown History Allergy/AdvReac Type Severity Reaction Status Date / Time sulfamethoxazole (From Allergy Hives Verified 10/04/23 21:01 Bactrim) trimethoprim (From Bactrim) Allergy Hives Verified 10/04/23 21:01 Family History Grandfather Kidney disease Diabetes Father Heart disease Mother Ulcer Surgical History S/P cholecystectomy S/P ERCP S/P appendectomy Social History Smoking Status: Never smoker alcohol intake: never substance use type: does not use ROS ROS ED Constitutional Constitutional ED: Reports chills, fever(s) and malaise Eyes Eyes: Denies change in vision or diplopia ENT ENT ED: Denies rhinorrhea or sore throat Cardiovascular Cardiovascular: Denies chest pain or palpitations Respiratory/Chest Respiratory/Chest: Denies cough or dyspnea Gastrointestinal Gastrointestinal: Reports abdominal pain, nausea and vomiting; Denies diarrhea Genitourinary Genitourinary ED: Denies dysuria or hematuria Musculoskeletal Musculoskeletal: Denies back pain or neck pain Integumentary Denies abscess or rash Neurologic Neurologic: Denies headache(s), paresthesias or weakness Psychiatric Psychiatric: Denies anxiety or suicidal thoughts EXAM Physical Exam Const Vital Signs: 10/04/23 21:01 10/04/23 21:31 10/04/23 21:48 Temperature 97.5 F L 98.8 F 98.8 F Temperature Source Temporal Oral Oral Pulse Rate 127 H 114 H Respiratory Rate 16 21 H Blood Pressure 107/53 L 93/51 L Blood Pressure Mean 71 65 Pulse Ox 93 91 Oxygen Delivery Method Room Air Nasal Cannula Oxygen Flow Rate (L/min) 2 10/04/23 21:48 10/04/23 22:48 10/04/23 22:48 Temperature 98.2 F Temperature Source Oral Pulse Rate 104 H 104 H Respiratory Rate 114 H 22 H Blood Pressure 91/53 L Blood Pressure Mean 65 Pulse Ox 94 Oxygen Delivery Method Nasal Cannula Oxygen Flow Rate (L/min) 2 10/04/23 23:00 10/05/23 00:00 10/05/23 00:56 Temperature 98.2 F 98.2 F 98.7 F Temperature Source Oral Oral Oral Pulse Rate 108 H 103 H 99 Respiratory Rate 17 19 H 17 Blood Pressure 82/49 L 103/56 L 97/63 Blood Pressure Mean 60 71 74 Pulse Ox 94 93 96 Oxygen Delivery Method Nasal Cannula Nasal Cannula Nasal Cannula Oxygen Flow Rate (L/min) 2 2 2 10/05/23 01:00 Temperature Temperature Source Pulse Rate 99 Respiratory Rate 15 Blood Pressure 108/57 L Blood Pressure Mean 74 Pulse Ox 97 Oxygen Delivery Method Room Air Oxygen Flow Rate (L/min) Positive well nourished and well developed General Appearance ED: well developed and NAD HEENT Reports moist mucous membranes normocephalic and atraumatic Eyes PERRL and EOMs intact bilaterally Neck full ROM and supple Resp normal respiratory effort and clear to auscultation bilaterally Cardio regular rate, regular rhythm and no murmurs GI non-distended GI Narrative: Tender without guarding or rebound right upper quadrant and epigastrium. Auscultation: normoactive bowel sounds Palpation: soft Back/Spine no CVA tenderness General Back: other FROM Extremity normal to inspection General Extremety ED: Yes edema; Negative for pulses abnormal or tenderness General Extremity: edema bilateral lower extremity Details: mild (With symmetric nontender changes of stasis dermatitis lower legs); Negative for pulses abnormal Neuro oriented x3, CN's II-XII intact bilaterally and no sensory deficits noted Sensorium / Orientation: awake and alert Motor Exam: strength 5/5 throughout Skin no rashes or lesions noted and no wounds Sepsis Attestation Sepsis Alert: Yes Sepsis Attestation: Agree w/Sepsis Date exam was performed: 10/05/23 Time exam was performed: 00:30 Possible Source of Sepsis: GI tract/intra-abdominal and Genitourinary Sepsis Organ Dysfunction Criteria Present: SBP < 90 mmHg or MAP < 65 mmHg and Lactic Acid > 2 mmol/L Fluid Resuscitation Fluid resuscitation indicated?: Yes Fluid Resuscitation ordered: Lesser volume fluid bolus ordered Amount of fluid ordered: 2,000 Reason for lesser fluid bolus:: Concern for fluid overload (preexisting significant BLE edema and mild acute renal insufficiency) and BP Responded to a lesser volume Sepsis Note Date exam was performed: 10/05/23 Time exam was performed: 01:00 Sepsis Attestation: Sepsis re-evaluation was performed Response to fluids: Fluid responsive hypotension MDM MDM MDM Narrative Medical decision making narrative: Concern for biliary infection, obtain labs and CT of the abdomen/pelvis with IV contrast while treating his symptoms and given him IV fluids. I reviewed his labs as well as his CT imaging and report. I agree with it. There is a new hepatic lesion that was not on the prior scan, follow-up liver mass protocol CT or MRI recommended but no other acute abnormality except for pneumobilia mild. My concern is that he could be having cholangitis. His blood pressure was good when he first arrived, and tachycardic. With IV fluids his tachycardia improved but his pressure is dropping. Therefore we are giving him more fluids, he has a white count of 16.3, his liver enzymes are normal, he is hyperglycemic due to his diabetes, and lipase is normal arguing against acute pancreatitis. With the fever that he had at home, my plan is to admit him treating empirically for cholangitis. His pain and nausea were treated. Discussed with Dr. Uribe with GI who recently performed instrumentation on him. He agreed most reasonable to cover him with antibiotics to cover cholangitis empirically and he will consult while admitting the patient to medicine. Given his hypotension, I added on lactic acid which is elevated, this is after we had already given him almost 2 L of fluid. His blood pressure did respond to the 2 L with MAP stable, clinically he is doing very well asking for something else for pain which is given in addition to antibiotics. At time of disposition, BP 108/57, HR 78. Will admit to ICU. History & Record Review Discussion w/independent historian: Patient and Family Lab Data Attestation: I reviewed the patient's lab results. Labs: Laboratory Results - last 24 hr 10/04/23 10/05/23 21:25 00:20 WBC 16.3 H RBC 4.59 L Hgb 14.5 Hct 42.7 MCV 93.0 MCH 31.6 MCHC 34.0 RDW Std Deviation 45.9 H RDW Coeff of Richard 13.6 Plt Count 207 MPV 10.2 Immature Gran % (Auto) 0.600 Neut % (Auto) 91.4 H Lymph % (Auto) 3.5 L [place] % (Auto) 4.0 Eos % (Auto) 0.1 Baso % (Auto) 0.4 Absolute Neuts (auto) 15.0 H Absolute Lymphs (auto) 0.57 L Nucleated RBC % 0 Sodium 133 L Potassium 3.4 L Chloride 99 Carbon Dioxide 25.0 Anion Gap 9 BUN 25 H Creatinine 1.45 H Estim Creat Clear Calc 77.38 Est GFR (MDRD) Af Amer 63 Est GFR (MDRD) Non-Af 52 L BUN/Creatinine Ratio 17.2 Glucose 388 H Lactic Acid 2.6 H* Calcium 8.9 Total Bilirubin 0.70 AST 24 ALT 34 Alkaline Phosphatase 106 Total Protein 6.9 Albumin 3.2 Globulin 3.7 Albumin/Globulin Ratio 0.9 Lipase 31 Urine Color Yellow Urine Clarity Clear Urine pH 6.0 Ur Specific [place] 1.010 Urine Protein Negative Urine Glucose (UA) 1000 H Urine Ketones 5 H Urine Occult Blood Negative Urine Nitrite Negative Urine Bilirubin Negative Urine Urobilinogen Normal Ur Leukocyte Esterase Negative Urine RBC 0 SEEN Urine WBC 0 SEEN Ur Squamous Epith Cells 0 SEEN Urine Bacteria 0 SEEN Urine Mucus 0 SEEN Radiography Diagnostic Testing: Clinical Impression(s) from Imaging Studies Abdomen/Pelvis CT 10/04/23 21:32 IMPRESSION: New subtle hepatic mass and follow-up liver mass protocol CT or MRI is recommended. Electronically Signed: Randall Hernandez MD at 22:46 EDT , Rhythm Strip Rhythm Strip: Sinus Tach Rate: 120 Ectopy: None Management Discussion w/another healthcare provider: Hospitalist and Mba Intern (GI Friend) Discharge Plan Dx/Rx/DC Orders Clinical Impression: Sepsis, S/P ERCP, Fever, Acute abdominal pain in right upper quadrant, Hepatic lesion Disposition Disposition: [facility]
[2023-10-04] MEDS: Ondansetron 4 MG/2 ML Vial IV (21:40)
[2023-10-04] MEDS: HYDROmorphone 1 MG/ML Syringe IV (21:41)
[2023-10-04] MEDS: 0.9% Normal Saline (1000mL) 1,000 ML 999 ML IV ×2 (21:43→23:30)
[2023-10-04 21:47] LABS: Absolute Lymphocyte Count 0.57 X10^3/uL (0.83-4.51); Basophil# 0.06 X10^3/uL; Basophil% 0.4 % (0-1); Eosinophil# 0.01 X10^3/uL; Eosinophils% 0.1 % (0-5); Hematocrit 42.7 % (40-54); Hemoglobin 14.5 g/dL (13.0-16.5); Lymphocyte # 0.57 X10^3/ul (0.83-4.51); Lymphocyte % 3.5 % (19-41); Mean Corpuscular Hgb 31.6 pg (27.0-32.0); Mean Platelet Vol. 10.2 fl (6.2-12.0); Monocyte# 0.66 X10^3/uL; NRBC Flagged by Analyzer 0 % (0-5); Neutrophil # 14.95 X10^3/uL (2.7-7.7); Neutrophil % 91.4 % (47-70); POSITIVE DIFFERENTIAL YES; Platelet Count 207 K/mm3 (150-450); RBC Distribution Width CV 13.6 % (11.6-14.6); RBC Distribution Width SD 45.9 fl (35.1-43.9); Red Blood Count 4.59 M/mm3 (4.6-6.2); White Blood Count 16.3 K/mm3 (4.4-11.0)
[2023-10-04 21:48] VITALS: BP 93/51; PULSE 114; RESP 114; RESP 21; TEMP 37.1; O2SAT 91
[2023-10-04 22:05] LABS: ALB/GLOB Ratio 0.9 RATIO (0.9-2.4); AST(SGOT) 24 U/L (15-37); Alanine Aminotransfer ALT/SGPT 34 U/L (16-61); Albumin, Serum 3.2 g/dL (3.2-5.0); Alkaline Phosphatase 106 U/L (45-117); Anion Gap 9 (5-15); BUN 25 mg/dL (7-18); BUN/Creat Ratio 17.2 RATIO (10-20); Calcium,Total 8.9 mg/dL (8.5-10.1); Chloride 99 mmol/L (98-107); Creatinine, Serum 1.45 mg/dL (0.70-1.30); EST Glomerular Filtration Rate 52 mL/min (>60); Est Glom Filt Rate - Afr Amer 63 mL/min (>60); Estimated Creatinine Clearance 77.38 ml/min; Globulin 3.7 g/dL (2.2-4.2); Glucose 388 mg/dL (74-106); Lipase 31 U/L (13-75); Potassium 3.4 mmol/L (3.5-5.1); Protein, Total 6.9 g/dL (6.4-8.2); Sodium Level 133 mmol/L (136-145)
[2023-10-04 22:48] VITALS: BP 91/53; PULSE 104; RESP 22; TEMP 36.8; O2SAT 94
[2023-10-04 23:00] VITALS: BP 82/49; PULSE 108; RESP 17; TEMP 36.8; O2SAT 94
[2023-10-05] VITALS (42 sets, daily range): BP systolic 91–140; BP diastolic 52–95; PULSE 87–124; RESP 14–27; TEMP 36.2–39.1; O2SAT 86–100; BMI 42.7; BMI 42.9
[2023-10-05 00:32] LABS: Bacteria 0 SEEN /hpf (None Seen); Mucous, Urine 0 SEEN /hpf (<or=2+); Red Blood Cells-Urine 0 SEEN /hpf (0-5); Squamous Epithelial Cells - UA 0 SEEN /hpf (0-5); White Blood Cells 0 SEEN /hpf (0-5)
[2023-10-05 00:43] LABS: Color, Urine Yellow (Yellow); Glucose, Dipstick 1000 mg/dl (Normal); Ketone-Dipstick 5 mg/dl (Negative); Leukocyte Esterase-Dipstick Negative /ul (Negative); Nitrite-Dipstick Negative (Negative); Occult Blood-Urine Negative /ul (Negative); Protein-Dipstick Negative (Negative); Urine Bilirubin Dipstick Negative (Negative); Urine Clarity Clear (Clear); Urine Urobilinogen Normal (Normal)
[2023-10-05 00:45] LABS: Lactic Acid 2.6 mmol/L (0.4-1.9)
[2023-10-05] MEDS: Ciprofloxacin 400 MG/200 ML BAG 200 MG IV (01:10)
[2023-10-05] MEDS: Morphine 4 MG/ML Syringe IV (01:18)
--- NOTE | 2023-10-05 01:30 | HP.PCM.HOS_ITS ---
[facility] - [facility] Date of Service: 10/05/23 Chief Complaint: Abdominal pain. Chills. [facility] Narrative ROBERTO BOATENG, is a 63 M who presents with abdominal, back pain and chills. On , patient had an ERCP and patient was found to have choledocholithiasis and had successful removal by sphincterotomy and balloon extraction. Stent that was previously placed was removed. Patient previously had choledocholithiasis back in June and the removal of the stone was not competent at that time. Stent was inserted, however. When patient went home he was feeling okay but later that night started having some chills, abdominal pain and back pain. His symptoms got worse on the which led him to come to the emergency room. He had a CAT scan that showed no acute process. But patient was hypotensive. Patient received 2 L of IV fluid and his blood pressure improved. The ED physician spoke to Dr. Uribe, gastroenterology, and the concern was for cholangitis. Patient received Cipro and Unasyn in the emergency room. [facility] Medical History Wears glasses Arthritis High cholesterol Dietary restriction Non-smoker Cholelithiasis Diabetes Appendicitis Abdominal pain History of hypertension History of diabetes mellitus, type I Home Medications ?Medication ?Instructions ?Recorded ?Last Taken ?Type atorvastatin 40 mg tablet 40 mg PO DAILY 04/22/18 08/24/20 05:15 History furosemide 20 mg tablet 20 mg PO DAILY 04/22/18 08/24/20 05:15 History glipizide 10 mg tablet, extended 10 mg PO DAILY 04/22/18 08/24/20 05:15 History release 24 hr (Glucotrol XL) lisinopril 40 mg tablet (Zestril) 40 mg PO DAILY 04/22/18 10/03/23 History glipizide 10 mg tablet, extended 20 mg PO DINNER 01/18/20 08/24/20 05:15 History release 24 hr dulaglutide 1.5 mg/0.5 mL 4.5 mg SQ .Saturday08/24/20 08/21/20 History subcutaneous pen injector gabapentin 100 mg capsule 400 mg PO DAILY 08/24/20 10/03/23 History multivitamin 1 each PO DAILY 08/24/20 08/24/20 05:15 History gabapentin 100 mg capsule 500 mg PO QHS 05/19/23 Unknown History meloxicam 15 mg tablet 15 mg PO DAILY 05/19/23 Unknown History empagliflozin 25 mg tablet 25 mg PO DAILY 07/07/23 Unknown History (Jardiance) Allergy/AdvReac Type Severity Reaction Status Date / Time sulfamethoxazole (From Allergy Hives Verified 10/04/23 21:01 Bactrim) trimethoprim (From Bactrim) Allergy Hives Verified 10/04/23 21:01 Family History Grandfather Kidney disease Diabetes Father Heart disease Mother Ulcer Surgical History S/P cholecystectomy S/P ERCP S/P appendectomy Social History Smoking Status: Never smoker alcohol intake: never substance use type: does not use ROS ROS Narrative All review of systems were negative except as mentioned above in the history of present illness and the other review of systems. Vital Signs Vital Signs Vital Signs: 10/04/23 21:01 10/04/23 21:31 10/04/23 21:48 Temperature 36.4 C L 37.1 C 37.1 C Temperature Source Temporal Oral Oral Pulse Rate 127 H 114 H Respiratory Rate 16 21 H Blood Pressure 107/53 L 93/51 L Blood Pressure Mean 71 65 Pulse Ox 93 91 Oxygen Delivery Method Room Air Nasal Cannula Oxygen Flow Rate (L/min) 2 10/04/23 21:48 10/04/23 22:48 10/04/23 22:48 Temperature 36.8 C Temperature Source Oral Pulse Rate 104 H 104 H Respiratory Rate 114 H 22 H Blood Pressure 91/53 L Blood Pressure Mean 65 Pulse Ox 94 Oxygen Delivery Method Nasal Cannula Oxygen Flow Rate (L/min) 2 10/04/23 23:00 10/05/23 00:00 10/05/23 00:56 Temperature 36.8 C 36.8 C 37.1 C Temperature Source Oral Oral Oral Pulse Rate 108 H 103 H 99 Respiratory Rate 17 19 H 17 Blood Pressure 82/49 L 103/56 L 97/63 Blood Pressure Mean 60 71 74 Pulse Ox 94 93 96 Oxygen Delivery Method Nasal Cannula Nasal Cannula Nasal Cannula Oxygen Flow Rate (L/min) 2 2 2 10/05/23 01:00 10/05/23 01:24 10/05/23 01:28 Temperature 36.8 C 36.8 C Temperature Source Oral Pulse Rate 99 100 99 Respiratory Rate 15 20 H 19 H Blood Pressure 108/57 L 96/64 96/64 Blood Pressure Mean 74 74 74 Pulse Ox 97 95 96 Oxygen Delivery Method Room Air Room Air Oxygen Flow Rate (L/min) Weight Weight: 145.9 kg Body Mass Index (BMI) 42.4 Physical Exam Const alert Constitutional Narrative: Lying in bed. Nontoxic. Afebrile. General Appearance: cooperative HEENT normocephalic and head/scalp atraumatic Neck no lymphadenopathy Neck Narrative: No thyromegaly Resp normal respiratory effort, no retractions, no use of accessory muscles and clear to auscultation bilaterally Cardio regular rate, regular rhythm, S1 normal heart sound and S2 normal heart sound GI GI Narrative: Protuberant abdomen. Right upper quadrant tenderness with some rebound. Normal bowel sounds Extremity Extremity Narrative: Bilateral lower extremity edema with lymphedematous changes. Skin Skin Narrative: Lymphedematous changes to the lower extremities. Neuro Sensorium / Orientation: awake and alert Psych affect normal Results Lab / Micro Data 10/04/23 21:25 10/04/23 21:25 Labs: Laboratory Results - last 24 hr 10/04/23 21:25: WBC 16.3 H, RBC 4.59 L, Hgb 14.5, Hct 42.7, MCV 93.0, MCH 31.6, MCHC 34.0, RDW Std Deviation 45.9 H, RDW Coeff of Richard 13.6, Plt Count 207, MPV 10.2, Immature Gran % (Auto) 0.600, Neut % (Auto) 91.4 H, Lymph % (Auto) 3.5 L, [place] % (Auto) 4.0, Eos % (Auto) 0.1, Baso % (Auto) 0.4, Absolute Neuts (auto) 15.0 H, Absolute Lymphs (auto) 0.57 L, Nucleated RBC % 0, Sodium 133 L, P otassium 3.4 L, Chloride 99, Carbon Dioxide 25.0, Anion Gap 9, BUN 25 H, C reatinine 1.45 H, Estim Creat Clear Calc 77.38, Est GFR (MDRD) Af Amer 63, Est GFR (MDRD) Non-Af 52 L, BUN/Creatinine Ratio 17.2, Glucose 388 H, Lactic Acid 2.6 H*, Calcium 8.9, Total Bilirubin 0.70, AST 24, ALT 34, Alkaline Phosphatase 106, Total Protein 6.9, Albumin 3.2, Globulin 3.7, Albumin/Globulin Ratio 0.9, Lipase 31 10/05/23 00:20: Urine Color Yellow, Urine Clarity Clear, Urine pH 6.0, Ur Specific [place] 1.010, Urine Protein Negative, Urine Glucose (UA) 1000 H, Urine Ketones 5 H, Urine Occult Blood Negative, Urine Nitrite Negative, Urine Bilirubin Negative, Urine Urobilinogen Normal, Ur Leukocyte Esterase Negative, Urine RBC 0 SEEN, Urine WBC 0 SEEN, Ur Squamous Epith Cells 0 SEEN, Urine Bacteria 0 SEEN, Urine Mucus 0 SEEN Rhythm Strip Rhythm Strip: Sinus Tach Rate: 120 Ectopy: None Imaging Radiology Impression Abdomen/Pelvis CT 10/04/23 21:32 IMPRESSION: New subtle hepatic mass and follow-up liver mass protocol CT or MRI is recommended. Electronically Signed: Randall Hernandez MD at 22:46 EDT , Assessment & Plan Assessment/Plan (1) Sepsis: (2) Cholangitis: (3) Hepatic lesion: PLAN: Plan Septic shock * Currently resolved * present on admission. qSOFA of 2 on admission. SIRS of 3 on admission. * Suspect secondary to cholangitis. * Blood cultures sent off and currently pending * Patient received 2 L of IV fluid. He responded well to the IV fluid. Patient has lower extremity edema so is concerned the patient may have some underlying cardiac condition that may portend adverse outcome if he were to have additional IV fluids. Patient's 30 cc/kg dose is 4.25 L of fluid. Being that responded to cellular less than half that, I do not feel additional fluids would be necessary at this time. * Plan: Patient will be placed in the intensive care unit overnight to ensure that he remains stable. If he regresses, then would administer the remainder 2.25 L of fluid and initiate pressors if indicated. I have not consulted intensive care at this time as he is currently stable and being brought into the unit just for closer monitoring. If he does regress then would recommend consulting the automobile seat cover installer. Antibiotics with Zosyn. Maintenance fluids of saline 1 or 50 cc an hour for 1 L. Follow-up culture results. With his lower extremity edema, will check 2D echocardiogram Acute cholangitis, suspected * Patient with right upper quadrant abdominal pain status post recent ERCP. Symptoms began hours after his second ERCP on the 16. * Plan: Will use pip-tazo. Patient did receive Cipro and Unasyn in the emergency room. Check right upper quadrant ultrasound. Diabetes mellitus type 2 * [id number] * Continue with his Jardiance and glipizide. Add sliding scale insulin. Other chronic medical conditions: * Hyperlipidemia: Continue with atorvastatin * Hypertension: Given the shock pressure that he presented with, will hold off on furosemide and lisinopril at this time. * Obesity class III: Complicates care and recovery. VTE prophylaxis with enoxaparin. Case discussed with his at bedside. Charges/Coding Visit Charges Inpatient E&M: 90076 Init Hosp L3
--- NOTE | 2023-10-05 01:46 | ECHOCS_ITS ---
Reason For Study: Leg Edema Procedure This was a 2D Doppler, Color Flow transthoracic echocardiogram. The study was technically difficult. Contrast injection was performed. Exam performed portable in ICU/CCU. Left Ventricle Normal LV size. The estimated ejection fraction is 60 %. No evidence for diastolic dysfunction. No regional wall motion abnormalities noted. Right Ventricle Normal RV size. Normal systolic function. Atria The left and right atria are normal. No doppler evidence for ASD. Mitral Valve There is no mitral valve stenosis. No mitral valve insufficiency. Tricuspid Valve There is no tricuspid stenosis. Trivial tricuspid valve insufficiency. Unable to estimate RV systolic pressure due to insufficient tricuspid regurgitant envelope. Aortic Valve Trisinus/trileaflet aortic valve. Aortic sclerosis, no stenosis. There is no aortic stenosis. No aortic valve insufficiency. Pulmonic Valve There is no pulmonic valvular stenosis. No pulmonic valve insufficiency. Great Vessels Normal aortic root. Pericardium/Pleural No pericardial effusion. Medication Diluted definity 4ml given slow IV push to enhance endocardial definition. MMode/2D Measurements & Calculations LVIDd: 4.7 cm IVSd: 1.1 cm Ao root diam: 3.7 cm LVIDs: 3.2 cm LVPWd: 1.2 cm LA dimension: 3.3 cm FS: 30.4 % LAV(MOD-bp): 42.9 ml LA A4 area: 17.2 cm2 TAPSE: 2.3 cm LAV(MOD-bp) Indexed: 16.2 ml/m2 LAV(MOD-sp2): 42.4 ml LAV(MOD-sp4): 43.0 ml Time Measurements MV dec time: 0.18 sec Doppler Measurements & Calculations MV E max armond: 60.8 cm/sec Lat Peak E' Armond: 11.8 cm/sec Med Peak E' Armond: 10.8 cm/sec MV A max armond: 74.1 cm/sec E/E' lat: 5.2 E/E' med: 5.6 MV E/A: 0.82 MV V2 max: 93.9 cm/sec MV P1/2t max armond: 91.8 cm/sec Ao V2 max: 157.3 cm/sec MV max P.5 mmHg MV P1/2t: 69.8 msec Ao max P.9 mmHg MV V2 mean: 64.1 cm/sec MV dec slope: 385.1 cm/sec2 MV mean P.9 mmHg MV V2 VTI: 19.0 cm MVA(P1/2t): 3.2 cm2 LV V1 max: 110.7 cm/sec PA V2 max: 81.5 cm/sec LV V1 max P.9 mmHg ECHO/Echo Complete W/ Contrast Interpretation Summary The estimated ejection fraction is 60 %. No evidence for diastolic dysfunction. Ordering Physician: Crhis Umana Performed By: Jose A Jay RCS
[2023-10-05 02:12] LABS: Lactic Acid 1.5 mmol/L (0.4-1.9)
--- NOTE | 2023-10-05 02:15 | US_ITS ---
HISTORY: right upper quadrant pain. TECHNIQUE: Sal scale and color doppler imaging was performed of the right upper quadrant. 73 images. COMPARISON: CT prior day. FINDINGS: LIVER: 23.7 cm in length with increased echogenicity. 6 mm x 2 cm x 1.9 cm fluid collection along the margin of the right lobe No intrahepatic ductal dilatation. MAIN PORTAL VEIN: Patent with hepatopedal flow. COMMON BILE DUCT: 12 mm in diameter. GALLBLADDER: Surgically absent. PANCREAS: Not well visualized due to overlying bowel gas. RIGHT KIDNEY: 12.7 cm in length with a cortical thickness of 1.5 cm. No hydronephrosis or gross renal mass demonstrated. US/Abdomen Limited IMPRESSION: Hepatic steatosis with hepatomegaly. Liver lesions as described on CT not well visualized by ultrasound. 2 cm perihepatic fluid collection at the gallbladder fossa, nonspecific. Cholecystectomy with a dilated common bile duct. Consider multiphasic MRI with MRCP. Electronically Signed: Ruby Holland MD at 13:41 EDT ,
[2023-10-05] MEDS: Ampicillin/Sulbactam 3 GM in 0.9% Normal Saline (100mL MB+) 100 ML IV (03:03)
[2023-10-05] MEDS: 0.9% Normal Saline (1000mL) 1,000 ML 150 ML IV (03:03)
[2023-10-05 04:10] LABS: Reflex Lactate? Y
[2023-10-05] MEDS: 0.9% Saline Lock 10 ML Syringe IV ×2 (04:28→19:42)
[2023-10-05] MEDS: Acetaminophen 500 MG Tablet 1000 MG PO ×3 (04:28→20:58)
[2023-10-05 04:29] LABS: Absolute Lymphocyte Count 2.24 X10^3/uL (0.83-4.51); Absolute Neutrophil Count 16.1 X10^3/uL (2.0-7.7); Basophil# 0.11 X10^3/uL; Basophil% 0.6 % (0-1); Eosinophil# 0.03 X10^3/uL; Eosinophils% 0.2 % (0-5); Hematocrit 45.6 % (40-54); Hemoglobin 14.5 g/dL (13.0-16.5); Lymphocyte # 2.24 X10^3/ul (0.83-4.51); Lymphocyte % 11.9 % (19-41); Mean Corp Hgb Conc 31.8 g/dL (32-36); Mean Corpuscular Volume 97.4 fL (80-94); Mean Platelet Vol. 10.2 fl (6.2-12.0); Monocyte# 0.24 X10^3/uL; Monocyte% 1.3 % (0-10); NRBC Flagged by Analyzer 0 % (0-5); Neutrophil # 16.07 X10^3/uL (2.7-7.7); Neutrophil % 85.4 % (47-70); Platelet Count 273 K/mm3 (150-450); RBC Distribution Width SD 49.8 fl (35.1-43.9); Red Blood Count 4.68 M/mm3 (4.6-6.2); White Blood Count 18.8 K/mm3 (4.4-11.0)
[2023-10-05] MEDS: Piperacil/Tazobactam 3.375 GM in 0.9% Normal Saline (50mL MB+) 50 ML IV ×3 (04:29→20:56)
[2023-10-05 04:47] LABS: ALB/GLOB Ratio 0.8 RATIO (0.9-2.4); AST(SGOT) 35 U/L (15-37); Alanine Aminotransfer ALT/SGPT 43 U/L (16-61); Albumin, Serum 3.3 g/dL (3.2-5.0); Alkaline Phosphatase 109 U/L (45-117); Anion Gap 12 (5-15); BUN 23 mg/dL (7-18); BUN/Creat Ratio 16.2 RATIO (10-20); Calcium,Total 8.6 mg/dL (8.5-10.1); Chloride 103 mmol/L (98-107); Creatinine, Serum 1.42 mg/dL (0.70-1.30); EST Glomerular Filtration Rate 53 mL/min (>60); Est Glom Filt Rate - Afr Amer 65 mL/min (>60); Estimated Creatinine Clearance 79.35 ml/min; Globulin 4.3 g/dL (2.2-4.2); Glucose 309 mg/dL (74-106); Potassium 4.3 mmol/L (3.5-5.1); Protein, Total 7.6 g/dL (6.4-8.2); Sodium Level 137 mmol/L (136-145)
[2023-10-05 04:49] LABS: Lactic Acid 5.8 mmol/L (0.4-1.9)
[2023-10-05] MEDS: HYDROmorphone 0.5 MG/0.5 ML SYRINGE IV (05:53)
--- NOTE | 2023-10-05 06:23 | PCM.HOSP.N ---
Hospitalist Note Patient having rigors despite Tylenol. Patient was breathing well was having some sleep apnea that was being treated with just 1 to 2 L of oxygen. Patient became restless and then his oxygen requirements have jumped up to 12 L nasal cannula. Went to evaluate the patient and he is awake and alert but sleepy. Tachypneic, tachycardic. Lactic acid is up to 5.8. Plan is to check an ABG, repeat chest x-ray. With his status does not continue to improve, will consult critical care medicine at this time. Would hold off on additional IV fluids with his respiratory status worsening and also since his blood pressure is stable at this time.
--- NOTE | 2023-10-05 06:30 | RAD_ITS ---
STUDY: X-RAY CHEST REASON FOR EXAM: Male, 63 years old. Dyspnea TECHNIQUE: Frontal view of the chest COMPARISON: None. FINDINGS: There are mild congestive changes noted. The lungs are otherwise clear. There are no pleural effusions. There is no pneumothorax. The heart is enlarged. The visualized osseous structures are within normal limits. RAD/Chest 1 View (Portable) IMPRESSION: Cardiomegaly with mild pulmonary vascular congestion. Electronically Signed: Emmanuel Gusman MD at 8:54 EDT ,
[2023-10-05 07:01] LABS: Allen Test Positive; Base Excess -4 mmol/L (-2 to +2); Bicarbonate 21.3 mmol/L (22-26); Blood Gas Specimen Type ART; Mode Not entered; O2 Delivery Device Cannula; PO2 90 mmHG (75-100); SITE R Radial; SO2 97 % (95-99); Total Carbon Dioxide 22 mmol/L; pCO2 34.8 mmHg (35-45)
[2023-10-05 08:18] LABS: BNP,B-Type NATRIURETIC PEPTIDE 114.6 pg/mL (0-100)
[2023-10-05] MEDS: Furosemide 40 MG/4 ML Vial IV (08:25)
[2023-10-05] MEDS: Enoxaparin 40 MG/0.4 ML Syringe SC ×2 (08:25→20:56)
[2023-10-05] MEDS: Insulin Lispro 100 UNIT/ML INSULN.PEN SC ×3 (08:25→16:36)
[2023-10-05] MEDS: glipiZIDE XL 5 MG Tablet 10 MG PO (08:26)
[2023-10-05] MEDS: Gabapentin 400 MG Capsule PO (08:26)
[2023-10-05] MEDS: oxyCODONE 5 MG Tablet 10 MG PO ×2 (08:26→13:35)
[2023-10-05] MEDS: Empagliflozin 25 MG Tablet PO (08:27)
[2023-10-05 11:35] LABS: Bedside Glucose 296 mg/dL (74-106)
--- NOTE | 2023-10-05 12:34 | PN_ITS ---
Subjective Subjective Patient seen and examined this morning. He is alert. He denies any fever or chills, cough, chest pain, palpitations, dizziness, nausea or vomiting or any other symptoms. Review of systems otherwise negative. Objective Data Objective Data Vital Signs: Vital Signs Temp Pulse Resp BP Pulse Ox O2 Del Method O2 Flow Rate 98.8 F 105 H 16 111/65 95 High Flow 10 10/05/23 10:00 10/05/23 10:00 10/05/23 10:00 10/05/23 10:00 10/05/23 10:00 10/05/23 10:00 10/05/23 10:00 FiO2 95 10/05/23 07:22 Oxygen Flow Rate (L/min) 10 Oxygen Delivery Method High Flow Weight: 324 lb 1.272 oz Body Mass Index (BMI) 42.9 Intake & Output: Intake and Output for Last 24 Hours 10/03/23 10/04/23 10/05/23 23:59 23:59 23:59 Intake Total 1000 / 1000 2232 / 2232 Output Total 550 / 550 Balance 1000 / 1000 1682 / 1682 Lab / Micro Data 10/05/23 04:19 10/05/23 04:19 Labs: Laboratory Results - last 24 hr 10/04/23 21:25: WBC 16.3 H, RBC 4.59 L, Hgb 14.5, Hct 42.7, MCV 93.0, MCH 31.6, MCHC 34.0, RDW Std Deviation 45.9 H, RDW Coeff of Richard 13.6, Plt Count 207, MPV 10.2, Immature Gran % (Auto) 0.600, Neut % (Auto) 91.4 H, Lymph % (Auto) 3.5 L, [place] % (Auto) 4.0, Eos % (Auto) 0.1, Baso % (Auto) 0.4, Absolute Neuts (auto) 15.0 H, Absolute Lymphs (auto) 0.57 L, Nucleated RBC % 0, Sodium 133 L, P otassium 3.4 L, Chloride 99, Carbon Dioxide 25.0, Anion Gap 9, BUN 25 H, C reatinine 1.45 H, Estim Creat Clear Calc 77.38, Est GFR (MDRD) Af Amer 63, Est GFR (MDRD) Non-Af 52 L, BUN/Creatinine Ratio 17.2, Glucose 388 H, Lactic Acid 2.6 H*, Calcium 8.9, Total Bilirubin 0.70, AST 24, ALT 34, Alkaline Phosphatase 106, Total Protein 6.9, Albumin 3.2, Globulin 3.7, Albumin/Globulin Ratio 0.9, Lipase 31 10/05/23 00:20: Urine Color Yellow, Urine Clarity Clear, Urine pH 6.0, Ur Specific [place] 1.010, Urine Protein Negative, Urine Glucose (UA) 1000 H, Urine Ketones 5 H, Urine Occult Blood Negative, Urine Nitrite Negative, Urine Bilirubin Negative, Urine Urobilinogen Normal, Ur Leukocyte Esterase Negative, Urine RBC 0 SEEN, Urine WBC 0 SEEN, Ur Squamous Epith Cells 0 SEEN, Urine Bacteria 0 SEEN, Urine Mucus 0 SEEN 10/05/23 01:42: Lactic Acid 1.5 10/05/23 04:19: WBC 18.8 H, RBC 4.68, Hgb 14.5, Hct 45.6, MCV 97.4 H, MCH 31.0, MCHC 31.8 L D, RDW Std Deviation 49.8 H, RDW Coeff of Richard 14.0, Plt Count 273, MPV 10.2, Immature Gran % (Auto) 0.600, Neut % (Auto) 85.4 H, Lymph % (Auto) 11.9 L, [place] % (Auto) 1.3, Eos % (Auto) 0.2, Baso % (Auto) 0.6, Absolute Neuts (auto) 16.1 H, Absolute Lymphs (auto) 2.24, Nucleated RBC % 0, Sodium 137, Potassium 4.3, Chloride 103, Carbon Dioxide 22.0, Anion Gap 12, BUN 23 H, C reatinine 1.42 H, Estim Creat Clear Calc 79.35, Est GFR (MDRD) Af Amer 65, Est GFR (MDRD) Non-Af 53 L, BUN/Creatinine Ratio 16.2, Glucose 309 H, Lactic Acid 5.8 H*, Calcium 8.6, Total Bilirubin 0.90, AST 35, ALT 43, Alkaline Phosphatase 109, B-Natriuretic Peptide 114.6 H, Total Protein 7.6, Albumin 3.3, Globulin 4.3 H, Albumin/Globulin Ratio 0.8 L 10/05/23 11:09: POC Glucose 296 H Micro: Microbiology 10/04/23 23:59 Blood Culture (Wb) - Right Hand Blood Culture - Preliminary 10/04/23 21:25 Blood Culture (Wb) - Anticubital Right Blood Culture - Preliminary ABG Data ABG results: ABG 10/05/23 06:57 Specimen Type ART Sample Site R Radial pH 7.40 Bicarbonate Actual 21.3 L Total CO2 22 Base Excess -4 L O2 Saturation 97 O2 % 11.0 ABG pCO2 34.8 L ABG pO2 90 Jorje Test Positive O2 Delivery Device Cannula Vent Mode Not entered Radiography Diagnostic Testing: Radiology Impression Abdomen/Pelvis CT 10/04/23 21:32 IMPRESSION: New subtle hepatic mass and follow-up liver mass protocol CT or MRI is recommended. Electronically Signed: Randall Hernandez MD at 22:46 EDT , Echocardiogram 10/05/23 01:46 Interpretation Summary The estimated ejection fraction is 60 %. No evidence for diastolic dysfunction. Ordering Physician: Chris Umana Performed By: Jose A Jay RCS Chest X-Ray 10/05/23 06:30 IMPRESSION: Cardiomegaly with mild pulmonary vascular congestion. Electronically Signed: Emmanuel Gusman MD at 8:54 EDT , Rhythm Strip Rhythm Strip: Sinus Tach Rate: 120 Ectopy: None Physical Exam Const alert and oriented x3 Constitutional Narrative: flat affect General Appearance: cooperative HEENT normocephalic, head/scalp atraumatic, moist oral mucous membranes and oropharynx normal Eyes PERRL and EOMs intact bilaterally Neck no lymphadenopathy, supple and no JVD Lymph Lymphatic: no lymphadenopathy noted and no lymphedema noted Resp Resp Narrative: mildly diminished breath sounds bibasally, no wheezes or crackles. on 10L of oxygen by nasal canula. Cardio regular rate, regular rhythm, S1 normal heart sound, S2 normal heart sound and no murmurs GI normal to inspection, nondistended, normoactive bowel sounds, soft to palpation, non-tender and non-distended Extremity normal capillary refill, no clubbing, cyanosis or edema and no calf tenderness General Extremity: no tenderness to palpation of joints or extremities Skin General Skin Exam: no breakdown Neuro CN's II-XII intact bilaterally, no focal motor deficits, no sensory deficits noted and deep tendon reflexes 2+ bilaterally Motor Exam: strength 5/5 throughout and general weakness Psych thought process normal and cooperative Mood & Affect: flat affect Assessment & Plan Assessment/Plan (1) Cholangitis: (2) Acute abdominal pain in right upper quadrant: (3) Hepatic lesion: PLAN: Plan #Sepsis due to probable acute cholangitis * was admitted with a complaint of abdominal pain, a day after he had a biliary stent removed. * thought to be due to cholangitis * BP was low and lactic acid was elevated at 5.8. Hypotension resolved with IVF administration * on iV zosyn * bloo cultures ordered. * critical care on board. * #Acute hypoxic respiratory failure * Patient now requiring 10 L of oxygen. 2D echo done showed EF of 60% with no regional wall motion abnormalities. * Patient given IV Lasix. Critical care consulted. * Breathing treatments bronchodilators. Titrate oxygen to maintain saturation above 90%. #AYALA: Creatinine was 1.45 on admission and is now 1.42. Baseline creatinine is around 0.9. Likely due to shock. Hydrate gently with fluids and monitor. #Type 2 diabetes mellitus: On Jardiance and glipizide. Insulin sliding scale. Accu-Cheks ACHS. #Hypertension: BP meds on hold due to hypotension # Hyperlipidemia: On statin #Morbid obesity: BMI is 42.8. Complicates acute care, expected recovery and prognosis. DVT prophylaxis: Lovenox Charges/Coding Visit Charges Inpatient E&M: 86586 Subs Hosp L3
--- NOTE | 2023-10-05 12:40 | PCMCONS.TICU ---
HPI Consult Data Date of Consult: 10/05/23 HPI Narrative Reason for Consultation: sepsis HPI Narrative: ROBERTO BOATENG, is a 63 M who presents with fever and nausea/ vomiting following removal of a biliary stent the day prior- he was admitted to ICU for expectant management. Currently he is afebrile and complains most bitterly of back pain which his indicates is a [id number] issue, made worse by the hospital bed. [facility] Medical History Wears glasses Arthritis High cholesterol Dietary restriction Non-smoker Cholelithiasis Diabetes Appendicitis Abdominal pain History of hypertension History of diabetes mellitus, type I Home Medications ?Medication ?Instructions ?Recorded ?Last Taken ?Type atorvastatin 40 mg tablet 40 mg PO DAILY 04/22/18 08/24/20 05:15 History furosemide 20 mg tablet 20 mg PO DAILY 04/22/18 08/24/20 05:15 History glipizide 10 mg tablet, extended 10 mg PO DAILY 04/22/18 08/24/20 05:15 History release 24 hr (Glucotrol XL) lisinopril 40 mg tablet (Zestril) 40 mg PO DAILY 04/22/18 10/03/23 History glipizide 10 mg tablet, extended 20 mg PO DINNER 01/18/20 08/24/20 05:15 History release 24 hr dulaglutide 1.5 mg/0.5 mL 4.5 mg SQ .Saturday08/24/20 08/21/20 History subcutaneous pen injector gabapentin 100 mg capsule 400 mg PO DAILY 08/24/20 10/03/23 History multivitamin 1 each PO DAILY 08/24/20 08/24/20 05:15 History gabapentin 100 mg capsule 500 mg PO QHS 05/19/23 Unknown History meloxicam 15 mg tablet 15 mg PO DAILY 05/19/23 Unknown History empagliflozin 25 mg tablet 25 mg PO DAILY 07/07/23 Unknown History (Jardiance) Allergy/AdvReac Type Severity Reaction Status Date / Time sulfamethoxazole (From Allergy Hives Verified 10/04/23 21:01 Bactrim) trimethoprim (From Bactrim) Allergy Hives Verified 10/04/23 21:01 Family History Grandfather Kidney disease Diabetes Father Heart disease Mother Ulcer Surgical History S/P cholecystectomy S/P ERCP S/P appendectomy Social History Smoking Status: Never smoker alcohol intake: never substance use type: does not use ROS Constitutional Constitutional: Reports chills and fatigue Musculoskeletal Musculoskeletal: Reports back pain Objective Data Objective Data Vital Signs: Vital Signs Last response Temperature 37.1 C 10/05/23 10:00 Temperature Source Oral 10/05/23 10:00 Pulse Rate 105 H 10/05/23 10:00 Pulse Strength Weak (1+) 10/05/23 08:41 Respiratory Rate 16 10/05/23 10:00 Respiratory Effort Non-Labored 10/05/23 08:43 Respiratory Depth Normal 10/05/23 08:43 Respiratory Pattern Normal 10/05/23 08:43 Blood Pressure 111/65 10/05/23 10:00 Blood Pressure Mean 80 10/05/23 10:00 Blood Pressure Source Monitor 10/05/23 10:00 Blood Pressure Position Semi-Fowlers 10/05/23 10:00 Blood Pressure Location Left Arm 10/05/23 10:00 Pulse Ox 95 10/05/23 10:00 Oxygen Delivery Method High Flow 10/05/23 10:00 Oxygen Flow Rate (L/min) 10 10/05/23 10:00 Fraction of Inspired Oxygen (FIO2) 95 10/05/23 07:22 I&O: I&O Last 24 Hours 10/04/23 10/05/23 10/05/23 23:59 11:59 23:59 Intake Total 1000 / 1000 2232 / 2232 Output Total 550 / 550 Balance 1000 / 1000 1682 / 1682 I&O: Total Stay 10/04/23 21:00 thru 10/05/23 09:56 Intake Total 3232 Output Total 550 Balance 2682 Current Meds Ordered / Administered: Current meds ordered / Administered Generic Name Dose Route Start Last Admin Trade Name Freq PRN Reason Stop Dose Admin Acetaminophen 1,000 mg 10/05/23 06:00 10/05/23 04:28 Acetaminophen 500 Mg Tablet PO 1,000 mg Q8 ELIZABETH Administration Dextrose 0 gm 10/05/23 02:15 Dextrose 50%-Water 25 Gm/50 Ml Disp.Syrin IV X1 PRN HYPOGLYCEMIA Protocol Empagliflozin 25 mg 10/05/23 10:00 10/05/23 08:27 Empagliflozin 25 Mg Tablet PO 25 mg DAILY ELIZABETH Administration Enoxaparin Sodium 40 mg 10/05/23 10:00 10/05/23 08:25 Enoxaparin 40 Mg/0.4 Ml Syringe SC 40 mg BID ELIZABETH Administration Gabapentin 400 mg 10/05/23 10:00 10/05/23 08:26 Gabapentin 400 Mg Capsule PO 400 mg DAILY ELIZABETH Administration Gabapentin 500 mg 10/05/23 22:00 Gabapentin 100 Mg Capsule PO QHS ELIZABETH Glipizide 10 mg 10/05/23 08:00 10/05/23 08:26 Glipizide Xl 5 Mg Tablet PO 10 mg BREAKFAST ELIZABETH Administration Glipizide 20 mg 10/05/23 17:00 Glipizide Xl 5 Mg Tablet PO DINNER ELIZABETH Glucagon 1 mg 10/05/23 02:15 Glucagon 1 Mg/Ml Syringe IM X1 PRN HYPOGLYCEMIA Hydromorphone HCl 0.5 mg 10/05/23 02:15 10/05/23 05:53 Hydromorphone 0.5 Mg/0.5 Ml Syringe IV 0.5 mg Q3H PRN PRN Administration Pain Score 6-10 Piperacillin Sod/Tazobactam 50 mls @ 12.5 mls/hr 10/05/23 06:00 10/05/23 08:51 Sod 3.375 gm/ Sodium Chloride IV Infused Q8 ELIZABETH Infusion Sodium Chloride 250 mls @ 15 mls/hr 10/05/23 02:34 IV .[id number] PRN Additional IVPB Infusion Sodium Chloride 250 mls @ 15 mls/hr 10/05/23 02:34 IV .[id number] PRN Saline Flush Insulin Human Lispro 0 unit 10/05/23 07:00 10/05/23 11:10 Insulin Lispro 100 Unit/Ml Insuln.Pen SC 4 u TIDAC ELIZABETH Administration Protocol Nutritional Formula (Lactose Free) 120 ml 10/05/23 12:00 10/05/23 11:43 Glucerna Shake 120 Ml Liquid PO Not Given [facility] Ondansetron HCl 4 mg 10/05/23 02:15 Ondansetron 4 Mg/2 Ml Vial IV Q8H PRN PRN NAUSEA/VOMITING Oxycodone HCl 10 mg 10/05/23 02:15 10/05/23 08:26 Oxycodone 5 Mg Tablet PO 10 mg Q4H PRN PRN Administration Pain Score 4-10 Prochlorperazine Edisylate 5 mg 10/05/23 02:15 Prochlorperazine 10 Mg/2 Ml Vial IV Q4H PRN PRN Breakthrough Nausea/Vomiting Sodium Chloride 10 - 40 ml 10/05/23 02:34 10/05/23 04:28 0.9% Saline Lock 10 Ml Syringe IV 10 ml UD PRN Administration SALINE FLUSH Physical Exam Const oriented x3 General Appearance: cooperative HEENT normocephalic Mouth: oral and palatal mucosa normal Eyes EOMs intact bilaterally Neck full ROM Chest inspection of chest normal GI normal to inspection, nondistended, normoactive bowel sounds Lab / Micro Data 10/05/23 04:19 10/05/23 04:19 Labs: Laboratory Results - last 24 hr 10/04/23 21:25: WBC 16.3 H, RBC 4.59 L, Hgb 14.5, Hct 42.7, MCV 93.0, MCH 31.6, MCHC 34.0, RDW Std Deviation 45.9 H, RDW Coeff of Richard 13.6, Plt Count 207, MPV 10.2, Immature Gran % (Auto) 0.600, Neut % (Auto) 91.4 H, Lymph % (Auto) 3.5 L, [place] % (Auto) 4.0, Eos % (Auto) 0.1, Baso % (Auto) 0.4, Absolute Neuts (auto) 15.0 H, Absolute Lymphs (auto) 0.57 L, Nucleated RBC % 0, Sodium 133 L, Potassium 3.4 L, Chloride 99, Carbon Dioxide 25.0, Anion Gap 9, BUN 25 H, Creatinine 1.45 H, Estim Creat Clear Calc 77.38, Est GFR (MDRD) Af Amer 63, Est GFR (MDRD) Non-Af 52 L, BUN/Creatinine Ratio 17.2, Glucose 388 H, Lactic Acid 2.6 H*, Calcium 8.9, Total Bilirubin 0.70, AST 24, ALT 34, Alkaline Phosphatase 106, Total Protein 6.9, Albumin 3.2, Globulin 3.7, Albumin/Globulin Ratio 0.9, Lipase 31 10/05/23 00:20: Urine Color Yellow, Urine Clarity Clear, Urine pH 6.0, Ur Specific [place] 1.010, Urine Protein Negative, Urine Glucose (UA) 1000 H, Urine Ketones 5 H, Urine Occult Blood Negative, Urine Nitrite Negative, Urine Bilirubin Negative, Urine Urobilinogen Normal, Ur Leukocyte Esterase Negative, Urine RBC 0 SEEN, Urine WBC 0 SEEN, Ur Squamous Epith Cells 0 SEEN, Urine Bacteria 0 SEEN, Urine Mucus 0 SEEN 10/05/23 01:42: Lactic Acid 1.5 10/05/23 04:19: WBC 18.8 H, RBC 4.68, Hgb 14.5, Hct 45.6, MCV 97.4 H, MCH 31.0, MCHC 31.8 L D, RDW Std Deviation 49.8 H, RDW Coeff of Richard 14.0, Plt Count 273, MPV 10.2, Immature Gran % (Auto) 0.600, Neut % (Auto) 85.4 H, Lymph % (Auto) 11.9 L, [place] % (Auto) 1.3, Eos % (Auto) 0.2, Baso % (Auto) 0.6, Absolute Neuts (auto) 16.1 H, Absolute Lymphs (auto) 2.24, Nucleated RBC % 0, Sodium 137, Potassium 4.3, Chloride 103, Carbon Dioxide 22.0, Anion Gap 12, BUN 23 H, Creatinine 1.42 H, Estim Creat Clear Calc 79.35, Est GFR (MDRD) Af Amer 65, Est GFR (MDRD) Non-Af 53 L, BUN/Creatinine Ratio 16.2, Glucose 309 H, Lactic Acid 5.8 H*, Calcium 8.6, Total Bilirubin 0.90, AST 35, ALT 43, Alkaline Phosphatase 109, B-Natriuretic Peptide 114.6 H, Total Protein 7.6, Albumin 3.3, Globulin 4.3 H, Albumin/Globulin Ratio 0.8 L 10/05/23 11:09: POC Glucose 296 H Micro: Microbiology 10/04/23 23:59 Blood Culture (Wb) - Right Hand Blood Culture - Preliminary 10/04/23 21:25 Blood Culture (Wb) - Anticubital Right Blood Culture - Preliminary ABG Data ABG results: ABG 10/05/23 06:57 Specimen Type ART Sample Site R Radial pH 7.40 Bicarbonate Actual 21.3 L Total CO2 22 Base Excess -4 L O2 Saturation 97 O2 % 11.0 ABG pCO2 34.8 L ABG pO2 90 Jorje Test Positive O2 Delivery Device Cannula Vent Mode Not entered Rhythm Strip Rhythm Strip: Sinus Tach Rate: 120 Ectopy: None Imaging Radiology Impression Abdomen/Pelvis CT 10/04/23 21:32 IMPRESSION: New subtle hepatic mass and follow-up liver mass protocol CT or MRI is recommended. Electronically Signed: Randall Hernandez MD at 22:46 EDT , Echocardiogram 10/05/23 01:46 Interpretation Summary The estimated ejection fraction is 60 %. No evidence for diastolic dysfunction. Ordering Physician: Chris Umana Performed By: Jose A Jay RCS Chest X-Ray 10/05/23 06:30 IMPRESSION: Cardiomegaly with mild pulmonary vascular congestion. Electronically Signed: Emmanuel Gusman MD at 8:54 EDT , Assessment and Plan . Assessment and plan: #sepsis syndrome, possibly due to recent manipulation of biliary stent Suggest: 1. sepsis bundle 2. blood cultures/ empiric Abx as ordered 3. vasopressors to keep MAP > 65 mm hg 4. serial lactic acids until clearing' 5. has already received IVV resuscitation 30 ml/kg bolus Critical Care Time: 60 minutes The entirety of this encounter was done via Telemedicine
--- NOTE | 2023-10-05 14:18 | EX.PCM.CON.G ---
HPI Consult Data Date of Consult: 10/05/23 HPI Narrative Reason for Consultation: Abdominal pain HPI Narrative: ROBERTO BOATENG, is 63 M who presents with abdominal, back pain and chills. On , patient had an ERCP and patient was found to have choledocholithiasis and had successful removal by sphincterotomy and balloon extraction. Stent that was previously placed was removed. Patient previously had choledocholithiasis back in June and the removal of the stone was not competent at that time. Stent was inserted and he had complete removal of choledocholithiasis yesterday. During the procedure he was noted to have a stricture in the right hepatic duct. Brushings were taken of the stricture and a CA 19-9 was ordered. Cytology from the brushings are pending but his CA 19-9 came back at 70. He had a CT scan abdomen pelvis that showed a possible new 2 cm lesion in the right hepatic lobe. In the ED he was started on antibiotics and started on IV fluids. [facility] Medical History Wears glasses Arthritis High cholesterol Dietary restriction Non-smoker Cholelithiasis Diabetes Appendicitis Abdominal pain History of hypertension History of diabetes mellitus, type I Home Medications ?Medication ?Instructions ?Recorded ?Last Taken ?Type atorvastatin 40 mg tablet 40 mg PO DAILY 04/22/18 08/24/20 05:15 History furosemide 20 mg tablet 20 mg PO DAILY 04/22/18 08/24/20 05:15 History glipizide 10 mg tablet, extended 10 mg PO DAILY 04/22/18 08/24/20 05:15 History release 24 hr (Glucotrol XL) lisinopril 40 mg tablet (Zestril) 40 mg PO DAILY 04/22/18 10/03/23 History glipizide 10 mg tablet, extended 20 mg PO DINNER 01/18/20 08/24/20 05:15 History release 24 hr dulaglutide 1.5 mg/0.5 mL 4.5 mg SQ .Saturday08/24/20 08/21/20 History subcutaneous pen injector gabapentin 100 mg capsule 400 mg PO DAILY 08/24/20 10/03/23 History multivitamin 1 each PO DAILY 08/24/20 08/24/20 05:15 History gabapentin 100 mg capsule 500 mg PO QHS 05/19/23 Unknown History meloxicam 15 mg tablet 15 mg PO DAILY 05/19/23 Unknown History empagliflozin 25 mg tablet 25 mg PO DAILY 07/07/23 Unknown History (Jardiance) Allergy/AdvReac Type Severity Reaction Status Date / Time sulfamethoxazole (From Allergy Hives Verified 10/04/23 21:01 Bactrim) trimethoprim (From Bactrim) Allergy Hives Verified 10/04/23 21:01 Family History Grandfather Kidney disease Diabetes Father Heart disease Mother Ulcer Surgical History S/P cholecystectomy S/P ERCP S/P appendectomy Social History Smoking Status: Never smoker alcohol intake: never substance use type: does not use ROS ROS Narrative Review of systems: General: Patient denies fever or chills. HENT: Denies headache, denies stuffy nose, denies sore throat EYES: Denies changes in vision or discharge from eyes Resp: Denies cough, denies shortness of breath Cardiac: Denies chest pain or palpitation GI: Patient admits to intermittent right upper quadrant abdominal pain with nausea and bilious emesis as per HPI : Denies changes in urination Extremity: Denies swelling Musculoskeletal: Feels somewhat generally weak and unwell Neuro: Denies any numbness/tingling Heme: Denies any bleeding or bruising Skin: Patient is obviously jaundiced but denies rashes Psychiatric: No complaints voiced related to uncontrolled depression or anxiety Endocrine: No polyuria, polydipsia or polyphagia. The rest of the 14 point ROS was negative except for positives in HPI. Physical Exam Const oriented x3 General Appearance: cooperative HEENT normocephalic Mouth: oral and palatal mucosa normal Eyes EOMs intact bilaterally Neck full ROM Chest inspection of chest normal GI normal to inspection, nondistended, normoactive bowel sounds Lab / Micro Data 10/05/23 04:19 10/05/23 04:19 Labs: Laboratory Results - last 24 hr 10/04/23 21:25: WBC 16.3 H, RBC 4.59 L, Hgb 14.5, Hct 42.7, MCV 93.0, MCH 31.6, MCHC 34.0, RDW Std Deviation 45.9 H, RDW Coeff of Richard 13.6, Plt Count 207, MPV 10.2, Immature Gran % (Auto) 0.600, Neut % (Auto) 91.4 H, Lymph % (Auto) 3.5 L, Bleckley % (Auto) 4.0, Eos % (Auto) 0.1, Baso % (Auto) 0.4, Absolute Neuts (auto) 15.0 H, Absolute Lymphs (auto) 0.57 L, Nucleated RBC % 0, Sodium 133 L, Potassium 3.4 L, Chloride 99, Carbon Dioxide 25.0, Anion Gap 9, BUN 25 H, Creatinine 1.45 H, Estim Creat Clear Calc 77.38, Est GFR (MDRD) Af Amer 63, Est GFR (MDRD) Non-Af 52 L, BUN/Creatinine Ratio 17.2, Glucose 388 H, Lactic Acid 2.6 H*, Calcium 8.9, Total Bilirubin 0.70, AST 24, ALT 34, Alkaline Phosphatase 106, Total Protein 6.9, Albumin 3.2, Globulin 3.7, Albumin/Globulin Ratio 0.9, Lipase 31 10/05/23 00:20: Urine Color Yellow, Urine Clarity Clear, Urine pH 6.0, Ur Specific Rutledge 1.010, Urine Protein Negative, Urine Glucose (UA) 1000 H, Urine Ketones 5 H, Urine Occult Blood Negative, Urine Nitrite Negative, Urine Bilirubin Negative, Urine Urobilinogen Normal, Ur Leukocyte Esterase Negative, Urine RBC 0 SEEN, Urine WBC 0 SEEN, Ur Squamous Epith Cells 0 SEEN, Urine Bacteria 0 SEEN, Urine Mucus 0 SEEN 10/05/23 01:42: Lactic Acid 1.5 10/05/23 04:19: WBC 18.8 H, RBC 4.68, Hgb 14.5, Hct 45.6, MCV 97.4 H, MCH 31.0, MCHC 31.8 L D, RDW Std Deviation 49.8 H, RDW Coeff of Richard 14.0, Plt Count 273, MPV 10.2, Immature Gran % (Auto) 0.600, Neut % (Auto) 85.4 H, Lymph % (Auto) 11.9 L, Bleckley % (Auto) 1.3, Eos % (Auto) 0.2, Baso % (Auto) 0.6, Absolute Neuts (auto) 16.1 H, Absolute Lymphs (auto) 2.24, Nucleated RBC % 0, Sodium 137, Potassium 4.3, Chloride 103, Carbon Dioxide 22.0, Anion Gap 12, BUN 23 H, Creatinine 1.42 H, Estim Creat Clear Calc 79.35, Est GFR (MDRD) Af Amer 65, Est GFR (MDRD) Non-Af 53 L, BUN/Creatinine Ratio 16.2, Glucose 309 H, Lactic Acid 5.8 H*, Calcium 8.6, Total Bilirubin 0.90, AST 35, ALT 43, Alkaline Phosphatase 109, B-Natriuretic Peptide 114.6 H, Total Protein 7.6, Albumin 3.3, Globulin 4.3 H, Albumin/Globulin Ratio 0.8 L 10/05/23 11:09: POC Glucose 296 H Micro: Microbiology 10/04/23 23:59 Blood Culture (Wb) - Right Hand Blood Culture - Preliminary 10/04/23 21:25 Blood Culture (Wb) - Anticubital Right Blood Culture - Preliminary ABG Data ABG results: ABG 10/05/23 06:57 Specimen Type ART Sample Site R Radial pH 7.40 Bicarbonate Actual 21.3 L Total CO2 22 Base Excess -4 L O2 Saturation 97 O2 % 11.0 ABG pCO2 34.8 L ABG pO2 90 Jorje Test Positive O2 Delivery Device Cannula Vent Mode Not entered Rhythm Strip Rhythm Strip: Sinus Tach Rate: 120 Ectopy: None Imaging Radiology Impression Abdomen/Pelvis CT 10/04/23 21:32 IMPRESSION: New subtle hepatic mass and follow-up liver mass protocol CT or MRI is recommended. Electronically Signed: Randall Hernandez MD at 22:46 EDT , Echocardiogram 10/05/23 01:46 Interpretation Summary The estimated ejection fraction is 60 %. No evidence for diastolic dysfunction. Ordering Physician: Chris Umana Performed By: Jose A Jay RCS Abdomen Ultrasound 10/05/23 02:15 IMPRESSION: Hepatic steatosis with hepatomegaly. Liver lesions as described on CT not well visualized by ultrasound. 2 cm perihepatic fluid collection at the gallbladder fossa, nonspecific. Cholecystectomy with a dilated common bile duct. Consider multiphasic MRI with MRCP. Electronically Signed: Ruby Holland MD at 13:41 EDT , Chest X-Ray 10/05/23 06:30 IMPRESSION: Cardiomegaly with mild pulmonary vascular congestion. Electronically Signed: Emmanuel Gusman MD at 8:54 EDT , Assessment & Plan Assessment/Plan (1) Sepsis: (2) Cholangitis: (3) Hepatic lesion: PLAN: Plan I suspect that he has either an abscess or mass that is causing his septic like picture. This is probably result of the cytology of the stricture that was taken yesterday. I suspect he does have some cholangitis so I do recommend to continue IV fluids and antibiotics. At this time he does not have much abdominal pain but he does complain of some bloating. He ate a little bit of chicken of soup today. He is drinking a lot of water. At this time he is able to maintain his blood pressure and does not need any pressor support. Recommend continue supportive care. I talk with the patient and his son and daughter at the bedside and explained to them what I thought along with no results from elevated CA 19-9. Charges/Coding Visit Charges Inpatient E&M: 35378 Init Hosp L3
[2023-10-05] MEDS: glipiZIDE XL 5 MG Tablet 20 MG PO (16:37)
[2023-10-05 17:03] LABS: Bedside Glucose 316 mg/dL (74-106)
--- NOTE | 2023-10-05 17:30 | CASEMGMT ---
RN?CM?PROCESS INSPECTOR?CM?to room to meet with patient for initial transition planning/care coordination?assessment.?RN?CM?introduced self and role at [facility].? Pt voices understanding and consents to?assessment?at this time.? Pt resting in bed in no distress at this time.? and son @ bedside and pt agreeable to them being present during assessment. provided most of the following information. Care providers, pharmacy, and demographics verified/updated at this time. PCP: Dr Rick Specialists: Dr Lovelace, Dr Dewitt. Preferred Pharmacy: [facility] Retail @ discharge. Insurance: [employer] Prescription Benefit:?Yes, [facility] Living Will/HPOA:?Has HCPOA, who is his . LNOK: Cheli Living Arrangements: Lives w/his in a one-story home w/5 steps and railing to enter. Transportation:?Pt and both drive. DME: Has a CPAP @ home. inquiring about DME co's that provide CPAP's, stating pt's is getting old and they would like to get a replacement. Provided w/verbal list of local DME co's. No home O2. If he qualifies for O2, and son state 1st preference is [employer]. HHC/SNF: No hx of either. No needs identified. Pt wishes to return home and states has no concerns with going home at time of discharge.? Follow for home oxygen needs and any further discharge planning/needs.? Pt and family voice no further concerns/needs at this time.? PLAN:??Home Bienvenido BSN?RN?CM
[2023-10-05] MEDS: Ondansetron 4 MG/2 ML Vial IV (19:42)
[2023-10-05] MEDS: Gabapentin 100 MG Capsule 500 MG PO (20:56)
[2023-10-06] VITALS (17 sets, daily range): BP systolic 105–144; BP diastolic 50–72; PULSE 90–103; RESP 13–20; TEMP 36.2–36.9; O2SAT 92–96; BMI 42.8; BMI 42.9
[2023-10-06] MEDS: HYDROmorphone 0.5 MG/0.5 ML SYRINGE IV ×2 (02:34→22:19)
[2023-10-06] MEDS: Acetaminophen 500 MG Tablet 1000 MG PO ×3 (05:10→22:29)
[2023-10-06] MEDS: Piperacil/Tazobactam 3.375 GM in 0.9% Normal Saline (50mL MB+) 50 ML IV ×3 (05:10→22:15)
[2023-10-06 05:25] LABS: Absolute Lymphocyte Count 0.97 X10^3/uL (0.83-4.51); Absolute Neutrophil Count 11.4 X10^3/uL (2.0-7.7); Basophil# 0.04 X10^3/uL; Basophil% 0.3 % (0-1); Eosinophil# 0.08 X10^3/uL; Eosinophils% 0.6 % (0-5); Hematocrit 39.2 % (40-54); Hemoglobin 13.1 g/dL (13.0-16.5); Lymphocyte # 0.97 X10^3/ul (0.83-4.51); Lymphocyte % 7.2 % (19-41); Mean Corp Hgb Conc 33.4 g/dL (32-36); Mean Corpuscular Hgb 31.8 pg (27.0-32.0); Mean Corpuscular Volume 95.1 fL (80-94); Monocyte# 0.97 X10^3/uL; Monocyte% 7.2 % (0-10); NRBC Flagged by Analyzer 0 % (0-5); Neutrophil # 11.38 X10^3/uL (2.7-7.7); Platelet Count 159 K/mm3 (150-450); RBC Distribution Width SD 48.5 fl (35.1-43.9); Red Blood Count 4.12 M/mm3 (4.6-6.2); White Blood Count 13.5 K/mm3 (4.4-11.0)
[2023-10-06 05:41] LABS: Anion Gap 6 (5-15); BUN 26 mg/dL (7-18); BUN/Creat Ratio 26.8 RATIO (10-20); Calcium,Total 8.2 mg/dL (8.5-10.1); Chloride 107 mmol/L (98-107); Creatinine, Serum 0.97 mg/dL (0.70-1.30); EST Glomerular Filtration Rate 83 mL/min (>60); Est Glom Filt Rate - Afr Amer 100 mL/min (>60); Estimated Creatinine Clearance 116.33 ml/min; Glucose 185 mg/dL (74-106); Potassium 4.2 mmol/L (3.5-5.1); Sodium Level 137 mmol/L (136-145)
[2023-10-06 07:32] LABS: Bedside Glucose 190 mg/dL (74-106)
[2023-10-06] MEDS: Insulin Lispro 100 UNIT/ML INSULN.PEN SC ×3 (08:07→16:09)
[2023-10-06] MEDS: glipiZIDE XL 5 MG Tablet 10 MG PO (08:08)
[2023-10-06] MEDS: Glucerna Shake 120 ML LIQUID PO (08:16)
--- NOTE | 2023-10-06 08:58 | PN_ITS ---
Subjective Subjective Patient seen and examined. He complained of generalised joint and back pain due to arthritis. He had no other active complaints. He feels much better. Review of systems is otherwise negative. Objective Data Objective Data Vital Signs: Vital Signs Temp Pulse Resp BP Pulse Ox O2 Del Method O2 Flow Rate 97.5 F L 101 H 17 114/62 93 Room Air 2 10/06/23 08:00 10/06/23 08:00 10/06/23 08:00 10/06/23 08:00 10/06/23 08:00 10/06/23 08:00 10/06/23 07:35 FiO2 95 10/05/23 07:22 Oxygen Flow Rate (L/min) 2 Oxygen Delivery Method Room Air Weight: 324 lb 15.382 oz Body Mass Index (BMI) 42.8 Intake & Output: Intake and Output for Last 24 Hours 10/04/23 10/05/23 10/06/23 23:59 23:59 23:59 Intake Total 1000 / 1000 2382 / 2382 700 / 700 Output Total 2150 / 2150 900 / 900 Balance 1000 / 1000 232 / 232 -200 / -200 Lab / Micro Data 10/06/23 05:10 10/06/23 05:10 Labs: Laboratory Results - last 24 hr 10/05/23 11:09: POC Glucose 296 H 10/05/23 16:35: POC Glucose 316 H 10/06/23 05:10: WBC 13.5 H, RBC 4.12 L, Hgb 13.1, Hct 39.2 L, MCV 95.1 H, MCH 31.8, MCHC 33.4 D, RDW Std Deviation 48.5 H, RDW Coeff of Richard 14.0, Plt Count 159, MPV 10.0, Immature Gran % (Auto) 0.700, Neut % (Auto) 84.0 H, Lymph % (Auto) 7.2 L, Gilchrist % (Auto) 7.2, Eos % (Auto) 0.6, Baso % (Auto) 0.3, Absolute Neuts (auto) 11.4 H, Absolute Lymphs (auto) 0.97, Nucleated RBC % 0, Sodium 137, Potassium 4.2, Chloride 107, Carbon Dioxide 24.0, Anion Gap 6, BUN 26 H, Creatinine 0.97, Estim Creat Clear Calc 116.33, Est GFR (MDRD) Af Amer 100, Est GFR (MDRD) Non-Af 83, BUN/Creatinine Ratio 26.8 H, Glucose 185 H, Calcium 8.2 L 10/06/23 07:09: POC Glucose 190 H Micro: Microbiology 10/04/23 23:59 Blood Culture (Wb) - Right Hand Blood Culture - 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 No evidence for diastolic dysfunction. Ordering Physician: Chris Umana Performed By: Jose A Jay RCS Abdomen Ultrasound 10/05/23 02:15 IMPRESSION: Hepatic steatosis with hepatomegaly. Liver lesions as described on CT not well visualized by ultrasound. 2 cm perihepatic fluid collection at the gallbladder fossa, nonspecific. Cholecystectomy with a dilated common bile duct. Consider multiphasic MRI with MRCP. Electronically Signed: Ruby Holland MD at 13:41 EDT , Rhythm Strip Rhythm Strip: Sinus Tach Rate: 120 Ectopy: None Physical Exam Const alert, oriented x3 and no apparent distress Constitutional Narrative: up and sitting in a chair today. General Appearance: cooperative HEENT normocephalic, head/scalp atraumatic, moist oral mucous membranes and oropharynx normal Eyes PERRL and EOMs intact bilaterally Neck no lymphadenopathy, supple and no JVD Neck Narrative: No thyromegaly Lymph Lymphatic: no lymphadenopathy noted and no lymphedema noted Resp normal respiratory effort, no retractions, no use of accessory muscles and clear to auscultation bilaterally Resp Narrative: mildly diminished breath sounds bibasally, no wheezes or crackles. on on room air. Cardio regular rate, regular rhythm, S1 normal heart sound, S2 normal heart sound and no murmurs GI normal to inspection, nondistended, normoactive bowel sounds, soft to palpation, non-tender and non-distended Extremity normal capillary refill, no clubbing, cyanosis or edema and no calf tenderness Extremity Narrative: Bilateral lower extremity edema with lymphedematous changes. General Extremity: no tenderness to palpation of joints or extremities Skin Skin Narrative: Lymphedematous changes to the lower extremities. General Skin Exam: no breakdown Neuro CN's II-XII intact bilaterally, no focal motor deficits, no sensory deficits noted and deep tendon reflexes 2+ bilaterally Sensorium / Orientation: awake and alert Motor Exam: strength 5/5 throughout and general weakness Psych thought process normal, cooperative and affect normal Assessment & Plan Assessment/Plan (1) Cholangitis: (2) Acute abdominal pain in right upper quadrant: (3) Hepatic lesion: PLAN: Plan #Sepsis due to probable acute cholangitis * was admitted with a complaint of abdominal pain, a day after he had a biliary stent removed voa ERC{ * thought to be due to cholangitis * wbc is down to 13.5. \ * hypotension has resolved. 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 * #?liver mass * abdominal CT showed a new subtle hepatic mass and follow up liver mass protocol CT or MRI is recommended. * abdominal USG showed hepatic steatosis with hepatomegaly, with the liver lesion as described on CT not well visualised by ultrasaound. * per GI, he likely has an abscess or mass causing his septic like picutre. CA 19-9 elevated at 70. * biopsy taken during ERCP; results pending. Defer to GI about ordering the liver MRI as recommended by radiology * #Acute hypoxic respiratory failure * resolved. Now on room air. * 2D echo done showed EF of 60% with no regional wall motion abnormalities. * Patient given IV Lasix. Critical care consulted. * Breathing treatments bronchodilators. Titrate oxygen to maintain saturation above 90%. #AYALA: resolved. Cr is down to 0.97 #Type 2 diabetes mellitus: On Jardiance and glipizide. Insulin sliding scale. Accu-Cheks ACHS. #Hypertension: BP meds on hold due to hypotension. Hypotension has resolved this morning # Hyperlipidemia: On statin #Morbid obesity: BMI is 42.8. Complicates acute care, expected recovery and prognosis. DVT prophylaxis: Lovenox Disposition: transfer out of ICU to PCU Charges/Coding Visit Charges Inpatient E&M: 66169 Subs Hosp L2
[2023-10-06] MEDS: Enoxaparin 40 MG/0.4 ML Syringe SC ×2 (09:39→22:20)
[2023-10-06] MEDS: Gabapentin 400 MG Capsule PO (09:39)
[2023-10-06] MEDS: Empagliflozin 25 MG Tablet PO (09:39)
[2023-10-06] MEDS: Ensure Clear 120 ML Liquid PO ×2 (11:33→16:10)
[2023-10-06 11:48] LABS: Bedside Glucose 231 mg/dL (74-106)
[2023-10-06] MEDS: 0.9% Normal Saline (250mL Bag) 250 ML 15 ML IV (13:45)
[2023-10-06] MEDS: 0.9% Saline Lock 10 ML Syringe IV ×2 (13:45→13:50)
[2023-10-06] MEDS: oxyCODONE 5 MG Tablet 10 MG PO (13:50)
[2023-10-06] MEDS: Ondansetron 4 MG/2 ML Vial IV ×2 (13:50→22:19)
[2023-10-06] MEDS: glipiZIDE XL 5 MG Tablet 20 MG PO (16:10)
[2023-10-06 16:31] LABS: Bedside Glucose 169 mg/dL (74-106)
[2023-10-06] MEDS: Gabapentin 100 MG Capsule 500 MG PO (22:19)
[2023-10-06 22:49] LABS: Bedside Glucose 158 mg/dL (74-106)
[2023-10-07 05:00] VITALS: BP 134/69; PULSE 90; RESP 18; TEMP 36.6; O2SAT 94
[2023-10-07] MEDS: Acetaminophen 500 MG Tablet 1000 MG PO (05:10)
[2023-10-07] MEDS: Piperacil/Tazobactam 3.375 GM in 0.9% Normal Saline (50mL MB+) 50 ML IV (05:10)
[2023-10-07 06:17] LABS: Absolute Lymphocyte Count 1.38 X10^3/uL (0.83-4.51); Absolute Neutrophil Count 9.2 X10^3/uL (2.0-7.7); Basophil# 0.08 X10^3/uL; Basophil% 0.7 % (0-1); Eosinophil# 0.13 X10^3/uL; Eosinophils% 1.1 % (0-5); Hematocrit 41.4 % (40-54); Hemoglobin 13.3 g/dL (13.0-16.5); Lymphocyte # 1.38 X10^3/ul (0.83-4.51); Lymphocyte % 11.6 % (19-41); Mean Corp Hgb Conc 32.1 g/dL (32-36); Mean Corpuscular Hgb 30.7 pg (27.0-32.0); Mean Corpuscular Volume 95.6 fL (80-94); Mean Platelet Vol. 10.1 fl (6.2-12.0); Monocyte# 0.97 X10^3/uL; Monocyte% 8.2 % (0-10); NRBC Flagged by Analyzer 0 % (0-5); Neutrophil % 77.4 % (47-70); Platelet Count 191 K/mm3 (150-450); RBC Distribution Width CV 13.7 % (11.6-14.6); RBC Distribution Width SD 48.3 fl (35.1-43.9); Red Blood Count 4.33 M/mm3 (4.6-6.2); White Blood Count 11.9 K/mm3 (4.4-11.0)
[2023-10-07 06:55] LABS: Anion Gap 9 (5-15); BUN 23 mg/dL (7-18); BUN/Creat Ratio 26.4 RATIO (10-20); Calcium,Total 8.7 mg/dL (8.5-10.1); Chloride 102 mmol/L (98-107); Creatinine, Serum 0.87 mg/dL (0.70-1.30); EST Glomerular Filtration Rate 94 mL/min (>60); Est Glom Filt Rate - Afr Amer 114 mL/min (>60); Estimated Creatinine Clearance 129.75 ml/min; Glucose 146 mg/dL (74-106); Potassium 3.7 mmol/L (3.5-5.1); Sodium Level 136 mmol/L (136-145)
[2023-10-07 06:59] LABS: Bedside Glucose 150 mg/dL (74-106)
[2023-10-07 07:35] VITALS: O2SAT 95
[2023-10-07 08:07] VITALS: BP 128/69; PULSE 89; RESP 16; TEMP 36.3; O2SAT 94
[2023-10-07] MEDS: Empagliflozin 25 MG Tablet PO (08:29)
[2023-10-07] MEDS: Ensure Clear 120 ML Liquid PO ×2 (08:29→11:23)
[2023-10-07] MEDS: Enoxaparin 40 MG/0.4 ML Syringe SC (08:29)
[2023-10-07] MEDS: Gabapentin 400 MG Capsule PO (08:29)
[2023-10-07] MEDS: glipiZIDE XL 5 MG Tablet 10 MG PO (08:29)
[2023-10-07] MEDS: Multivitamins,Therapeutic Tablet 1 TABLET PO (08:29)
--- NOTE | 2023-10-07 10:32 | PCM.DC ---
Discharge Instructions Diet Discharge Diet: Low fat / Low cholesterol and Carb Control Diet Activity Discharge Activity: Return to Normal Activity Dressing / Incision Call your doctor if you observe: Fever of 101 or Higher, Shortness of breath, Dizziness, Fainting spells, Swelling in the ankles, Chest pain and Increased palpitations (irregular heartbeat) Follow Up Care Test Results: Test results from this visit will be discussed in further detail at your follow-up appointment, if applicable. Discharge Plan Admission Admit Date/Time: 10/05/23 01:20 Attending Provider: Bryan Garcia Primary Care Provider: Eze Rick Consulting Providers: Chris Umana; Nima Antony; Vu Hanson; Onur Leon; Manuel Cee; Derik Harrell; Yoselyn Reagan; Kenneth Ramirez; Tiesha Paul; Lexy Varghese; Jaycob Carvajal; Matti Lawson; Fausto Patel; Trevin Disla; Gene Asher; Nakita Coker Discharge Orders/Prescriptions Prescriptions: New cephalexin 500 mg capsule 500 mg PO Q6H 12 Days Qty: 48 0RF Continued atorvastatin 40 MG tablet 40 mg PO DAILY glipizide [Glucotrol XL] 10 MG tablet extended release 24hr 10 mg PO DAILY furosemide 20 MG tablet 20 mg PO DAILY Patient Comments: takes a double dose on Saturday and Sundays lisinopril [Zestril] 40 MG tablet 40 mg PO DAILY glipizide 10 MG tablet extended release 24hr 20 mg PO DINNER multivitamin 1 EACH tablet 1 each PO DAILY gabapentin 100 MG capsule 400 mg PO DAILY dulaglutide 1.5 MG/0.5 ML pen injector 4.5 mg SQ .SATURDAY gabapentin 100 mg capsule 500 mg PO QHS meloxicam 15 mg tablet 15 mg PO DAILY Jardiance 25 mg tablet 25 mg PO DAILY Patient Comments: TAKE 1 TABLET BY MOUTH EVERY DAY WITH BREAKFAST Referrals / Follow Up: Eze Rick DO [Primary Care Provider] - Within 1 Week Disposition Disposition (needs filled in before D/C Order can be placed): Home, Self Care
[2023-10-07] MEDS: Insulin Lispro 100 UNIT/ML INSULN.PEN SC (11:15)
--- NOTE | 2023-10-07 11:36 | PHA.DC.MC.R ---
Pharmacy [facility] has performed discharge medication reconciliation and counseling for this patient. Nurse asked this [facility] to call retail and make sure med is delivered before 1330 when patient wants to leave. Spoke to [facility] in retail, they will deliver. 1. CEPHALEXIN 500MG PO Q6H X 12 DAYS The patient's discharge medication list was reviewed for discrepancies and discrepancies were resolved. The patient was counseled on the following discharge medications and changes in medications for homegoing were reviewed. The Reason for Use, instructions for use, and potential side effects were reviewed for all new medications. The patient's questions regarding all of their medications were answered. The patient was able to verbally demonstrate an understanding of their discharge medications. Medications at Discharge Home Medications atorvastatin 40 mg tablet 40 mg PO DAILY 04/22/18 furosemide 20 mg tablet 20 mg PO DAILY 04/22/18 glipizide 10 mg tablet, extended release 24 hr (Glucotrol XL) 10 mg PO DAILY 04/22/18 lisinopril 40 mg tablet (Zestril) 40 mg PO DAILY 04/22/18 glipizide 10 mg tablet, extended release 24 hr 20 mg PO DINNER 01/18/20 dulaglutide 1.5 mg/0.5 mL subcutaneous pen injector 4.5 mg SQ .Saturday08/24/20 gabapentin 100 mg capsule 400 mg PO DAILY 08/24/20 multivitamin 1 each PO DAILY 08/24/20 gabapentin 100 mg capsule 500 mg PO QHS 05/19/23 meloxicam 15 mg tablet 15 mg PO DAILY 05/19/23 empagliflozin 25 mg tablet (Jardiance) 25 mg PO DAILY 07/07/23 cephalexin 500 mg capsule 500 mg PO Q6H 12 days #48 caps 10/07/23
[2023-10-07 12:28] LABS: Bedside Glucose 226 mg/dL (74-106)
--- NOTE | 2023-10-07 13:22 | PCM.DC.SUM ---
Providers Date of Admission: 10/05/23 Primary Care Physician: Dr. Eze Rick, DO Consultations 10/05/23 02:15 Consult: Gastroenterology Routine Consulting Provider: [facility] Reason for Consult: cholangitiis EMERGENT Consult: No MD Notified: Yes Date Notified: 10/05/23 Time Notified: 01:31 Method of Notification: ED Physician Initiated 10/05/23 06:23 Consult: Flanging Operator / Pulmonary Medicine Routine Consulting Provider: Intensivists/Pulmonary Med Reason for Consult: sepsis EMERGENT Consult: No MD Notified: Yes Date Notified: 10/05/23 Time Notified: 06:23 Method of Notification: Answering Service Reason For Visit: SEPSIS Diagnosis Discharge Diagnosis (1) Cholangitis: Status: Acute Code(s): K83.09 - Other cholangitis (2) Acute abdominal pain in right upper quadrant: Status: Acute Code(s): R10.11 - Right upper quadrant pain (3) Hepatic lesion: Status: Acute Code(s): K76.9 - Liver disease, unspecified Medications at Discharge Home Medications atorvastatin 40 mg tablet 40 mg PO DAILY 04/22/18 furosemide 20 mg tablet 20 mg PO DAILY 04/22/18 glipizide 10 mg tablet, extended release 24 hr (Glucotrol XL) 10 mg PO DAILY 04/22/18 lisinopril 40 mg tablet (Zestril) 40 mg PO DAILY 04/22/18 glipizide 10 mg tablet, extended release 24 hr 20 mg PO DINNER 01/18/20 dulaglutide 1.5 mg/0.5 mL subcutaneous pen injector 4.5 mg SQ .Saturday08/24/20 gabapentin 100 mg capsule 400 mg PO DAILY 08/24/20 multivitamin 1 each PO DAILY 08/24/20 gabapentin 100 mg capsule 500 mg PO QHS 05/19/23 meloxicam 15 mg tablet 15 mg PO DAILY 05/19/23 empagliflozin 25 mg tablet (Jardiance) 25 mg PO DAILY 07/07/23 cephalexin 500 mg capsule 500 mg PO Q6H 12 days #48 caps 10/07/23 Hospital Course Operations None Procedures 2-D Echocardiogram Summary of Care Provided Minutes Spent on Discharge: 36 Hospital Course: Per HPI: ROBERTO BOATENG, is a 63 M who presents with abdominal, back pain and chills. On , patient had an ERCP and patient was found to have choledocholithiasis and had successful removal by sphincterotomy and balloon extraction. Stent that was previously placed was removed. Patient previously had choledocholithiasis back in June and the removal of the stone was not competent at that time. Stent was inserted, however. When patient went home he was feeling okay but later that night started having some chills, abdominal pain and back pain. His symptoms got worse on the which led him to come to the emergency room. He had a CAT scan that showed no acute process. But patient was hypotensive. Patient received 2 L of IV fluid and his blood pressure improved. The ED physician spoke to Dr. Uribe, gastroenterology, and the concern was for cholangitis. Patient received Cipro and Unasyn in the emergency room. Hospital Course: 1. Sepsis secondary to Klebsiella bacteremia, with possible complication with cholangitis?63-year-old male was recently seen as an outpatient to have a biliary stent removed and then immediately after developed some abdominal pain and sepsis. Blood cultures came back with a fairly sensitive Klebsiella and he was initially started on Zosyn and then transition to p.o. Keflex on discharge. He was feeling much better today and as he had a speciation and sensitivities, he was discharged on Keflex 500 mg p.o. 4 times daily for 12 more days to complete 14 days of antibiotics. He will need to follow-up with his PCP as an outpatient as well as gastroenterology given the recent procedures for cytology of his biliary stricture as well as possible liver mass. His CA 19-9 was 70. He did also have an episode of acute hypoxic respiratory failure that was likely associated with his sepsis, this has completely resolved and he is no longer on oxygen. He did have an echo for further evaluation which demonstrated an EF of 60% with no diastolic dysfunction. His AYALA has also resolved. I discussed with him the plan for possible discharge today he expressed understanding of the risk benefits of going home and would like to go home today. 2. Type 2 diabetes, essential hypertension, hyperlipidemia, morbid obesity all chronic medical conditions which complicate his care. His home medications were continued where appropriate Physical Exam Narrative General: Alert, Oriented x3, Cooperative, No apparent distress HEENT: Atraumatic, PERRLA, EOMI, Normocephalic Oral: Moist Mucosa Neck: Supple, No JVD Lungs: Diminished, Normal air movement, No rhonchi, No wheeze, No rales Cardiovascular: Regular rate, Regular Rhythm, Normal S1, Normal S2, No murmurs Abdomen: Soft, Non Tender, Non-Distended, No Hepato-splenomegaly Extremities: Chronic bilateral lower extremity edema, Capillary Refill Less than 3 Seconds Skin: No rashes, No breakdown Musculoskeletal: No Tenderness to Palpation of Joints or Extremities Neurological: No focal neurological deficits, Motor Exam 5/5 strength throughout, Sensory exam intact to light touch and pain Psych/Mental Status: Normal Affect, Appropriate Weight / BMI Weight Weight: 325 lb 2.909 oz Body Mass Index (BMI) 42.9 ABG / Lab / Microbiology Data 10/07/23 05:50 10/07/23 05:50 Laboratory: Laboratory Results - last 24 hr 10/06/23 16:07: POC Glucose 169 H 10/06/23 22:24: POC Glucose 158 H 10/07/23 05:50: WBC 11.9 H, RBC 4.33 L, Hgb 13.3, Hct 41.4, MCV 95.6 H, MCH 30.7, MCHC 32.1, RDW Std Deviation 48.3 H, RDW Coeff of Richard 13.7, Plt Count 191, MPV 10.1, Immature Gran % (Auto) 1.000 H, Neut % (Auto) 77.4 H, Lymph % (Auto) 11.6 L, Glasscock % (Auto) 8.2, Eos % (Auto) 1.1, Baso % (Auto) 0.7, Absolute Neuts (auto) 9.2 H, Absolute Lymphs (auto) 1.38, Nucleated RBC % 0, Sodium 136, Potassium 3.7, Chloride 102, Carbon Dioxide 25.0, Anion Gap 9, BUN 23 H, Creatinine 0.87, Estim Creat Clear Calc 129.75, Est GFR (MDRD) Af Amer 114, Est GFR (MDRD) Non-Af 94, BUN/Creatinine Ratio 26.4 H, Glucose 146 H, Calcium 8.7 10/07/23 06:41: POC Glucose 150 H 10/07/23 11:15: POC Glucose 226 H Microbiology: Microbiology 10/05/23 00:20 Urine, Clean Catch Urine Culture - Final Culture exhibits no growth. 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 10/04/23 21:25 Blood Culture (Wb) - Anticubital Right Blood Culture - Final Klebsiella pneumoniae sp pneum D/C Instructions Discharge Diet: Low fat / Low cholesterol and Carb Control Diet Call your doctor if you observe: Fever of 101 or Higher, Shortness of breath, Dizziness, Fainting spells, Swelling in the ankles, Chest pain and Increased palpitations (irregular heartbeat) Meaningful Use Info Meaningful Use Meaningful Use Diagnoses (Choose all that apply): None applicable Ischemic Stroke Statin Dosing Therapy Reference: STATIN DOSE THERAPY REFERENCE: * Patients > 75 years receive moderate or high dose statin therapy. * Patients 75 years or YOUNGER should receive HIGH intensity statin dose unless contraindicated. You will be required to document reason for non-treatment if statin daily dose does not meet guidelines. HIGH DOSE STATIN THERAPY DAILY Atorvastatin > than or = to 40 mg Rosuvastatin > than or = to 20 mg Amlodipine + Atorvastatin > than or = to 2.5/40 mg Ezetimibe + Simvastatin 10/80 mg Simvastatin 80mg Discharge Plan Admission Admit Date/Time: 10/05/23 01:20 Attending Provider: Bryan Garcia Primary Care Provider: Eze Rick Consulting Providers: Chris Umana; Nima Antony; Vu Hanson; Onur Leon; Manuel Cee; Derik Harrell; Yoselyn Reagan; Kenneth Ramirez; Tiesha Paul; Lexy Varghese; Jaycob Carvajal; Matti Lawson; Fausto Patel; Trevin Disla; Gene Asher; Nakita Coker Discharge Orders/Prescriptions Prescriptions: New cephalexin 500 mg capsule 500 mg PO Q6H 12 Days Qty: 48 0RF Continued atorvastatin 40 MG tablet 40 mg PO DAILY glipizide [Glucotrol XL] 10 MG tablet extended release 24hr 10 mg PO DAILY furosemide 20 MG tablet 20 mg PO DAILY Patient Comments: takes a double dose on Saturday and Sundays lisinopril [Zestril] 40 MG tablet 40 mg PO DAILY glipizide 10 MG tablet extended release 24hr 20 mg PO DINNER multivitamin 1 EACH tablet 1 each PO DAILY gabapentin 100 MG capsule 400 mg PO DAILY dulaglutide 1.5 MG/0.5 ML pen injector 4.5 mg SQ .SATURDAY gabapentin 100 mg capsule 500 mg PO QHS meloxicam 15 mg tablet 15 mg PO DAILY Jardiance 25 mg tablet 25 mg PO DAILY Patient Comments: TAKE 1 TABLET BY MOUTH EVERY DAY WITH BREAKFAST Referrals / Follow Up: Eze Rick DO [Primary Care Provider] - Within 1 Week Disposition Disposition (needs filled in before D/C Order can be placed): Home, Self Care Charges/Coding Visit Charges Inpatient E&M: 25554 Disch Hosp >30min
[2023-10-07 14:00] VITALS: BP 132/67; PULSE 95; RESP 16; TEMP 36.7; O2SAT 98
== END 2023-10-07 15:00 | disposition home or self-care (01) | DRG 871 ==
LOC: ED 10-05 01:07 → ICU 10-05 01:54 → MS3 10-06 10:13
PROVIDERS: Student in an Organized Health Care Education/Training Program; Emergency Provider Emergency Medicine; PCP Student in an Organized Health Care Education/Training Program; Visit Provider Family Medicine
DX: A41.59 Other Gram-negative sepsis (principal); J96.01 Acute respiratory failure with hypoxia; K83.09 Other cholangitis; Z68.41 Body mass index [BMI] 40.0-44.9, adult; N17.9 Acute kidney failure, unspecified; E11.9 Type 2 diabetes mellitus without complications; E66.01 Morbid (severe) obesity due to excess calories; I10 Essential (primary) hypertension; K76.9 Liver disease, unspecified; E78.5 Hyperlipidemia, unspecified; Z79.899 Other long term (current) drug therapy; Z79.84 Long term (current) use of oral hypoglycemic drugs
CPT/HCPCS: 36415; 36600; 71045; 74177; 76705; 80048; 80053; 81001; 82803; 82962; 83605; 83690; 83880; 85025; 87040; 87077; 87086; 87186; 93306; 94762; 97802; 99284; J7030; J7050; Q9957; Q9967; A4216; C8929; J0295; J0744; J1940; J2405